=== PATIENT | female | born 1955 | race Caucasian/White ===

== ENCOUNTER 2017-10-04 09:00 | Emergency (ER) | payer OTHER ==
[2017-10-04 09:03] VITALS: TEMP 96.1
[2017-10-04] MEDS ORDERED: HYDROcodone/APAP 5-325MG 1 EACH TAB PO STA (09:35)
[2017-10-04] MEDS ORDERED: HYDROcodone/APAP 5-325MG 1 EACH TAB ONE (09:53)
--- NOTE | 2017-10-04 09:55 | ED ---
General Adult HPI - General Chief complaint: Fall Stated complaint: Fall Time Seen by Provider: 10/04/17 09:10 Source: patient, RN notes reviewed Mode of arrival: ambulatory Limitations: no limitations - History of Present Illness Initial comments: Patient 62-year-old female presenting to the emergency room today with a chief complaint of a fall that occurred yesterday. She states she was accidentally tripped by her grandson. She states that on the right side. She may have broken the great toe of the right foot. Does have pain to the right elbow was sutured movements. States worse the pain is to the right anterior lower ribs. She states worse with movements. States worse if she coughs or sneezes. Patient denies any head injury or loss conscious. She denies any other complaints. States took 2 Tylenol last night with little relief of symptoms. Patient denies any recent fever, chills, shortness of breath, chest pain, back pain, abdominal pain, nausea or vomiting, numbness or tingling, headaches or visual changes, or any other complaints. - Related Data Previous Rx's Medication Instructions Recorded Cyclobenzaprine [Flexeril] 10 mg PO TID #14 tab 04/06/16 Enalapril [Vasotec] 5 mg PO DAILY #30 tablet 04/06/16 Ibuprofen [Motrin] 800 mg PO Q6HR PRN #20 tab 04/06/16 Hydrocodone/Acetaminophen [[place] 1 each PO Q6HR PRN #12 tab 10/04/17 5-325] Ibuprofen [Motrin] 600 mg PO Q6HR PRN #40 day 10/04/17 Allergies Allergy/AdvReac Type Severity Reaction Status Date / Time aspirin Allergy Swelling Verified 10/04/17 09:03 venom-honey bee Allergy Swelling Verified 10/04/17 09:03 [bee venom (honey bee)] Review of Systems ROS Statement: Those systems with pertinent positive or pertinent negative responses have been documented in the HPI. ROS Other: All systems not noted in ROS Statement are negative. Past Medical History Past Medical History: Hypertension, Myocardial Infarction ([place]) History of Any Multi-Drug Resistant Organisms: None Reported Past Surgical History: Section, Orthopedic Surgery Past Psychological History: Depression Smoking Status: Current every day smoker Past Alcohol Use History: Occasional Past Drug Use History: None Reported General Exam Limitations: no limitations Course Vital Signs 10/04/17 09:00 Temperature 96.1 F L Pulse Rate 96 Respiratory 22 Rate Blood Pressure 134/97 O2 Sat by Pulse 98 Oximetry Medical Decision Making - Medical Decision Making Patient's x-ray reviewed and does show a fracture of the sixth rib. X-rays of the right elbow, right foot are negative. Results were discussed with patient. She'll be given a short prescription of [place] for pain and advised use ibuprofen as well. Advised to brace the area for any coughing or sneezing and to watch certain movements. Advised return if symptoms increase worsen. Disposition Clinical Impression: Fall, Rib fracture, Elbow contusion, Toe sprain Disposition: HOME SELF-CARE Condition: Good Instructions: Rib Fracture (ED) Additional Instructions: Please use medication as discussed. Please brace area for any coughing sneezing. No heavy lifting. Please follow-up with family doctor in the next 2- 5 days of symptoms have not improved. Please return to emergency room if the symptoms increase or worsen or for any other concerns. Prescriptions: Hydrocodone/Acetaminophen [[place] 5-325] 1 each PO Q6HR PRN #12 tab PRN Reason: Pain Ibuprofen [Motrin] 600 mg PO Q6HR PRN #40 day PRN Reason: Pain Is patient prescribed a controlled substance at d/c from ED?: Yes When asked, does pt state using other controlled substances?: No If prescribed controlled substance>3 days was MAPS reviewed?: Prescribed <3 Days If opioid is for acute pain is fill amount 7 days or less?: Yes Referrals: Scott Jesus MD [Primary Care Provider] - 1-2 days Time of Disposition: 10:23
--- NOTE | 2017-10-04 10:07 | XR ---
EXAMINATION TYPE: XR elbow limited RT DATE OF EXAM: 10/04/2017 CLINICAL HISTORY: Right elbow pain after fall. TECHNIQUE: Frontal, lateral and oblique images of the right elbow are obtained. COMPARISON: None FINDINGS: There is a chip fracture of the dorsal olecranon process tip with a small associated joint effusion, bursal distention and mild soft tissue swelling. No additional fractures are seen. Osseous mineralization is within normal limits. No radiopaque foreign bodies. IMPRESSION: Chip fracture of the dorsal and cephalad aspect of the olecranon process with small assoc iated joint effusion.
--- NOTE | 2017-10-04 10:08 | XR ---
EXAMINATION TYPE: XR foot complete RT DATE OF EXAM: 10/04/2017 CLINICAL HISTORY: Right foot pain after fall last night TECHNIQUE: Frontal, lateral, and oblique images of the right foot are obtained. COMPARISON: None FINDINGS: There is no acute fracture/dislocation evident in the right foot. There is a hallux valgus deformity and degenerative changes of the first metatarsophalangeal joint there are mild as well as distal interphalangeal joints all demonstrated as joint space narrowing and some opposing surface scl erosis. Osseous mineralization is within normal limits. The overlying soft tissue appears unremarkab le. IMPRESSION: There is no acute fracture or dislocation in the right foot.
--- NOTE | 2017-10-04 10:11 | XR ---
EXAMINATION TYPE: XR ribs RT w pa chest xray DATE OF EXAM: 10/04/2017 CLINICAL HISTORY: Pain under the right breast within the right chest after fall. TECHNIQUE: Single frontal view of the chest is obtained. Frontal and oblique views of the right ribs were also obtained. COMPARISON: None FINDINGS: There is no focal air space opacity, pleural effusion, or pneumothorax seen. The cardiac silhouette size is within normal limits. There is a nondisplaced fracture of the posterior lateral aspect of rib 6 on the right. Remaining vis ualized osseous structures appear intact without displaced fracture. There is pulmonary hyperinflatio n without flattening the diaphragms although there is biapical lucency suggesting underlying COPD. IMPRESSION: Nondisplaced posterior right lateral solitary rib 6 fracture. Otherwise no acute cardiopu lmonary pathology.
[2017-10-04 10:42] VITALS: BP 148/84; PULSE 87; RESP 20
== END 2017-10-04 10:42 | disposition home or self-care (01) ==
LOC: EC 09:00
DX: S22.31XA Fracture of one rib, right side, initial encounter for closed fracture (principal); S93.501A Unspecified sprain of right great toe, initial encounter; S50.01XA Contusion of right elbow, initial encounter; F17.200 Nicotine dependence, unspecified, uncomplicated; Z88.6 Allergy status to analgesic agent; Z91.030 Bee allergy status; W01.0XXA Fall on same level from slipping, tripping and stumbling without subsequent striking against object, initial encounter
CPT/HCPCS: 99283

== ENCOUNTER 2018-09-28 17:02 | Inpatient (IN) | payer OTHER ==
[2018-09-28] MEDS ORDERED: SODIUM CHLORIDE 0.9% 1,000 ML IV STA ×2 (18:24)
[2018-09-28] MEDS ORDERED: IPRATROPIUM-ALBUTEROL 3 ML NEB INHALATION STA (18:24)
--- NOTE | 2018-09-28 18:28 | ED ---
Weakness HPI - General Chief complaint: Weakness Stated complaint: Julio César MCNEILL Time Seen by Provider: 09/28/18 18:20 Source: patient, RN notes reviewed, old records reviewed Mode of arrival: wheelchair Limitations: no limitations - History of Present Illness Initial comments: This is a 63-year-old female the ER for evaluation patient resents today for ev aluation significant weakness cough congestion. No known sick contacts does feel fever she feels chills not feeling well. Patient does smoke. No chest pain. No recent hospitalizations MD Complaint: generalized weakness -: days(s) Location: generalized Severity: mild Severity scale (1-10): 2 Quality: tingling Consistency: constant Improves with: none Worsens with: none Context: history of similar Associated Symptoms: denies other symptoms - Related Data Home Medications Medication Instructions Recorded Confirmed No Known Home Medications 09/28/18 09/28/18 Allergies Allergy/AdvReac Type Severity Reaction Status Date / Time aspirin Allergy Swelling Verified 09/28/18 18:42 venom-honey bee Allergy Swelling Verified 09/28/18 18:42 [bee venom (honey bee)] Review of Systems ROS Statement: Those systems with pertinent positive or pertinent negative responses have been documented in the HPI. ROS Other: All systems not noted in ROS Statement are negative. Past Medical History Past Medical History: Hypertension, Myocardial Infarction ([place]) History of Any Multi-Drug Resistant Organisms: None Reported Past Surgical History: Section, Orthopedic Surgery Past Psychological History: Depression Smoking Status: Current every day smoker Past Alcohol Use History: Occasional Past Drug Use History: None Reported General Exam Limitations: no limitations General appearance: alert, in no apparent distress Head exam: Present: atraumatic, normocephalic, normal inspection Eye exam: Present: normal appearance, PERRL, EOMI. Absent: scleral icterus, conjunctival injection, periorbital swelling ENT exam: Present: normal exam, mucous membranes moist Neck exam: Present: normal inspection. Absent: tenderness, meningismus, lymphadenopathy Respiratory exam: Present: respiratory distress, wheezes, accessory muscle use, decreased breath sounds, prolonged expiratory. Absent: rales, rhonchi, stridor Cardiovascular Exam: Present: regular rate, normal rhythm, tachycardia, normal heart sounds. Absent: systolic murmur, diastolic murmur, rubs, gallop, clicks GI/Abdominal exam: Present: soft, normal bowel sounds. Absent: distended, tenderness, guarding, rebound, rigid Extremities exam: Present: normal inspection, full ROM, normal capillary refill. Absent: tenderness, pedal edema, joint swelling, calf tenderness Back exam: Present: normal inspection Neurological exam: Present: alert, oriented X3, CN II-XII intact Psychiatric exam: Present: normal affect, normal mood Skin exam: Present: warm, dry, intact, normal color. Absent: rash Course Vital Signs 09/28/18 09/28/18 09/28/18 18:01 18:32 19:05 Temperature 98.1 F Pulse Rate 108 H 87 Respiratory 16 16 16 Rate Blood Pressure 168/119 135/100 O2 Sat by Pulse 98 96 Oximetry - Reevaluation(s) Reevaluation #1: 09/28/18 19:46 medical record is reviewed Reevaluation #2: 09/28/18 19:46 patient has no improvement in SOB, continued weakness EKG Findings - EKG Comments: EKG Findings:: EKG shows sinus rhythm rate of 89, OR 152, QRS 72, QTc 433 Medical Decision Making - Medical Decision Making 63 female the ER for evaluation of weakness. Cough and congestion will admit for COPD exacerbation. - Lab Data Result diagrams: 09/28/18 19:00 09/28/18 19:00 Lab Results 09/28/18 09/28/18 09/28/18 Range/Units 19:00 19:00 19:00 WBC 7.1 (3.8-10.6) k/uL RBC 4.43 (3.80-5.40) m/uL Hgb 14.5 (11.4-16.0) gm/dL Hct 44.1 (34.0-46.0) % MCV 99.5 (80.0-100.0) fL MCH 32.8 (25.0-35.0) pg MCHC 32.9 (31.0-37.0) g/dL RDW 14.2 (11.5-15.5) % Plt Count 164 (150-450) k/uL Neutrophils % 81 % Lymphocytes % 12 % Monocytes % 4 % Eosinophils % 1 % Basophils % 1 % Neutrophils # 5.7 (1.3-7.7) k/uL Lymphocytes # 0.9 L (1.0-4.8) k/uL Monocytes # 0.3 (0-1.0) k/uL Eosinophils # 0.1 (0-0.7) k/uL Basophils # 0.0 (0-0.2) k/uL PT 9.5 (9.0-12.0) sec INR 0.9 (<1.2) APTT 25.2 (22.0-30.0) sec Sodium 136 L (137-145) mmol/L Potassium 4.5 (3.5-5.1) mmol/L Chloride 100 (98-107) mmol/L Carbon Dioxide 17 L (22-30) mmol/L Anion Gap 19 mmol/L BUN 5 L (7-17) mg/dL Creatinine 0.41 L (0.52-1.04) mg/dL Est GFR (CKD-EPI)AfAm >90 (>60 ml/min/1.73 sqM) Est GFR (CKD-EPI)NonAf >90 (>60 ml/min/1.73 sqM) Glucose 56 L (74-99) mg/dL Calcium 9.8 (8.4-10.2) mg/dL Magnesium 1.4 L (1.6-2.3) mg/dL Total Bilirubin 0.8 (0.2-1.3) mg/dL AST 174 H (14-36) U/L ALT 93 H (9-52) U/L Alkaline Phosphatase 114 (38-126) U/L Total Protein 7.8 (6.3-8.2) g/dL Albumin 4.8 (3.5-5.0) g/dL Disposition Clinical Impression: Acute exacerbation of COPD with asthma, Dehydration, Weakness, Hypomagnesemia Disposition: ADMITTED IP TO THIS HOSP Condition: Fair Is patient prescribed a controlled substance at d/c from ED?: No Referrals: Scott Jesus MD [Primary Care Provider] - 1-2 days
--- NOTE | 2018-09-28 18:57 | XR ---
EXAMINATION TYPE: XR chest 2V DATE OF EXAM: 09/28/2018 COMPARISON: 04/06/2016 HISTORY: Difficulty breathing TECHNIQUE: Frontal and lateral views of the chest are obtained. FINDINGS: Heart is normal. Lungs are clear of consolidation. There is some pulmonary hyperinflation. Bony thorax is intact. There is calcified granuloma at the right pulmonary hilum. IMPRESSION: There is probably COPD. No acute lung disease. Normal heart. No change.
[2018-09-28 19:14] LABS: Basophils % (A) 1 %; Eosinophils # (A) 0.1 k/uL (0-0.7); Eosinophils % (A) 1 %; HCT 44.1 % (34.0-46.0); HGB 14.5 gm/dL (11.4-16.0); Lymphocytes # (A) 0.9 k/uL (1.0-4.8); Lymphocytes % (A) 12 %; MCH 32.8 pg (25.0-35.0); MCHC 32.9 g/dL (31.0-37.0); MCV 99.5 fL (80.0-100.0); Mean Platelet Volume 7.6; Monocytes # (A) 0.3 k/uL (0-1.0); Monocytes % (A) 4 %; Neutrophils # (A) 5.7 k/uL (1.3-7.7); Neutrophils % (A) 81 %; Platelet Count 164 k/uL (150-450); RBC 4.43 m/uL (3.80-5.40); RDW 14.2 % (11.5-15.5); WBC 7.1 k/uL (3.8-10.6)
[2018-09-28 19:22] LABS: INR 0.9 (<1.2); Partial Thromboplastin Time 25.2 sec (22.0-30.0); Prothrombin Time 9.5 sec (9.0-12.0)
[2018-09-28 19:39] LABS: ALT 93 U/L (9-52); AST 174 U/L (14-36); Albumin 4.8 g/dL (3.5-5.0); Alkaline Phosphatase 114 U/L (38-126); Anion Gap 19 mmol/L; Blood Urea Nitrogen 5 mg/dL (7-17); Calcium 9.8 mg/dL (8.4-10.2); Carbon Dioxide 17 mmol/L (22-30); Chloride 100 mmol/L (98-107); Glucose 56 mg/dL (74-99); Magnesium 1.4 mg/dL (1.6-2.3); Potassium 4.5 mmol/L (3.5-5.1); Sodium 136 mmol/L (137-145); Total Bilirubin 0.8 mg/dL (0.2-1.3); Total Protein 7.8 g/dL (6.3-8.2)
[2018-09-28] MEDS: IPRATROPIUM-ALBUTEROL 3 ML NEB INHALATION SCH (20:06)
[2018-09-28 20:22] LABS: Appearance,Urine Clear (Clear); Bacteria,Urine Rare /hpf; Bilirubin,Urine Negative (Negative); Blood,Urine Negative (Negative); Color,Urine Colorless; Glucose,Urine (UA) Negative (Negative); Ketones,Urine 1+ (Negative); Leukocyte Esterase,Urine Moderate (Negative); Mucus,Urine Rare /hpf; Nitrite,Urine Negative (Negative); PH, Urine 5.5 (5.0-8.0); Protein,Urine Negative (Negative); RBC,Urine 3 /hpf (0-5); Specific Gravity,Urine 1.006 (1.001-1.035); Squamous Epithelial Cell,Urine <1 /hpf (0-4); Urobilinogen,Urine <2.0 mg/dL (<2.0)
[2018-09-28] MEDS ORDERED: LORazepam 2 MG/ML INJ IV PRN ×2 (20:41)
[2018-09-28] MEDS ORDERED: IPRATROPIUM-ALBUTEROL 3 ML NEB INHALATION PRN (20:47)
[2018-09-28] MEDS ORDERED: cloNIDine HCL 0.1 MG TAB PO PRN (20:52)
[2018-09-28] MEDS: THIAMINE 100 MG TAB PO SCH ×2 (21:11→21:41)
[2018-09-28] MEDS: LORazepam 2 MG/ML INJ IV PRN (21:51)
[2018-09-28] MEDS: TEMAZEPAM 15 MG CAP PO PRN (21:51)
[2018-09-28] MEDS: cloNIDine HCL 0.1 MG TAB PO SCH (21:51)
[2018-09-28] MEDS: HYDROcodone/APAP 5-325MG 1 EACH TAB PO PRN (21:51)
[2018-09-28] MEDS: methylPREDNISolone SOD SUCCI 125 MG/2 ML VIAL IV SCH (22:01)
[2018-09-28] MEDS: MAGNESIUM SULFATE-D5W PMX 1 GM in DEXTROSE/WATER 1 100ML.BAG IVPB SCH (23:28)
[2018-09-28] MEDS: SODIUM CHLORIDE 0.9% 1,000 ML IV SCH (23:30)
[2018-09-29] MEDS: methylPREDNISolone SOD SUCCI 125 MG/2 ML VIAL IV SCH ×5 (00:13→23:45)
[2018-09-29] MEDS: MAGNESIUM SULFATE-D5W PMX 1 GM in DEXTROSE/WATER 1 100ML.BAG IVPB SCH (00:59)
[2018-09-29] MEDS: AZITHROMYCIN 500 MG in SODIUM CHLORIDE 0.9% 250 ML IVPB SCH ×2 (02:41→10:18)
[2018-09-29] MEDS: LORazepam 2 MG/ML INJ IV PRN ×3 (05:33→23:48)
[2018-09-29] MEDS: SODIUM CHLORIDE 0.9% 1,000 ML IV SCH ×2 (05:34→09:55)
[2018-09-29 06:58] LABS: Glucose,Whole Blood 88 mg/dL (75-99)
[2018-09-29] MEDS: FORMOTEROL FUMARATE 20 MCG/2 ML NEBU INHALATION SCH ×2 (07:16→20:30)
[2018-09-29] MEDS: BUDESONIDE 1 MG/2 ML NEBU INHALATION SCH ×2 (07:16→20:30)
[2018-09-29] MEDS: IPRATROPIUM-ALBUTEROL 3 ML NEB INHALATION SCH ×4 (07:16→20:30)
--- NOTE | 2018-09-29 08:18 | HP ---
HISTORY AND PHYSICAL CHIEF COMPLAINTS: Shortness of breath and shaking. HISTORY OF PRESENT ILLNESS: This 63-year-old woman with a past medical history of multiple medical problems including history of hypertension, myocardial infarction, section, DJD, history of depression being followed by Dr. Jesus in the outpatient setting and significant history of smoking. Patient also has history of significant alcohol intake apparently. The patient had cough and congestion for the last several days. The family saw the patient very sick and extremely sick and EMS . The patient apparently drove herself to the ER and the patient was admitted for further evaluation and treatment. The patient had significant COPD acute exacerbation. In the ER, the blood pressure was also elevated at 168/119 and a chest x-ray was done which was personally reviewed by me and showed COPD, no pneumonia . Currently the patient is extremely short of breath, unable to complete a sentence and also tremulous and significant shakes also. There is no history of any fever. No history of headache, loss of consciousness, chest pain, palpitations. PAST MEDICAL HISTORY: History of hypertension, history of myocardial infarction, section, history of orthopedic surgery, depression, history of continued ongoing nicotine dependence and alcohol intake. MEDICATIONS: Home medications are none. ALLERGIES: ASPIRIN, HONEYBEE. FAMILY HISTORY: No history of heart disease or strokes in the family. SOCIAL HISTORY: History of smoking and alcohol as mentioned earlier. REVIEW OF SYSTEMS: ENT: Diminished hearing and diminished vision. CARDIOVASCULAR SYSTEM: As mentioned earlier. RESPIRATORY SYSTEM: As mentioned earlier. GI: No nausea. : No dysuria. NERVOUS SYSTEM: As mentioned earlier. ALLERGY/IMMUNOLOGY: No asthma or hayfever. MUSCULOSKELETAL: As mentioned earlier. HEMATOLOGY/ONCOLOGY: No history of anemia. ENDOCRINE: No history of diabetes or hypothyroidism. CONSTITUTIONAL: As mentioned earlier. DERMATOLOGY: Negative. RHEUMATOLOGY: Negative. PSYCHIATRY: As mentioned earlier. PHYSICAL EXAMINATION: The patient is alert and oriented x3. Pulse 78, blood pressure 163/100, respiration 18, temperature 97.8, pulse ox 94% on room air. HEENT: Conjunctivae normal. Oral mucosa moist. NECK: No jugular venous distention. No carotid bruit. No lymph node enlargement. CARDIOVASCULAR: S1, S2 muffled. No S3, no S4. Tachycardiac. RESPIRATORY: Breath sounds diminished at the bases. Accessory muscles of respiration acting. Breathing efforts are markedly increased. Bilateral scattered rhonchi and expiratory wheezing and few coarse crackles present. ABDOMEN: Soft, nontender. No mass palpable. LEGS: No edema, no swelling. NERVOUS SYSTEM: Higher functions as mentioned earlier. Diffuse wasting present. Mild diffuse weakness. JOINTS: No active deforming arthropathy. SKIN: No ulcer, rash or bleeding. LYMPHATICS: No lymphadenopathy of the neck, axillae or groin. LABS: CBC within normal limits, otherwise, sodium 136, potassium 4.5, creatinine 0.41, glucose 56, magnesium 1.4 and AST 174, ALT is 93. ASSESSMENT: 1. Chronic obstructive pulmonary disease acute exacerbation with acute purulent tracheobronchitis and acute respiratory difficulty with acute hypoxic respiratory failure. 2. Hyponatremia. 3. Hypoglycemia. 4. Hypomagnesemia. 5. Increased AST, ALT, possibly alcoholic hepatitis. 6. Acute delirium tremens. 7. Possible acute urinary tract infection. 8. History of continued ongoing nicotine dependence. 9. Depression. 10.History of hypertension. 11.History of myocardial infarction. 12.History of section. 13.History of degenerative joint disease. 14.Severe protein calorie malnutrition. 15.FULL CODE. RECOMMENDATIONS AND DISCUSSION: This 63-year-old woman presented with multiple complex medical issues. Will monitor the patient closely. Continue symptomatic treatment. Initiate intensive bronchodilator treatment, empiric antibiotics. I would also recommend DVT prophylaxis, IV steroids. Monitor blood sugars closely. Also recommend pulmonary consultation with Dr. Sandoval. Smoking cessation advised. Habitrol patch will be applied. CIWA protocol also will be used because of acute delirium tremens. Alcohol cessation advice was given. with the patient and family, understands. Further recommendations to follow. rail signal worker consult also will be requested to evaluate the home situation and EtOH as well. Prognosis guarded because of multiple complex medical issues. Further recommendations to follow. A copy of dictation forwarded to Dr. Jesus, who is the primary physician. MMODL / IJN: [id number] / [id number]
[2018-09-29 09:22] LABS: Basophils % (A) 0 %; Eosinophils # (A) 0.1 k/uL (0-0.7); Eosinophils % (A) 1 %; HCT 42.2 % (34.0-46.0); HGB 13.4 gm/dL (11.4-16.0); Lymphocytes # (A) 0.5 k/uL (1.0-4.8); Lymphocytes % (A) 7 %; MCH 32.4 pg (25.0-35.0); MCHC 31.7 g/dL (31.0-37.0); MCV 102.2 fL (80.0-100.0); Macrocytosis Slight; Mean Platelet Volume 7.9; Monocytes # (A) 0.1 k/uL (0-1.0); Monocytes % (A) 1 %; Neutrophils # (A) 6.2 k/uL (1.3-7.7); Neutrophils % (A) 91 %; Platelet Count 143 k/uL (150-450); RBC 4.13 m/uL (3.80-5.40); RDW 14.2 % (11.5-15.5); WBC 6.8 k/uL (3.8-10.6)
[2018-09-29 09:37] LABS: ALT 68 U/L (9-52); AST 92 U/L (14-36); Albumin 3.7 g/dL (3.5-5.0); Alkaline Phosphatase 85 U/L (38-126); Anion Gap 11 mmol/L; Blood Urea Nitrogen 5 mg/dL (7-17); Calcium 8.5 mg/dL (8.4-10.2); Carbon Dioxide 23 mmol/L (22-30); Chloride 96 mmol/L (98-107); Glucose 229 mg/dL (74-99); Potassium 3.9 mmol/L (3.5-5.1); Sodium 130 mmol/L (137-145); Total Bilirubin 0.8 mg/dL (0.2-1.3); Total Protein 6.2 g/dL (6.3-8.2)
[2018-09-29] MEDS: PANTOPRAZOLE 40 MG TABLET PO SCH (09:37)
[2018-09-29] MEDS: NICOTINE 21MG/24HR PATCH TRANSDERM SCH (09:38)
[2018-09-29] MEDS: MULTIVITAMINS, THERA 1 EACH TAB PO SCH (09:39)
[2018-09-29] MEDS: ENOXAPARIN 40 MG/0.4 ML SYRINGE SQ SCH (09:39)
[2018-09-29] MEDS: FOLIC ACID 1 MG TAB PO SCH (09:40)
[2018-09-29] MEDS: INSULIN ASPART (NovoLOG) 100 UNIT/ML VIAL SQ SCH ×4 (10:15→21:13)
[2018-09-29] MEDS: THIAMINE 100 MG TAB PO SCH ×2 (10:16→17:38)
[2018-09-29] MEDS ORDERED: RX INFO: IV CONTRAST WAS GIVEN 1 EACH MISC MISCELLANE PRN (11:16)
[2018-09-29 11:20] LABS: Glucose,Whole Blood 260 mg/dL (75-99)
[2018-09-29 11:30] VITALS: BMI 18.0
[2018-09-29] MEDS: cloNIDine HCL 0.1 MG TAB PO SCH ×3 (12:06→21:13)
--- NOTE | 2018-09-29 14:48 | CT ---
EXAMINATION TYPE: CT chest w con DATE OF EXAM: 09/29/2018 COMPARISON: None HISTORY: WEAKNESS/SOB CT DLP: 121.6 mGycm, Automated exposure control for dose reduction was used. CONTRAST: Performed injected with 100 mL of Isovue 300. TECHNIQUE: Axial images were obtained at 5 mm thick sections. Reconstructed images are reviewed on [employer] computer in the coronal plane. FINDINGS: Portion of the thyroid visualized is normal. There is a 1.1 x 0.6 cm slightly irregular density within the periphery of the right upper lobe. There is a subtle 0.3 cm density within the periphery of the right midlung. Series 4 image 39. There is a small nodule within the posterior left upper lobe at the periphery measuring 0.2 cm. Series 4 im age 13. There is a 0.2 cm nodule within the periphery of the right midlung. Series 4 image 43. No enlarged mediastinal or hilar adenopathy is evident. The ascending aorta diameter at the level o f the main pulmonary artery is 3.3 cm. The main pulmonary artery diameter at the bifurcation is 2.[address] sections are obtained through the upper abdomen. Abdomen is essentially unremarkable. IMPRESSIONS: 1. Few small nodules discussed above. 2. There is a larger density within the periphery of the right upper lung field. Additional workup wi th PET CT is recommended. Metastatic disease and neoplasm are not excluded. This could be related to scarring or an infiltrate.
--- NOTE | 2018-09-29 15:11 | PN ---
PROGRESS NOTE DATE OF SERVICE: 09/29/2018 This is a 63-year-old woman who was admitted with COPD exacerbation, acute apparent bronchitis and acute respiratory failure, is being closely monitored at this time. The patient has still shortness of breath. The patient also has some withdrawals, DTs also. Patient had coarse tremors. Dr. Sandoval saw the patient and recommended chest CT also. Patient on broad spectrum IV antibiotics. PAST MEDICAL HISTORY: Reviewed. REVIEW OF SYSTEMS: CARDIOVASCULAR: No angina. RESPIRATION: As mentioned earlier. GI: No nausea. : No dysuria. NERVOUS SYSTEM: As mentioned earlier. CURRENT MEDICATIONS: 1. Hudson 5 mg q.6 p.r.n. 2. DuoNeb q.i.d. and p.r.n. 3. Zithromax daily. 4. Pulmicort 1 mg b.i.d. 5. Rocephin 1 g daily. 6. Catapres 0.1 q.4 p.r.n. 7. Lovenox. 8. Folic acid. 9. Perforomist. 10.Ativan. 11.Solu-Medrol 60 IV q.6. 12.Multivitamin. 13.Habitrol 21. 14.Protonix. 15.Restoril. 16.Vitamin B1. PHYSICAL EXAM: Patient is alert and oriented x3. Pulse 90, blood pressure is 117/84, respiration 20, temperature 98 degrees, pulse ox 100% on room air. HEENT: Conjunctivae normal. Oral mucosa moist. NECK: No jugular venous distention. CARDIOVASCULAR SYSTEM: S1, S2, muffled. RESPIRATORY: Breath sounds diminished at the bases, bilateral scattered rhonchi, no crackles. ABDOMEN: Soft, nontender. LEGS: No edema. No swelling. NERVOUS SYSTEM: Higher functions as mentioned earlier. Moves all 4 limbs. No focal motor deficits. SKIN: No ulcer, rash, bleeding. JOINTS: No active deformity. LABS: WBC 6.8, hemoglobin is 13.4, sodium 130, potassium 3.9, glucose 260. ASSESSMENT: 1. Chronic obstructive pulmonary disease acute exacerbation with acute ventricular bronchitis, acute hypoxic respiratory failure, present on admission. 2. Hyponatremia. 3. Hypoglycemia. 4. Acute delirium tremens. 5. Hypomagnesemia. 6. AST, ALT, possibly alcoholic hepatitis. 7. Acute urinary tract infection, present on admission. 8. Continued ongoing nicotine dependence. 9. Depression. 10.History of hypertension. 11.History of myocardial infarction. 12.History of caesarian section. 13.History of degenerative joint disease. 14.Severe protein calorie malnutrition. 15.FULL CODE. RECOMMENDATION: Recommend to continue current monitoring and symptomatic treatment at this time. Continue with steroids, continue with the bronchodilators. CT scan of the chest. Continue with CIWA protocol, Ativan protocol. Discussed with the patient, discussed with staff. Guarded prognosis. Further recommendations to follow. MMODL / IJN: [id number] /
[2018-09-29] MEDS: HYDROcodone/APAP 5-325MG 1 EACH TAB PO PRN (16:14)
--- NOTE | 2018-09-29 16:23 | P.CNPUL ---
History of Present Illness Consult date: 09/29/18 Requesting physician: Makeda Ayers Reason for consult: dyspnea, cough Chief complaint: Acute exacerbation of chronic obstructive pulmonary disease History of present illness: This is a 63-year-old white female patient of Dr. Jesus, who is a current smoker, past medical history of hypertension, previous myocardial infarction, depression, the hospital on 09/28/2018 with complaints of cough, chest congestion, significant weakness. She did have some subjective chills, and not feeling well. The plates of chest pain, no nausea, vomiting or diarrhea, no known sick contacts, or recent hospitalizations. Chest x-ray was completed and showed probable COPD, no acute pulmonary process. Labs were reviewed, showed a white blood cell count of 7.1, hemoglobin of 14.5, INR 0.9, sodium was 136, potassium is 4.5, CO2 17, BUN is 5 creatinine 0.41. Troponin was negative 1, proBNP is 104, urinalysis showed 1+ ketones, urine WBCs 49. 9 any urinary complaints. Patient has been afebrile, she is on room air, with pulse ox of 100%. He was started on antibiotics in the form of Zithromax, IV steroids, nebulized bronchodilators. Patient was never seen by a lung doctor before, and she is not on any inhalers of breathing treatments at home. No home oxygen. Chest CT was completed and showed 1.1 x 0.6 cm slightly irregular density within the periphery of the right upper lobe, and a small nodule within the posterior left upper lobe, and another small nodule within periphery of the right midlung. No enlarged mediastinal or hilar adenopathy. During our evaluation patient is sitting up in bed, in no acute distress, she is on room air, her lung sounds are positive for a few rales, but no significant wheezes. Review of Systems All systems: negative Constitutional: Reports malaise, Reports weakness, Denies chills, Denies fever Eyes: denies blurred vision, denies pain Ears, nose, mouth and throat: Denies headache, Denies sore throat Cardiovascular: Denies chest pain, Denies shortness of breath Respiratory: Reports cough Gastrointestinal: Denies abdominal pain, Denies diarrhea, Denies nausea, Denies vomiting Genitourinary: Denies dysuria, Denies hematuria Musculoskeletal: Denies myalgias Integumentary: Denies pruritus, Denies rash Neurological: Denies numbness, Denies weakness Psychiatric: Denies anxiety, Denies depression Endocrine: Denies fatigue, Denies weight change Past Medical History Past Medical History: Coronary Artery Disease (CAD), COPD, Hypertension, Myocardial Infarction (RI) Last Myocardial Infarction Date:: unknown History of Any Multi-Drug Resistant Organisms: None Reported Past Surgical History: Section, Orthopedic Surgery (arthroscopic knee surgery bilateral and ORIF of the LLE) Past Anesthesia/Blood Transfusion Reactions: No Reported Reaction Past Psychological History: Depression Smoking Status: Current every day smoker Past Alcohol Use History: Daily Additional Past Alcohol Use History / Comment(s): pt. states she has been smoking since age 27, per pts. sister pt. is a daily drinker, pt. states she drinks 5 beers every other day, no IVDA and she is living locally in Past Drug Use History: None Reported - Past Family History Brother(s) Additional Family Medical History / Comment(s): pts. brother recently from [place] Gehrigs disease Medications and Allergies Home Medications Medication Instructions Recorded Confirmed Type No Known Home Medications 09/28/18 09/28/18 History Allergies Allergy/AdvReac Type Severity Reaction Status Date / Time aspirin Allergy Swelling Verified 09/28/18 18:42 venom-honey bee Allergy Swelling Verified 09/28/18 18:42 [bee venom (honey bee)] Physical Exam Vitals: Vital Signs Temp Pulse Pulse Pulse Resp BP BP 09/29/18 11:48 98 F 90 20 117/84 09/29/18 11:40 78 09/29/18 11:29 78 09/29/18 08:37 83 09/29/18 07:40 70 09/29/18 07:30 68 09/29/18 07:19 68 09/29/18 05:01 97.9 F 78 18 112/76 09/29/18 00:00 82 18 09/28/18 21:36 97.5 F L 82 18 157/86 09/28/18 20:18 73 09/28/18 20:09 74 09/28/18 20:00 97.8 F 78 18 163/100 09/28/18 19:05 87 16 135/100 09/28/18 18:32 16 09/28/18 18:01 98.1 F 108 H 16 168/119 Pulse Ox 09/29/18 11:48 100 09/29/18 11:40 09/29/18 11:29 09/29/18 08:37 09/29/18 07:40 09/29/18 07:30 09/29/18 07:19 97 09/29/18 05:01 98 09/29/18 00:00 09/28/18 21:36 99 09/28/18 20:18 09/28/18 20:09 09/28/18 20:00 94 L 09/28/18 19:05 96 09/28/18 18:32 09/28/18 18:01 98 Intake and Output 09/29/18 09/29/18 09/29/18 06:59 14:59 22:59 Other: Voiding Method Toilet # Voids 2 2 # Bowel Movements 1 Weight 43.318 kg GENERAL EXAM: Alert, pleasant, 63-year-old thin white female comfortable in no apparent distress. HEAD: Normocephalic/atraumatic. EYES: Normal reaction of pupils, equal size. Conjunctiva pink, sclera white. NOSE: Clear with pink turbinates. THROAT: No erythema or exudates. NECK: No masses, no JVD, no thyroid enlargement, no adenopathy. CHEST: No chest wall deformity. Symmetrical expansion. LUNGS: Equal air entry with a few scattered rhonchi, no wheeze. CVS: Regular rate and rhythm, normal S1 and S2, no gallops, no murmurs, no rubs ABDOMEN: Soft, nontender. No hepatosplenomegaly, normal bowel sounds, no guarding or rigidity. EXTREMITIES: No clubbing, no edema, no cyanosis, 2+ pulses and upper and lower extremities. MUSCULOSKELETAL: Muscle strength and tone normal. SPINE: No scoliosis or deformity SKIN: No rashes CENTRAL NERVOUS SYSTEM: Alert and oriented -3. No focal deficits, tone is normal in all 4 extremities. PSYCHIATRIC: Alert and oriented -3. Appropriate affect. Intact judgment and insight. Results - Laboratory Findings CBC and BMP: 09/29/18 09:02 09/29/18 09:02 PT/INR, D-dimer PT 9.5 sec (9.0-12.0) 09/28/18 19:00 INR 0.9 (<1.2) 09/28/18 19:00 Abnormal lab findings: Abnormal Labs 09/28/18 09/28/18 09/28/18 19:00 19:00 20:00 MCV Plt Count Lymphocytes # 0.9 L Sodium 136 L Chloride Carbon Dioxide 17 L BUN 5 L Creatinine 0.41 L Glucose 56 L POC Glucose (mg/dL) Magnesium 1.4 L AST 174 H ALT 93 H Total Protein Urine Ketones 1+ H Ur Leukocyte Esterase Moderate H Urine WBC 49 H Urine Bacteria Rare H Urine Mucus Rare H 09/29/18 09/29/18 09/29/18 09:02 09:02 11:18 MCV 102.2 H Plt Count 143 L Lymphocytes # 0.5 L Sodium 130 L Chloride 96 L Carbon Dioxide BUN 5 L Creatinine 0.43 L Glucose 229 H POC Glucose (mg/dL) 260 H Magnesium AST 92 H ALT 68 H Total Protein 6.2 L Urine Ketones Ur Leukocyte Esterase Urine WBC Urine Bacteria Urine Mucus - Diagnostic Findings Chest x-ray: report reviewed CT scan - chest: report reviewed Assessment and Plan Plan: #1. Cough, congestion, likely related to acute exacerbation of COPD #2. Weakness, generalized malaise, subjective chills, constitutional symptoms, urinalysis is suggestive of underlying urinary tract infection #3. Chronic and ongoing history of nicotine dependence #4. Hypertension #5. Hx of myocardial infarction #6. 1.1 x 0.6 slightly irregular density within the periphery of the right upper lobe noted on the CT chest and a few smaller nodules in the periphery of the right midlung, posterior left upper lobe and the periphery, and within the periphery of the right midlung, will need outpatient follow-up Plan: Continue current medical treatment, continue current antibiotics, IV steroids, breathing treatments, patient is already reporting improvement, there has been no fever or chills, suspect underlying urinary tract infection, obtain urine culture. CT chest and chest x-ray has been reviewed with Dr. Sandoval, and patient was seen and evaluated by Dr. Sandoval, patient was counseled on the smoking cessation, and she will need outpatient follow-up on dyspepsia further improvement and possible discharge home in the next 24 hours I performed a history & physical examination of the patient and discussed their management with my nurse practitioner, Nicole Dowling. I reviewed the nurse practitioner's note and agree with the documented findings and plan of care. Lung sounds are positive for a few rales, no significant wheezes The findings and the impression was discussed with the patient. I attest to the documentation by the nurse practitioner. Time with Patient: Greater than 30
[2018-09-29 17:06] LABS: Glucose,Whole Blood 220 mg/dL (75-99)
[2018-09-29 20:13] LABS: Glucose,Whole Blood 175 mg/dL (75-99)
[2018-09-29] MEDS: TEMAZEPAM 15 MG CAP PO PRN (21:13)
[2018-09-30] MEDS: methylPREDNISolone SOD SUCCI 125 MG/2 ML VIAL IV SCH ×2 (05:41→13:02)
[2018-09-30] MEDS: SODIUM CHLORIDE 0.9% 1,000 ML IV SCH ×3 (05:42→23:16)
[2018-09-30 06:55] LABS: Glucose,Whole Blood 144 mg/dL (75-99)
[2018-09-30 07:52] LABS: Basophils % (A) 0 %; Eosinophils % (A) 1 %; HGB 13.6 gm/dL (11.4-16.0); Lymphocytes # (A) 0.5 k/uL (1.0-4.8); Lymphocytes % (A) 12 %; MCH 33.3 pg (25.0-35.0); MCV 97.9 fL (80.0-100.0); Monocytes # (A) 0.2 k/uL (0-1.0); Monocytes % (A) 4 %; Neutrophils # (A) 3.3 k/uL (1.3-7.7); Neutrophils % (A) 83 %; Platelet Count 132 k/uL (150-450); RBC 4.08 m/uL (3.80-5.40); RDW 13.1 % (11.5-15.5); WBC 3.9 k/uL (3.8-10.6)
[2018-09-30 08:13] LABS: ALT 49 U/L (9-52); AST 47 U/L (14-36); Albumin 3.5 g/dL (3.5-5.0); Alkaline Phosphatase 70 U/L (38-126); Anion Gap 8 mmol/L; Blood Urea Nitrogen 3 mg/dL (7-17); Calcium 8.7 mg/dL (8.4-10.2); Carbon Dioxide 29 mmol/L (22-30); Chloride 93 mmol/L (98-107); Glucose 140 mg/dL (74-99); Potassium 3.4 mmol/L (3.5-5.1); Sodium 130 mmol/L (137-145); Total Bilirubin 0.6 mg/dL (0.2-1.3)
[2018-09-30] MEDS: ENOXAPARIN 40 MG/0.4 ML SYRINGE SQ SCH (08:29)
[2018-09-30] MEDS: NICOTINE 21MG/24HR PATCH TRANSDERM SCH (08:29)
[2018-09-30] MEDS: cloNIDine HCL 0.1 MG TAB PO SCH ×3 (08:30→20:48)
[2018-09-30] MEDS: PANTOPRAZOLE 40 MG TABLET PO SCH (08:30)
[2018-09-30] MEDS: FOLIC ACID 1 MG TAB PO SCH (08:30)
[2018-09-30] MEDS: THIAMINE 100 MG TAB PO SCH ×2 (08:30→17:16)
[2018-09-30] MEDS: MULTIVITAMINS, THERA 1 EACH TAB PO SCH (08:30)
[2018-09-30] MEDS: AZITHROMYCIN 500 MG TAB PO SCH (08:30)
[2018-09-30] MEDS: INSULIN ASPART (NovoLOG) 100 UNIT/ML VIAL SQ SCH ×4 (08:30→20:46)
[2018-09-30] MEDS: IPRATROPIUM-ALBUTEROL 3 ML NEB INHALATION SCH ×4 (08:43→19:39)
[2018-09-30] MEDS: FORMOTEROL FUMARATE 20 MCG/2 ML NEBU INHALATION SCH ×2 (08:43→19:39)
[2018-09-30] MEDS: BUDESONIDE 1 MG/2 ML NEBU INHALATION SCH ×2 (08:43→19:39)
[2018-09-30 11:30] LABS: Glucose,Whole Blood 203 mg/dL (75-99)
[2018-09-30] MEDS: HYDROcodone/APAP 5-325MG 1 EACH TAB PO PRN (13:06)
--- NOTE | 2018-09-30 13:37 | P.PN ---
Subjective Progress Note Date: 09/30/18 Principal diagnosis: Acute exacerbation of chronic obstructive pulmonary disease This is a 63-year-old white female patient of Dr. Jesus, who is a current smoker, past medical history of hypertension, previous myocardial infarction, depression, the hospital on 09/28/2018 with complaints of cough, chest congestion, significant weakness. She did have some subjective chills, and not feeling well. The plates of chest pain, no nausea, vomiting or diarrhea, no known sick contacts, or recent hospitalizations. Chest x-ray was completed and showed probable COPD, no acute pulmonary process. Labs were reviewed, showed a white blood cell count of 7.1, hemoglobin of 14.5, INR 0.9, sodium was 136, potassium is 4.5, CO2 17, BUN is 5 creatinine 0.41. Troponin was negative 1, proBNP is 104, urinalysis showed 1+ ketones, urine WBCs 49. 9 any urinary complaints. Patient has been afebrile, she is on room air, with pulse ox of 100%. He was started on antibiotics in the form of Zithromax, IV steroids, nebulized bronchodilators. Patient was never seen by a lung doctor before, and she is not on any inhalers of breathing treatments at home. No home oxygen. Chest CT was completed and showed 1.1 x 0.6 cm slightly irregular density within the periphery of the right upper lobe, and a small nodule within the posterior left upper lobe, and another small nodule within periphery of the right midlung. No enlarged mediastinal or hilar adenopathy. During our evaluation patient is sitting up in bed, in no acute distress, she is on room air, her lung sounds are positive for a few rales, but no significant wheezes. On 09/30/2018 patient seen in follow-up on medical surgical floor, she is awake and alert, in no acute distress, she is resting in bed, room air pulse ox of 90%, afebrile. Lung sounds reveal some coarse breath sounds, but no significant wheezing, good air entry noted bilaterally, no cough or congestion, vital signs are stable, urine culture is positive for gram-negative bacilli, blood culture showed no growth. She is on commission Zithromax and Rocephin, clinically she stable, will decrease the IV Solu-Medrol. From pulmonary perspective patient is stable, and could be considered for discharge home Objective - Vital Signs Vital signs: Vital Signs Temp 97.7 F 09/30/18 12:51 Pulse 94 09/30/18 12:51 Resp 16 09/30/18 12:51 BP 111/76 09/30/18 12:51 Pulse Ox 98 09/30/18 12:51 Intake & Output 09/29/18 09/30/18 09/30/18 18:59 06:59 18:59 Intake Total 1200 Balance 1200 Weight 43.318 kg Intake: Intake, IV Titration 1200 Amount Sodium Chloride 0.9% 1, 1200 000 ml @ 100 mls/hr IV . Q10H [facility] [place] Rx#:[id number] Other: Voiding Method Toilet Toilet Toilet # Voids 2 1 - Exam GENERAL EXAM: Alert, pleasant, 63-year-old thin white female comfortable in no apparent distress. HEAD: Normocephalic/atraumatic. EYES: Normal reaction of pupils, equal size. Conjunctiva pink, sclera white. NOSE: Clear with pink turbinates. THROAT: No erythema or exudates. NECK: No masses, no JVD, no thyroid enlargement, no adenopathy. CHEST: No chest wall deformity. Symmetrical expansion. LUNGS: Equal air entry with a few scattered rhonchi, no wheeze. CVS: Regular rate and rhythm, normal S1 and S2, no gallops, no murmurs, no rubs ABDOMEN: Soft, nontender. No hepatosplenomegaly, normal bowel sounds, no guarding or rigidity. EXTREMITIES: No clubbing, no edema, no cyanosis, 2+ pulses and upper and lower extremities. MUSCULOSKELETAL: Muscle strength and tone normal. SPINE: No scoliosis or deformity SKIN: No rashes CENTRAL NERVOUS SYSTEM: Alert and oriented -3. No focal deficits, tone is normal in all 4 extremities. PSYCHIATRIC: Alert and oriented -3. Appropriate affect. Intact judgment and insight. - Labs CBC & Chem 7: 09/30/18 06:41 09/30/18 06:41 Labs: Abnormal Lab Results - Last 24 Hours (Table) 09/29/18 09/29/18 09/30/18 Range/Units 17:03 20:11 06:41 Plt Count 132 L (150-450) k/uL Lymphocytes # 0.5 L (1.0-4.8) k/uL Sodium (137-145) mmol/L Potassium (3.5-5.1) mmol/L Chloride (98-107) mmol/L BUN (7-17) mg/dL Creatinine (0.52-1.04) mg/dL Glucose (74-99) mg/dL POC Glucose (mg/dL) 220 H 175 H (75-99) mg/dL AST (14-36) U/L Total Protein (6.3-8.2) g/dL 09/30/18 09/30/18 09/30/18 Range/Units 06:41 06:54 11:29 Plt Count (150-450) k/uL Lymphocytes # (1.0-4.8) k/uL Sodium 130 L (137-145) mmol/L Potassium 3.4 L (3.5-5.1) mmol/L Chloride 93 L (98-107) mmol/L BUN 3 L (7-17) mg/dL Creatinine 0.38 L (0.52-1.04) mg/dL Glucose 140 H (74-99) mg/dL POC Glucose (mg/dL) 144 H 203 H (75-99) mg/dL AST 47 H (14-36) U/L Total Protein 6.0 L (6.3-8.2) g/dL Microbiology - Last 24 Hours (Table) 09/28/18 20:00 Urine Culture - Preliminary Urine,Voided Gram Neg Bacilli 09/28/18 19:00 Blood Culture - Preliminary Blood No Growth after 24 hours Assessment and Plan Plan: #1. Cough, congestion, likely related to acute exacerbation of COPD #2. Weakness, generalized malaise, subjective chills, constitutional symptoms, urinalysis is suggestive of underlying urinary tract infection, with urine cultures positive for gram-negative bacilli #3. Chronic and ongoing history of nicotine dependence #4. Hypertension #5. Hx of myocardial infarction #6. 1.1 x 0.6 slightly irregular density within the periphery of the right upper lobe noted on the CT chest and a few smaller nodules in the periphery of the right midlung, posterior left upper lobe and the periphery, and within the periphery of the right midlung, will need outpatient follow-up Plan: Continue the antibiotics, final urine culture results is pending, medical patient is stable, no fever or chills, no difficulty breathing, no cough or congestion, we'll decrease the IV Solu-Medrol to 40 mg every 12 hours, doing well, and could be considered for discharge home. Follow-up in the outpatient basis, with Dr. Sandoval in the 7-10 days. I performed a history & physical examination of the patient and discussed their management with my nurse practitioner, Nicole Dowling. I reviewed the nurse practitioner's note and agree with the documented findings and plan of care. Lung sounds are positive for a few rales, no significant wheezes The findings and the impression was discussed with the patient. I attest to the documentation by the nurse practitioner. Time with Patient: Less than 30
[2018-09-30 17:02] LABS: Glucose,Whole Blood 81 mg/dL (75-99)
--- NOTE | 2018-09-30 17:11 | P.PN ---
Subjective 63-year-old female comes in with cough shortness of breath and weakness she apparently was having chills. Patient was diagnosed with COPD exacerbation and was started on Zithromax IV steroids and risers. She was also withdrawing from alcohol and she was ciwa protocol On 09/30/2018 Patient says that her shortness of breath and cough are better She still having tremors and was shaky No chest pain or racing heart Objective - Vital Signs Vital signs: Vital Signs Temp 97.7 F 09/30/18 12:51 Pulse 94 09/30/18 12:51 Resp 16 09/30/18 12:51 BP 111/76 09/30/18 12:51 Pulse Ox 98 09/30/18 12:51 Intake & Output 09/29/18 09/30/18 09/30/18 18:59 06:59 18:59 Intake Total 1200 800 Balance 1200 800 Weight 43.318 kg Intake: Intake, IV Titration 1200 800 Amount Sodium Chloride 0.9% 1, 1200 750 000 ml @ 100 mls/hr IV . Q10H [facility] Rx#:[id number] cefTRIAXone 1 gm In 50 Sodium Chloride 0.9% 50 ml @ 100 mls/hr IVPB Q24HR [facility] Rx#:[id number] Other: Voiding Method Toilet Toilet Toilet # Voids 2 1 - Exam On exam, alert and oriented x3. HEENT: Conjunctivae normal. eyes normal. NECK: No JVD. No thyroid enlargement. No LNs CARDIOVASCULAR: S1, S2 muffled. No murmur RESPIRATION: very mild wheezing ABDOMEN: Soft, nontender . No guarding. no masses palpable. No ascites, No hepatosplenomegaly.Bowel sounds heard. LEGS: No edema. no swelling NERVOUS SYSTEM: Cranial N 2-12 grossly normal. Moves all 4 limbs. No focal deficits. No sensory deficit. No signs of cerebellar dysfucntion. Skin: no ulcer no rash - Labs CBC & Chem 7: 09/30/18 06:41 09/30/18 06:41 Labs: Abnormal Lab Results - Last 24 Hours (Table) 09/29/18 09/29/18 09/30/18 Range/Units 17:03 20:11 06:41 Plt Count 132 L (150-450) k/uL Lymphocytes # 0.5 L (1.0-4.8) k/uL Sodium (137-145) mmol/L Potassium (3.5-5.1) mmol/L Chloride (98-107) mmol/L BUN (7-17) mg/dL Creatinine (0.52-1.04) mg/dL Glucose (74-99) mg/dL POC Glucose (mg/dL) 220 H 175 H (75-99) mg/dL AST (14-36) U/L Total Protein (6.3-8.2) g/dL 09/30/18 09/30/18 09/30/18 Range/Units 06:41 06:54 11:29 Plt Count (150-450) k/uL Lymphocytes # (1.0-4.8) k/uL Sodium 130 L (137-145) mmol/L Potassium 3.4 L (3.5-5.1) mmol/L Chloride 93 L (98-107) mmol/L BUN 3 L (7-17) mg/dL Creatinine 0.38 L (0.52-1.04) mg/dL Glucose 140 H (74-99) mg/dL POC Glucose (mg/dL) 144 H 203 H (75-99) mg/dL AST 47 H (14-36) U/L Total Protein 6.0 L (6.3-8.2) g/dL Microbiology - Last 24 Hours (Table) 09/28/18 20:00 Urine Culture - Preliminary Urine,Voided Gram Neg Bacilli 09/28/18 19:00 Blood Culture - Preliminary Blood No Growth after 24 hours Assessment and Plan Assessment: - acute COPD exacerbation - UTI with urine cultures growing gram-negative bacilli - Alcohol withdrawals - Hypertension - History of CAD - Nicotine dependence - Irregular density within the periphery of the right upper lobe need outpatient follow-up Plan - Continue antibiotics - Urine cultures pending final identification - Patient is still having tremors. We'll continue the Ciwa protocol - Continue rest of the medical care - Patient will probably be discharged once her alcohol withdrawal symptoms are better - we'll continue to monitor Time with Patient: Greater than 30
[2018-09-30 19:48] LABS: Glucose,Whole Blood 240 mg/dL (75-99)
[2018-09-30] MEDS: methylPREDNISolone SOD SUCCI 40 MG/ML 1 ML VIAL IV SCH (20:47)
[2018-09-30] MEDS: LORazepam 2 MG/ML INJ IV PRN (20:48)
[2018-09-30] MEDS: TEMAZEPAM 15 MG CAP PO PRN (20:48)
[2018-10-01] MEDS: SODIUM CHLORIDE 0.9% 1,000 ML IV SCH ×2 (05:48→17:23)
[2018-10-01 06:48] LABS: Glucose,Whole Blood 120 mg/dL (75-99)
[2018-10-01 07:24] LABS: Basophils % (A) 0 %; Eosinophils % (A) 1 %; HCT 35.7 % (34.0-46.0); HGB 12.4 gm/dL (11.4-16.0); Lymphocytes # (A) 0.9 k/uL (1.0-4.8); Lymphocytes % (A) 12 %; MCH 33.9 pg (25.0-35.0); MCHC 34.7 g/dL (31.0-37.0); MCV 97.8 fL (80.0-100.0); Mean Platelet Volume 8.8; Monocytes # (A) 0.4 k/uL (0-1.0); Monocytes % (A) 5 %; Neutrophils # (A) 6.3 k/uL (1.3-7.7); Neutrophils % (A) 81 %; Platelet Count 106 k/uL (150-450); RBC 3.65 m/uL (3.80-5.40); RDW 13.3 % (11.5-15.5); WBC 7.7 k/uL (3.8-10.6)
[2018-10-01 07:33] LABS: ALT 40 U/L (9-52); AST 31 U/L (14-36); Albumin 3.2 g/dL (3.5-5.0); Alkaline Phosphatase 62 U/L (38-126); Anion Gap 5 mmol/L; Blood Urea Nitrogen 5 mg/dL (7-17); Calcium 8.7 mg/dL (8.4-10.2); Carbon Dioxide 30 mmol/L (22-30); Chloride 100 mmol/L (98-107); Glucose 116 mg/dL (74-99); Sodium 135 mmol/L (137-145); Total Bilirubin 0.5 mg/dL (0.2-1.3); Total Protein 5.5 g/dL (6.3-8.2)
[2018-10-01] MEDS: INSULIN ASPART (NovoLOG) 100 UNIT/ML VIAL SQ SCH ×4 (07:37→20:27)
[2018-10-01] MEDS: BUDESONIDE 1 MG/2 ML NEBU INHALATION SCH ×2 (08:29→19:35)
[2018-10-01] MEDS: FORMOTEROL FUMARATE 20 MCG/2 ML NEBU INHALATION SCH ×2 (08:29→19:35)
[2018-10-01] MEDS: IPRATROPIUM-ALBUTEROL 3 ML NEB INHALATION SCH ×4 (08:29→19:35)
[2018-10-01] MEDS: ENOXAPARIN 40 MG/0.4 ML SYRINGE SQ SCH (08:31)
[2018-10-01] MEDS: NICOTINE 21MG/24HR PATCH TRANSDERM SCH (08:31)
[2018-10-01] MEDS: HYDROcodone/APAP 5-325MG 1 EACH TAB PO PRN (08:31)
[2018-10-01] MEDS: MULTIVITAMINS, THERA 1 EACH TAB PO SCH (08:32)
[2018-10-01] MEDS: methylPREDNISolone SOD SUCCI 40 MG/ML 1 ML VIAL IV SCH ×2 (08:32→20:41)
[2018-10-01] MEDS: AZITHROMYCIN 500 MG TAB PO SCH (08:32)
[2018-10-01] MEDS: PANTOPRAZOLE 40 MG TABLET PO SCH (08:32)
[2018-10-01] MEDS: THIAMINE 100 MG TAB PO SCH ×2 (08:32→17:23)
[2018-10-01] MEDS: FOLIC ACID 1 MG TAB PO SCH (08:33)
[2018-10-01] MEDS: cloNIDine HCL 0.1 MG TAB PO SCH ×3 (08:33→21:40)
[2018-10-01 11:03] LABS: Glucose,Whole Blood 199 mg/dL (75-99)
--- NOTE | 2018-10-01 12:34 | P.PN ---
Subjective 63-year-old female comes in with cough shortness of breath and weakness she apparently was having chills. Patient was diagnosed with COPD exacerbation and was started on Zithromax IV steroids and risers. She was also withdrawing from alcohol and she was ciwa protocol On 09/30/2018 Patient says that her shortness of breath and cough are better She still having tremors and was shaky No chest pain or racing heart On 10/01/2018 Cough and shortness with better Heart tremors and shakiness is better No chest pain racing heart Potassium was low this morning Objective - Vital Signs Vital signs: Vital Signs Temp 97.5 F L 10/01/18 05:00 Pulse 67 10/01/18 08:50 Resp 18 10/01/18 05:00 BP 134/88 10/01/18 05:00 Pulse Ox 100 10/01/18 05:00 Intake & Output 09/30/18 10/01/18 10/01/18 18:59 06:59 18:59 Intake Total 800 800 Balance 800 800 Intake: Intake, IV Titration 800 800 Amount Sodium Chloride 0.9% 1, 750 800 000 ml @ 100 mls/hr IV . Q10H [facility] Rx#:[id number] cefTRIAXone 1 gm In 50 Sodium Chloride 0.9% 50 ml @ 100 mls/hr IVPB Q24HR [facility] Rx#:[id number] Other: Voiding Method Toilet Toilet Toilet # Voids 2 - Exam On exam, alert and oriented x3. HEENT: Conjunctivae normal. eyes normal. NECK: No JVD. No thyroid enlargement. No LNs CARDIOVASCULAR: S1, S2 muffled. No murmur RESPIRATION: very mild wheezing ABDOMEN: Soft, nontender . No guarding. no masses palpable. No ascites, No hepatosplenomegaly.Bowel sounds heard. LEGS: No edema. no swelling NERVOUS SYSTEM: Cranial N 2-12 grossly normal. Moves all 4 limbs. No focal deficits. No sensory deficit. No signs of cerebellar dysfucntion. Skin: no ulcer no rash - Labs CBC & Chem 7: 10/01/18 06:41 10/01/18 06:41 Labs: Abnormal Lab Results - Last 24 Hours (Table) 09/30/18 10/01/18 10/01/18 Range/Units 19:46 06:41 06:41 RBC 3.65 L (3.80-5.40) m/uL Plt Count 106 L (150-450) k/uL Lymphocytes # 0.9 L (1.0-4.8) k/uL Sodium 135 L (137-145) mmol/L Potassium 3.0 L (3.5-5.1) mmol/L BUN 5 L (7-17) mg/dL Creatinine 0.43 L (0.52-1.04) mg/dL Glucose 116 H (74-99) mg/dL POC Glucose (mg/dL) 240 H (75-99) mg/dL Total Protein 5.5 L (6.3-8.2) g/dL Albumin 3.2 L (3.5-5.0) g/dL 10/01/18 10/01/18 Range/Units 06:47 11:02 RBC (3.80-5.40) m/uL Plt Count (150-450) k/uL Lymphocytes # (1.0-4.8) k/uL Sodium (137-145) mmol/L Potassium (3.5-5.1) mmol/L BUN (7-17) mg/dL Creatinine (0.52-1.04) mg/dL Glucose (74-99) mg/dL POC Glucose (mg/dL) 120 H 199 H (75-99) mg/dL Total Protein (6.3-8.2) g/dL Albumin (3.5-5.0) g/dL Microbiology - Last 24 Hours (Table) 09/28/18 20:00 Urine Culture - Final Urine,Voided Citrobacter freundii 09/28/18 19:00 Blood Culture - Preliminary Blood No Growth after 48 hours Assessment and Plan Assessment: - acute COPD exacerbation - UTI with urine cultures growing gram-negative bacilli - Alcohol withdrawals - Hypertension - History of CAD - Nicotine dependence - Irregular density within the periphery of the right upper lobe need outpatient follow-up Plan - Continue antibiotics - Urine cultures pending final identification - Patient is still having tremors. We'll continue the Ciwa protocol - Continue rest of the medical care - Patient will probably be discharged once her alcohol withdrawal symptoms are better - we'll continue to monitor 10/01/2018 - Urine culture results came back positive for Citrobacter Freundii - She is on Rocephin. We'll put on ciprofloxacin orally to complete the course - Patient tremors are better - We'll replace potassium - Patient can be discharged once potassium is adequately replaced and if cleared by pulmonology Time with Patient: Greater than 30
[2018-10-01] MEDS ORDERED: Potassium Replacement Protocol 1 EACH MISC MISCELLANE PRN ×2 (12:37→16:53)
[2018-10-01] MEDS: LEVOFLOXACIN 750 MG TAB PO SCH (13:46)
[2018-10-01] MEDS: POTASSIUM CHLORIDE ER 20 MEQ TAB.ER PO SCH ×4 (13:46→19:15)
--- NOTE | 2018-10-01 14:00 | P.PN ---
Subjective Progress Note Date: 10/01/18 This is a 63-year-old white female patient of Dr. Jesus, who is a current smoker, past medical history of hypertension, previous myocardial infarction, depression, the hospital on 09/28/2018 with complaints of cough, chest congestion, significant weakness. She did have some subjective chills, and not feeling well. The plates of chest pain, no nausea, vomiting or diarrhea, no known sick contacts, or recent hospitalizations. Chest x-ray was completed and showed probable COPD, no acute pulmonary process. Labs were reviewed, showed a white blood cell count of 7.1, hemoglobin of 14.5, INR 0.9, sodium was 136, potassium is 4.5, CO2 17, BUN is 5 creatinine 0.41. Troponin was negative 1, proBNP is 104, urinalysis showed 1+ ketones, urine WBCs 49. 9 any urinary complaints. Patient has been afebrile, she is on room air, with pulse ox of 100%. He was started on antibiotics in the form of Zithromax, IV steroids, nebulized bronchodilators. Patient was never seen by a lung doctor before, and she is not on any inhalers of breathing treatments at home. No home oxygen. Chest CT was completed and showed 1.1 x 0.6 cm slightly irregular density within the periphery of the right upper lobe, and a small nodule within the posterior left upper lobe, and another small nodule within periphery of the right midlung. No enlarged mediastinal or hilar adenopathy. During our evaluation patient is sitting up in bed, in no acute distress, she is on room air, her lung sounds are positive for a few rales, but no significant wheezes. On 09/30/2018 patient seen in follow-up on medical surgical floor, she is awake and alert, in no acute distress, she is resting in bed, room air pulse ox of 90%, afebrile. Lung sounds reveal some coarse breath sounds, but no significant wheezing, good air entry noted bilaterally, no cough or congestion, vital signs are stable, urine culture is positive for gram-negative bacilli, blood culture showed no growth. She is on commission Zithromax and Rocephin, clinically she stable, will decrease the IV Solu-Medrol. From pulmonary perspective patient is stable, and could be considered for discharge home On 10/01/2018 I'm seeing this patient for a follow-up. She is feeling better. She is less short of breath compared to yesterday. She is requiring an additi onal day of treatment and the patient basis regarding his COPD exacerbation. No chest pain. No angina. No nausea. No vomiting. No abdominal pain. No other complaints otherwise for now. The patient is on IV Solu-Medrol 40 mg every 12 hours and this has been tapered yesterday. She is on Levaquin as an empiric antibiotic coverage. She is on Pulmicort Respules and Perforomist about treatments around the clock. She is on DuoNeb nebulized treatments around the clock. Objective - Vital Signs Vital signs: Vital Signs Temp 97.5 F L 10/01/18 12:41 Pulse 77 10/01/18 12:41 Resp 15 10/01/18 12:41 BP 108/72 10/01/18 12:41 Pulse Ox 98 10/01/18 12:41 Intake & Output 09/30/18 10/01/18 10/01/18 18:59 06:59 18:59 Intake Total 800 800 Balance 800 800 Intake: Intake, IV Titration 800 800 Amount Sodium Chloride 0.9% 1, 750 800 000 ml @ 100 mls/hr IV . Q10H JASON Rx#:[id number] cefTRIAXone 1 gm In 50 Sodium Chloride 0.9% 50 ml @ 100 mls/hr IVPB Q24HR AJSON Rx#:[id number] Other: Voiding Method Toilet Toilet Toilet # Voids 2 - Exam GENERAL EXAM: Alert, pleasant, 63-year-old thin white female comfortable in no apparent distress. HEAD: Normocephalic/atraumatic. EYES: Normal reaction of pupils, equal size. Conjunctiva pink, sclera white. NOSE: Clear with pink turbinates. THROAT: No erythema or exudates. NECK: No masses, no JVD, no thyroid enlargement, no adenopathy. CHEST: No chest wall deformity. Symmetrical expansion. LUNGS: Equal air entry with a few scattered rhonchi, no wheeze. CVS: Regular rate and rhythm, normal S1 and S2, no gallops, no murmurs, no rubs ABDOMEN: Soft, nontender. No hepatosplenomegaly, normal bowel sounds, no guarding or rigidity. EXTREMITIES: No clubbing, no edema, no cyanosis, 2+ pulses and upper and lower extremities. MUSCULOSKELETAL: Muscle strength and tone normal. SPINE: No scoliosis or deformity SKIN: No rashes CENTRAL NERVOUS SYSTEM: Alert and oriented -3. No focal deficits, tone is normal in all 4 extremities. PSYCHIATRIC: Alert and oriented -3. Appropriate affect. Intact judgment and insight. - Labs CBC & Chem 7: 10/01/18 06:41 10/01/18 06:41 Labs: Abnormal Lab Results - Last 24 Hours (Table) 09/30/18 10/01/18 10/01/18 Range/Units 19:46 06:41 06:41 RBC 3.65 L (3.80-5.40) m/uL Plt Count 106 L (150-450) k/uL Lymphocytes # 0.9 L (1.0-4.8) k/uL Sodium 135 L (137-145) mmol/L Potassium 3.0 L (3.5-5.1) mmol/L BUN 5 L (7-17) mg/dL Creatinine 0.43 L (0.52-1.04) mg/dL Glucose 116 H (74-99) mg/dL POC Glucose (mg/dL) 240 H (75-99) mg/dL Total Protein 5.5 L (6.3-8.2) g/dL Albumin 3.2 L (3.5-5.0) g/dL 10/01/18 10/01/18 Range/Units 06:47 11:02 RBC (3.80-5.40) m/uL Plt Count (150-450) k/uL Lymphocytes # (1.0-4.8) k/uL Sodium (137-145) mmol/L Potassium (3.5-5.1) mmol/L BUN (7-17) mg/dL Creatinine (0.52-1.04) mg/dL Glucose (74-99) mg/dL POC Glucose (mg/dL) 120 H 199 H (75-99) mg/dL Total Protein (6.3-8.2) g/dL Albumin (3.5-5.0) g/dL Microbiology - Last 24 Hours (Table) 09/28/18 20:00 Urine Culture - Final Urine,Voided Citrobacter freundii 09/28/18 19:00 Blood Culture - Preliminary Blood No Growth after 48 hours Assessment and Plan Plan: #1. Acute COPD exacerbation, improving #2. Weakness, generalized malaise, subjective chills, constitutional symptoms, urinalysis is suggestive of underlying urinary tract infection, with urine cultures positive for gram-negative bacilli #3. Chronic and ongoing history of nicotine dependence #4. Hypertension #5. Hx of myocardial infarction #6. 1.1 x 0.6 slightly irregular density within the periphery of the right upper lobe noted on the CT chest and a few smaller nodules in the periphery of the right midlung, posterior left upper lobe and the periphery, and within the periphery of the right midlung, will need outpatient follow-up Plan Continue same treatment. The patient will need inpatient treatment for another 24 hours and following that the patient can be discharged home probably in the morning as her condition is overall improving.
[2018-10-01 16:41] LABS: Glucose,Whole Blood 62 mg/dL (75-99)
[2018-10-01 16:58] LABS: Glucose,Whole Blood 59 mg/dL (75-99)
[2018-10-01 17:11] LABS: Glucose,Whole Blood 73 mg/dL (75-99)
[2018-10-01 20:24] LABS: Glucose,Whole Blood 97 mg/dL (75-99)
[2018-10-01] MEDS: TEMAZEPAM 15 MG CAP PO PRN (21:40)
[2018-10-02 01:49] LABS: Glucose,Whole Blood 128 mg/dL (75-99)
[2018-10-02] MEDS: SODIUM CHLORIDE 0.9% 1,000 ML IV SCH (02:33)
[2018-10-02] MEDS: IPRATROPIUM-ALBUTEROL 3 ML NEB INHALATION SCH ×2 (07:04→11:14)
[2018-10-02] MEDS: BUDESONIDE 1 MG/2 ML NEBU INHALATION SCH (07:04)
[2018-10-02] MEDS: FORMOTEROL FUMARATE 20 MCG/2 ML NEBU INHALATION SCH (07:04)
[2018-10-02 07:11] LABS: Glucose,Whole Blood 101 mg/dL (75-99)
[2018-10-02] MEDS: INSULIN ASPART (NovoLOG) 100 UNIT/ML VIAL SQ SCH ×2 (07:20→12:30)
[2018-10-02 07:41] LABS: ALT 38 U/L (9-52); AST 31 U/L (14-36); Alkaline Phosphatase 63 U/L (38-126); Anion Gap 3 mmol/L; Blood Urea Nitrogen 5 mg/dL (7-17); Calcium 8.9 mg/dL (8.4-10.2); Carbon Dioxide 29 mmol/L (22-30); Chloride 101 mmol/L (98-107); Glucose 101 mg/dL (74-99); Potassium 3.7 mmol/L (3.5-5.1); Sodium 133 mmol/L (137-145); Total Bilirubin 0.5 mg/dL (0.2-1.3); Total Protein 5.3 g/dL (6.3-8.2)
[2018-10-02 07:48] LABS: HCT 37.6 % (34.0-46.0); HGB 12.5 gm/dL (11.4-16.0); MCH 33.2 pg (25.0-35.0); MCHC 33.1 g/dL (31.0-37.0); MCV 100.4 fL (80.0-100.0); Mean Platelet Volume 9.1; Platelet Count 100 k/uL (150-450); RBC 3.75 m/uL (3.80-5.40); WBC 5.2 k/uL (3.8-10.6)
[2018-10-02] MEDS: LEVOFLOXACIN 750 MG TAB PO SCH (08:03)
[2018-10-02] MEDS: NICOTINE 21MG/24HR PATCH TRANSDERM SCH (08:03)
[2018-10-02] MEDS: MULTIVITAMINS, THERA 1 EACH TAB PO SCH (08:03)
[2018-10-02] MEDS: ENOXAPARIN 40 MG/0.4 ML SYRINGE SQ SCH (08:03)
[2018-10-02] MEDS: methylPREDNISolone SOD SUCCI 40 MG/ML 1 ML VIAL IV SCH (08:04)
[2018-10-02] MEDS: FOLIC ACID 1 MG TAB PO SCH (08:04)
[2018-10-02] MEDS: THIAMINE 100 MG TAB PO SCH (08:04)
[2018-10-02] MEDS: cloNIDine HCL 0.1 MG TAB PO SCH (08:04)
[2018-10-02] MEDS: PANTOPRAZOLE 40 MG TABLET PO SCH (08:04)
[2018-10-02 08:54] LABS: Eosinophils # (M) 0.05 k/uL (0-0.7); Neutrophils # (M) 3.85 k/uL (1.3-7.7); Neutrophils % (M) 74 %; Nucleated Red Blood Cells 0 /100 WBC (0-0); Total Cells Counted 100
[2018-10-02 11:16] LABS: Glucose,Whole Blood 85 mg/dL (75-99)
[2018-10-02 12:11] VITALS: BP 126/90; PULSE 87; RESP 18; TEMP 98
--- NOTE | 2018-10-02 12:39 | P.PN ---
Subjective Progress Note Date: 10/02/18 This is a 63-year-old white female patient of Dr. Jesus, who is a current smoker, past medical history of hypertension, previous myocardial infarction, depression, the hospital on 09/28/2018 with complaints of cough, chest congestion, significant weakness. She did have some subjective chills, and not feeling well. The plates of chest pain, no nausea, vomiting or diarrhea, no known sick contacts, or recent hospitalizations. Chest x-ray was completed and showed probable COPD, no acute pulmonary process. Labs were reviewed, showed a white blood cell count of 7.1, hemoglobin of 14.5, INR 0.9, sodium was 136, potassium is 4.5, CO2 17, BUN is 5 creatinine 0.41. Troponin was negative 1, proBNP is 104, urinalysis showed 1+ ketones, urine WBCs 49. 9 any urinary complaints. Patient has been afebrile, she is on room air, with pulse ox of 100%. He was started on antibiotics in the form of Zithromax, IV steroids, nebulized bronchodilators. Patient was never seen by a lung doctor before, and she is not on any inhalers of breathing treatments at home. No home oxygen. Chest CT was completed and showed 1.1 x 0.6 cm slightly irregular density within the periphery of the right upper lobe, and a small nodule within the posterior left upper lobe, and another small nodule within periphery of the right midlung. No enlarged mediastinal or hilar adenopathy. During our evaluation patient is sitting up in bed, in no acute distress, she is on room air, her lung sounds are positive for a few rales, but no significant wheezes. On 09/30/2018 patient seen in follow-up on medical surgical floor, she is awake and alert, in no acute distress, she is resting in bed, room air pulse ox of 90%, afebrile. Lung sounds reveal some coarse breath sounds, but no significant wheezing, good air entry noted bilaterally, no cough or congestion, vital signs are stable, urine culture is positive for gram-negative bacilli, blood culture showed no growth. She is on commission Zithromax and Rocephin, clinically she stable, will decrease the IV Solu-Medrol. From pulmonary perspective patient is stable, and could be considered for discharge home On 10/01/2018 I'm seeing this patient for a follow-up. She is feeling better. She is less short of breath compared to yesterday. She is requiring an additi onal day of treatment and the patient basis regarding his COPD exacerbation. No chest pain. No angina. No nausea. No vomiting. No abdominal pain. No other complaints otherwise for now. The patient is on IV Solu-Medrol 40 mg every 12 hours and this has been tapered yesterday. She is on Levaquin as an empiric antibiotic coverage. She is on Pulmicort Respules and Perforomist about treatments around the clock. She is on DuoNeb nebulized treatments around the clock. on 10/02/2018 I'm seeing this patient for a follow-up. Much improved compared to yesterday and seems that the patient is ready to go home today. No chest pain. No shortness of breath. No cough or sputum production. No other significant events overnight. She was IV Solu Medrol 4 mg every 12 hours. Objective - Vital Signs Vital signs: Vital Signs Temp 98.0 F 10/02/18 12:09 Pulse 87 10/02/18 12:09 Resp 18 10/02/18 12:09 BP 126/90 10/02/18 12:09 Pulse Ox 97 10/02/18 12:09 Intake & Output 10/01/18 10/02/18 10/02/18 18:59 06:59 18:59 Intake Total 1080 Balance 1080 Intake: Oral 1080 Other: Voiding Method Toilet Toilet Toilet # Voids 1 2 - Exam GENERAL EXAM: Alert, pleasant, 63-year-old thin white female comfortable in no a pparent distress. HEAD: Normocephalic/atraumatic. EYES: Normal reaction of pupils, equal size. Conjunctiva pink, sclera white. NOSE: Clear with pink turbinates. THROAT: No erythema or exudates. NECK: No masses, no JVD, no thyroid enlargement, no adenopathy. CHEST: No chest wall deformity. Symmetrical expansion. LUNGS: Equal air entry with a few scattered rhonchi, no wheeze. CVS: Regular rate and rhythm, normal S1 and S2, no gallops, no murmurs, no rubs ABDOMEN: Soft, nontender. No hepatosplenomegaly, normal bowel sounds, no guarding or rigidity. EXTREMITIES: No clubbing, no edema, no cyanosis, 2+ pulses and upper and lower extremities. MUSCULOSKELETAL: Muscle strength and tone normal. SPINE: No scoliosis or deformity SKIN: No rashes CENTRAL NERVOUS SYSTEM: Alert and oriented -3. No focal deficits, tone is normal in all 4 extremities. PSYCHIATRIC: Alert and oriented -3. Appropriate affect. Intact judgment and insight. - Labs CBC & Chem 7: 10/02/18 06:47 10/02/18 06:47 Labs: Abnormal Lab Results - Last 24 Hours (Table) 10/01/18 10/01/18 10/01/18 Range/Units 16:02 16:40 16:56 RBC (3.80-5.40) m/uL MCV (80.0-100.0) fL Plt Count (150-450) k/uL Sodium (137-145) mmol/L Potassium 3.1 L (3.5-5.1) mmol/L BUN (7-17) mg/dL Creatinine (0.52-1.04) mg/dL Glucose (74-99) mg/dL POC Glucose (mg/dL) 62 L 59 L (75-99) mg/dL Total Protein (6.3-8.2) g/dL Albumin (3.5-5.0) g/dL 10/01/18 10/02/18 10/02/18 Range/Units 17:10 01:48 06:47 RBC 3.75 L (3.80-5.40) m/uL MCV 100.4 H (80.0-100.0) fL Plt Count 100 L (150-450) k/uL Sodium (137-145) mmol/L Potassium (3.5-5.1) mmol/L BUN (7-17) mg/dL Creatinine (0.52-1.04) mg/dL Glucose (74-99) mg/dL POC Glucose (mg/dL) 73 L 128 H (75-99) mg/dL Total Protein (6.3-8.2) g/dL Albumin (3.5-5.0) g/dL 10/02/18 10/02/18 Range/Units 06:47 07:10 RBC (3.80-5.40) m/uL MCV (80.0-100.0) fL Plt Count (150-450) k/uL Sodium 133 L (137-145) mmol/L Potassium (3.5-5.1) mmol/L BUN 5 L (7-17) mg/dL Creatinine 0.46 L (0.52-1.04) mg/dL Glucose 101 H (74-99) mg/dL POC Glucose (mg/dL) 101 H (75-99) mg/dL Total Protein 5.3 L (6.3-8.2) g/dL Albumin 3.0 L (3.5-5.0) g/dL Microbiology - Last 24 Hours (Table) 09/28/18 19:00 Blood Culture - Preliminary Blood No Growth after 72 hours Assessment and Plan Plan: #1. Acute COPD exacerbation, improving, nearly recovered #2. Weakness, generalized malaise, subjective chills, constitutional symptoms, urinalysis is suggestive of underlying urinary tract infection, with urine cultures positive for gram-negative bacilli #3. Chronic and ongoing history of nicotine dependence #4. Hypertension #5. Hx of myocardial infarction #6. 1.1 x 0.6 slightly irregular density within the periphery of the right upper lobe noted on the CT chest and a few smaller nodules in the periphery of the right midlung, posterior left upper lobe and the periphery, and within the periphery of the right midlung, will need outpatient follow-up Plan discharge patient home on a prednisone burst taper. This continued IV Solu- Medrol. Continue DuoNeb nebulized treatments around the clock. Smoking cessation counseling was done. Follow-up in the office regarding the pulmonary nodule in the right upper lobe that needs to be monitored on outpatient basis.
--- NOTE | 2018-10-02 12:52 | P.DS ---
Providers Date of admission: 09/28/18 19:28 Expected date of discharge: 10/02/18 Attending physician: Makeda Ayers Consults: 09/28/18 20:49 Consult Physician Routine Consulting Provider: Shubham Sandoval Consult Reason/Comments: copd Do you want consulting provider notified?: Yes Primary care physician: Edin Chavez Hospital Course: Discharge diagnosis - Acute COPD exacerbation - Acute tracheO bronchitis - UTI with Citrobacter - aLCOHOL withdrawals - Nicotine abuse - Hypo-kalemia - History of hypertension - History of CAD - History of DJD Hospital course - 63-year-old female with a past medical history significant for hypertension and [place], 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 She was seen by pulmonology on consult. She was also started on CIWA protocol for alcohol withdrawals. Urinalysis showed UTI with Citrobacter it was susceptible to Rocephin and Levaquin. The CAT scan done showed 1.1 x 0.6 cm slightly irregular density within the periphery of the right upper lobe, and a small nodule within the posterior left upper lobe, and another small nodule within periphery of the right midlung. No enlarged mediastinal or hilar adenopathy. Breast time neoplasm not excluded. Additional workup with a PET/CT recommended. Could be related to scarring or infiltrate. The patient was thus continued on antibiotics. She is to follow-up with pulmonology to week for further workup of the above density On 10/02/2018 On exam, alert and oriented x3. HEENT: Conjunctivae normal. eyes normal. NECK: No JVD. No thyroid enlargement. No LNs CARDIOVASCULAR: S1, S2 muffled. No murmur RESPIRATION: No wheezing no crackles or rales no rhonchi ABDOMEN: Soft, nontender . No guarding. no masses palpable. No ascites, No hepatosplenomegaly.Bowel sounds heard. LEGS: No edema. no swelling NERVOUS SYSTEM: Cranial N 2-12 grossly normal. Moves all 4 limbs. No focal deficits. No sensory deficit. No signs of cerebellar dysfucntion. Skin: no ulcer no rash Joints: No active swelling. No inflammation. Lymphatic system. No LN neck axilla or groin. Patient is to follow with pulmonology in a week to follow up on the densities. She is to follow Dr. Jesus and weak as well. She was started on lisinopril. She says that she has albuterol inhalers at home. We'll put her on DuoNeb nebulizers. We'll also put her on Breo for maintenance Patient Condition at Discharge: Fair Plan - Discharge Summary Discharge Rx Participant: No New Discharge Prescriptions: New Ipratropium-Albuterol Nebulize [Duoneb 0.5 mg-3 mg/3 ml Soln] 3 ml INHALATION RT-QID PRN #60 ampul.neb PRN Reason: Shortness Of Breath Or Wheezing Nicotine 21Mg/24Hr Patch [Habitrol] 1 patch TRANSDERM DAILY patch Levofloxacin [Levaquin] 750 mg PO DAILY #3 tab predniSONE 10 mg PO DAILY #60 tab Pantoprazole [Protonix] 40 mg PO AC-BRKFST #30 tablet. Lisinopril [Zestril] 10 mg PO DAILY #30 tab Discharge Medication List Ipratropium-Albuterol Nebulize [Duoneb 0.5 mg-3 mg/3 ml Soln] 3 ml INHALATION RT-QID PRN #60 ampul.neb 10/02/18 [Rx] Levofloxacin [Levaquin] 750 mg PO DAILY #3 tab 10/02/18 [Rx] Lisinopril [Zestril] 10 mg PO DAILY #30 tab 10/02/18 [Rx] Nicotine 21Mg/24Hr Patch [Habitrol] 1 patch TRANSDERM DAILY patch 10/02/18 [Rx] Pantoprazole [Protonix] 40 mg PO AC-BRKFST #30 tablet. 10/02/18 [Rx] predniSONE 10 mg PO DAILY #60 tab 10/02/18 [Rx] Follow up Appointment(s)/Referral(s): Scott Jesus MD [Primary Care Provider] - 1-2 days (Patient to call Dr. Jesus's office Wednesday to schedule follow up appointment. The office is closed at time of discharge. ) Shubham Sandoval MD [STAFF PHYSICIAN] - 1 Week (Patient to call Dr. Sandoval's office Wednesday to schedule follow up appointment. The office is closed at time of discharge. ) Patient Instructions/Handouts: COPD (Chronic Obstructive Pulmonary Disease) (DC), Weakness (DC) Discharge Disposition: HOME SELF-CARE
--- NOTE | 2018-10-04 10:21 | CDI ---
Documentation Clarification Form Date: 10/04/18 From: Osiris Escalante Phone: If you have a question regarding this query, please contact Catalina Macias at [phone] between 8am and 5pm. Admit Date: 09/28/2018 7:28:00 PM Patient Name: Savi Garcia Visit Number: [id number] Discharge Date: 10/02/2018 1:45:00 PM ATTENTION: The Clinical Documentation Specialists (CDI) and [facility] Coding Staff appreciate your assistance in clarifying documentation. Please respond to the clarification below the line at the bottom and electronically sign. The CDI & [facility] Coding staff will review the response and follow-up if needed. Please note: Queries are made part of the Legal Health Record. If you have any questions, please contact the author of this message via ITS. Dr. Ye Covington The patient presented with the following respiratory symptoms: cough, congestion and shortness of breath. Dr. Ayers documented acute hypoxic respiratory failure in the H&P and 09/29 progress note. History/Risk Factors: Patient was admitted for COPD exacerbation and acute bronchitis. The patient is a smoker and has a history of MO, CAD and severe malnutrition. Tobacco use: Patient is an active smoker. Home oxygen: None Clinical Indicators: Shortness of breath. Vital signs: T. 98.1, P. 108, R. 16, BP 168/119 Pulse oximetry: 98% on room air Lung/Breathing assessment: Per H&P: Accessory muscle use, breathing effors markedly increased, breath sounds diminished at the bases, bilateral rhonchi, expiratory wheezing and few coarse crackles. ABG/CBG: Not tested Breathing tx: Duoneb Continuous Pulse ox O2/Vent/BiPap: O2 2L per nasal cannula In your professional opinion, can you please clarify if these findings signify one of the following conditions? Acute Hypoxic Respiratory Failure Ruled Out Acute Hypoxic Respiratory Failure Ruied In Respiratory Distress Respiratory Insufficiency Other Diagnosis, please specify Unable to determine MTDD
== END 2018-10-02 13:45 | disposition home or self-care (01) | DRG 190 ==
LOC: EC 17:02 → 3NMEDONC 19:28
PROVIDERS: ADMIT Hospitalist; ATTEND Hospitalist
DX: J44.1 Chronic obstructive pulmonary disease with (acute) exacerbation (principal); E43 Unspecified severe protein-calorie malnutrition; J96.01 Acute respiratory failure with hypoxia; E87.1 Hypo-osmolality and hyponatremia; F10.231 Alcohol dependence with withdrawal delirium; N39.0 Urinary tract infection, site not specified; J44.0 Chronic obstructive pulmonary disease with (acute) lower respiratory infection; E83.42 Hypomagnesemia; J20.9 Acute bronchitis, unspecified; E16.2 Hypoglycemia, unspecified; H91.90 Unspecified hearing loss, unspecified ear; H54.7 Unspecified visual loss; E86.0 Dehydration; E87.6 Hypokalemia; F17.200 Nicotine dependence, unspecified, uncomplicated; F32.9 Major depressive disorder, single episode, unspecified; I10 Essential (primary) hypertension; I25.10 Atherosclerotic heart disease of native coronary artery without angina pectoris; I25.2 Old myocardial infarction; R74.8 Abnormal levels of other serum enzymes; B96.89 Other specified bacterial agents as the cause of diseases classified elsewhere; Z88.6 Allergy status to analgesic agent; Z91.030 Bee allergy status; Z82.0 Family history of epilepsy and other diseases of the nervous system
CPT/HCPCS: 36415; 71046; 71260; 80053; 81001; 83735; 83880; 84132; 84484; 85025; 85610; 85730; 87040; 87077; 87086; 87186; 93005; 94640; 94760; 99285

== ENCOUNTER 2019-10-06 08:12 | Emergency (ER) | payer OTHER ==
[2019-10-06 08:18] VITALS: RESP 18; TEMP 97.8
[2019-10-06] MEDS ORDERED: HYDROmorphone 0.5 MG/0.5 ML SYRINGE IVP STA (08:27)
[2019-10-06] MEDS ORDERED: ONDANSETRON 4 MG/2 ML VIAL IVP STA (08:27)
--- NOTE | 2019-10-06 09:17 | XR ---
EXAMINATION TYPE: XR knee complete RT DATE OF EXAM: 10/06/2019 COMPARISON: NONE HISTORY: Pain TECHNIQUE: Three views are submitted. FINDINGS: Joint spaces are preserved. Osseous structures are intact. No acute fracture seen. Diffuse osteope laura. No erosive changes. Mild narrowing of the medial compartment of the joint space. IMPRESSION: 1. No acute fracture or dislocation. 2. Mild diffuse osteopenia.
--- NOTE | 2019-10-06 09:20 | XR ---
EXAMINATION TYPE: XR ribs RT w pa chest xray DATE OF EXAM: 10/06/2019 COMPARISON: Chest x-ray 09/28/2018 TECHNIQUE: PA view of the chest and 4 views of the right ribs are submitted.. HISTORY: Pain post fall. FINDINGS: Lungs are clear. No pneumothorax. No focal pneumonia. No sizable pneumothorax. There is a subtle defo rmity involving the posterior margin of the right sixth rib stable from prior exam suggestive of mendez te trauma. However, there is a deformity involving the lateral margin of the right ninth rib. Remaini ng osseous structures intact. IMPRESSION: 1. Findings suspicious for hairline fracture lateral margin right ninth rib. Correlate with point ten derness.
--- NOTE | 2019-10-06 09:29 | ED ---
Fall HPI - General Chief Complaint: Fall Stated Complaint: Fall/rib pain Time Seen by Provider: 10/06/19 08:22 Source: patient, RN notes reviewed Mode of arrival: wheelchair Limitations: no limitations - History of Present Illness Initial Comments: 64-year-old female presents emergency Department chief complaint of fall happened around 8 PM last night. Patient states she slipped in the shower on falling onto her right ribs and the edge of the tub. Patient states she had no head or neck injury. Patient states that the pain is uncontrolled today is worse with movement and deep inspiration she does not feel short of breath. Patient denies any hip pain she does complain of mild knee pain but she is able to ambulate with minimal difficulty. Patient is not taking blood thinners. Denies any abdominal pain. Patient states she is mostly on blood pressure medication though she has been on of it. She states she is on atenolol. Patient has no complaints chest pain. - Related Data Previous Rx's Medication Instructions Recorded Fluticasone/Vilanterol [Breo 1 inhalation PO Q24HR #1 inhaler 10/02/18 Ellipta 100-25 Mcg Inhaler] Ipratropium-Albuterol Nebulize 3 ml INHALATION RT-QID PRN #60 10/02/18 [Duoneb 0.5 mg-3 mg/3 ml Soln] ampul.neb Levofloxacin [Levaquin] 750 mg PO DAILY #3 tab 10/02/18 Lisinopril [Zestril] 10 mg PO DAILY #30 tab 10/02/18 Nicotine 21Mg/24Hr Patch [Habitrol] 1 patch TRANSDERM DAILY patch 10/02/18 Pantoprazole [Protonix] 40 mg PO AC-BRKFST #30 tablet. 10/02/18 predniSONE 10 mg PO DAILY #60 tab 10/02/18 Allergies Allergy/AdvReac Type Severity Reaction Status Date / Time aspirin Allergy Swelling Verified 10/06/19 08:18 venom-honey bee Allergy Swelling Verified 10/06/19 08:18 [bee venom (honey bee)] Review of Systems ROS Statement: Those systems with pertinent positive or pertinent negative responses have been documented in the HPI. ROS Other: All systems not noted in ROS Statement are negative. Past Medical History Past Medical History: Coronary Artery Disease (CAD), COPD, Hypertension, Myocardial Infarction ([place]) Last Myocardial Infarction Date:: unknown History of Any Multi-Drug Resistant Organisms: None Reported Past Surgical History: Section, Orthopedic Surgery Past Anesthesia/Blood Transfusion Reactions: No Reported Reaction Past Psychological History: Depression Smoking Status: Current every day smoker Past Alcohol Use History: Occasional Past Drug Use History: Marijuana - Past Family History Brother(s) Additional Family Medical History / Comment(s): pts. brother recently from [place] Gehrigs disease General Exam Limitations: physical limitation General appearance: alert, in no apparent distress Head exam: Present: atraumatic, normocephalic, normal inspection Eye exam: Present: normal appearance, PERRL, EOMI. Absent: scleral icterus, conjunctival injection, periorbital swelling ENT exam: Present: normal exam, normal oropharynx, mucous membranes moist Neck exam: Present: normal inspection, full ROM. Absent: tenderness, meningismus, lymphadenopathy Respiratory exam: Present: normal lung sounds bilaterally, chest wall tenderness (Moderate right anterolateral rib tenderness). Absent: respiratory distress, wheezes, rales, rhonchi, stridor Cardiovascular Exam: Present: regular rate, normal rhythm, normal heart sounds. Absent: systolic murmur, diastolic murmur, rubs, gallop, clicks GI/Abdominal exam: Present: soft, normal bowel sounds. Absent: distended, tenderness, guarding, rebound, rigid Extremities exam: Present: other (Right knee mild tenderness full range of motion neurovascular intact) Back exam: Present: normal inspection, full ROM. Absent: tenderness, paraspinal tenderness, vertebral tenderness Neurological exam: Present: alert, oriented X3, CN II-XII intact, reflexes normal. Absent: motor sensory deficit Skin exam: Present: warm, dry, intact, normal color. Absent: rash Course Vital Signs 10/06/19 10/06/19 08:14 09:33 Temperature 97.8 F Pulse Rate 106 H 82 Respiratory 18 18 Rate Blood Pressure 200/115 144/89 O2 Sat by Pulse 100 98 Oximetry Medical Decision Making - Medical Decision Making Patient reevaluated, states that she is much more comfortable at this time she has no complaints shortness breath or abdominal pain. She is up-to-date x-rays results which shows evidence of fracture ninth rib, no pneumothorax, right knee x-ray unremarkable other than degenerative changes. Patient will be provided incentive spirometer, pain control and advised to have close follow-up. She is advised to follow-up for her blood pressure medication. Return parameters were discussed. Disposition Clinical Impression: Fall, Hypertension, Right rib fracture, Contusion of right knee Disposition: HOME SELF-CARE Condition: Stable Instructions (If sedation given, give patient instructions): Rib Fracture (ED) Additional Instructions: Please return to the Emergency Department if symptoms worsen or any other concerns. Is patient prescribed a controlled substance at d/c from ED?: No Referrals: Scott Jesus MD [Primary Care Provider] - 1-2 days Time of Disposition: 09:39
[2019-10-06 09:33] VITALS: BP 144/89; PULSE 82
[2019-10-06] MEDS ORDERED: ACET/COD 300 MG/30 MG STARTER PACK 6 TAB BTL PO STA (09:38)
[2019-10-06] MEDS ORDERED: ONDANSETRON 4 MG ODT STARTER PACK 2 TAB BTL PO STA (10:02)
== END 2019-10-06 10:09 | disposition home or self-care (01) ==
LOC: EC 08:12
DX: S22.31XA Fracture of one rib, right side, initial encounter for closed fracture (principal); S80.01XA Contusion of right knee, initial encounter; I10 Essential (primary) hypertension; I25.2 Old myocardial infarction; F17.200 Nicotine dependence, unspecified, uncomplicated; Z88.6 Allergy status to analgesic agent; Z91.030 Bee allergy status; W18.2XXA Fall in (into) shower or empty bathtub, initial encounter
CPT/HCPCS: 71101; 73562; 99283; 96374; 96375; J2405; S0119; J1170

== ENCOUNTER 2021-11-20 15:54 | Inpatient (IN) | payer MEDICARE, OTHER ==
[2021-11-20] MEDS ORDERED: SODIUM CHLORIDE 0.9% 1,000 ML IV STA (17:22)
[2021-11-20] MEDS ORDERED: ONDANSETRON 4 MG/2 ML VIAL IVP STA (17:22)
[2021-11-20] MEDS ORDERED: MORPHINE SULFATE 4 MG/ML SYRINGE IV STA (17:22)
[2021-11-20] MEDS ORDERED: FAMOTIDINE 20 MG/2 ML VIAL IV STA (17:22)
--- NOTE | 2021-11-20 17:24 | ED ---
General Adult HPI - General Stated complaint: Vomiting/Dehydration Time Seen by Provider: 11/20/21 17:11 Source: patient, RN notes reviewed Mode of arrival: ambulatory Limitations: no limitations - History of Present Illness Initial comments: Patient seen in the waiting room secondary to no beds available. Patient is a pleasant 66-year-old female presenting to the emergency department with nausea vomiting. Onset of symptoms was 2-3 days ago. Patient is vomiting over 6 times per day. Patient still has nausea. Patient is having occasional mild yellowish diarrhea. Patient is having some abdominal discomfort, mostly upper abdomen as well. No history of chronic similar symptoms. No fever. - Related Data Previous Rx's Medication Instructions Recorded Fluticasone/Vilanterol [Breo 1 inhalation PO Q24HR #1 inhaler 10/02/18 Ellipta 100-25 Mcg Inhaler] Ipratropium-Albuterol Nebulize 3 ml INHALATION RT-QID PRN #60 10/02/18 [Duoneb 0.5 mg-3 mg/3 ml Soln] ampul.neb Levofloxacin [Levaquin] 750 mg PO DAILY #3 tab 10/02/18 Nicotine 21Mg/24Hr Patch [Habitrol] 1 patch TRANSDERM DAILY patch 10/02/18 Pantoprazole [Protonix] 40 mg PO AC-BRKFST #30 tablet. 10/02/18 lisinopriL [Zestril] 10 mg PO DAILY #30 tab 10/02/18 predniSONE 10 mg PO DAILY #60 tab 10/02/18 Ondansetron Odt [Zofran Odt] 4 mg PO Q8HR PRN #10 tab 10/06/19 Allergies Allergy/AdvReac Type Severity Reaction Status Date / Time aspirin Allergy Swelling Verified 11/20/21 17:36 venom-honey bee Allergy Swelling Verified 11/20/21 17:36 [bee venom (honey bee)] Review of Systems ROS Statement: Those systems with pertinent positive or pertinent negative responses have been documented in the HPI. ROS Other: All systems not noted in ROS Statement are negative. Constitutional: Denies: fever Eyes: Denies: eye pain ENT: Denies: ear pain Respiratory: Denies: cough, dyspnea Cardiovascular: Denies: chest pain Endocrine: Denies: fatigue Gastrointestinal: Reports: as per HPI, abdominal pain, nausea, vomiting, diarrhea. Denies: constipation, hematemesis Genitourinary: Denies: dysuria Musculoskeletal: Denies: back pain Skin: Denies: rash Neurological: Denies: weakness Past Medical History Past Medical History: Coronary Artery Disease (CAD), COPD, Hypertension, Myocardial Infarction ([place]) Last Myocardial Infarction Date:: unknown History of Any Multi-Drug Resistant Organisms: None Reported Past Surgical History: Section, Orthopedic Surgery Past Anesthesia/Blood Transfusion Reactions: No Reported Reaction Past Psychological History: Depression Past Alcohol Use History: Occasional Past Drug Use History: Marijuana - Past Family History Brother(s) Additional Family Medical History / Comment(s): pts. brother recently from [place]hrigs disease General Exam Limitations: no limitations General appearance: alert Head exam: Present: normocephalic Eye exam: Present: normal appearance Neck exam: Present: normal inspection Respiratory exam: Present: normal lung sounds bilaterally Cardiovascular Exam: Present: regular rate, normal rhythm Expanded Peripheral pulses: 2+: Posterior Tibialis (R), Posterior Tibialis (L) GI/Abdominal exam: Present: soft, tenderness (Mild to moderate epigastric tenderness), normal bowel sounds. Absent: distended, guarding, rebound, rigid, pulsatile mass Extremities exam: Present: normal inspection Neurological exam: Present: alert Psychiatric exam: Present: normal affect, normal mood Skin exam: Present: normal color Course Vital Signs 11/20/21 17:34 Temperature 98.5 F Pulse Rate 102 H Respiratory 18 Rate Blood Pressure 161/79 O2 Sat by Pulse 99 Oximetry Medical Decision Making - Medical Decision Making Patient reevaluated. Patient updated. CT scans are delayed at this time. EMS has been paged for admission covering Dr. Alvarez - Lab Data Result diagrams: 11/20/21 17:53 11/20/21 17:53 Lab Results 11/20/21 11/20/21 11/20/21 Range/Units 17:53 17:53 17:53 WBC 4.2 (3.8-10.6) k/uL RBC 4.27 (3.80-5.40) m/uL Hgb 14.9 (11.4-16.0) gm/dL Hct 44.3 (34.0-46.0) % MCV 103.8 H (80.0-100.0) fL MCH 34.9 (25.0-35.0) pg MCHC 33.6 (31.0-37.0) g/dL RDW 13.6 (11.5-15.5) % Plt Count 151 (150-450) k/uL MPV 8.2 Neutrophils % 73 % Lymphocytes % 18 % Monocytes % 6 % Eosinophils % 1 % Basophils % 0 % Neutrophils # 3.1 (1.3-7.7) k/uL Lymphocytes # 0.8 L (1.0-4.8) k/uL Monocytes # 0.3 (0-1.0) k/uL Eosinophils # 0.0 (0-0.7) k/uL Basophils # 0.0 (0-0.2) k/uL Macrocytosis Slight PT 9.6 (9.0-12.0) sec INR 0.9 (<1.2) APTT 24.6 (22.0-30.0) sec Sodium 125 L (137-145) mmol/L Potassium 4.1 (3.5-5.1) mmol/L Chloride 85 L (98-107) mmol/L Carbon Dioxide 26 (22-30) mmol/L Anion Gap 14 mmol/L BUN 7 (7-17) mg/dL Creatinine 0.51 L (0.52-1.04) mg/dL Est GFR (CKD-EPI)AfAm >90 (>60 ml/min/1.73 sqM) Est GFR (CKD-EPI)NonAf >90 (>60 ml/min/1.73 sqM) Glucose 112 H (74-99) mg/dL Calcium 10.1 (8.4-10.2) mg/dL Total Bilirubin 1.3 (0.2-1.3) mg/dL AST 228 H (14-36) U/L ALT 148 H (4-34) U/L Alkaline Phosphatase 107 (38-126) U/L Total Protein 8.8 H (6.3-8.2) g/dL Albumin 5.4 H (3.5-5.0) g/dL Amylase 58 (30-110) U/L Lipase 104 (23-300) U/L Disposition Clinical Impression: Dehydration, Hyponatremia Disposition: ADMITTED IP TO THIS HOSP Is patient prescribed a controlled substance at d/c from ED?: No Referrals: Scott Jesus MD [Primary Care Provider] - 1-2 days Time of Disposition: 20:28
[2021-11-20 18:11] LABS: Basophils % (A) 0 %; Eosinophils % (A) 1 %; HCT 44.3 % (34.0-46.0); HGB 14.9 gm/dL (11.4-16.0); Lymphocytes # (A) 0.8 k/uL (1.0-4.8); Lymphocytes % (A) 18 %; MCH 34.9 pg (25.0-35.0); MCHC 33.6 g/dL (31.0-37.0); MCV 103.8 fL (80.0-100.0); Macrocytosis Slight; Mean Platelet Volume 8.2; Monocytes # (A) 0.3 k/uL (0-1.0); Monocytes % (A) 6 %; Neutrophils # (A) 3.1 k/uL (1.3-7.7); Neutrophils % (A) 73 %; Platelet Count 151 k/uL (150-450); RBC 4.27 m/uL (3.80-5.40); RDW 13.6 % (11.5-15.5); WBC 4.2 k/uL (3.8-10.6)
[2021-11-20 18:17] LABS: ALT 148 U/L (4-34); AST 228 U/L (14-36); African American GFR (CKD) >90 (>60 ml/min/1.73 sqM); Albumin 5.4 g/dL (3.5-5.0); Alkaline Phosphatase 107 U/L (38-126); Amylase 58 U/L (30-110); Anion Gap 14 mmol/L; Blood Urea Nitrogen 7 mg/dL (7-17); Calcium 10.1 mg/dL (8.4-10.2); Carbon Dioxide 26 mmol/L (22-30); Chloride 85 mmol/L (98-107); Glucose 112 mg/dL (74-99); INR 0.9 (<1.2); Lipase 104 U/L (23-300); Non-African American GFR(CKD) >90 (>60 ml/min/1.73 sqM); Partial Thromboplastin Time 24.6 sec (22.0-30.0); Potassium 4.1 mmol/L (3.5-5.1); Prothrombin Time 9.6 sec (9.0-12.0); Sodium 125 mmol/L (137-145); Total Bilirubin 1.3 mg/dL (0.2-1.3); Total Protein 8.8 g/dL (6.3-8.2)
[2021-11-20] MEDS ORDERED: NALOXONE 0.4 MG/ML 1 ML VIAL IV PRN (20:28)
[2021-11-20] MEDS ORDERED: ONDANSETRON 4 MG/2 ML VIAL IVP PRN (20:28)
--- NOTE | 2021-11-20 21:59 | CT ---
EXAMINATION TYPE: CT abdomen pelvis w con DATE OF EXAM: 11/20/2021 HISTORY: Pain TECHNIQUE: Department protocol CT DLP: 620 mGy-cm. Automated Exposure Control for Dose Reduction was Utilized. CONTRAST: CT scan of the abdomen and pelvis is performed , patient injected with mL of . COMPARISON: None FINDINGS: LUNG BASES: No acute findings. Coronary calcifications noted.1 LIVER/GB: No significant abnormality is appreciated. PANCREAS: No significant abnormality is seen. SPLEEN: No significant abnormality is seen. ADRENALS: No significant abnormality is seen. KIDNEYS: No significant abnormality is seen. BOWEL: No significant abnormality is seen. UTERUS/ADNEXA: No gross abnormality seen. LYMPH NODES: No greater than 1cm abdominal or pelvic lymph nodes are appreciated. OSSEOUS STRUCTURES: No significant abnormality is seen. OTHER: Nonaneurysmal atherosclerotic intimal calcifications noted throughout the arterial anatomy. IMPRESSION: No significant acute finding is seen to account for patient's clinical symptoms.
[2021-11-20] MEDS: MORPHINE SULFATE 4 MG/ML SYRINGE IV PRN (23:39)
[2021-11-20] MEDS: SODIUM CHLORIDE 0.9% 1,000 ML IV SCH (23:40)
[2021-11-21] MEDS: PANTOPRAZOLE 40 MG/10 ML VIAL IV SCH (07:35)
[2021-11-21] MEDS: HEPARIN SODIUM,PORCINE/PF 5,000 UNIT/0.5 ML SYRINGE SQ SCH ×2 (07:35→22:39)
[2021-11-21] MEDS ORDERED: ONDANSETRON 4 MG/2 ML VIAL IVP STA (07:41)
[2021-11-21] MEDS ORDERED: PROMETHAZINE 25 MG TAB PO PRN (07:42)
[2021-11-21 08:35] LABS: Basophils # (A) 0 X 10*3/uL (0.00-0.10); Basophils % (A) 0 %; Eosinophils # (A) 0.05 X 10*3/uL (0.04-0.35); Eosinophils % (A) 1.4 %; HCT 38.8 % (37.2-46.3); Immature Grans, Automated 0.3 %; Lymphocytes # (A) 0.87 X 10*3/uL (0.90-5.00); Lymphocytes % (A) 24.8 %; MCH 32.9 pg (27.0-32.0); MCHC 33.5 g/dL (32.0-37.0); MCV 98.2 fL (80.0-97.0); Mean Platelet Volume 10.3 fL (9.5-12.2); Monocytes % (A) 17.1 %; NRBC Per 100 WBC 0 /100 WBCS (0.0-0.0); Neutrophils # (A) 1.98 X 10*3/uL (1.80-7.70); Neutrophils % (A) 56.4 %; Platelet Count 124 X 10*3/uL (140-440); RBC 3.95 X 10*6/uL (4.10-5.20); RDW 13.1 % (11.5-14.5); WBC 3.51 X 10*3/uL (4.50-10.00)
[2021-11-21 09:08] LABS: African American GFR (CKD) 118.5 (60.0-200.0); Albumin 4.4 g/dL (3.8-4.9); Anion Gap 17.3 mmol/L (10.00-18.00); BUN/Creat Ratio 12.4 Ratio (12.00-20.00); Blood Urea Nitrogen 6.2 mg/dL (9.0-27.0); Carbon Dioxide 23.7 mmol/L (20.0-27.5); Globulin 2.2 g/dL (1.6-3.3); Non-African American GFR(CKD) 102.3 (60.0-200.0); Potassium 3.5 mmol/L (3.5-5.5); Total Bilirubin 0.7 mg/dL (0.30-1.20); Total Protein 6.6 g/dL (6.2-8.2)
[2021-11-21] MEDS: SODIUM CHLORIDE 0.9% 1,000 ML IV SCH ×2 (13:56→20:59)
[2021-11-21] MEDS: ONDANSETRON 4 MG/2 ML VIAL IVP PRN (16:14)
[2021-11-21] MEDS: MORPHINE SULFATE 4 MG/ML SYRINGE IV PRN (16:15)
--- NOTE | 2021-11-21 22:00 | P.HPIM ---
History of Present Illness H&P Date: 11/21/21 Chief Complaint: nausea vomiting Patient is a 66-year-old female with a known history of hypertension, stroke on my, coronary disease, current everyday smoker and alcohol use drinks about 5 beers every other day presents to ER with the complaints of intractable nausea and vomiting for the past 4 days. Mainly bilious. Denies any blood in the vomit. Also complaining of epigastric abdominal pain. No complaints of cough or sputum breath. No chest pain. No fever no chills. Denies any recent illnesses. CT abdominal pelvis showed no significant acute finding is seen to account for patient's clinical symptoms. Laboratory showed WBC 4.2 hemoglobin 14.9 and platelets 151 lymphocytes 0.8 Sodium 125 potassium 4.1 chloride 85 bicarb is 26 BUN 7 creatinine 0.51 AST 228 ALT 148 and alk phos 107 and lipase level is 104 amylase 58. Review of Systems Constitutional: Patient denies any fever or chills . Generalized weakness. Abdomen: Patient does have nausea vomiting and epigastric abdominal pain. Cardiovascular: Patient denies any chest pain or short of breath no palpitations. Respiratory: patient denied any cough is from production. No shortness of breath Neurologic: Patient denied any numbness or tingling headache. Musculoskeletal: Patient denies any complaints of joint swelling or deformity. Skin: Negative Psychiatric: Negative Endocrine: No heat or cold intolerance. No recent weight gain. Genitourinary: No dysuria or hematuria. All other 14 point ROS negative except the above Past Medical History Past Medical History: Coronary Artery Disease (CAD), COPD, Hypertension, Myocardial Infarction ([place]) Last Myocardial Infarction Date:: unknown History of Any Multi-Drug Resistant Organisms: None Reported Past Surgical History: Section, Orthopedic Surgery Past Anesthesia/Blood Transfusion Reactions: No Reported Reaction Past Psychological History: Depression Smoking Status: Current every day smoker Past Alcohol Use History: Occasional Additional Past Alcohol Use History / Comment(s): pt. states she has been smoking since age 27, per pts. sister pt. is a daily drinker, pt. states she drinks 5 beers every other day, no IVDA and she is living locally in Past Drug Use History: Marijuana - Past Family History Brother(s) Additional Family Medical History / Comment(s): pts. brother recently from [place]hrigs disease Medications and Allergies Home Medications Medication Instructions Recorded Confirmed Type No Known Home Medications 11/20/21 11/20/21 History Allergies Allergy/AdvReac Type Severity Reaction Status Date / Time aspirin Allergy Swelling Verified 11/20/21 20:58 venom-honey bee Allergy Swelling Verified 11/20/21 20:58 [bee venom (honey bee)] Physical Exam Vitals: Vital Signs Temp Pulse Pulse Resp BP BP Pulse Ox 11/21/21 08:00 97.7 F 82 159/95 93 L 11/21/21 02:00 97.8 F 73 16 152/83 97 11/20/21 23:16 97.6 F 75 20 133/85 97 11/20/21 21:44 71 16 155/89 97 11/20/21 17:34 98.5 F 102 H 18 161/79 99 Intake and Output 11/20/21 11/21/21 11/21/21 22:59 06:59 14:59 Other: # Voids 3 Weight 52.163 kg 52.163 kg PHYSICAL EXAMINATION: Patient is lying in the bed comfortably, no acute distress, awake alert and oriented.. HEENT: Normocephalic. Neck is supple. Pupils reactive. Nostrils clear. Oral cavity is moist. Neck reveals no JVD, carotid bruits, or thyromegaly. CHEST EXAMINATION: Trachea is central. Symmetrical expansion. Lung quintero clear to auscultation and percussion. CARDIAC: Normal S1, S2 with no gallops. No murmurs ABDOMEN: Soft. Bowel sounds present. Nontender. No organomegaly. No abdominal bruits. Extremities: reveal no edema. No clubbing or cyanosis Neurologically awake, alert, oriented x3 with well-coordinated movements. No focal deficits noted Skin: No rash or skin lesions. Psychiatric: Coperative. Nonsuicidal, anxious. Musculoskeletal: No joint swelling or deformity. Normal range of motion. Results CBC & Chem 7: 11/21/21 05:56 11/21/21 05:56 Labs: Abnormal Lab Results - Last 24 Hours (Table) 11/20/21 11/20/21 11/21/21 Range/Units 17:53 17:53 05:56 WBC 3.51 L (4.50-10.00) X 10*3/uL RBC 3.95 L (4.10-5.20) X 10*6/uL MCV 103.8 H 98.2 H (80.0-100.0) fL MCH 32.9 H (27.0-32.0) pg Plt Count 124 L (140-440) X 10*3/uL Lymphocytes # 0.8 L 0.87 L (1.0-4.8) k/uL Sodium 125 L (137-145) mmol/L Chloride 85 L (98-107) mmol/L BUN (9.0-27.0) mg/dL Creatinine 0.51 L (0.52-1.04) mg/dL Glucose 112 H (74-99) mg/dL AST 228 H (14-36) U/L ALT 148 H (4-34) U/L Total Protein 8.8 H (6.3-8.2) g/dL Albumin 5.4 H (3.5-5.0) g/dL 11/21/21 Range/Units 05:56 WBC (4.50-10.00) X 10*3/uL RBC (4.10-5.20) X 10*6/uL MCV (80.0-100.0) fL MCH (27.0-32.0) pg Plt Count (140-440) X 10*3/uL Lymphocytes # (1.0-4.8) k/uL Sodium 129 L (137-145) mmol/L Chloride 88 L (98-107) mmol/L BUN 6.2 L (9.0-27.0) mg/dL Creatinine 0.5 L (0.52-1.04) mg/dL Glucose (74-99) mg/dL AST 102 H (14-36) U/L ALT 112 H (4-34) U/L Total Protein (6.3-8.2) g/dL Albumin (3.5-5.0) g/dL Thrombosis Risk Factor Assmnt - DVT/VTE Prophylaxis DVT/VTE Prophylaxis: Pharmacologic Prophylaxis ordered - Choose All That Apply Any of the Below Risk Factors Present?: Yes Each Factor Represents 1 point: Abnormal pulmonary function (COPD) Other Risk Factors: Yes Each Risk Factor Represents 2 Points: Age 61-74 years Other congenital or acquired thrombophilia - If yes, enter type in comment: No Thrombosis Risk Factor Assessment Total Risk Factor Score: 3 Thrombosis Risk Factor Assessment Level: Moderate Risk Assessment and Plan Assessment: Intractable nausea and vomiting with possible alcoholic gastritis Hypovolemic hyponatremia Elevated liver enzymes AST greater than ALT Macrocytosis likely due to alcohol abuse Daily alcohol use Ongoing antibiotics History [place] no PCI DVT prophylaxis with heparin subcu Plan: Patient will be continued on IV hydration with normal saline and continue with IV Protonix 40 mg daily and pain management. Symptomatic management for nausea and vomiting. Continue to monitor electrolytes. Monitor for alcohol withdrawal symptoms. Follow-up CBC and BMP tomorrow. Smoking cessation and alcohol abstinence has been counseled extensively. Time with Patient: Greater than 30
[2021-11-22] MEDS ORDERED: amLODIPine 5 MG TAB PO STA (02:12)
[2021-11-22] MEDS: PANTOPRAZOLE 40 MG/10 ML VIAL IV SCH (07:26)
[2021-11-22] MEDS: HEPARIN SODIUM,PORCINE/PF 5,000 UNIT/0.5 ML SYRINGE SQ SCH ×2 (07:27→20:18)
[2021-11-22] MEDS: SODIUM CHLORIDE 0.9% 1,000 ML IV SCH (12:50)
[2021-11-22 15:41] LABS: ALT 90 U/L (4-34); AST 92 U/L (14-36); African American GFR (CKD) >90 (>60 ml/min/1.73 sqM); Albumin 4.4 g/dL (3.5-5.0); Albumin/Globulin Ratio 1.6; Alkaline Phosphatase 76 U/L (38-126); Anion Gap 9 mmol/L; Blood Urea Nitrogen 3 mg/dL (7-17); Carbon Dioxide 30 mmol/L (22-30); Chloride 85 mmol/L (98-107); Globulin 2.7 g/dL; Glucose 97 mg/dL (74-99); Non-African American GFR(CKD) >90 (>60 ml/min/1.73 sqM); Potassium 3.8 mmol/L (3.5-5.1); Sodium 124 mmol/L (137-145); Total Bilirubin 0.8 mg/dL (0.2-1.3); Total Protein 7.1 g/dL (6.3-8.2)
[2021-11-22] MEDS: MORPHINE SULFATE 4 MG/ML SYRINGE IV PRN (20:18)
[2021-11-23] MEDS: MORPHINE SULFATE 4 MG/ML SYRINGE IV PRN ×3 (01:49→17:13)
[2021-11-23] MEDS: SODIUM CHLORIDE 0.9% 1,000 ML IV SCH ×2 (01:52→17:42)
[2021-11-23] MEDS: ONDANSETRON 4 MG/2 ML VIAL IVP PRN ×2 (03:06→18:01)
[2021-11-23 04:30] LABS: Basophils % (A) 1 %; Eosinophils # (A) 0.1 k/uL (0-0.7); Eosinophils % (A) 3 %; HCT 44.4 % (34.0-46.0); HGB 14.3 gm/dL (11.4-16.0); Hypochromasia Slight; Lymphocytes # (A) 1.3 k/uL (1.0-4.8); Lymphocytes % (A) 22 %; MCH 35.1 pg (25.0-35.0); MCHC 32.1 g/dL (31.0-37.0); Macrocytosis Marked; Mean Platelet Volume 11.5; Monocytes # (A) 0.4 k/uL (0-1.0); Monocytes % (A) 7 %; Neutrophils # (A) 3.7 k/uL (1.3-7.7); Neutrophils % (A) 66 %; Platelet Count 151 k/uL (150-450); RBC 4.07 m/uL (3.80-5.40); RDW 13.6 % (11.5-15.5); WBC 5.6 k/uL (3.8-10.6)
[2021-11-23 05:08] LABS: MCV 109.1 fL (80.0-100.0)
[2021-11-23] MEDS: HEPARIN SODIUM,PORCINE/PF 5,000 UNIT/0.5 ML SYRINGE SQ SCH ×2 (08:10→20:35)
[2021-11-23] MEDS: PANTOPRAZOLE 40 MG/10 ML VIAL IV SCH (08:10)
[2021-11-23 09:36] LABS: African American GFR (CKD) 127.6 (60.0-200.0); Anion Gap 14.1 mmol/L (10.00-18.00); Blood Urea Nitrogen 4.4 mg/dL (9.0-27.0); Calcium 8.4 mg/dL (8.7-10.3); Carbon Dioxide 25.9 mmol/L (20.0-27.5); Non-African American GFR(CKD) 110.1 (60.0-200.0); Potassium 2.2 mmol/L (3.5-5.5)
[2021-11-23] MEDS ORDERED: POTASSIUM CHLORIDE ER 20 MEQ TAB.ER PO STA ×2 (10:05→11:13)
[2021-11-23] MEDS ORDERED: Potassium Replacement Protocol 1 EACH MISC MISCELLANE PRN (10:15)
[2021-11-23 10:33] LABS: Basophils # (A) 0.01 X 10*3/uL (0.00-0.10); Basophils % (A) 0.2 %; Eosinophils # (A) 0.05 X 10*3/uL (0.04-0.35); HCT 36.8 % (37.2-46.3); HGB 12.7 g/dL (12.0-15.0); Immature Grans, Automated 0.4 %; Lymphocytes % (A) 19.6 %; MCH 32.6 pg (27.0-32.0); MCHC 34.5 g/dL (32.0-37.0); MCV 94.6 fL (80.0-97.0); Mean Platelet Volume 10.3 fL (9.5-12.2); Monocytes # (A) 0.68 X 10*3/uL (0.20-1.00); Monocytes % (A) 13.3 %; NRBC Per 100 WBC 0 /100 WBCS (0.0-0.0); Neutrophils # (A) 3.34 X 10*3/uL (1.80-7.70); Neutrophils % (A) 65.5 %; Platelet Count 144 X 10*3/uL (140-440); RBC 3.89 X 10*6/uL (4.10-5.20); RDW 12.2 % (11.5-14.5)
[2021-11-23] MEDS ORDERED: POTASSIUM CHLORIDE 20 MEQ in WATER FOR INJECTION 1 100ML.BAG IVPB SCH (11:00)
[2021-11-23 12:45] LABS: Magnesium 1.2 mg/dL (1.6-2.3); Potassium 3.2 mmol/L (3.5-5.1)
[2021-11-23] MEDS: amLODIPine 5 MG TAB PO SCH (15:12)
[2021-11-23] MEDS: MAGNESIUM SULFATE-D5W PMX 1 GM in DEXTROSE/WATER 1 100ML.BAG IVPB SCH ×2 (18:02→20:34)
[2021-11-23] MEDS: POTASSIUM CHLORIDE ER 20 MEQ TAB.ER PO SCH (20:34)
--- NOTE | 2021-11-24 01:57 | P.PN ---
Subjective Progress Note Date: 11/22/21 Patient is a 66-year-old female with a known history of hypertension, stroke on my, coronary disease, current everyday smoker and alcohol use drinks about 5 beers every other day presents to ER with the complaints of intractable nausea and vomiting for the past 4 days. Mainly bilious. Denies any blood in the vomit. Also complaining of epigastric abdominal pain. No complaints of cough or sputum breath. No chest pain. No fever no chills. Denies any recent illnesses. CT abdominal pelvis showed no significant acute finding is seen to account for patient's clinical symptoms. Laboratory showed WBC 4.2 hemoglobin 14.9 and platelets 151 lymphocytes 0.8 Sodium 125 potassium 4.1 chloride 85 bicarb is 26 BUN 7 creatinine 0.51 AST 228 ALT 148 and alk phos 107 and lipase level is 104 amylase 58. 11/22/2021 Patient is currently lying in the bed. Awake alert oriented x3. No complaints of chest pain or shortness of breath. Still feels weak. Laboratory showed sodium level still at 124. Patient is being continued on IV hydration with normal saline. Potassium 3.8 chloride 85 BUN 3 and creatinine 0.42 and liver enzymes are trending down. Denies any abdominal pain. Nausea and vomiting did improve. Patient is able to tolerate oral diet is advanced to consistent carb diet. Current medications reviewed. Objective - Vital Signs Vital signs: Vital Signs Temp 98.7 F 11/22/21 17:40 Pulse 90 11/22/21 17:40 Resp 17 11/22/21 17:40 BP 161/95 11/22/21 17:40 Pulse Ox 98 11/22/21 17:40 FiO2 Intake & Output 11/22/21 11/22/21 11/23/21 06:59 18:59 06:59 Other: Voiding Method Toilet # Voids 1 4 - Exam PHYSICAL EXAMINATION: Patient is lying in the bed comfortably, no acute distress, awake alert and oriented.. HEENT: Normocephalic. Neck is supple. Pupils reactive. Nostrils clear. Oral cavity is moist. Neck reveals no JVD, carotid bruits, or thyromegaly. CHEST EXAMINATION: Trachea is central. Symmetrical expansion. Lung quintero clear to auscultation and percussion. CARDIAC: Normal S1, S2 with no gallops. No murmurs ABDOMEN: Soft. Bowel sounds present. Nontender. No organomegaly. No abdominal bruits. Extremities: reveal no edema. No clubbing or cyanosis Neurologically awake, alert, oriented x3 with well-coordinated movements. No focal deficits noted Skin: No rash or skin lesions. Psychiatric: Coperative. Nonsuicidal, anxious. Musculoskeletal: No joint swelling or deformity. Normal range of motion. - Labs CBC & Chem 7: 11/23/21 05:51 11/23/21 12:14 Labs: Abnormal Lab Results - Last 24 Hours (Table) 11/22/21 Range/Units 06:52 Sodium 124 L (137-145) mmol/L Chloride 85 L (98-107) mmol/L BUN 3 L (7-17) mg/dL Creatinine 0.42 L (0.52-1.04) mg/dL AST 92 H (14-36) U/L ALT 90 H (4-34) U/L Assessment and Plan Assessment: Intractable nausea and vomiting with possible alcoholic gastritis Hypovolemic hyponatremia Elevated liver enzymes AST greater than ALT Macrocytosis likely due to alcohol abuse Daily alcohol use Ongoing antibiotics History [place] no PCI DVT prophylaxis with heparin subcu Plan: Patient will be continued on IV hydration with normal saline and continue with IV Protonix 40 mg daily and pain management. Symptomatic management for nausea and vomiting. Continue to monitor electrolytes. Monitor for alcohol withdrawal symptoms. Follow-up CBC and BMP tomorrow. Smoking cessation and alcohol abstinence has been counseled extensively. Time with Patient: Greater than 30
[2021-11-24] MEDS ORDERED: MAGNESIUM SULFATE-D5W PMX 1 GM in DEXTROSE/WATER 1 100ML.BAG IVPB SCH (02:00)
--- NOTE | 2021-11-24 02:07 | P.PN ---
Subjective Progress Note Date: 11/23/21 Patient is a 66-year-old female with a known history of hypertension, stroke on my, coronary disease, current everyday smoker and alcohol use drinks about 5 beers every other day presents to ER with the complaints of intractable nausea and vomiting for the past 4 days. Mainly bilious. Denies any blood in the vomit. Also complaining of epigastric abdominal pain. No complaints of cough or sputum breath. No chest pain. No fever no chills. Denies any recent illnesses. CT abdominal pelvis showed no significant acute finding is seen to account for patient's clinical symptoms. Laboratory showed WBC 4.2 hemoglobin 14.9 and platelets 151 lymphocytes 0.8 Sodium 125 potassium 4.1 chloride 85 bicarb is 26 BUN 7 creatinine 0.51 AST 228 ALT 148 and alk phos 107 and lipase level is 104 amylase 58. 11/22/2021 Patient is currently lying in the bed. Awake alert oriented x3. No complaints of chest pain or shortness of breath. Still feels weak. Laboratory showed sodium level still at 124. Patient is being continued on IV hydration with normal saline. Potassium 3.8 chloride 85 BUN 3 and creatinine 0.42 and liver enzymes are trending down. Denies any abdominal pain. Nausea and vomiting did improve. Patient is able to tolerate oral diet is advanced to consistent carb diet. 11/23/2021 Patient is currently lying in the bed. Awake alert and oriented. Does have generalized weakness. No complaints of chest pain. Patient was short of breath this morning and IV fluids have been discontinued. Patient being treated with oral intake and free water restriction. Sodium level is still at 124. Potassium 2.1 magnesium 1.2 which is being replaced and repeat was ordered. Advance diet to regular diet. Follow-up CBC and BMP tomorrow. PT OT will be consulted. Patient has been afebrile. Nausea vomiting resolved. No complaints of abdominal pain. No diarrhea. Current medications reviewed. Objective - Vital Signs Vital signs: Vital Signs Temp 98.0 F 11/23/21 19:11 Pulse 63 11/23/21 19:11 Resp 17 11/23/21 19:11 BP 169/84 11/23/21 19:11 Pulse Ox 98 11/23/21 19:11 FiO2 Intake & Output 11/23/21 11/23/21 11/24/21 06:59 18:59 06:59 Other: Voiding Method Toilet # Voids 1 3 - Exam PHYSICAL EXAMINATION: Patient is lying in the bed comfortably, no acute distress, awake alert and oriented.. HEENT: Normocephalic. Neck is supple. Pupils reactive. Nostrils clear. Oral cavity is moist. Neck reveals no JVD, carotid bruits, or thyromegaly. CHEST EXAMINATION: Trachea is central. Symmetrical expansion. Lung quintero clear to auscultation and percussion. CARDIAC: Normal S1, S2 with no gallops. No murmurs ABDOMEN: Soft. Bowel sounds present. Nontender. No organomegaly. No abdominal bruits. Extremities: reveal no edema. No clubbing or cyanosis Neurologically awake, alert, oriented x3 with well-coordinated movements. No focal deficits noted Skin: No rash or skin lesions. Psychiatric: Coperative. Nonsuicidal, anxious. Musculoskeletal: No joint swelling or deformity. Normal range of motion. - Labs CBC & Chem 7: 11/23/21 05:51 11/23/21 12:14 Labs: Abnormal Lab Results - Last 24 Hours (Table) 11/22/21 11/22/21 11/23/21 Range/Units 06:52 06:52 05:51 RBC 3.89 L (4.10-5.20) X 10*6/uL Hct 36.8 L (37.2-46.3) % MCV 109.1 H D (80.0-100.0) fL MCH 35.1 H 32.6 H (25.0-35.0) pg Macrocytosis Marked A Sodium 133 L (135-145) mmol/L Potassium (3.5-5.5) mmol/L Chloride 87 L (96-109) mmol/L Carbon Dioxide 16.5 L (20.0-27.5) mmol/L Anion Gap 29.50 H (10.00-18.00) mmol/L BUN 4.1 L (9.0-27.0) mg/dL Creatinine 0.5 L (0.6-1.5) mg/dL BUN/Creatinine Ratio 8.20 L (12.00-20.00) Ratio Calcium 12.4 H (8.7-10.3) mg/dL Magnesium (1.6-2.3) mg/dL 11/23/21 11/23/21 Range/Units 05:51 12:14 RBC (4.10-5.20) X 10*6/uL Hct (37.2-46.3) % MCV (80.0-100.0) fL MCH (25.0-35.0) pg Macrocytosis Sodium 124 L (135-145) mmol/L Potassium 2.2 L* 3.2 L (3.5-5.5) mmol/L Chloride 84 L (96-109) mmol/L Carbon Dioxide (20.0-27.5) mmol/L Anion Gap (10.00-18.00) mmol/L BUN 4.4 L (9.0-27.0) mg/dL Creatinine 0.4 L (0.6-1.5) mg/dL BUN/Creatinine Ratio 11.00 L (12.00-20.00) Ratio Calcium 8.4 L (8.7-10.3) mg/dL Magnesium 1.2 L (1.6-2.3) mg/dL Assessment and Plan Assessment: Intractable nausea and vomiting with possible alcoholic gastritis. improved. Hypovolemic hyponatremia. due to reduced solute intake. Severe hypokalemia and hypomagnesemia Elevated liver enzymes AST greater than ALT Macrocytosis likely due to alcohol abuse Daily alcohol use Ongoing antibiotics History MS no PCI DVT prophylaxis with heparin subcu Plan: Patient will be continued on IV hydration with normal saline and continue with IV Protonix 40 mg daily and pain management. Symptomatic management for nausea and vomiting. Continue to monitor electrolytes. replaced electrolytes. Monitor for alcohol withdrawal symptoms. Follow-up CBC and BMP tomorrow. Smoking cessation and alcohol abstinence has been counseled extensively. Time with Patient: Greater than 30
[2021-11-24] MEDS: MORPHINE SULFATE 4 MG/ML SYRINGE IV PRN ×3 (04:41→21:26)
[2021-11-24] MEDS: ONDANSETRON 4 MG/2 ML VIAL IVP PRN (04:41)
[2021-11-24] MEDS: amLODIPine 5 MG TAB PO SCH (07:57)
[2021-11-24] MEDS: POTASSIUM CHLORIDE ER 20 MEQ TAB.ER PO SCH ×5 (07:58→21:19)
[2021-11-24] MEDS: PANTOPRAZOLE 40 MG TABLET PO SCH (07:58)
[2021-11-24] MEDS: HEPARIN SODIUM,PORCINE/PF 5,000 UNIT/0.5 ML SYRINGE SQ SCH ×2 (07:58→21:19)
[2021-11-24 08:29] LABS: Basophils # (A) 0.01 X 10*3/uL (0.00-0.10); Basophils % (A) 0.2 %; Eosinophils # (A) 0.15 X 10*3/uL (0.04-0.35); Eosinophils % (A) 2.6 %; HCT 37.3 % (37.2-46.3); HGB 12.9 g/dL (12.0-15.0); Immature Grans, Automated 0.7 %; Lymphocytes # (A) 1.27 X 10*3/uL (0.90-5.00); Lymphocytes % (A) 22.3 %; MCH 32.8 pg (27.0-32.0); MCHC 34.6 g/dL (32.0-37.0); MCV 94.9 fL (80.0-97.0); Mean Platelet Volume 10.4 fL (9.5-12.2); Monocytes # (A) 0.97 X 10*3/uL (0.20-1.00); NRBC Per 100 WBC 0 /100 WBCS (0.0-0.0); Neutrophils # (A) 3.25 X 10*3/uL (1.80-7.70); Neutrophils % (A) 57.2 %; Platelet Count 170 X 10*3/uL (140-440); RBC 3.93 X 10*6/uL (4.10-5.20); RDW 12.1 % (11.5-14.5); WBC 5.69 X 10*3/uL (4.50-10.00)
[2021-11-24 09:09] LABS: African American GFR (CKD) 126.9 (60.0-200.0); Anion Gap 13.3 mmol/L (10.00-18.00); BUN/Creat Ratio 13.24 Ratio (12.00-20.00); Blood Urea Nitrogen 5.4 mg/dL (9.0-27.0); Calcium 8.6 mg/dL (8.7-10.3); Carbon Dioxide 25.9 mmol/L (20.0-27.5); Non-African American GFR(CKD) 109.5 (60.0-200.0); Potassium 2.7 mmol/L (3.5-5.5); Total Bilirubin 0.5 mg/dL (0.30-1.20); Total Protein 6.1 g/dL (6.2-8.2)
[2021-11-24 13:11] LABS: African American GFR (CKD) >90 (>60 ml/min/1.73 sqM); Anion Gap 10 mmol/L; Blood Urea Nitrogen 9 mg/dL (7-17); Calcium 9.1 mg/dL (8.4-10.2); Carbon Dioxide 24 mmol/L (22-30); Chloride 88 mmol/L (98-107); Glucose 103 mg/dL (74-99); Non-African American GFR(CKD) >90 (>60 ml/min/1.73 sqM); Potassium 3.3 mmol/L (3.5-5.1); Sodium 122 mmol/L (137-145)
[2021-11-24] MEDS: SODIUM CHLORIDE 0.9% 1,000 ML IV SCH ×2 (16:21→23:45)
--- NOTE | 2021-11-24 20:05 | P.PN ---
Subjective Progress Note Date: 11/24/21 Patient is a 66-year-old female with a known history of hypertension, stroke on my, coronary disease, current everyday smoker and alcohol use drinks about 5 beers every other day presents to ER with the complaints of intractable nausea and vomiting for the past 4 days. Mainly bilious. Denies any blood in the vomit. Also complaining of epigastric abdominal pain. No complaints of cough or sputum breath. No chest pain. No fever no chills. Denies any recent illnesses. CT abdominal pelvis showed no significant acute finding is seen to account for patient's clinical symptoms. Laboratory showed WBC 4.2 hemoglobin 14.9 and platelets 151 lymphocytes 0.8 Sodium 125 potassium 4.1 chloride 85 bicarb is 26 BUN 7 creatinine 0.51 AST 228 ALT 148 and alk phos 107 and lipase level is 104 amylase 58. 11/22/2021 Patient is currently lying in the bed. Awake alert oriented x3. No complaints of chest pain or shortness of breath. Still feels weak. Laboratory showed sodium level still at 124. Patient is being continued on IV hydration with normal saline. Potassium 3.8 chloride 85 BUN 3 and creatinine 0.42 and liver enzymes are trending down. Denies any abdominal pain. Nausea and vomiting did improve. Patient is able to tolerate oral diet is advanced to consistent carb diet. 11/23/2021 Patient is currently lying in the bed. Awake alert and oriented. Does have generalized weakness. No complaints of chest pain. Patient was short of breath this morning and IV fluids have been discontinued. Patient being treated with oral intake and free water restriction. Sodium level is still at 124. Potassium 2.1 magnesium 1.2 which is being replaced and repeat was ordered. Advance diet to regular diet. Follow-up CBC and BMP tomorrow. PT OT will be consulted. Patient has been afebrile. Nausea vomiting resolved. No complaints of abdominal pain. No diarrhea. 11/24/2021 Patient is seen in follow-up this morning and nausea improved. Patient was on IV fluids and were discontinued last night as patient was short of breath. Patient sodium remains low as well as the potassium and will replace per protocol. Magnesium is improved at 2.0 post replacement. Recommend resuming fluids and encourage oral intake. Will reorder am labs. Encouraged increased activity as tolerated. Patient is afebrile and denies chest pain or shortness of breath. Review of systems: Constitutional: No reports of fatigue, fever, or chills Cardiovascular: No reports of chest pain or palpitations Respiratory: No reports of shortness of breath or cough GI: No reports of nausea, vomiting, or diarrhea : No reports of dysuria or retention Neurovascular: reports of generalized weakness All medications have been reviewed Active Medications Amlodipine Besylate (Amlodipine 5 Mg Tab) 5 mg PO DAILY [facility] Last Admin: 11/24/21 07:57 Dose: 5 mg Heparin Sodium (Porcine) (Heparin Sodium,Porcine/Pf 5,000 Unit/0.5 Ml Syringe) 5,000 unit SQ Q12HR [facility] Last Admin: 11/24/21 07:58 Dose: 5,000 unit Sodium Chloride (Saline 0.9%) 1,000 mls @ 100 mls/hr IV .Q10H [facility] Miscellaneous Information (Potassium Replacement Protocol 1 Each Misc) 1 each MISCELLANE DAILY PRN; Protocol PRN Reason: Per Protocol Morphine Sulfate (Morphine Sulfate 4 Mg/Ml Syringe) 4 mg IV Q4HR PRN PRN Reason: Severe Pain Last Admin: 11/24/21 04:41 Dose: 4 mg Naloxone HCl (Naloxone 0.4 Mg/Ml 1 Ml Vial) 0.2 mg IV Q2M PRN PRN Reason: Opioid Reversal Ondansetron HCl (Ondansetron 4 Mg/2 Ml Vial) 4 mg IVP Q6HR PRN PRN Reason: Nausea And Vomiting Last Admin: 11/24/21 04:41 Dose: 4 mg Pantoprazole Sodium (Pantoprazole 40 Mg Tablet) 40 mg PO AC-[id number] [facility] Last Admin: 11/24/21 07:58 Dose: 40 mg Potassium Chloride (Potassium Chloride Er 20 Meq Tab.Er) 20 meq PO BID [facility] Stop: 11/25/21 09:01 Last Admin: 11/24/21 07:58 Dose: 20 meq Promethazine HCl (Promethazine 25 Mg Tab) 12.5 mg PO Q6HR PRN PRN Reason: Nausea And Vomiting PHYSICAL EXAMINATION: Patient is lying in the bed comfortably, no acute distress, awake alert and oriented.. HEENT: Normocephalic. Neck is supple. Pupils reactive. Nostrils clear. Oral cavity is moist. Neck reveals no JVD, carotid bruits, or thyromegaly. CHEST EXAMINATION: Trachea is central. Symmetrical expansion. Lung quintero clear to auscultation and percussion. CARDIAC: Normal S1, S2 with no gallops. No murmurs ABDOMEN: Soft. Bowel sounds present. Nontender. No organomegaly. No abdominal bruits. Extremities: reveal no edema. No clubbing or cyanosis Neurologically awake, alert, oriented x3 with well-coordinated movements. No focal deficits noted Skin: No rash or skin lesions. Psychiatric: Cooperative. Non-suicidal, less anxious. Musculoskeletal: No joint swelling or deformity. Normal range of motion. Assessment: Intractable nausea and vomiting with possible alcoholic gastritis. improved. Hypovolemic hyponatremia. due to reduced solute intake. Severe hypokalemia and hypomagnesemia, being replaced Elevated liver enzymes AST greater than ALT Macrocytosis likely due to alcohol abuse Daily alcohol use History DE no PCI DVT prophylaxis with heparin subcu GI prophylaxis Full code Plan: Patient will be continued on IV hydration with normal saline and recommending follow up labs in am. Replace potassium per protocol Encourage oral intake Recommend to monitor for acute alcohol withdrawal symptoms. Continue gentle IV fluids and repeat labs with possible discharge in 24-48 hours. The impression and plan of care has been dictated by Viola Lima, Nurse Practitioner as directed. Dr. Jerica MD I have performed a history and examination and MDM of this patient, discussed the same with the dictator, and agree with the dictator's assessment and plan as written ,documented as a scribe. Based on total visit time, I have performed more than 50% of the visit. Objective - Vital Signs Vital signs: Vital Signs Temp 98.4 F 11/24/21 08:00 Pulse 82 11/24/21 08:00 Resp 16 11/24/21 08:00 BP 143/87 11/24/21 08:00 Pulse Ox 99 11/24/21 08:00 FiO2 Intake & Output 11/23/21 11/24/21 11/24/21 18:59 06:59 18:59 Intake Total 118 Balance 118 Intake: Oral 118 Other: Voiding Method Toilet Toilet Toilet # Voids 3 2 - Labs CBC & Chem 7: 11/24/21 03:34 11/24/21 14:10 Labs: Abnormal Lab Results - Last 24 Hours (Table) 11/22/21 11/23/21 11/23/21 Range/Units 06:52 05:51 12:14 RBC 3.89 L (4.10-5.20) X 10*6/uL Hct 36.8 L (37.2-46.3) % MCH 32.6 H (27.0-32.0) pg Sodium 133 L (135-145) mmol/L Potassium 3.2 L (3.5-5.1) mmol/L Chloride 87 L (96-109) mmol/L Carbon Dioxide 16.5 L (20.0-27.5) mmol/L Anion Gap 29.50 H (10.00-18.00) mmol/L BUN 4.1 L (9.0-27.0) mg/dL Creatinine 0.5 L (0.6-1.5) mg/dL BUN/Creatinine Ratio 8.20 L (12.00-20.00) Ratio Calcium 12.4 H (8.7-10.3) mg/dL Magnesium 1.2 L (1.6-2.3) mg/dL AST (13-35) U/L ALT (8-44) U/L Total Protein (6.2-8.2) g/dL 11/24/21 11/24/21 Range/Units 03:34 03:34 RBC 3.93 L (4.10-5.20) X 10*6/uL Hct (37.2-46.3) % MCH 32.8 H (27.0-32.0) pg Sodium 126 L (135-145) mmol/L Potassium 2.7 L* (3.5-5.1) mmol/L Chloride 87 L (96-109) mmol/L Carbon Dioxide (20.0-27.5) mmol/L Anion Gap (10.00-18.00) mmol/L BUN 5.4 L (9.0-27.0) mg/dL Creatinine 0.4 L (0.6-1.5) mg/dL BUN/Creatinine Ratio (12.00-20.00) Ratio Calcium 8.6 L (8.7-10.3) mg/dL Magnesium (1.6-2.3) mg/dL AST 62 H (13-35) U/L ALT 72 H (8-44) U/L Total Protein 6.1 L (6.2-8.2) g/dL
[2021-11-25] MEDS: MORPHINE SULFATE 4 MG/ML SYRINGE IV PRN ×2 (02:36→08:08)
[2021-11-25 06:31] LABS: African American GFR (CKD) >90 (>60 ml/min/1.73 sqM); Anion Gap 6 mmol/L; Blood Urea Nitrogen 5 mg/dL (7-17); Calcium 8.3 mg/dL (8.4-10.2); Carbon Dioxide 22 mmol/L (22-30); Chloride 101 mmol/L (98-107); Glucose 84 mg/dL (74-99); Magnesium 1.5 mg/dL (1.6-2.3); Non-African American GFR(CKD) >90 (>60 ml/min/1.73 sqM); Potassium 3.6 mmol/L (3.5-5.1); Sodium 129 mmol/L (137-145)
[2021-11-25 07:49] VITALS: BP 156/95; PULSE 61; RESP 18; TEMP 98.4
[2021-11-25] MEDS: amLODIPine 5 MG TAB PO SCH (08:04)
[2021-11-25] MEDS: PANTOPRAZOLE 40 MG TABLET PO SCH (08:04)
[2021-11-25] MEDS: POTASSIUM CHLORIDE ER 20 MEQ TAB.ER PO SCH (08:04)
[2021-11-25] MEDS: HEPARIN SODIUM,PORCINE/PF 5,000 UNIT/0.5 ML SYRINGE SQ SCH (08:04)
[2021-11-25] MEDS ORDERED: Magnesium Replacement Protocol 1 EACH MISC MISCELLANE PRN (10:10)
[2021-11-25] MEDS: SODIUM CHLORIDE 0.9% 1,000 ML IV SCH (10:24)
[2021-11-25] MEDS: MAGNESIUM SULFATE-D5W PMX 1 GM in DEXTROSE/WATER 1 100ML.BAG IVPB SCH ×2 (10:25→11:02)
== END 2021-11-25 15:34 | disposition home or self-care (01) | DRG 392 ==
LOC: EC 15:54 → 4SSUR 20:29 → 6NMEDSUR 11-23 17:48
PROVIDERS: ADMIT Internal Medicine; ATTEND Internal Medicine
DX: K29.20 Alcoholic gastritis without bleeding (principal); E87.1 Hypo-osmolality and hyponatremia; J44.9 Chronic obstructive pulmonary disease, unspecified; F10.10 Alcohol abuse, uncomplicated; Z28.310 Unvaccinated for COVID-19; E86.1 Hypovolemia; E86.0 Dehydration; D75.89 Other specified diseases of blood and blood-forming organs; E87.6 Hypokalemia; E83.42 Hypomagnesemia; I25.10 Atherosclerotic heart disease of native coronary artery without angina pectoris; I10 Essential (primary) hypertension; I25.2 Old myocardial infarction; R74.8 Abnormal levels of other serum enzymes; F17.210 Nicotine dependence, cigarettes, uncomplicated; Z71.6 Tobacco abuse counseling; Z71.41 Alcohol abuse counseling and surveillance of alcoholic; Z98.891 History of uterine scar from previous surgery; Z86.73 Personal history of transient ischemic attack (TIA), and cerebral infarction without residual deficits; Z86.59 Personal history of other mental and behavioral disorders; Z88.6 Allergy status to analgesic agent; Z91.030 Bee allergy status; Z82.0 Family history of epilepsy and other diseases of the nervous system
CPT/HCPCS: 36415; 74177; 80048; 80053; 82150; 83690; 83735; 84132; 85025; 85610; 85730; 96361; 96374; 96375; 99285

== ENCOUNTER 2021-12-18 12:33 | Emergency (ER) | payer OTHER ==
[2021-12-18 12:45] VITALS: TEMP 98
[2021-12-18] MEDS ORDERED: HYDROmorphone 0.5 MG/0.5 ML SYRINGE IVP STA (12:51)
--- NOTE | 2021-12-18 12:54 | ED ---
General Adult HPI - General Chief complaint: Fall Stated complaint: Fall-L arm injury Time Seen by Provider: 12/18/21 12:35 Source: patient, EMS, RN notes reviewed, old records reviewed Mode of arrival: EMS Limitations: no limitations - History of Present Illness Initial comments: This is a 66-year-old female presents emergency Department complaining of left wrist pain. Patient tripped over dog and fell onto her wrist and it is grossly deformed. Patient came in via EMS. Patient denies any hand pain or elbow pain shoulder pain. Patient denies hitting her head patient denies any neck pain. Patient denies any other complaints at this time - Related Data Previous Rx's Medication Instructions Recorded Magnesium Oxide [Mag-Ox] 400 mg PO BID 30 Days #60 tablet 11/25/21 Multivitamins, Thera [Multivitamin] 1 tab PO DAILY #30 tablet 11/25/21 Potassium Chloride ER [K-Dur 20] 20 meq PO DAILY #30 tab 11/25/21 Thiamine [Vitamin B-1] 100 mg PO DAILY #30 tablet 11/25/21 amLODIPine [Norvasc] 5 mg PO DAILY #30 tab 11/25/21 Cephalexin [Keflex] 500 mg PO Q6HR #28 cap 12/18/21 Allergies Allergy/AdvReac Type Severity Reaction Status Date / Time aspirin Allergy Swelling Verified 12/18/21 12:38 venom-honey bee Allergy Swelling Verified 12/18/21 12:38 [bee venom (honey bee)] Review of Systems ROS Statement: Those systems with pertinent positive or pertinent negative responses have been documented in the HPI. ROS Other: All systems not noted in ROS Statement are negative. Past Medical History Past Medical History: Coronary Artery Disease (CAD), COPD, Hypertension, Myocardial Infarction ([place]) Last Myocardial Infarction Date:: unknown History of Any Multi-Drug Resistant Organisms: None Reported Past Surgical History: Section, Orthopedic Surgery Past Anesthesia/Blood Transfusion Reactions: No Reported Reaction Past Psychological History: Depression Smoking Status: Current every day smoker Past Alcohol Use History: Occasional Past Drug Use History: Marijuana - Past Family History Brother(s) Additional Family Medical History / Comment(s): pts. brother recently from [place] Gehrigs disease General Exam - General Exam Comments Initial Comments: GENERAL Patient is well-developed and well-nourished. Patient is in mild distress. EYES Patient's pupils are equal and round. Extraocular motion is intact SKIN Unremarkable NEURO The patient is alert and oriented 3 PYSCH Patient has normal interpersonal interactions. MUSCULOSKELETAL Gross deformity of the left wrist Limitations: no limitations Course Vital Signs 12/18/21 12/18/21 12/18/21 12:34 13:38 14:42 Temperature 98.0 F Pulse Rate 92 88 92 Respiratory 20 18 18 Rate Blood Pressure 108/72 120/75 120/75 O2 Sat by Pulse 95 99 96 Oximetry 12/18/21 12/18/21 12/18/21 14:47 14:52 15:07 Temperature Pulse Rate 103 H 101 H 98 Respiratory 18 18 19 Rate Blood Pressure 136/88 120/76 140/91 O2 Sat by Pulse 10 L 100 97 Oximetry Procedures - Procedures Initial comment: A second procedural sedation was done because he OCL was poking into the patient's elbow and when we removed her wrist went back out of place. I reduced the wrist second time patient took 120 of propofol she was hooked up to a nonrebreather and monitor respiratory is in the room nursing was in the room it was started at 1514 and sedation was completed at 1540. No complications were experienced. - Orthopedic Splinting/Casting Injury #1 Side: left Upper Extremity Injury Location: wrist Upper Extremity Immobilizer: sugar tong splint Injury #2 Side: left (Need to be redone because the patient was complaining of some elbow pain with the placement of the first OCL) Upper Extremity Injury Location: wrist Upper Extremity Immobilizer: sugar tong splint - Procedural Sedation Procedural Sedation Start Time: 14:42 Procedural Sedation Stop Time: 15:05 Indications: fracture/dislocation reduction ASA Class: II Preparation: night monitor applied, pulse oximeter, supplemental O2 applied IV Propofol Dose (mgs): 100 Complications: none Patient Tolerated Procedure: well Medical Decision Making - Medical Decision Making X-ray of the wrist shows a distal radius fracture with significant dorsal angulation of about 45. The fractures also very impacted. I reduce the fracture however the patient was complaining of the os he also removed. It slipped out of place and had to be reduced a second time both times required a procedural sedation Disposition Clinical Impression: Fall, Radial fracture Disposition: HOME SELF-CARE Condition: Good Instructions (If sedation given, give patient instructions): Wrist Fracture in Adults (ED) Prescriptions: Cephalexin [Keflex] 500 mg PO Q6HR #28 cap Is patient prescribed a controlled substance at d/c from ED?: No Referrals: Eduar Hurtado DO [Doctor of Osteopathic Medicine] - 1-2 days Time of Disposition: 15:40
--- NOTE | 2021-12-18 13:22 | XR ---
EXAMINATION TYPE: XR wrist complete LT DATE OF EXAM: 12/18/2021 COMPARISON: NONE HISTORY: 66-year-old female pain after fall TECHNIQUE: 4 views FINDINGS: Osteopenia. There is an comminuted and frankly impacted distal radial epiphyseal and metaphyseal frac ture. There is prominent dorsal angulation and 6 mm of dorsal displacement. Additional radial angulat ion is also noted. Moderate degenerative change first CMC joint and mild at the triscaphe joint. Prom inent secondary positive ulnar variance noted. Suspect subtle fracture of the ulnar styloid process a s well. IMPRESSION: 1. Severely impacted fracture of the distal radial metaphysis and epiphysis with comminution and lenny k dorsal angulation and lesser degree of radial angulation. 2. Probable disruption of the distal radioulnar joint and marked secondary positive ulnar variance.
[2021-12-18] MEDS ORDERED: ONDANSETRON 4 MG/2 ML VIAL IVP STA (14:36)
[2021-12-18] MEDS ORDERED: PROPOFOL 10 MG/ML 20 ML VIAL IV ONE ×3 (14:42→15:15)
--- NOTE | 2021-12-18 15:21 | XR ---
EXAMINATION TYPE: XR wrist limited LT DATE OF EXAM: 12/18/2021 COMPARISON: NONE HISTORY: 66-year-old female postreduction left wrist after fracture TECHNIQUE: 3 views in cast FINDINGS: Overlying glass cast. There is lateral displacement of the fracture ulnar styloid process. Redemonstr ated comminuted fracture distal radial metaphysis and epiphysis. Overall 4 mm of lateral displacement and 7 mm of dorsal displacement though overall degree of angulation is significantly improved. There is now neutral ulnar variance. No significant incongruence of the radiocarpal articular surface. Mod erate OA at the base of the thumb. IMPRESSION: Post reduction and fiberglass cast. Displaced ulnar styloid process fracture. Comminuted fracture dis robinson radial metaphysis and epiphysis shows significant improvement in the degree of impaction and angu lation. Residual 4 mm of lateral and 7 mm of dorsal displacement remains.
--- NOTE | 2021-12-18 16:04 | XR ---
EXAMINATION TYPE: XR wrist limited LT DATE OF EXAM: 12/18/2021 COMPARISON: Earlier today HISTORY: 66-year-old female risk reduction TECHNIQUE: 2 views in cast FINDINGS: Overlying fiberglass cast. Redemonstrated comminuted fracture distal radial metaphysis and epiphysis. The degree of lateral angulation has considerably improved. There is 3 mm of lateral displacement (4 mm, previously. There is improved congruity to the distal radial ulnar joint articular surface. Less er degree of displacement of the fracture ulnar styloid process. Dorsal displacement measures 5 mm ve rsus 7 mm, previously. There is slight increase in the degree of dorsal angulation and redemonstrated dorsal comminuted fragments. IMPRESSION: 1. Known comminuted fracture distal radial metaphysis and epiphysis. The degree of lateral angulation has improved. However, there is slight increase in the degree of dorsal angulation. 2. Decreased, now 5 mm of dorsal displacement versus 7 mm, previously. Decreased, now 3 mm of lateral displacement versus 4 mm, previously. 3. Decreased degree of displacement of the fractured ulnar styloid process.
[2021-12-18 16:16] VITALS: PULSE 96
[2021-12-18] MEDS ORDERED: ACET/COD 300 MG/30 MG STARTER PACK 6 TAB BTL PO STA (16:26)
[2021-12-18] MEDS ORDERED: ONDANSETRON 4 MG ODT STARTER PACK 2 TAB BTL PO STA (16:30)
[2021-12-18] MEDS ORDERED: METOCLOPRAMIDE 5 MG/ML 2 ML VIAL IVP STA (16:41)
[2021-12-18 16:54] VITALS: BP 152/92; RESP 18
== END 2021-12-18 16:53 | disposition home or self-care (01) ==
LOC: EC 12:33
DX: S52.502A Unspecified fracture of the lower end of left radius, initial encounter for closed fracture (principal); F17.200 Nicotine dependence, unspecified, uncomplicated; J44.9 Chronic obstructive pulmonary disease, unspecified; I10 Essential (primary) hypertension; I25.2 Old myocardial infarction; Z88.6 Allergy status to analgesic agent; Z91.030 Bee allergy status; W01.0XXA Fall on same level from slipping, tripping and stumbling without subsequent striking against object, initial encounter; Y92.009 Unspecified place in unspecified non-institutional (private) residence as the place of occurrence of the external cause
CPT/HCPCS: 99284; 96374; 96375; 25605; 99152; 73100; 73110; J2765; J2405; S0119; J2704; J1170

== ENCOUNTER 2021-12-19 10:43 | Emergency (ER) | payer MEDICARE, OTHER ==
[2021-12-19 10:50] VITALS: BP 142/94; PULSE 114; RESP 20; TEMP 98
[2021-12-19] MEDS ORDERED: HYDROmorphone 0.5 MG/0.5 ML SYRINGE IVP STA (11:05)
--- NOTE | 2021-12-19 11:10 | ED ---
General Adult HPI - General Chief complaint: Recheck/Abnormal Lab/Rx Stated complaint: revisit- lt arm fracture, pain Time Seen by Provider: 12/19/21 11:00 Source: patient, RN notes reviewed, old records reviewed Mode of arrival: ambulatory Limitations: no limitations - History of Present Illness Initial comments: This is a 66-year-old female who comes in because she states the splint that was placed yesterday for her broken wrist was hurting her. Patient states she fell yesterday and came into the emergency department had left wrist fracture and had a be put back in place and then had an OCL placed on it. Patient states she was not sent home with a sling for the arm is been dangling all day causing her some pain. - Related Data Previous Rx's Medication Instructions Recorded Magnesium Oxide [Mag-Ox] 400 mg PO BID 30 Days #60 tablet 11/25/21 Multivitamins, Thera [Multivitamin] 1 tab PO DAILY #30 tablet 11/25/21 Potassium Chloride ER [K-Dur 20] 20 meq PO DAILY #30 tab 11/25/21 Thiamine [Vitamin B-1] 100 mg PO DAILY #30 tablet 11/25/21 amLODIPine [Norvasc] 5 mg PO DAILY #30 tab 11/25/21 Cephalexin [Keflex] 500 mg PO Q6HR #28 cap 12/18/21 Allergies Allergy/AdvReac Type Severity Reaction Status Date / Time aspirin Allergy Swelling Verified 12/19/21 10:50 venom-honey bee Allergy Swelling Verified 12/19/21 10:50 [bee venom (honey bee)] Review of Systems ROS Statement: Those systems with pertinent positive or pertinent negative responses have been documented in the HPI. ROS Other: All systems not noted in ROS Statement are negative. Past Medical History Past Medical History: Coronary Artery Disease (CAD), COPD, Hypertension, Myocardial Infarction ([place]) Last Myocardial Infarction Date:: unknown History of Any Multi-Drug Resistant Organisms: None Reported Past Surgical History: Section, Orthopedic Surgery Past Anesthesia/Blood Transfusion Reactions: No Reported Reaction Past Psychological History: Depression Smoking Status: Current every day smoker Past Alcohol Use History: Occasional Past Drug Use History: Marijuana - Past Family History Brother(s) Additional Family Medical History / Comment(s): pts. brother recently from [place] Gehrigs disease General Exam - General Exam Comments Initial Comments: GENERAL Patient is well-developed and well-nourished. Patient is in mild distress. EYES Patient's pupils are equal and round. Extraocular motion is intact SKIN Unremarkable NEURO The patient is alert and oriented 3 PYSCH Patient has normal interpersonal interactions. MUSCULOSKELETAL Patient's hand is swollen though she does have good cap refill and sensation in all 5 fingers. Limitations: no limitations Course Vital Signs 12/19/21 10:48 Temperature 98 F Pulse Rate 114 H Respiratory 20 Rate Blood Pressure 142/94 O2 Sat by Pulse 99 Oximetry Medical Decision Making - Medical Decision Making I loosened up the Johnathon wrap and reposition the OCL was comfortable and also gave her sling such that her hand was higher than her elbow so the OCL was Patient also received 2.5 mg IM dose of Dilaudid. Patient stated she felt much better. Nursing will follow up and make an appointment for her to go see orthopedics today. no longer pinching the back of her triceps. Disposition Clinical Impression: Cast discomfort Disposition: HOME SELF-CARE Condition: Good Is patient prescribed a controlled substance at d/c from ED?: No Referrals: Eduar Hurtado DO [Doctor of Osteopathic Medicine] - 12/19/21
== END 2021-12-19 11:29 | disposition home or self-care (01) ==
LOC: EC 10:43
DX: M79.602 Pain in left arm (principal); I25.10 Atherosclerotic heart disease of native coronary artery without angina pectoris; J44.9 Chronic obstructive pulmonary disease, unspecified; I10 Essential (primary) hypertension; I25.2 Old myocardial infarction; F17.200 Nicotine dependence, unspecified, uncomplicated; Z46.89 Encounter for fitting and adjustment of other specified devices; Z88.6 Allergy status to analgesic agent; Z91.030 Bee allergy status
CPT/HCPCS: 99283; 96374; J1170

== ENCOUNTER → 2021-12-23 | Outpatient (CLI) | payer OTHER ==
[2021-12-23 23:00] LABS: African American GFR (CKD) 118.2 (60.0-200.0); Anion Gap 16.8 mmol/L (10.00-18.00); BUN/Creat Ratio 17.6 Ratio (12.00-20.00); Blood Urea Nitrogen 8.9 mg/dL (9.0-27.0); Calcium 9.5 mg/dL (8.7-10.3); Carbon Dioxide 28.2 mmol/L (20.0-27.5); Potassium 3.3 mmol/L (3.5-5.5)
[2021-12-23 23:17] LABS: Basophils # (A) 0.01 X 10*3/uL (0.00-0.10); Basophils % (A) 0.1 %; Eosinophils # (A) 0.03 X 10*3/uL (0.04-0.35); Eosinophils % (A) 0.4 %; HCT 34.6 % (37.2-46.3); HGB 12.5 g/dL (12.0-15.0); Immature Grans, Automated 0.5 %; Lymphocytes # (A) 1.07 X 10*3/uL (0.90-5.00); Lymphocytes % (A) 13.4 %; MCH 34.1 pg (27.0-32.0); MCHC 36.1 g/dL (32.0-37.0); MCV 94.3 fL (80.0-97.0); Mean Platelet Volume 10.3 fL (9.5-12.2); Monocytes # (A) 0.99 X 10*3/uL (0.20-1.00); Monocytes % (A) 12.4 %; NRBC Per 100 WBC 0 /100 WBCS (0.0-0.0); Neutrophils # (A) 5.82 X 10*3/uL (1.80-7.70); Neutrophils % (A) 73.2 %; Platelet Count 207 X 10*3/uL (140-440); RBC 3.67 X 10*6/uL (4.10-5.20); RDW 12.5 % (11.5-14.5); WBC 7.96 X 10*3/uL (4.50-10.00)
== END | disposition home or self-care (01) ==
LOC: LABPAT 15:39
PROVIDERS: ATTEND Orthopaedic Surgery Hand Surgery
DX: Z01.812 Encounter for preprocedural laboratory examination (principal)
CPT/HCPCS: 80048; 85025; 93005

== ENCOUNTER 2022-05-13 09:32 | Day surgery (SDC) | payer MEDICARE, OTHER ==
--- NOTE | 2022-05-12 08:58 | P.HPOR ---
History of Present Illness H&P Date: 05/12/22 Chief Complaint: Left distal radius fracture with hardware failure Subjective: This is a 66 year old female that presents today for a post-operative visit after undergoing left distal radius fracture ORIF and DRUJ pinning on 12/25/21. She is now 3 months out from surgery. She has been working on ROM out of her brace. She notes pain with wrist movement most days and denies any new injury. Her DRUJ pin fell out at her last office visit prior to removal. Physical Examination: LUE: AIN/PIN/Radial/Ulnar/Median motor intact. Radial/Ulnar/Median SILT. 2+/4 Radial/Ulnar pulses palpated. Volar incision well healed. Wrist F/E 85/60 with pain at terminal extension/flexion. EPL/FPL intact. Imaging: X-Rays of the left wrist demonstrate volar plate fixation of distal radius fracture. Two of the proximal shaft screws have started to back out with the plate slightly rotated. Signs of fracture consolidation are present. Impression: 1.) S/P Left distal radius ORIF/DRUJ pinning with hardware failure. Plan: Diagnosis and treatment options and were discussed with the patient. We discussed the loose screw in the proximal shaft and the slight rotation of the plate, likely due to very poor bone quality that was encountered at the time of surgery. Now that her fracture has consolidated I recommend hardware removal at the 4 month month after surgery due to the irritation it's causing her. She was agreeable with this plan. Risks and benefits of surgery including bleeding, infection, damage to surrounding tissue, need for further surgery, residual numbness were discussed and the patient wished to go forward with surgery. She will be scheduled for removal of left wrist hardware in the near future. -Eugene Pascual DO Orthopedic Hand/Upper Extremity Surgeon Past Medical History Past Medical History: Asthma, Coronary Artery Disease (CAD), COPD, Hypertension, Myocardial Infarction ([place]), Musculoskeletal Disorder Additional Past Medical History / Comment(s): supposed to take BP, hasn't been able to get rx. filled recently, fell Wednesday in front of her apt. building & fx. left wrist-current splint & sling Last Myocardial Infarction Date:: unknown History of Any Multi-Drug Resistant Organisms: None Reported Past Surgical History: Section, Orthopedic Surgery Additional Past Surgical History / Comment(s): ORIF left ankle Past Anesthesia/Blood Transfusion Reactions: No Reported Reaction Smoking Status: Current every day smoker - Past Family History Brother(s) Additional Family Medical History / Comment(s): pts. brother recently from [place]helia Gehrigs disease Medications and Allergies Home Medications Medication Instructions Recorded Confirmed Type Acetaminophen Tab [Tylenol] 650 mg PO Q4H PRN 12/24/21 12/24/21 History Albuterol Inhaler [Ventolin Hfa 1 - 2 puff INHALATION RT-Q6H PRN 12/24/21 12/24/21 History Inhaler] HYDROcodone/APAP 5-325MG [[place] 1 tab PO Q6HR PRN #18 tab 12/25/21 Rx 5-325] Allergies Allergy/AdvReac Type Severity Reaction Status Date / Time aspirin Allergy Swelling Verified 12/24/21 10:22 venom-honey bee Allergy Swelling Verified 12/24/21 10:22 [bee venom (honey bee)] Physical Examination Osteopathic Statement: *. No significant issues noted on an osteopathic structural exam other than those noted in the History and Physical/Consult.
[2022-05-12 14:25] VITALS: BMI 22.6
[~2022-05-13 09:32] MED LIST: DEXAMETHASONE SOD PHOSPHATE 4 MG/ML 1 ML VIAL IV ONE; HYDROmorphone 0.5 MG/0.5 ML SYRINGE IVP PRN; LACTATED RINGERS 1,000 ML IV SCH; LIDOCAINE 1% (10MG/ML) FOR IV START INTRADERMA PRN; ONDANSETRON 4 MG/2 ML VIAL IVP ONE
[2022-05-13 10:53] VITALS: TEMP 97.5
[2022-05-13] MEDS ORDERED: hydrALAZINE HCL 20 MG/ML 1 ML VIAL IVP ONE (10:57)
[2022-05-13 11:07] VITALS: PULSE 112
[2022-05-13 11:08] LABS: Basophils % (A) 1 %; Eosinophils # (A) 0.1 k/uL (0-0.7); Eosinophils % (A) 2 %; HCT 47.4 % (34.0-46.0); HGB 16.5 gm/dL (11.4-16.0); Lymphocytes # (A) 1.5 k/uL (1.0-4.8); Lymphocytes % (A) 23 %; MCH 34.8 pg (25.0-35.0); MCHC 34.8 g/dL (31.0-37.0); MCV 100.2 fL (80.0-100.0); Mean Platelet Volume 7.2; Monocytes # (A) 0.5 k/uL (0-1.0); Monocytes % (A) 8 %; Neutrophils # (A) 4.1 k/uL (1.3-7.7); Neutrophils % (A) 65 %; Platelet Count 281 k/uL (150-450); RBC 4.73 m/uL (3.80-5.40); RDW 12.9 % (11.5-15.5); WBC 6.3 k/uL (3.8-10.6)
[2022-05-13 11:32] VITALS: BP 160/93; RESP 16
== END 2022-05-13 11:55 ==
LOC: OR 09:32
PROVIDERS: ATTEND Orthopaedic Surgery Hand Surgery
DX: T84.84XA Pain due to internal orthopedic prosthetic devices, implants and grafts, initial encounter (principal); J45.909 Unspecified asthma, uncomplicated; I25.10 Atherosclerotic heart disease of native coronary artery without angina pectoris; J44.9 Chronic obstructive pulmonary disease, unspecified; I10 Essential (primary) hypertension; I25.2 Old myocardial infarction; F17.200 Nicotine dependence, unspecified, uncomplicated; Z79.51 Long term (current) use of inhaled steroids; Z91.030 Bee allergy status; Z88.6 Allergy status to analgesic agent; Z79.891 Long term (current) use of opiate analgesic
CPT/HCPCS: 93005; 85025; J0360; J1100; J2405

== ENCOUNTER 2022-05-13 11:48 | Emergency (ER) | payer MEDICARE, OTHER ==
--- NOTE | 2022-05-13 11:54 | ED ---
General Adult HPI <Marsha Sy - Last Filed: 05/13/22 11:49> <AngelitoMandeep Skylar - Last Filed: 05/13/22 14:37> - General Stated complaint: high blood pressure - History of Present Illness Initial comments: patient is a 67-year-old female presenting to the emergency room at the direction of [facility]. She was scheduled for hardware removal of her left wrist today and preop found her to be hypertensive with blood pressure systolically 170s and diastolics in the 130s. She has a past medical history significant for hypertension but has not been on any hypertensive medications in approximately 1 year. She denies any associated symptoms with her hypertension including any chest pain, shortness of breath, nausea, vomiting, headache, dizziness, blurred or double vision. she was previously referred to cardiology for further evaluation has not followed with cardiology either. She is a smoker. (Marsha Sy) Dictation was produced using [employer] dictation software. please excuse any grammatical, word or spelling errors. Chief Complaint: 67-year-old female presents from [facility] for hypertension History of Present Illness: Patient 67-year-old female presents emergency Department from [facility] for hypertension. Patient was supposed to have some sort of upper extremity surgery today. Patient had preop hypertension measuring 177/137. His recheck again so found to be high. Discussion was had between hand surgeon and anesthesia recommended that surgery be canceled. They requested that patient did cardiac clearance for the procedure. Patient denies any symptoms. Denies any headache. No shortness of breath. No numbness and paresthesias to the extremities. Denies any chest pain. The ROS documented in this emergency department record has been reviewed and confirmed by me. Those systems with pertinent positive or negative responses have been documented in the HPI. All other systems are other negative and/or noncontributory. PHYSICAL EXAM: General Impression: Alert and oriented x3, not in acute distress HEENT: Normocephalic atraumatic, extra-ocular movements intact, pupils equal and reactive to light bilaterally, mucous membranes moist. Cardiovascular: Heart regular rate and rhythm Chest: Able to complete full sentences, no retractions, no tachypnea Abdomen: abdomen soft, non-tender, non-distended, no organomegaly Musculoskeletal: Pulses present and equal in all extremities, no peripheral edema Motor: no focal deficits noted Neurological: CN II-XII grossly intact, no focal motor or sensory deficits noted Skin: Intact with no visualized rashes Psych: Normal affect and mood ED course: X7-year-old female sent from preop for a symptomatically hypertension. Vital signs upon arrival here in our ER is 137/87. Patient has no high-risk features for hypertension. She has normal blood pressure. Patient is well-appearing feels at baseline. Patient discharged advised follow-up with primary care doctor Nursing notes and chart review was performed EKG interpreted by me: Ventricular rate 117, sinus tachycardia,. 152, QRS 90, QTC 394. No CA prolongation, no QTC prolongation, no ST or T-wave changes noted. Overall, this EKG is unremarkable (Mandeep Eaton) - Related Data Home Medications Medication Instructions Recorded Confirmed No Known Home Medications 05/12/22 05/12/22 Allergies Allergy/AdvReac Type Severity Reaction Status Date / Time aspirin Allergy Swelling Verified 05/13/22 11:58 venom-honey bee Allergy Swelling Verified 05/13/22 11:58 [bee venom (honey bee)] Review of Systems ROS Other: All systems not noted in ROS Statement are negative. <Marsha Sy - Last Filed: 05/13/22 11:49> ROS Other: All systems not noted in ROS Statement are negative. <Mandeep Eaton - Last Filed: 05/13/22 14:37> ROS Statement: Those systems with pertinent positive or pertinent negative responses have been documented in the HPI. Past Medical History Past Medical History: Asthma, Coronary Artery Disease (CAD), COPD, Hypertension, Myocardial Infarction ([place]), Musculoskeletal Disorder Additional Past Medical History / Comment(s): supposed to take BP meds, hasn't been able to get rx. Last Myocardial Infarction Date:: 2013? History of Any Multi-Drug Resistant Organisms: None Reported Past Surgical History: Section, Orthopedic Surgery Additional Past Surgical History / Comment(s): ORIF left ankle Past Anesthesia/Blood Transfusion Reactions: No Reported Reaction Past Psychological History: Depression Smoking Status: Current every day smoker Past Alcohol Use History: Heavy Additional Past Alcohol Use History / Comment(s): pt. states she has been smoking since age 27, 1/4ppd, drinks 1-2 daily beers when she has the money Past Drug Use History: Marijuana Additional Drug Use History / Comment(s): occasional use - Past Family History Brother(s) Additional Family Medical History / Comment(s): pts. brother recently from [place]hel[place] Gehrigs disease <Marsha Sy - Last Filed: 05/13/22 11:49> Course Vital Signs 05/13/22 05/13/22 05/13/22 11:55 14:17 14:20 Temperature 98 F Pulse Rate 129 H 112 H Pulse Rate [ 112 H Medical Claims Analyst ] Respiratory 18 18 Rate Blood Pressure 139/87 137/93 O2 Sat by Pulse 98 98 Oximetry Medical Decision Making - Lab Data Result diagrams: 05/13/22 13:13 05/13/22 13:13 <Mandeep Eaton - Last Filed: 05/13/22 14:37> - Lab Data Lab Results 05/13/22 05/13/22 05/13/22 Range/Units 13:13 13:13 13:13 WBC 13.1 H (3.8-10.6) k/uL RBC 4.81 (3.80-5.40) m/uL Hgb 16.5 H (11.4-16.0) gm/dL Hct 48.0 H (34.0-46.0) % MCV 99.9 (80.0-100.0) fL MCH 34.3 (25.0-35.0) pg MCHC 34.4 (31.0-37.0) g/dL RDW 13.0 (11.5-15.5) % Plt Count 301 (150-450) k/uL MPV 7.5 Neutrophils % 91 % Lymphocytes % 6 % Monocytes % 2 % Eosinophils % 0 % Basophils % 0 % Neutrophils # 11.9 H (1.3-7.7) k/uL Lymphocytes # 0.8 L (1.0-4.8) k/uL Monocytes # 0.2 (0-1.0) k/uL Eosinophils # 0.1 (0-0.7) k/uL Basophils # 0.1 (0-0.2) k/uL PT 10.1 (9.0-12.0) sec INR 0.9 (<1.2) APTT 25.9 (22.0-30.0) sec Sodium 135 L (137-145) mmol/L Potassium 4.8 (3.5-5.1) mmol/L Chloride 103 (98-107) mmol/L Carbon Dioxide 18 L (22-30) mmol/L Anion Gap 14 mmol/L BUN 8 (7-17) mg/dL Creatinine 0.52 (0.52-1.04) mg/dL Est GFR (CKD-EPI)AfAm >90 (>60 ml/min/1.73 sqM) Est GFR (CKD-EPI)NonAf >90 (>60 ml/min/1.73 sqM) Glucose 104 H (74-99) mg/dL Calcium 9.9 (8.4-10.2) mg/dL Magnesium 1.7 (1.6-2.3) mg/dL Total Bilirubin 0.8 (0.2-1.3) mg/dL AST 41 H (14-36) U/L ALT 22 (4-34) U/L Alkaline Phosphatase 100 (38-126) U/L Troponin I (0.000-0.034) ng/mL Total Protein 8.3 H (6.3-8.2) g/dL Albumin 4.9 (3.5-5.0) g/dL 05/13/22 Range/Units 13:13 WBC (3.8-10.6) k/uL RBC (3.80-5.40) m/uL Hgb (11.4-16.0) gm/dL Hct (34.0-46.0) % MCV (80.0-100.0) fL MCH (25.0-35.0) pg MCHC (31.0-37.0) g/dL RDW (11.5-15.5) % Plt Count (150-450) k/uL MPV Neutrophils % % Lymphocytes % % Monocytes % % Eosinophils % % Basophils % % Neutrophils # (1.3-7.7) k/uL Lymphocytes # (1.0-4.8) k/uL Monocytes # (0-1.0) k/uL Eosinophils # (0-0.7) k/uL Basophils # (0-0.2) k/uL PT (9.0-12.0) sec INR (<1.2) APTT (22.0-30.0) sec Sodium (137-145) mmol/L Potassium (3.5-5.1) mmol/L Chloride (98-107) mmol/L Carbon Dioxide (22-30) mmol/L Anion Gap mmol/L BUN (7-17) mg/dL Creatinine (0.52-1.04) mg/dL Est GFR (CKD-EPI)AfAm (>60 ml/min/1.73 sqM) Est GFR (CKD-EPI)NonAf (>60 ml/min/1.73 sqM) Glucose (74-99) mg/dL Calcium (8.4-10.2) mg/dL Magnesium (1.6-2.3) mg/dL Total Bilirubin (0.2-1.3) mg/dL AST (14-36) U/L ALT (4-34) U/L Alkaline Phosphatase (38-126) U/L Troponin I <0.012 (0.000-0.034) ng/mL Total Protein (6.3-8.2) g/dL Albumin (3.5-5.0) g/dL Disposition <Marsha Sy - Last Filed: 05/13/22 11:49> Is patient prescribed a controlled substance at d/c from ED?: No Time of Disposition: 14:37 <Mandeep Eaton - Last Filed: 05/13/22 14:37> Clinical Impression: Hypertension Disposition: HOME SELF-CARE Condition: Good Instructions (If sedation given, give patient instructions): Hypertension (ED) Referrals: Scott Jesus MD [Primary Care Provider] - 1-2 days
[2022-05-13 11:58] VITALS: RESP 18
[2022-05-13 13:38] LABS: Basophils # (A) 0.1 k/uL (0-0.2); Basophils % (A) 0 %; Eosinophils # (A) 0.1 k/uL (0-0.7); Eosinophils % (A) 0 %; HGB 16.5 gm/dL (11.4-16.0); Lymphocytes # (A) 0.8 k/uL (1.0-4.8); Lymphocytes % (A) 6 %; MCH 34.3 pg (25.0-35.0); MCHC 34.4 g/dL (31.0-37.0); MCV 99.9 fL (80.0-100.0); Mean Platelet Volume 7.5; Monocytes # (A) 0.2 k/uL (0-1.0); Monocytes % (A) 2 %; Neutrophils # (A) 11.9 k/uL (1.3-7.7); Neutrophils % (A) 91 %; Platelet Count 301 k/uL (150-450); RBC 4.81 m/uL (3.80-5.40); WBC 13.1 k/uL (3.8-10.6)
[2022-05-13 13:49] LABS: INR 0.9 (<1.2); Partial Thromboplastin Time 25.9 sec (22.0-30.0); Prothrombin Time 10.1 sec (9.0-12.0)
[2022-05-13 13:54] LABS: ALT 22 U/L (4-34); African American GFR (CKD) >90 (>60 ml/min/1.73 sqM); Albumin 4.9 g/dL (3.5-5.0); Anion Gap 14 mmol/L; Blood Urea Nitrogen 8 mg/dL (7-17); Calcium 9.9 mg/dL (8.4-10.2); Carbon Dioxide 18 mmol/L (22-30); Chloride 103 mmol/L (98-107); Glucose 104 mg/dL (74-99); Non-African American GFR(CKD) >90 (>60 ml/min/1.73 sqM); Sodium 135 mmol/L (137-145); Total Bilirubin 0.8 mg/dL (0.2-1.3); Total Protein 8.3 g/dL (6.3-8.2)
[2022-05-13 14:00] LABS: AST 41 U/L (14-36); Magnesium 1.7 mg/dL (1.6-2.3); Potassium 4.8 mmol/L (3.5-5.1)
[2022-05-13 14:01] LABS: Alkaline Phosphatase 100 U/L (38-126)
[2022-05-13 14:58] VITALS: BP 140/91; PULSE 106; TEMP 98.2
== END 2022-05-13 14:58 | disposition home or self-care (01) ==
LOC: EC 11:48
DX: I10 Essential (primary) hypertension (principal); I25.10 Atherosclerotic heart disease of native coronary artery without angina pectoris; I25.2 Old myocardial infarction; J44.9 Chronic obstructive pulmonary disease, unspecified; F32.A Depression, unspecified; F12.90 Cannabis use, unspecified, uncomplicated; F17.210 Nicotine dependence, cigarettes, uncomplicated; Z91.030 Bee allergy status; Z88.6 Allergy status to analgesic agent
CPT/HCPCS: 36415; 80053; 83735; 84484; 85025; 85610; 85730; 93005; 99284

== ENCOUNTER 2023-01-10 15:25 | Emergency (ER) | payer MEDICARE, OTHER ==
[2023-01-10] MEDS ORDERED: KETOROLAC 15 MG/ML 1 ML VIAL IM STA (16:08)
--- NOTE | 2023-01-10 16:26 | XR ---
EXAMINATION TYPE: XR forearm RT DATE OF EXAM: 01/10/2023 4:05 PM INDICATION: Patient age:Female; 67 years old; Reason for study: fall; [facility]. COMPARISON: None TECHNIQUE: The right forearm was examined in AP and lateral projections. FINDINGS/IMPRESSION: 1. Cortical irregularity of the distal right radius involving the lateral aspect suggestive of fract ure. Correlate with point tenderness. 2. Appears intact. The remainder of the osseous structures appear intact.
[2023-01-10] MEDS ORDERED: ACET/COD 300 MG/30 MG STARTER PACK 6 TAB BTL PO STA (17:04)
--- NOTE | 2023-01-10 17:08 | ED ---
Upper Extremity HPI - General Chief Complaint: Extremity Injury, Upper Stated Complaint: Pain in right forearm Time Seen by Provider: 01/10/23 15:56 Source: patient Mode of arrival: ambulatory Limitations: no limitations - History of Present Illness Initial Comments: Patient is a 67-year-old female who presents to the emergency department for redness pain. Patient fell in the kitchen yesterday falling on her outstretched right hand. She did not hit her head or lose consciousness. She has significant pain in her wrist with bruising. Pain radiates into the right forearm. Denies thumb pain. Denies numbness and tingling - Related Data Previous Rx's Medication Instructions Recorded Ibuprofen [Motrin] 400 mg PO Q6HR PRN #30 tab 01/10/23 Allergies Allergy/AdvReac Type Severity Reaction Status Date / Time aspirin Allergy Swelling Verified 01/10/23 15:29 venom-honey bee Allergy Swelling Verified 01/10/23 15:29 [bee venom (honey bee)] Review of Systems ROS Statement: Those systems with pertinent positive or pertinent negative responses have been documented in the HPI. ROS Other: All systems not noted in ROS Statement are negative. Past Medical History Past Medical History: Asthma, Coronary Artery Disease (CAD), COPD, Hypertension, Myocardial Infarction ([place]), Musculoskeletal Disorder Additional Past Medical History / Comment(s): supposed to take BP meds, hasn't been able to get rx. Last Myocardial Infarction Date:: 2013? History of Any Multi-Drug Resistant Organisms: None Reported Past Surgical History: Section, Orthopedic Surgery Additional Past Surgical History / Comment(s): ORIF left ankle Past Anesthesia/Blood Transfusion Reactions: No Reported Reaction Past Psychological History: Depression Smoking Status: Current every day smoker Past Alcohol Use History: Daily, Heavy Past Drug Use History: Marijuana - Past Family History Brother(s) Additional Family Medical History / Comment(s): pts. brother recently from [place] Gehrigs disease General Exam Limitations: no limitations General appearance: alert Eye exam: Present: normal appearance, PERRL, EOMI. Absent: scleral icterus, conjunctival injection, periorbital swelling Respiratory exam: Present: normal lung sounds bilaterally. Absent: respiratory distress, wheezes, rales, rhonchi, stridor Cardiovascular Exam: Present: regular rate, normal rhythm, normal heart sounds. Absent: systolic murmur, diastolic murmur, rubs, gallop, clicks Right Forearm Wrist exam: Absent: normal inspection (Mild swelling of the wrist. Bruising to lateral wrist with tenderness. No anatomical snuffbox tenderness) Vascular: Present: normal capillary refill Neurological exam: Present: alert Psychiatric exam: Present: normal affect, normal mood Skin exam: Present: warm, dry, intact, normal color. Absent: rash Course Vital Signs 01/10/23 01/10/23 15:26 17:33 Temperature 99.1 F 98.4 F Pulse Rate 90 86 Respiratory 20 18 Rate Blood Pressure 169/87 146/86 O2 Sat by Pulse 95 97 Oximetry Procedures - Orthopedic Splinting/Casting Injury #1 Side: right Upper Extremity Injury Location: wrist Upper Extremity Immobilizer: volar splint Medical Decision Making - Medical Decision Making Was pt. sent in by a medical professional or institution (Dr. PA, CRYST[facility] MOUNTER, urgent care, hospital, or residential...) When possible be specific @ -No Did you speak to anyone other than the patient for history (EMS, parent, family, police, friend...)? What history was obtained from this source @ -No Did you review nursing and triage notes (agree or disagree)? Why? @ -I reviewed and agree with nursing and triage notes Were old charts reviewed (outside hosp., previous admission, EMS record, old EKG, old radiological studies, urgent care reports/EKG's, residential records)? Report findings @ -No old charts were reviewed Differential Diagnosis (chest pain, altered mental status, abdominal pain women, abdominal pain men, vaginal bleeding, weakness, fever, dyspnea, syncope, headache, dizziness, GI bleed, back pain, seizure, CVA, palpatations, mental health)? @ -wrist fracture, wrist sprain, contusion EKG interpreted by me (3pts min.). @ -As above X-rays interpreted by me (1pt min.). @ -Cortical irregularity of the distal right radius involving the lateral aspect suggestive of fracture CT interpreted by me (1pt min.). @ -None done U/S interpreted by me (1pt. min.). @ -None done What testing was considered but not performed or refused? (CT, X-rays, U/S, labs)? Why? @ -None What meds were considered but not given or refused? Why? @ -None Did you discuss the management of the patient with other professionals (professionals i.e. , PA, CRYST[employer] MOUNTER, lab, RT, psych nurse, director of social services, electric meter technician, teacher, drug abuse resistance education officer, test case developer)? Give summary @ -No Was smoking cessation discussed for >3mins.? @ -No Was critical care preformed (if so, how long)? @ -No Were there social determinants of health that impacted care today? How? (Homelessness, low income, unemployed, alcoholism, drug addiction, transportation, low edu. Level, literacy, decrease access to med. care, retirement, rehab)? @ -No Was there de-escalation of care discussed even if they declined (Discuss DNR or withdrawal of care, Hospice)? DNR status @ -No What co-morbidities impacted this encounter? (DM, HTN, Smoking, COPD, CAD, Cancer, CVA, ARF, Chemo, Hep., AIDS, mental health diagnosis, sleep apnea, morbid obesity)? @ -None Was patient admitted / discharged? Hospital course, mention meds given and route, prescriptions, significant lab abnormalities, going to OR and other pertinent info. @ -Patient has fracture of the right distal radius no displacement. No vascular compromise. Pain controlled she was placed in volar splint. Patient to follow-up with configuration management specialist. fracture care discussed in detail Undiagnosed new problem with uncertain prognosis? @ -No Drug Therapy requiring intensive monitoring for toxicity (Heparin, Nitro, Insulin, Cardizem)? @ -No Were any procedures done? @ -Splint Diagnosis/symptom? @ -Distal right radius fracture Acute, or Chronic, or Acute on Chronic? @ -[Acute Uncomplicated (without systemic symptoms) or Complicated (systemic symptoms)? @ -Uncomplicated Side effects of treatment? @ -No Exacerbation, Progression, or Severe Exacerbation? @ -No Poses a threat to life or bodily function? How? (Chest pain, [place], DC, pneumonia, PE, COPD, DKA, ARF, appy, cholecystitis, CVA, Diverticulitis, Homicidal, Suicidal, threat to staff... and all critical care pts) @ -No Dr. Law is my attending Disposition Clinical Impression: Distal radius fracture, right Disposition: HOME SELF-CARE Condition: Good Instructions (If sedation given, give patient instructions): Arm Fracture in Adults (ED) Additional Instructions: Alternate Tylenol and Motrin every 3-4 hours for pain. Save Tylenol 3 for severe pain. Do not drink alcohol or operate machinery while taking Tylenol 3 as a can cause drowsiness. Ice and elevate injury. Keep splint clean and dry. Follow-up with configuration management specialist in 1-2 days. Return to the emergency department experience new, concerning, or worsening symptoms Prescriptions: Ibuprofen [Motrin] 400 mg PO Q6HR PRN #30 tab PRN Reason: Pain Is patient prescribed a controlled substance at d/c from ED?: No Referrals: Scott Jesus MD [Primary Care Provider] - 1-2 days Tammy Gutierrez DO [Doctor of Osteopathic Medicine] - 1-2 days
[2023-01-10] MEDS ORDERED: HYDROmorphone 0.5 MG/0.5 ML SYRINGE IM STA (17:10)
[2023-01-10 17:35] VITALS: BP 146/86; PULSE 86; RESP 18; TEMP 98.4
== END 2023-01-10 17:35 | disposition home or self-care (01) ==
LOC: EC 15:25
DX: S52.501A Unspecified fracture of the lower end of right radius, initial encounter for closed fracture (principal); I10 Essential (primary) hypertension; I25.2 Old myocardial infarction; J44.9 Chronic obstructive pulmonary disease, unspecified; F17.200 Nicotine dependence, unspecified, uncomplicated; F12.90 Cannabis use, unspecified, uncomplicated; Z88.6 Allergy status to analgesic agent; Z86.59 Personal history of other mental and behavioral disorders; Z91.030 Bee allergy status; W18.30XA Fall on same level, unspecified, initial encounter
CPT/HCPCS: 73090; 99283; 96372 ×2; 29125; J1885; J1170

== ENCOUNTER 2023-09-29 06:43 | Inpatient (IN) | payer MEDICARE, OTHER ==
[2023-09-29 06:49] LABS: Glucose,Whole Blood 120 mg/dL (70-110)
[2023-09-29] MEDS: SODIUM CHLORIDE 0.9% 500 ML 500 ML IV STA (07:04)
[2023-09-29 07:05] LABS: Basophils # (A) 0.1 k/uL (0-0.2); Basophils % (A) 1 %; Eosinophils # (A) 0.2 k/uL (0-0.7); Eosinophils % (A) 2 %; HCT 48.2 % (34.0-46.0); HGB 15.9 gm/dL (11.4-16.0); Lymphocytes # (A) 2.1 k/uL (1.0-4.8); Lymphocytes % (A) 20 %; MCH 32.3 pg (25.0-35.0); MCV 97.8 fL (80.0-100.0); Mean Platelet Volume 7.5; Monocytes # (A) 0.7 k/uL (0-1.0); Monocytes % (A) 6 %; Neutrophils # (A) 7.3 k/uL (1.3-7.7); Neutrophils % (A) 69 %; Platelet Count 374 k/uL (150-450); RBC 4.93 m/uL (3.80-5.40); RDW 12.5 % (11.5-15.5); WBC 10.5 k/uL (3.8-10.6)
[2023-09-29 07:13] LABS: INR 0.9 (<1.2); Prothrombin Time 10.1 sec (10.0-12.5)
--- NOTE | 2023-09-29 07:16 | ED ---
General Adult HPI - General Source: patient, RN notes reviewed, old records reviewed Limitations: no limitations <Micky Law - Last Filed: 09/29/23 07:12> <Jonathon Denise - Last Filed: 09/29/23 08:34> - General Chief complaint: Neuro Symptoms/Deficit Stated complaint: Possible Stroke Time Seen by Provider: 09/29/23 06:48 - History of Present Illness Initial comments: Patient is a 68-year-old female who presents emergency department complaining of stroke. Presents as a code stroke. Last known well at was 11:30 PM last night. Awoke with symptoms. Called EMS herself. Symptoms primarily of the right side of her body being weak as well as right-sided facial droop and dysarthria and ataxia. History of hypertension, CAD, COPD, asthma. Presents for further evaluation at this time. Not on blood thinners. Apparently fell multiple times yesterday. Presents for further evaluation. Denies any chest pain or shortness of breath. Denies any abdominal pain. History of restless leg syndrome. (Micky Law) - Related Data Home Medications Medication Instructions Recorded Confirmed Multivitamins, Thera [Multivitamin 1 tab PO DAILY 09/29/23 09/29/23 (formulary)] Allergies Allergy/AdvReac Type Severity Reaction Status Date / Time aspirin Allergy Swelling Verified 01/10/23 15:29 venom-honey bee Allergy Swelling Verified 01/10/23 15:29 [bee venom (honey bee)] Review of Systems ROS Other: All systems not noted in ROS Statement are negative. <Micky Law - Last Filed: 09/29/23 07:12> ROS Other: All systems not noted in ROS Statement are negative. <Jonathon Denise - Last Filed: 09/29/23 08:34> ROS Statement: Those systems with pertinent positive or pertinent negative responses have been documented in the HPI. Review of Systems: CONST: Denies fever EYES: Denies blurry vision ENT: Denies nasal congestion C/V: Denies Chest pain RESP: Denies shortness of breath GI: Denies abdominal pain : Denies dysuria SKIN: Denies rash. MSK: Denies joint pain. NEURO: Endorses weakness (Micky Law) Past Medical History Past Medical History: Asthma, Coronary Artery Disease (CAD), COPD, Hypertension, Myocardial Infarction ([place]), Musculoskeletal Disorder Additional Past Medical History / Comment(s): supposed to take BP meds, hasn't been able to get rx. Last Myocardial Infarction Date:: 2013? History of Any Multi-Drug Resistant Organisms: None Reported Past Surgical History: Section, Orthopedic Surgery Additional Past Surgical History / Comment(s): ORIF left ankle Past Anesthesia/Blood Transfusion Reactions: No Reported Reaction Past Psychological History: Depression Smoking Status: Current every day smoker Past Alcohol Use History: Daily, Heavy Past Drug Use History: Marijuana - Past Family History Brother(s) Additional Family Medical History / Comment(s): pts. brother recently from Nohelia Gehrigs disease <Micky Law - Last Filed: 09/29/23 07:12> General Exam Limitations: no limitations <Micky Law - Last Filed: 09/29/23 07:12> - General Exam Comments Initial Comments: General: Appears in no acute distress. HEAD: Normal with no signs of head trauma. EYES: PERRLA, EOMI, conjunctiva normal, no discharge. Pupils are 3 mm and equal bilaterally. ENT: Hearing grossly intact, normal oropharynx. RESPIRATORY: Clear breath sounds bilaterally. No wheezes, rales, or rhonchi. C/V: Regular rate and rhythm. S1 and S2 auscultated, no edema, peripheral pulses 2+ and intact throughout ABD: Abd is soft, nontender, nondistended EXT: Normal range of motion, no obvious deformity SKIN: No rashes or lesions observed on exposed skin. NEURO: Alert and oriented x 3-4. NIH is approximately 13, for right-sided sensory deficits, weakness in the right upper and right lower extremity, ataxia into extremities, dysarthria, facial droop. (Micky Law) Course Vital Signs 09/29/23 09/29/23 09/29/23 06:44 06:50 07:03 Temperature 98 F Pulse Rate 103 H 112 H 100 Respiratory 20 22 18 Rate Blood Pressure 166/128 181/123 183/105 O2 Sat by Pulse 96 97 99 Oximetry 09/29/23 07:35 Temperature Pulse Rate 88 Respiratory 18 Rate Blood Pressure 161/92 O2 Sat by Pulse 99 Oximetry Medical Decision Making - Lab Data Result diagrams: 09/29/23 06:51 - EKG Data -: EKG Interpreted by Me <Micky Law - Last Filed: 09/29/23 07:12> - Lab Data Result diagrams: 09/29/23 06:51 09/29/23 06:51 <Jonathon Denise - Last Filed: 09/29/23 08:34> - Medical Decision Making Was pt. sent in by a medical professional or institution (, PA, [employer], urgent care, hospital, or alf...) When possible be specific @ -No Did you speak to anyone other than the patient for history (EMS, parent, family, police, friend...)? What history was obtained from this source @ -No Did you review nursing and triage notes (agree or disagree)? Why? @ -I reviewed and agree with nursing and triage notes Were old charts reviewed (outside hosp., previous admission, EMS record, old EKG, old radiological studies, urgent care reports/EKG's, alf records)? Report findings @ -No old charts were reviewed Differential Diagnosis (chest pain, altered mental status, abdominal pain women, abdominal pain men, vaginal bleeding, weakness, fever, dyspnea, syncope, headache, dizziness, GI bleed, back pain, seizure, CVA, palpatations, mental health, musculoskeletal)? @ -Differential CVA Ischemic stroke, hemorrhagic stroke, brain tumor, atypical migraine, Wernicke's encephalopathy, seizure, multiple sclerosis, meningitis, encephalitis, hypoglycemia, Guillain-Foss, electrolytes disturbance, myasthenia gravis.... This is not meant to be an all-inclusive list EKG interpreted by me (3pts min.). @ -As above X-rays interpreted by me (1pt min.). @ -Pending CT interpreted by me (1pt min.). @ -Pending U/S interpreted by me (1pt. min.). @ -None done What testing was considered but not performed or refused? (CT, X-rays, U/S, labs)? Why? @ -None What meds were considered but not given or refused? Why? @ -None Did you discuss the management of the patient with other professionals (p rofessionals i.e. , PA, [employer], lab, RT, psych nurse, social work professor, manager of broadcast content, teacher, financial aids officer, rn field case manager)? Give summary @ -Spoke with neuro crit director of critical care Dr. Schneider who is in agreement with plan for workup with CT brain and CT angiogram of the head and neck. Was in agreement patient is not a candidate for tenecteplase as risks far outweigh the benefits due to symptoms being wake-up in nature and last known well 11:30 PM last night. Was smoking cessation discussed for >3mins.? @ -No Was critical care preformed (if so, how long)? @ -Yes, 30 minutes Were there social determinants of health that impacted care today? How? (Homelessness, low income, unemployed, alcoholism, drug addiction, transportation, low edu. Level, literacy, decrease access to med. care, longterm, rehab)? @ -No Was there de-escalation of care discussed even if they declined (Discuss DNR or withdrawal of care, Hospice)? DNR status @ -No What co-morbidities impacted this encounter? (DM, HTN, Smoking, COPD, CAD, Cancer, CVA, ARF, Chemo, Hep., AIDS, mental health diagnosis, sleep apnea, morbid obesity)? @ -Hypertension, CAD Was patient admitted / discharged? Hospital course, mention meds given and route, prescriptions, significant lab abnormalities, going to OR and other pertinent info. @ -Patient presents emergency department for strokelike symptoms. Last known well was last night at 11:30 PM. Woke with symptoms this morning. Patient will be made a code stroke activation. He is not a candidate for thrombolytic therapy due to risks for outweigh the benefits as the patient is outside of the window and patient woke up with symptoms. Vital signs remarkable for slightly elevated diastolic blood pressure. Will obtain stroke workup. Vital signs within acceptable limits otherwise. Patient in agreement this plan. I spoke with on-call Dr. Schneider [facility] who was in agreement with plan for workup. EKG shows no signs of acute ischemia. Remainder the workup is still pending. Signed out to Dr. Denise pending results of workup. Undiagnosed new problem with uncertain prognosis? @ -No Drug Therapy requiring intensive monitoring for toxicity (Heparin, Nitro, Insulin, Cardizem)? @ -No Were any procedures done? @ -No (Micky Law) CT scan of the brain interpreted by myself shows some chronic changes without acute abnormality. Interpreted by myself 1 view chest x-ray does not reveal acute abnormality. Patient reevaluated and appears similar to presentation. Patient has significant dysarthria. Patient has significant right upper extremity weakness, mild right lower extremity weakness. Patient appears to have a little bit of right-sided neglect. Case was discussed with Dr. Diaz who will admit covering hospital call. Patient is not a candidate for tPA secondary to risks outweighing the benefit. Last known well is greater than 4.5 hours. (Jonathon Denise) - Lab Data Lab Results 09/29/23 09/29/23 09/29/23 Range/Units 06:48 06:51 06:51 WBC 10.5 (3.8-10.6) k/uL RBC 4.93 (3.80-5.40) m/uL Hgb 15.9 (11.4-16.0) gm/dL Hct 48.2 H (34.0-46.0) % MCV 97.8 (80.0-100.0) fL MCH 32.3 (25.0-35.0) pg MCHC 33.0 (31.0-37.0) g/dL RDW 12.5 (11.5-15.5) % Plt Count 374 (150-450) k/uL MPV 7.5 Neutrophils % 69 % Lymphocytes % 20 % Monocytes % 6 % Eosinophils % 2 % Basophils % 1 % Neutrophils # 7.3 (1.3-7.7) k/uL Lymphocytes # 2.1 (1.0-4.8) k/uL Monocytes # 0.7 (0-1.0) k/uL Eosinophils # 0.2 (0-0.7) k/uL Basophils # 0.1 (0-0.2) k/uL PT 10.1 (10.0-12.5) sec INR 0.9 (<1.2) APTT 25.0 (22.0-30.0) sec Sodium (137-145) mmol/L Potassium (3.5-5.1) mmol/L Chloride (98-107) mmol/L Carbon Dioxide (22-30) mmol/L Anion Gap mmol/L BUN (7-17) mg/dL Creatinine (0.52-1.04) mg/dL Est GFR (CKD-EPI)AfAm (>60 ml/min/1.73 sqM) Est GFR (CKD-EPI)NonAf (>60 ml/min/1.73 sqM) Glucose (74-99) mg/dL POC Glucose (mg/dL) 120 H (70-110) mg/dL POC Glu [place] Chief ID Viola Rashid Calcium (8.4-10.2) mg/dL Total Bilirubin (0.2-1.3) mg/dL AST (14-36) U/L ALT (4-34) U/L Alkaline Phosphatase (38-126) U/L Creatine Kinase (30-135) U/L Total Protein (6.3-8.2) g/dL Albumin (3.5-5.0) g/dL 09/29/23 Range/Units 06:51 WBC (3.8-10.6) k/uL RBC (3.80-5.40) m/uL Hgb (11.4-16.0) gm/dL Hct (34.0-46.0) % MCV (80.0-100.0) fL MCH (25.0-35.0) pg MCHC (31.0-37.0) g/dL RDW (11.5-15.5) % Plt Count (150-450) k/uL MPV Neutrophils % % Lymphocytes % % Monocytes % % Eosinophils % % Basophils % % Neutrophils # (1.3-7.7) k/uL Lymphocytes # (1.0-4.8) k/uL Monocytes # (0-1.0) k/uL Eosinophils # (0-0.7) k/uL Basophils # (0-0.2) k/uL PT (10.0-12.5) sec INR (<1.2) APTT (22.0-30.0) sec Sodium 131 L (137-145) mmol/L Potassium 4.2 (3.5-5.1) mmol/L Chloride 103 (98-107) mmol/L Carbon Dioxide 20 L (22-30) mmol/L Anion Gap 8 mmol/L BUN 6 L (7-17) mg/dL Creatinine 0.41 L (0.52-1.04) mg/dL Est GFR (CKD-EPI)AfAm >90 (>60 ml/min/1.73 sqM) Est GFR (CKD-EPI)NonAf >90 (>60 ml/min/1.73 sqM) Glucose 104 H (74-99) mg/dL POC Glucose (mg/dL) (70-110) mg/dL POC Glu [place] Chief ID Calcium 9.4 (8.4-10.2) mg/dL Total Bilirubin 0.9 (0.2-1.3) mg/dL AST 28 (14-36) U/L ALT 18 (4-34) U/L Alkaline Phosphatase 99 (38-126) U/L Creatine Kinase 103 (30-135) U/L Total Protein 7.3 (6.3-8.2) g/dL Albumin 4.3 (3.5-5.0) g/dL - EKG Data EKG Comments: 12-lead Electrocardiogram Interpretation Note EKG was reviewed and interpreted by myself. 12-lead ECG performed at 0706 is interpreted by me as revealing normal sinus rhythm at a rate of 98 beats per minute. [place] is normal. NV interval is 160 ms, QRS duration is 89 ms, QTc is 429 ms.. There were no ST or T wave abnormalities to suggest myocardial ischemia or injury. R wave progression across the precordium was satisfactory. By my interpretation this EKG is non-diagnostic for acute ischemia. (Micky Law) Critical Care Time Critical Care Time: Yes Total Critical Care Time: 30 <Micky Law - Last Filed: 09/29/23 07:12> Disposition <Micky Law - Last Filed: 09/29/23 07:12> Is patient prescribed a controlled substance at d/c from ED?: No Time of Disposition: 08:34 <Jonathon Denise - Last Filed: 09/29/23 08:34> Clinical Impression: Cerebrovascular accident (CVA) Disposition: ADMITTED IP TO THIS HOSP Referrals: Scott Jesus MD [REFERRING] - 1-2 days
[2023-09-29 07:20] LABS: ALT 18 U/L (4-34); AST 28 U/L (14-36); African American GFR (CKD) >90 (>60 ml/min/1.73 sqM); Albumin 4.3 g/dL (3.5-5.0); Alkaline Phosphatase 99 U/L (38-126); Anion Gap 8 mmol/L; Blood Urea Nitrogen 6 mg/dL (7-17); Calcium 9.4 mg/dL (8.4-10.2); Carbon Dioxide 20 mmol/L (22-30); Chloride 103 mmol/L (98-107); Creatine Kinase 103 U/L (30-135); Glucose 104 mg/dL (74-99); Non-African American GFR(CKD) >90 (>60 ml/min/1.73 sqM); Potassium 4.2 mmol/L (3.5-5.1); Sodium 131 mmol/L (137-145); Total Bilirubin 0.9 mg/dL (0.2-1.3); Total Protein 7.3 g/dL (6.3-8.2)
--- NOTE | 2023-09-29 07:20 | CT ---
EXAMINATION TYPE: CODE STROKE: CT brain wo contr DATE OF EXAM: 09/29/2023 COMPARISON: INDICATION: CODE STROKE DLP: 1453.8 mGycm, Automated exposure control for dose reduction was used. CONTRAST: None CT of the brain is performed utilizing 3 mm thick sections through the posterior fossa and 3 mm thick sections through the remaining calvarium. Study is performed within 24 hours of arrival to the hosp ital. No abnormal hyperdensity is present to suggest an acute intracranial hemorrhage. No mass lesion is evident. No acute infarcts are evident. There is some hypodensity within the brainstem which appears to be art ifact. Correlate with symptoms. There is an old lacunar infarct in the right basal ganglion periventr icular white matter hypodensity is present in the left base and chronic white matter. Ventricles and sulci are appropriate for the patient age. Paranasal sinuses and mastoid air cells within the [id number] are clear. IMPRESSION: 1. Chronic appearing periventricular white matter ischemic-type changes. 2. No acute intracranial process. Follow-up MRI can be performed as clinically indicated.
--- NOTE | 2023-09-29 08:06 | CT ---
EXAMINATION TYPE: CT angio head neck DATE OF EXAM: 09/29/2023 HISTORY: CODE STROKE COMPARISON: None CT DLP: 1453.8 mGycm. Automated Exposure Control for Dose Reduction was Utilized. TECHNIQUE: CTA scan of the neck is performed without and with IV Contrast, patient injected with 65 ml mL of Isovue 370, axial images are obtained, coronal and sagittal reformatted images are reviewed. Three-D reconstructed images are created on an independent workstation and reviewed. Source images are reviewed. FINDINGS: Carotid/Vascular Structures: There is common origin of the innominate and left common carotid artery. Common carotid arteries bifurcate into internal and external carotid arteries without significant claudio w limiting stenosis. Vertebral arteries are codominant. Internal carotid arteries and vertebral arteries are patent to the skull base. Cervical of [place]: Vertebral basilar system appears normal. Posterior cerebral vasculature is unrema rkable. Internal carotid arteries bifurcate normally into A1 and M1 segments. A2 segments are normal. The anterior communicating artery is patent. The right posterior communicating artery is patent. The left posterior communicating artery is patent. IMPRESSION: 1. No flow-limiting stenosis bilateral carotid bifurcations. 2. Normal [place] of [place] NASCET criteria was used in interpretation of this exam?
--- NOTE | 2023-09-29 08:07 | XR ---
EXAMINATION TYPE: XR chest 1V portable DATE OF EXAM: 09/29/2023 COMPARISON: 10/06/2019 INDICATION: Acute mental status changes TECHNIQUE: Single frontal view of the chest is obtained. FINDINGS: The heart size is normal. The pulmonary vasculature is normal. The lungs are clear. IMPRESSION: 1. No acute pulmonary process.
[2023-09-29] MEDS: CLOPIDOGREL 75 MG TAB PO STA (09:02)
[2023-09-29] MEDS: SODIUM CHLORIDE 0.9% 1,000 ML IV SCH (09:05)
[2023-09-29] MEDS: MIDAZOLAM 2 MG/2 ML VIAL IV STA (10:22)
[2023-09-29] MEDS ORDERED: LORazepam 2 MG/ML INJ IV PRN ×2 (11:15)
--- NOTE | 2023-09-29 11:17 | P.HPIM ---
History of Present Illness H&P Date: 09/29/23 Patient is a 68-year-old female with history of nicotine dependence and daily alcohol use presenting with new stroke. Patient has significant dysarthria and difficult to understand. No family around. She claims that she woke up this morning with right-sided weakness. She denies any chest pain, palpitations, shortness of breath, abdominal pain, nausea, vomiting, urinary or bowel compl aints. She claims that she has spasms in her lower extremities. Smokes 5 cigarettes a day, daily alcohol use, denies any illicit drug use. She denies any prior stroke. In the ED, temperature was 98, pulse 103, blood pressure 166/128, respiratory rate 20, saturating at 96% on room air. Laboratory workup showed hemoglobin 15.9, platelet 374, WBC 10.5, sodium 131, bicarb 20, anion gap 8, creatinine 0.41, glucose 104. EKG independently interpreted, shows normal sinus rhythm with Q waves in septal leads. Chest x-ray independently interpreted, shows no acute opacities. Head CT does not show any acute process, chronic appearing periventricular white matter ischemic type changes. CTA head and neck shows no flow-limiting stenosis bilateral carotid bifurcations. Thrombolytic not given as patient is out of window. Patient admitted for further stroke workup. Neurology consulted. Pertinent positives and negatives as discussed in HPI, a complete review of systems was performed and all other systems are negative. Patient seen and examined at bedside. Vital signs reviewed General: nontoxic, no distress, appears at stated age Derm: warm, dry Head: atraumatic, normocephalic, symmetric Eyes: EOMI, no lid lag, anicteric sclera, pupils equal round reactive to light ENT: Nose and ears atraumatic Neck: No thyromegaly, supple Mouth: no lip lesion, mucus membranes moist Cardiovascular: S1S2 reg, no murmur, no edema Lungs: clear to auscultation bilateral, no rhonchi, no rales, no wheeze, no accessory muscle use Abdominal: soft, nontender to palpation, no guarding, no appreciable or ganomegaly Ext: Unable to move right upper extremity Neuro: Right facial droop, dysarthria Psych: Alert, oriented, appropriate affect Assessment/Plan: Acute CVA with right-sided deficits Nicotine dependence -Neurochecks, telemetry -Echocardiogram, MRI brain pending -Continue normal saline at 100 cc an hour, continue permissive hypertension for the next 24 to 48 hours -A1c, lipid panel, TSH pending -Counseled regarding smoking cessation -Neurology consulted, pending recommendations -PT/OT/speech therapy consulted -Has been started on Plavix 75 mg daily, will start patient on atorvastatin 40 -Patient is having difficulty swallowing, speech therapy is following Daily alcohol use -Monitor for alcohol withdrawal -On Ativan IV as needed for high CIWA scores, also started on thiamine 100 mg The patient is admitted with an anticipated greater than 2 midnight stay as inpatient status for evaluation of stroke. Surrogate decision-maker: Son CODE STATUS: Full code DVT prophylaxis: Lovenox Anticipated discharge date: Pending clinical course Anticipated discharge place: Pending clinical course A total of 55 minutes was spent on the care of this complex patient more than 50% of the time was spent in counseling and care coordination. Past Medical History Past Medical History: Asthma, Coronary Artery Disease (CAD), COPD, Hypertension, Myocardial Infarction ([place]), Musculoskeletal Disorder Additional Past Medical History / Comment(s): supposed to take BP meds, hasn't been able to get rx. Last Myocardial Infarction Date:: 2013? History of Any Multi-Drug Resistant Organisms: None Reported Past Surgical History: Section, Orthopedic Surgery Additional Past Surgical History / Comment(s): ORIF left ankle Past Anesthesia/Blood Transfusion Reactions: No Reported Reaction Past Psychological History: Depression Smoking Status: Current every day smoker Past Alcohol Use History: Daily, Heavy Past Drug Use History: Marijuana - Past Family History Brother(s) Additional Family Medical History / Comment(s): pts. brother recently from [place]helia Gehrigs disease Medications and Allergies Home Medications Medication Instructions Recorded Confirmed Type Multivitamins, Thera [Multivitamin 1 tab PO DAILY 09/29/23 09/29/23 History (formulary)] Allergies Allergy/AdvReac Type Severity Reaction Status Date / Time aspirin Allergy Swelling Verified 01/10/23 15:29 venom-honey bee Allergy Swelling Verified 01/10/23 15:29 [bee venom (honey bee)] Physical Exam Vitals: Vital Signs Temp Pulse Resp BP Pulse Ox 09/29/23 07:35 88 18 161/92 99 09/29/23 07:03 100 18 183/105 99 09/29/23 06:50 112 H 22 181/123 97 05/22/24 06:44 98 F 103 H 20 166/128 96 Intake and Output 09/28/23 09/29/23 09/29/23 22:59 06:59 14:59 Other: Weight 58.967 kg Results CBC & Chem 7: 09/29/23 06:51 09/29/23 06:51 Labs: Abnormal Lab Results - Last 24 Hours (Table) 09/29/23 09/29/23 09/29/23 Range/Units 06:48 06:51 06:51 Hct 48.2 H (34.0-46.0) % Sodium 131 L (137-145) mmol/L Carbon Dioxide 20 L (22-30) mmol/L BUN 6 L (7-17) mg/dL Creatinine 0.41 L (0.52-1.04) mg/dL Glucose 104 H (74-99) mg/dL POC Glucose (mg/dL) 120 H (70-110) mg/dL
[2023-09-29 12:02] LABS: Appearance,Urine Clear (Clear); Bilirubin,Urine Negative (Negative); Blood,Urine Small (Negative); Color,Urine Colorless; Glucose,Urine (UA) Negative (Negative); Ketones,Urine Negative (Negative); Leukocyte Esterase,Urine Negative (Negative); Nitrite,Urine Negative (Negative); PH, Urine 5.5 (5.0-8.0); Protein,Urine Negative (Negative); RBC,Urine 3 /hpf (0-5); Squamous Epithelial Cell,Urine 1 /hpf (0-4); Urobilinogen,Urine <2.0 mg/dL (<2.0); WBC,Urine <1 /hpf (0-5)
[2023-09-29] MEDS: THIAMINE 100 MG/ML 2 ML VIAL IM STA (13:21)
[2023-09-29] MEDS: MORPHINE SULFATE 2 MG/ML SYRINGE IVP PRN (13:22)
--- NOTE | 2023-09-29 15:03 | P.CNNES ---
History of Present Illness Consult date: 09/29/23 Requesting physician: Jonathon Denise Reason for Consult: cva History of Present Illness: This is a 68-year-old woman in the emergency department on 09/29/2023 for right- sided weakness facial droop and dysarthria. Some of the history is obtained from medical record. Patient has severe dysarthria but she is having difficulty providing the history but she stated the last normal state was at 10 PM yesterday and she woke up today around 6 AM and she had right-sided weakness when she woke up with facial droop and her speech is very slurred. She denies any history of stroke. Denies any A-fib. She is not on any antiplatelet. The ED her last normal was at 1130 last night but for me she told me at 10 PM. She arrived to the ED via EMS. Patient has underlying history of hypertension, coronary artery disease, asthma. Some of the workup during this hospital visit consisted of: Serum glucose on presentation is 104. I reviewed the rest of the lab workup. CT of the head is reported as chronic appearing periventricular white matter ischemic type changes. No acute intracranial process. I personally reviewed the CT the patient has old lacunar stroke over the right basal ganglia, bilateral thalamus and chronic white matter changes. CT angiography of the head and neck is reported as no flow-limiting stenosis bilateral carotid bifurcation. Normal [place]. EKG is reported as sinus rhythm. Septal myocardial infarction of indeterminate age. The ED NIH stroke scale was a 13. Stroke was activated. ED team No IV thrombolytics since outside the window and the risk with the benefit. ED team spoke with Dr. Schneider (stroke attending). Review of Systems Review of system is limited but the pertinent positive and negative as per HPI. Past Medical History Past Medical History: Asthma, Coronary Artery Disease (CAD), COPD, Hypertension, Myocardial Infarction ([place]), Musculoskeletal Disorder Additional Past Medical History / Comment(s): supposed to take BP meds, hasn't been able to get rx. Last Myocardial Infarction Date:: 2013? History of Any Multi-Drug Resistant Organisms: None Reported Past Surgical History: Section, Orthopedic Surgery Additional Past Surgical History / Comment(s): ORIF left ankle Past Anesthesia/Blood Transfusion Reactions: No Reported Reaction Past Psychological History: Depression Smoking Status: Current every day smoker Past Alcohol Use History: Daily, Heavy Past Drug Use History: Marijuana - Past Family History Brother(s) Additional Family Medical History / Comment(s): pts. brother recently from [place] Gehrigs disease Medications and Allergies Home Medications Medication Instructions Recorded Confirmed Type Multivitamins, Thera [Multivitamin 1 tab PO DAILY 09/29/23 09/29/23 History (formulary)] Allergies Allergy/AdvReac Type Severity Reaction Status Date / Time aspirin Allergy Swelling Verified 01/10/23 15:29 venom-honey bee Allergy Swelling Verified 01/10/23 15:29 [bee venom (honey bee)] Physical Examination - Vital Signs Vital Signs: Vital Signs Temp Pulse Resp BP Pulse Ox 09/29/23 13:55 94 33 H 179/115 09/29/23 07:35 88 18 161/92 99 09/29/23 07:03 100 18 183/105 99 09/29/23 06:50 112 H 22 181/123 97 09/29/23 06:44 98 F 103 H 20 166/128 96 Intake and Output 09/28/23 09/29/23 09/29/23 22:59 06:59 14:59 Other: Weight 58.967 kg General: Lying in bed and is not in acute distress. Neuro: The patient is awake alert oriented to self with stated she is in the hospital. Language is very limited because of her severe dysarthria but I do not feel that she has aphasia but more severe dysarthria. Pupils are round equal reactive to light. Pupils are round 3 mm bilaterally. Visual quintero are full to competition. Extraocular movements intact. Facial sensation is normal to touch patient has moderate lower facial weakness. Motor is the strength is a right upper extremity 0 out of 5. Right lower extremity proximally is 3 out of 5 but distally is 0 out of 5. Left side is 5 out of 5. Sensation is normal to touch. Results - Laboratory Findings CBC and BMP: 09/29/23 06:51 09/29/23 06:51 Abnormal Lab Findings: Abnormal Labs 09/29/23 09/29/23 09/29/23 06:48 06:51 06:51 Hct 48.2 H Sodium 131 L Carbon Dioxide 20 L BUN 6 L Creatinine 0.41 L Glucose 104 H POC Glucose (mg/dL) 120 H Ur Specific [place] Urine Blood 05/22/24 11:30 Hct Sodium Carbon Dioxide BUN Creatinine Glucose POC Glucose (mg/dL) Ur Specific [place] 1.040 H Urine Blood Small H Assessment and Plan Assessment: This is a 68-year-old woman who presents with a wake-up stroke of right sided weakness including the face, severe dysarthria and facial droop. Last normal state she notified me was 10 PM but per the ED was 1130. NIH stroke scale was a 13 per the ED team. No IV thrombolytics since outside the window Acute CVA and presented with right sided weakness (is plegic over the right upper, and significant weakness distal right lower), right facial droop, severe dysarthria. On CT there is no acute process but upon review note she has old lacunar stroke over the right basal ganglia and bilateral thalamus Hypertension Alcohol use Nicotine use Plan: Seems the patient has allergy to aspirin so we will do Plavix 300 mg once as a loading dose then after that 75 mg daily. Start the patient on Lipitor 80 mg nightly for secondary stroke prophylaxis I ordered MRI of the brain. 2D echo, lipid panel, TSH, hemoglobin A1c is ordered and pending Continue neurochecks Cardiac monitoring PT OT and PATHOLOGY SPECIALIST are consulted Recommend the blood pressure to be permissive for the next 24 to 48 hours. Treat blood blood sugar systolic if it is more than 220 or diastolic more than 110. Will defer the rest of the medical management to primary team. For DVT prophylaxis the patient is on Lovenox Plan discussed with the patient, primary team and ED attending Thank you for the consultation. Time with Patient: Greater than 30
[2023-09-29] MEDS: LORazepam 2 MG/ML INJ IV PRN (15:05)
--- NOTE | 2023-09-29 16:20 | MR ---
EXAMINATION TYPE: MR brain wo con DATE OF EXAM: 09/29/2023 COMPARISON: CT brain 09/29/2023 HISTORY: Stroke, Right sided weakness CONTRAST: None TECHNIQUE: Multiplanar, multiecho imaging on a 3.0 Lorna magnet is performed through the brain. Stud y is performed within 24 hours of arrival to the hospital. The craniovertebral junction is normal. The pituitary is normal. Diffusion-weighted imaging is performed. There is a linear area within the posterior left basal gang anabella on diffusion-weighted imaging along the inner capsule posterior limb compatible with small acute ischemic area. Chronic appearing patchy to confluent periventricular white matter ischemic type changes are present bilaterally on T2 and inversion recovery weighted sequences. Chronic appearing white matter changes a re also present within the brainstem. There is an old lacunar infarct right basal ganglion Ventricles and sulci are prominent for the patient age. IMPRESSION: 1. Acute posterior limb internal capsule left basal ganglion ischemic change. 2. Chronic appearing white matter changes in the periventricular white matter and within the brainste m. 3. Old lacunar infarct right basal ganglia
[2023-09-29] MEDS ORDERED: ATORVASTATIN 40 MG TAB PO SCH (21:00)
[2023-09-30] MEDS: ATORVASTATIN 80 MG TAB PO SCH (00:29)
[2023-09-30] MEDS ORDERED: THIAMINE 100 MG TAB PO SCH (09:00)
[2023-09-30] MEDS: CLOPIDOGREL 75 MG TAB PO SCH (09:24)
[2023-09-30] MEDS: ENOXAPARIN 40 MG/0.4 ML SYRINGE SQ SCH (09:31)
[2023-09-30] MEDS: THIAMINE 100 MG in SODIUM CHLORIDE 0.9% 50 ML IVPB SCH (09:31)
--- NOTE | 2023-09-30 13:37 | CA ---
Transthoracic Echo Report Name: Savi Garcia Age: 68 Gender: F : 1955 Exam Date: 09/30/2023 10:11 Exam Location: [facility] Ht (in): 64 Wt (lb): 130 Ordering Physician: Jonathon Denise DO Attending/Referring Phys: Furnace Helper Randi Herrera RDCS Procedure CPT: Indications: Thrombus Cardiac Hx: Technical Quality: Poor Contrast 1: Total Dose (mL): Contrast 2: Total Dose (mL): MEASUREMENTS (Male / Female) Normal Values 2D ECHO LV Diastolic Diameter PLAX 4.2 cm 4.2 - 5.9 / 3.9 - 5.3 cm LV Systolic Diameter PLAX 2.8 cm IVS Diastolic Thickness 0.6 cm 0.6 - 1.0 / 0.6 - 0.9 cm LVPW Diastolic Thickness 0.9 cm 0.6 - 1.0 / 0.6 - 0.9 cm LV Relative Wall Thickness 0.4 LVOT Diameter 2.1 cm LV Diastolic Volume MOD BP 50.8 cm??? 67 - 155 / 56 - 104 cm??? LV Systolic Volume MOD BP 17.7 cm??? 22 - 58 / 19 - 49 cm??? LV Ejection Fraction MOD BP 65.2 % >= 55 % LV Cardiac Index MOD BP 1416.9 cm???/min???m??? LV Diastolic Volume MOD 4C 57.0 cm??? LV Systolic Volume MOD 4C 19.7 cm??? LV Ejection Fraction MOD 4C 65.3 % LV Cardiac Index MOD 4C 1593.8 cm???/min???m??? LV Diastolic Length 4C 6.7 cm LV Systolic Length 4C 5.7 cm LV Diastolic Volume MOD 2C 45.3 cm??? LV Systolic Volume MOD 2C 15.5 cm??? LV Ejection Fraction MOD 2C 65.8 % LV Cardiac Index MOD 2C 1274.8 cm???/min???m??? LV Diastolic Length 2C 6.7 cm LV Systolic Length 2C 5.5 cm LA Volume 29.4 cm??? 18 - 58 / 22 - 52 cm??? LA Volume Index 18.0 cm???/m??? 16 - 28 cm???/m??? DOPPLER AV Peak Velocity 113.1 cm/s AV Peak Gradient 5.1 mmHg AV Mean Velocity 77.9 cm/s AV Mean Gradient 2.7 mmHg AV Velocity Time Integral 21.7 cm LVOT Peak Velocity 86.3 cm/s LVOT Peak Gradient 3.0 mmHg LVOT Velocity Time Integral 16.5 cm LVOT Stroke Volume 57.6 cm??? LVOT Stroke Volume Index 35.4 ml/m??? LVOT Cardiac Index 2464.7 cm???/min???m??? AV Area Cont Eq vti 2.6 cm??? AV Area Cont Eq pk 2.7 cm??? MV Area PHT 2.6 cm??? Mitral E Point Velocity 42.7 cm/s Mitral A Point Velocity 74.1 cm/s Mitral E to A Ratio 0.6 MV Deceleration Time 291.4 ms PV Peak Velocity 63.3 cm/s PV Peak Gradient 1.6 mmHg FINDINGS Left Ventricle Left ventricular ejection fraction is estimated at 60-65 %. Left ventricular cavity size normal. Left ventricular wall thickness normal. No obvious regional wall motion abnormalities. Negative bubble study. Right Ventricle Normal right ventricular size and function. Unable to estimate the right ventricular systolic pressure. Right Atrium Normal right atrial size. Left Atrium Normal left atrial size. Mitral Valve Structurally normal mitral valve. No mitral stenosis, regurgitation or prolapse. Aortic Valve Aortic valve not well visualized. No aortic valve stenosis or regurgitation. Tricuspid Valve Structurally normal tricuspid valve. No tricuspid stenosis. No tricuspid regurgitation. Pulmonic Valve Pulmonic valve not well visualized. No pulmonic stenosis. No pulmonic regurgitation. Pericardium No pericardial effusion. Aorta Aortic annulus normal. Ascending aorta not well visualized. CONCLUSIONS Left ventricular ejection fraction 60-65% Negative bubble study No mitral regurgitation No tricuspid regurgitation No pericardial effusion Previewed by: Dr. Carlos Alberto Santana DO (Electronically Signed) Final Date: 30 Sep 2023 13:36
--- NOTE | 2023-09-30 14:26 | P.PN ---
Subjective Progress Note Date: 09/30/23 I am following-up with patient and continues to have significant weakness over the right side with right facial droop and dysarthria. The son is at bedside and states she is a smoker, did not follow-up with PCP. Objective - Vital Signs Vital signs: Vital Signs Temp 97.9 F 09/30/23 07:44 Pulse 73 09/30/23 12:26 Resp 18 09/30/23 12:26 BP 193/109 09/30/23 12:26 Pulse Ox 96 09/30/23 12:26 FiO2 - Exam General: Lying in bed and is not in acute distress. Neuro: The patient is awake alert oriented to self, time and stated she is in the hospital. Language is very limited because of her severe dysarthria but I do not feel that she has aphasia but more severe dysarthria. Pupils are round equal reactive to light. Pupils are round 3 mm bilaterally. Visual quintero are full to competition. Extraocular movements intact. Facial sensation is normal to touch patient has moderate lower facial weakness. Motor is the strength is a right upper extremity 0 out of 5. Right lower e xtremity proximally is 1 out of 5 but distally is 0 out of 5. Left side is 5 out of 5. Sensation is normal to touch. Some of the workup during this hospital visit consisted of: Serum glucose on presentation is 104. I reviewed the rest of the lab workup. CT of the head is reported as chronic appearing periventricular white matter ischemic type changes. No acute intracranial process. I personally reviewed the CT the patient has old lacunar stroke over the right basal ganglia, bilateral thalamus and chronic white matter changes. CT angiography of the head and neck is reported as no flow-limiting stenosis bilateral carotid bifurcation. Normal [place]. EKG is reported as sinus rhythm. Septal myocardial infarction of indeterminate age. MRI Brain is reported as acute posterior limb internal capsule left basal ganglia ischemic change. Chronic appearing white matter changes in the periventricular white matter and within the brainstem. Old lacunar right basal ganglia. I personally reviewed MRI and agree there is acute left internal capsule stroke. 2D echo: EF 60-65%. Negative bubble study. - Labs CBC & Chem 7: 09/29/23 06:51 09/29/23 06:51 Assessment and Plan Assessment: This is a 68-year-old woman who presents with a wake-up stroke of right sided weakness including the face, severe dysarthria and facial droop. Last normal state she notified me was 10 PM but per the ED was 1130. NIH stroke scale was a 13 per the ED team. No IV thrombolytics since outside the window. Per son does not follow-up with PCP. Acute CVA over the posterior limb internal capsule. Presented with right sided weakness (is plegic over the right upper and significant weakness distal right lower), right facial droop, severe dysarthria. Etiology of stroke is chronic small vessel disease due to her risk factors (HTN, nicotine use, Alcohol use) On CT there is no acute process but upon review note she has old lacunar stroke over the right basal ganglia and bilateral thalamus Hypertension Alcohol use Nicotine use Plan: Seems the patient has allergy to aspirin so we will do Plavix 300 mg once as a loading dose then after that 75 mg daily. Start the patient on Lipitor 80 mg nightly for secondary stroke prophylaxis Pending lipid panel, TSH, hemoglobin A1c Continue neurochecks Cardiac monitoring PT OT and PRODUCTION CONTROL PEGBOARD CLERK are consulted. She is having barium swallow today. I feel patient will benefit from inpatient therapy. Recommend the blood pressure to be permissive for the next 24. Treat if systolic blood pressure if it is more than 220 or diastolic more than 110. Patient was counseled on tobacco cessation but she refused to stop or cut down on tobacco use. Will defer the rest of the medical management to primary team. For DVT prophylaxis the patient is on Lovenox Plan discussed with the patient, son (who is at bedside) and primary team. Time with Patient: Less than 30
--- NOTE | 2023-09-30 14:48 | FL ---
EXAMINATION TYPE: FL barium swallow w video DATE OF EXAM: 09/30/2023 COMPARISON: NONE HISTORY: Aspiration difficulty swallowing bedside TECHNIQUE: Fluoroscopy. FINDINGS: Fluoroscopic guidance was provided for the procedure performed in conjunction with the [facility] pathology department. Please see complete report forthcoming from the Speech Pathology departmen t. Various consistencies from thin liquid to solids were administered. Fluoroscopy time 2 minutes 0 seconds. Number of images: 0. DAP: 164.54 No aspiration or penetration was evident. There is some pooling within the vallecula There is delayed transit of the barium bolus. IMPRESSION: 1. No aspiration or penetration with multiple consistencies. 2. Slow transit. 3. Some free spill to the vallecula during swallowing
--- NOTE | 2023-09-30 15:00 | P.PN ---
Subjective Progress Note Date: 09/30/23 Hospital Course: 68-year-old female with history of nicotine dependence and daily alcohol use p resenting with stroke. In the ED, temperature was 98, pulse 103, blood pressure 166/128, respiratory rate 20, saturating at 96% on room air. Laboratory workup showed hemoglobin 15.9, platelet 374, WBC 10.5, sodium 131, bicarb 20, anion gap 8, creatinine 0.41, glucose 104. EKG independently interpreted, shows normal sinus rhythm with Q waves in septal leads. Chest x-ray independently interpreted, shows no acute opacities. Head CT does not show any acute process, chronic appearing periventricular white matter ischemic type changes. CTA head and neck shows no flow-limiting stenosis bilateral carotid bifurcations. Thrombolytic not given as patient is out of window. Patient admitted for fu rther stroke workup. Neurology consulted. Brain MRI shows acute posterior limb internal capsule left basal ganglion ischemic change, old lacunar infarct on the right basal ganglia. Echocardiogram shows LVEF 60 to 65%. Negative bubble study. Subjective: Patient seen and examined at bedside. No acute events overnight. Pertinent positives and negatives as discussed above, a complete review of systems was performed and all other systems are negative. Vitals Signs Reviewed. General: Nontoxic, no distress, appears at stated age Derm: Warm, dry Head: Atraumatic, normocephalic, symmetric Eyes: EOMI, no lid lag, anicteric sclera Mouth: No lip lesion, mucus membranes moist Cardiovascular: S1S2 reg, no murmur Lungs: CTA bilateral, no rhonchi, no rales, no accessory muscle use Abdominal: Soft, nontender to palpation, no guarding, no appreciable organomegaly Ext: No gross muscle atrophy, no edema, no contractures Neuro: Right-sided facial droop, right upper extremity and lower extremity unable to move, dysarthria Psych: Alert, oriented, appropriate affect Data Reviewed Today: Pertinent Labs: No new labs, A1c, TSH, B12, CBC and BMP pending, will be reviewed when available Imaging: Brain MRI shows acute posterior limb internal capsule left basal ganglion ischemic change, old lacunar infarct on the right basal ganglia. Echocardiogram shows LVEF 60 to 65%. Negative bubble study. Assessment and Plan: Acute left basal ganglia stroke Dysarthria Hypertension Nicotine dependence -Neurochecks, telemetry -Continue normal saline at 100 cc an hour, continue permissive hypertension for the next 24 hours -A1c, lipid panel, TSH pending -Counseled regarding smoking cessation during this admission -Discussed management with neurology, continue Plavix 75, atorvastatin 80, has an allergy to aspirin -Modified barium swallow negative for aspiration Mild hyponatremia -Possibly in the setting of reduced oral intake -On normal saline 100 cc an hour -Repeat BMP pending from today Daily alcohol use -Monitor for alcohol withdrawal -On Ativan IV as needed for high CIWA scores, also started on thiamine 100 mg twice daily IV DVT ppx: Lovenox Code status: Full code Anticipated discharge place: Pending clinical course Anticipated discharge time: Pending clinical course Objective - Vital Signs Vital signs: Vital Signs Temp 97.9 F 09/30/23 07:44 Pulse 73 09/30/23 12:26 Resp 18 09/30/23 12:26 BP 193/109 09/30/23 12:26 Pulse Ox 96 09/30/23 12:26 FiO2 - Labs CBC & Chem 7: 09/29/23 06:51 09/29/23 06:51
[2023-09-30 15:21] LABS: Basophils # (A) 0.1 k/uL (0-0.2); Basophils % (A) 1 %; Eosinophils # (A) 0.3 k/uL (0-0.7); Eosinophils % (A) 3 %; HGB 14.8 gm/dL (11.4-16.0); Lymphocytes # (A) 1.8 k/uL (1.0-4.8); Lymphocytes % (A) 18 %; MCH 31.8 pg (25.0-35.0); MCHC 32.1 g/dL (31.0-37.0); Mean Platelet Volume 7.1; Monocytes # (A) 0.6 k/uL (0-1.0); Monocytes % (A) 7 %; Neutrophils # (A) 6.8 k/uL (1.3-7.7); Neutrophils % (A) 70 %; Platelet Count 290 k/uL (150-450); RBC 4.65 m/uL (3.80-5.40); RDW 12.7 % (11.5-15.5); WBC 9.7 k/uL (3.8-10.6)
[2023-09-30 15:31] LABS: African American GFR (CKD) >90 (>60 ml/min/1.73 sqM); Anion Gap 12 mmol/L; Blood Urea Nitrogen 6 mg/dL (7-17); Carbon Dioxide 14 mmol/L (22-30); Chloride 107 mmol/L (98-107); Glucose 83 mg/dL (74-99); Non-African American GFR(CKD) >90 (>60 ml/min/1.73 sqM); Sodium 133 mmol/L (137-145)
[2023-09-30 15:32] LABS: Magnesium 1.7 mg/dL (1.6-2.3); Potassium 3.9 mmol/L (3.5-5.1)
[2023-09-30] MEDS: CLOPIDOGREL 75 MG TAB PO STA (16:13)
[2023-09-30 22:17] LABS: Chol/HDL Ratio 2.71 Ratio; LDL Cholesterol,Calculated 126.6 mg/dL (0.0-131.0); VLDL Calculation 19.28 mg/dL (5.00-40.00)
[2023-10-01] MEDS: LISINOPRIL-HCTZ 10-12.5 MG 1 EACH TAB PO SCH (10:26)
[2023-10-01 11:45] LABS: African American GFR (CKD) >90 (>60 ml/min/1.73 sqM); Anion Gap 10 mmol/L; Blood Urea Nitrogen 8 mg/dL (7-17); Calcium 9.3 mg/dL (8.4-10.2); Carbon Dioxide 22 mmol/L (22-30); Chloride 104 mmol/L (98-107); Glucose 131 mg/dL (74-99); Non-African American GFR(CKD) >90 (>60 ml/min/1.73 sqM); Potassium 3.5 mmol/L (3.5-5.1); Sodium 136 mmol/L (137-145)
--- NOTE | 2023-10-01 13:57 | P.PN ---
Subjective Progress Note Date: 10/01/23 Hospital Course: 68-year-old female with history of nicotine dependence and daily alcohol use p resenting with stroke. In the ED, temperature was 98, pulse 103, blood pressure 166/128, respiratory rate 20, saturating at 96% on room air. Laboratory workup showed hemoglobin 15.9, platelet 374, WBC 10.5, sodium 131, bicarb 20, anion gap 8, creatinine 0.41, glucose 104. EKG independently interpreted, shows normal sinus rhythm with Q waves in septal leads. Chest x-ray independently interpreted, shows no acute opacities. Head CT does not show any acute process, chronic appearing periventricular white matter ischemic type changes. CTA head and neck shows no flow-limiting stenosis bilateral carotid bifurcations. Thrombolytic not given as patient is out of window. Patient admitted for fu rther stroke workup. Neurology consulted. Brain MRI shows acute posterior limb internal capsule left basal ganglion ischemic change, old lacunar infarct on the right basal ganglia. Echocardiogram shows LVEF 60 to 65%. Negative bubble study. IPR consulted. Subjective: Patient seen and examined at bedside. No acute events overnight. Pertinent positives and negatives as discussed above, a complete review of systems was performed and all other systems are negative. Vitals Signs Reviewed. General: Nontoxic, no distress, appears at stated age Derm: Warm, dry Head: Atraumatic, normocephalic, symmetric Eyes: EOMI, no lid lag, anicteric sclera Mouth: No lip lesion, mucus membranes moist Cardiovascular: S1S2 reg, no murmur Lungs: CTA bilateral, no rhonchi, no rales, no accessory muscle use Abdominal: Soft, nontender to palpation, no guarding, no appreciable organomegaly Ext: No gross muscle atrophy, no edema, no contractures Neuro: Right-sided facial droop, right upper extremity and lower extremity unable to move, dysarthria Psych: Alert, oriented, appropriate affect Data Reviewed Today: Pertinent Labs: Sodium 136, creatinine 0.47, total cholesterol 231, LDL 126, TSH 1.7, A1c 5.1 Imaging: No new imaging Assessment and Plan: Acute left basal ganglia stroke Dysarthria Hypertension Nicotine dependence -Neurochecks, telemetry -IV fluids discontinued -Counseled regarding smoking cessation during this admission -Discussed management with neurology, continue Plavix 75, atorvastatin 80, has an allergy to aspirin -Started on amlodipine 5 mg, lisinopril 10 mg, was given 1 dose of lisinopril and hydrochlorothiazide 10-12.5 -PT/OT/speech therapy -IPR has been consulted Mild hyponatremia, improving -IV fluids now discontinued, encourage oral intake -Repeat BMP tomorrow Daily alcohol use -Monitor for alcohol withdrawal -On Ativan IV as needed for high CIWA scores, also started on thiamine 100 mg twice daily IV DVT ppx: Lovenox Code status: Full code Anticipated discharge place: Pending clinical course Anticipated discharge time: Pending clinical course Objective - Vital Signs Vital signs: Vital Signs Temp 97.9 F 09/30/23 07:44 Pulse 102 H 10/01/23 12:35 Resp 20 10/01/23 12:35 BP 196/102 10/01/23 12:35 Pulse Ox 98 10/01/23 12:35 FiO2 Intake & Output 09/30/23 10/01/23 10/01/23 18:59 06:59 18:59 Intake Total 396 Balance 396 Weight 58.967 kg Intake: IV 10 Invasive Line 1 10 Oral 386 Other: Voiding Method Diaper - Labs CBC & Chem 7: 09/30/23 14:55 10/01/23 10:31 Labs: Abnormal Lab Results - Last 24 Hours (Table) 09/30/23 10/01/23 Range/Units 14:55 10:31 Sodium 133 L 136 L (137-145) mmol/L Carbon Dioxide 14 L (22-30) mmol/L BUN 6 L (7-17) mg/dL Creatinine 0.44 L 0.47 L (0.52-1.04) mg/dL Glucose 131 H (74-99) mg/dL Cholesterol 231.00 H (0.00-200.00) mg/dL HDL Cholesterol 85.10 H (40.00-60.00) mg/dL
--- NOTE | 2023-10-01 15:18 | P.PN ---
Subjective Progress Note Date: 10/01/23 I am following-up with patient and she continues to be the same. She has right hempiplegic over the right side. Objective - Vital Signs Vital signs: Vital Signs Temp 97.9 F 09/30/23 07:44 Pulse 102 H 10/01/23 12:35 Resp 20 10/01/23 12:35 BP 196/102 10/01/23 12:35 Pulse Ox 98 10/01/23 12:35 FiO2 Intake & Output 09/30/23 10/01/23 10/01/23 18:59 06:59 18:59 Intake Total 396 Balance 396 Weight 58.967 kg Intake: IV 10 Invasive Line 1 10 Oral 386 Other: Voiding Method Bedpan Diaper - Exam General: Lying in bed and is not in acute distress. Neuro: The patient is awake alert oriented to self, time and stated she is in the hospital. Language is very limited because of her severe dysarthria but I do not feel that she has aphasia but more severe dysarthria. Pupils are round equal reactive to light. Pupils are round 3 mm bilaterally. Visual quintero are full to competition. Extraocular movements intact. Facial sensation is normal to touch patient has moderate lower facial weakness. Motor is the strength is a right side is 0/5. Left side is 5 out of 5. Sensation is normal to touch. Some of the workup during this hospital visit consisted of: Lipid panel: TG 96, Cholestrol 231, LDL 126 and HDL 85 TSH: 1.710 HbA1c: 5.1 CT of the head is reported as chronic appearing periventricular white matter ischemic type changes. No acute intracranial process. I personally reviewed the CT the patient has old lacunar stroke over the right basal ganglia, bilateral thalamus and chronic white matter changes. CT angiography of the head and neck is reported as no flow-limiting stenosis bilateral carotid bifurcation. Normal [place]. EKG is reported as sinus rhythm. Septal myocardial infarction of indeterminate age. MRI Brain is reported as acute posterior limb internal capsule left basal ganglia ischemic change. Chronic appearing white matter changes in the periventricular white matter and within the brainstem. Old lacunar right basal ganglia. I personally reviewed MRI and agree there is acute left internal capsule stroke. 2D echo: EF 60-65%. Negative bubble study. - Labs CBC & Chem 7: 09/30/23 14:55 10/01/23 10:31 Labs: Abnormal Lab Results - Last 24 Hours (Table) 09/30/23 10/01/23 Range/Units 14:55 10:31 Sodium 133 L 136 L (137-145) mmol/L Carbon Dioxide 14 L (22-30) mmol/L BUN 6 L (7-17) mg/dL Creatinine 0.44 L 0.47 L (0.52-1.04) mg/dL Glucose 131 H (74-99) mg/dL Cholesterol 231.00 H (0.00-200.00) mg/dL HDL Cholesterol 85.10 H (40.00-60.00) mg/dL Assessment and Plan Assessment: This is a 68-year-old woman who presents with a wake-up stroke of right sided weakness including the face, severe dysarthria and facial droop. Last normal state she notified me was 10 PM but per the ED was 1130. NIH stroke scale was a 13 per the ED team. No IV thrombolytics since outside the window. Per son does not follow-up with PCP. Acute CVA over the posterior limb internal capsule. Presented with right sided weakness (is plegic over the right upper and significant weakness distal right lower), right facial droop, severe dysarthria. Etiology of stroke is chronic small vessel disease due to her risk factors (HTN, nicotine use, Alcohol use, age, sex) On CT there is no acute process but upon review note she has old lacunar stroke over the right basal ganglia and bilateral thalamus Hypertension Alcohol use Nicotine use Plan: Seems the patient has allergy to aspirin so we will do Plavix 75 mg daily. Start the patient on Lipitor 80 mg nightly for secondary stroke prophylaxis Continue neurochecks Cardiac monitoring PT OT and [employer]ER are consulted. She is having barium swallow today. I feel patient will benefit from inpatient therapy. Recommend Normotensive. Patient was counseled on tobacco cessation but she refused to stop or cut down on tobacco use. Will defer the rest of the medical management to primary team. She was counseled alcohol cessation. For DVT prophylaxis the patient is on Lovenox Upon discharge, recommend the patient to follow-up with neurologist as outpatient within 2 weeks. Plan discussed with the patient and primary team. Otherwise patient is clear for discharge from neurological perspective. Will sign off. Please reconsult if needed. Time with Patient: Less than 30
[2023-10-02 06:31] LABS: Glucose,Whole Blood 92 mg/dL (70-110)
[2023-10-02 08:05] LABS: African American GFR (CKD) >90 (>60 ml/min/1.73 sqM); Anion Gap 8 mmol/L; Blood Urea Nitrogen 6 mg/dL (7-17); Calcium 9.1 mg/dL (8.4-10.2); Carbon Dioxide 21 mmol/L (22-30); Chloride 105 mmol/L (98-107); Glucose 80 mg/dL (74-99); Non-African American GFR(CKD) >90 (>60 ml/min/1.73 sqM); Potassium 3.4 mmol/L (3.5-5.1); Sodium 134 mmol/L (137-145)
[2023-10-02] MEDS: LORazepam 1 MG/0.5 ML VIAL IV PRN ×2 (08:25→10:11)
[2023-10-02] MEDS: lisinopriL 10 MG TAB PO SCH (08:26)
[2023-10-02] MEDS: amLODIPine 5 MG TAB PO SCH (08:26)
[2023-10-02 11:40] LABS: Glucose,Whole Blood 73 mg/dL (70-110)
--- NOTE | 2023-10-02 12:19 | P.PN ---
Subjective Progress Note Date: 10/02/23 Hospital Course: 68-year-old female with history of nicotine dependence and daily alcohol use p resenting with stroke. In the ED, temperature was 98, pulse 103, blood pressure 166/128, respiratory rate 20, saturating at 96% on room air. Laboratory workup showed hemoglobin 15.9, platelet 374, WBC 10.5, sodium 131, bicarb 20, anion gap 8, creatinine 0.41, glucose 104. EKG independently interpreted, shows normal sinus rhythm with Q waves in septal leads. Chest x-ray independently interpreted, shows no acute opacities. Head CT does not show any acute process, chronic appearing periventricular white matter ischemic type changes. CTA head and neck shows no flow-limiting stenosis bilateral carotid bifurcations. Thrombolytic not given as patient is out of window. Patient admitted for fu rther stroke workup. Neurology consulted. Brain MRI shows acute posterior limb internal capsule left basal ganglion ischemic change, old lacunar infarct on the right basal ganglia. Echocardiogram shows LVEF 60 to 65%. Negative bubble study. IPR consulted. Subjective: Patient seen and examined at bedside. No acute events overnight. Complaining of right lower extremity pain Pertinent positives and negatives as discussed above, a complete review of systems was performed and all other systems are negative. Vitals Signs Reviewed. General: Nontoxic, no distress, appears at stated age Derm: Warm, dry Head: Atraumatic, normocephalic, symmetric Eyes: EOMI, no lid lag, anicteric sclera Mouth: No lip lesion, mucus membranes moist Cardiovascular: S1S2 reg, no murmur Lungs: CTA bilateral, no rhonchi, no rales, no accessory muscle use Abdominal: Soft, nontender to palpation, no guarding, no appreciable organomegaly Ext: No gross muscle atrophy, no edema, no contractures Neuro: Right-sided facial droop, right upper extremity and lower extremity deficit, dysarthria Psych: Alert, oriented, appropriate affect Data Reviewed Today: Pertinent Labs: Sodium 134, potassium 3.4, creatinine 0.39, blood sugars range between 73-92 Imaging: No new imaging Assessment and Plan: Acute left basal ganglia stroke Right lower extremity neuropathic pain Dysarthria Hypertension Nicotine dependence -Continue on telemetry monitoring -Counseled regarding smoking cessation during this admission -Discussed management with neurology, continue Plavix 75, atorvastatin 80, has an allergy to aspirin, signed off -Continue amlodipine 5 mg, lisinopril 10 mg daily -PT/OT/speech therapy -IPR has been consulted -Also started on Neurontin 300 mg 3 times daily Mild hyponatremia, improving -IV fluids now discontinued, encourage oral intake -Repeat BMP tomorrow Hypokalemia -40 cynthia equivalent potassium given today Daily alcohol use -Monitor for alcohol withdrawal -On Ativan IV as needed for high CIWA scores, continue on thiamine 100 mg twice daily IV DVT ppx: Lovenox Code status: Full code Anticipated discharge place: Pending clinical course Anticipated discharge time: Pending clinical course Objective - Vital Signs Vital signs: Vital Signs Temp 98.2 F 10/02/23 10:10 Pulse 76 10/02/23 11:51 Resp 18 10/02/23 10:10 BP 176/92 10/02/23 11:51 Pulse Ox 97 10/02/23 11:51 FiO2 Intake & Output 10/01/23 10/02/23 10/02/23 18:59 06:59 18:59 Intake Total 896 240 Output Total 200 Balance 896 -200 240 Weight 58.967 kg Intake: IV 10 Invasive Line 1 10 Intake, IV Titration 400 Amount Sodium Chloride 0.9% 1, 400 000 ml @ 100 mls/hr IV . Q10H JASON Rx#:[id number] Oral 486 240 Output: Urine 200 Other: Voiding Method Bedpan External Catheter Diaper Diaper # Voids 3 1 # Bowel Movements 1 - Labs CBC & Chem 7: 09/30/23 14:55 10/02/23 06:39 Labs: Abnormal Lab Results - Last 24 Hours (Table) 10/02/23 Range/Units 06:39 Sodium 134 L (137-145) mmol/L Potassium 3.4 L (3.5-5.1) mmol/L Carbon Dioxide 21 L (22-30) mmol/L BUN 6 L (7-17) mg/dL Creatinine 0.39 L (0.52-1.04) mg/dL
[2023-10-02] MEDS: GABAPENTIN 300 MG CAP PO SCH (13:04)
[2023-10-02] MEDS: POTASSIUM BICARBONATE/CIT AC 20 MEQ TABLET.EFF PO ONE (13:05)
[2023-10-02 16:22] LABS: Glucose,Whole Blood 85 mg/dL (70-110)
[2023-10-03 12:24] LABS: African American GFR (CKD) >90 (>60 ml/min/1.73 sqM); Anion Gap 8 mmol/L; Blood Urea Nitrogen 9 mg/dL (7-17); Calcium 9.1 mg/dL (8.4-10.2); Carbon Dioxide 27 mmol/L (22-30); Chloride 97 mmol/L (98-107); Glucose 115 mg/dL (74-99); Magnesium 1.5 mg/dL (1.6-2.3); Non-African American GFR(CKD) >90 (>60 ml/min/1.73 sqM); Sodium 132 mmol/L (137-145)
--- NOTE | 2023-10-03 13:16 | P.PN ---
Subjective Progress Note Date: 10/03/23 Hospital Course: 68-year-old female with history of nicotine dependence and daily alcohol use pr esenting with stroke. In the ED, temperature was 98, pulse 103, blood pressure 166/128, respiratory rate 20, saturating at 96% on room air. Laboratory workup showed hemoglobin 15.9, platelet 374, WBC 10.5, sodium 131, bicarb 20, anion gap 8, creatinine 0.41, glucose 104. EKG independently interpreted, shows normal sinus rhythm with Q waves in septal leads. Chest x-ray independently interpreted, shows no acute opacities. Head CT does not show any acute process, chronic appearing periventricular white matter ischemic type changes. CTA head and neck shows no flow-limiting stenosis bilateral carotid bifurcations. Thrombolytic not given as patient is out of window. Patient admitted for fur ther stroke workup. Neurology consulted. Brain MRI shows acute posterior limb internal capsule left basal ganglion ischemic change, old lacunar infarct on the right basal ganglia. Echocardiogram shows LVEF 60 to 65%. Negative bubble study. IPR consulted. Subjective: Patient seen and examined at bedside. No acute events overnight. Pertinent positives and negatives as discussed above, a complete review of systems was performed and all other systems are negative. Vitals Signs Reviewed. General: Nontoxic, no distress, appears at stated age Derm: Warm, dry Head: Atraumatic, normocephalic, symmetric Eyes: EOMI, no lid lag, anicteric sclera Mouth: No lip lesion, mucus membranes moist Cardiovascular: S1S2 reg, no murmur Lungs: CTA bilateral, no rhonchi, no rales, no accessory muscle use Abdominal: Soft, nontender to palpation, no guarding, no appreciable organomegaly Ext: No gross muscle atrophy, no edema, no contractures Neuro: Right-sided facial droop, right upper extremity and lower extremity deficit, dysarthria Psych: Alert, oriented, appropriate affect Data Reviewed Today: Pertinent Labs: Sodium 132, potassium 3, magnesium 1.5, creatinine 0.38, glucose range between 73-1 15 Imaging: No new imaging Assessment and Plan: Acute left basal ganglia stroke Right lower extremity neuropathic pain Dysarthria Hypertension Nicotine dependence -Continue on telemetry monitoring -Counseled regarding smoking cessation during this admission -Discussed management with neurology, continue Plavix 75, atorvastatin 80, has an allergy to aspirin, signed off -Continue amlodipine 5 mg, lisinopril 10 mg daily -PT/OT/speech therapy -IPR has been consulted -Continue on Neurontin 300 mg 3 times daily Mild hyponatremia, stable -Encourage oral intake -Repeat BMP tomorrow Hypokalemia Hypomagnesemia -40 cynthia equivalent potassium given today, magnesium 2 g IV given today Daily alcohol use -Monitor for alcohol withdrawal -On Ativan IV as needed for high CIWA scores, continue on thiamine 100 mg twice daily IV DVT ppx: Lovenox Code status: Full code Anticipated discharge place: Pending clinical course Anticipated discharge time: Pending clinical course Objective - Vital Signs Vital signs: Vital Signs Temp 97.6 F 10/03/23 06:40 Pulse 91 10/03/23 06:40 Resp 18 10/03/23 06:40 BP 170/94 10/03/23 06:40 Pulse Ox 98 10/03/23 06:40 FiO2 Intake & Output 10/02/23 10/03/23 10/03/23 18:59 06:59 18:59 Intake Total 240 Balance 240 Weight 44 kg Intake: Oral 240 Other: Voiding Method Diaper Diaper Incontinent External Catheter # Voids 3 1 - Labs CBC & Chem 7: 09/30/23 14:55 10/03/23 11:45 Labs: Abnormal Lab Results - Last 24 Hours (Table) 10/03/23 Range/Units 11:45 Sodium 132 L (137-145) mmol/L Potassium 3.0 L (3.5-5.1) mmol/L Chloride 97 L (98-107) mmol/L Creatinine 0.38 L (0.52-1.04) mg/dL Glucose 115 H (74-99) mg/dL Magnesium 1.5 L (1.6-2.3) mg/dL
[2023-10-03] MEDS: POTASSIUM BICARBONATE/CIT AC 20 MEQ TABLET.EFF PO ONE (13:51)
[2023-10-03] MEDS: MAGNESIUM SULFATE-D5W PMX 1 GM in DEXTROSE/WATER 1 100ML.BAG IVPB SCH (13:51)
[2023-10-03] MEDS: lisinopriL 10 MG TAB PO STA (20:03)
[2023-10-03] MEDS: amLODIPine 5 MG TAB PO STA (20:03)
[2023-10-04 05:19] LABS: African American GFR (CKD) >90 (>60 ml/min/1.73 sqM); Anion Gap 6 mmol/L; Blood Urea Nitrogen 8 mg/dL (7-17); Calcium 8.9 mg/dL (8.4-10.2); Carbon Dioxide 23 mmol/L (22-30); Chloride 103 mmol/L (98-107); Glucose 90 mg/dL (74-99); Magnesium 1.8 mg/dL (1.6-2.3); Non-African American GFR(CKD) >90 (>60 ml/min/1.73 sqM); Potassium 3.8 mmol/L (3.5-5.1); Sodium 132 mmol/L (137-145)
[2023-10-04] MEDS: amLODIPine 10 MG TAB PO SCH (08:36)
[2023-10-04] MEDS: lisinopriL 20 MG TAB PO SCH (08:36)
--- NOTE | 2023-10-04 12:29 | P.PN ---
Subjective Progress Note Date: 10/04/23 Hospital Course: 68-year-old female with history of nicotine dependence and daily alcohol use p resenting with stroke. In the ED, temperature was 98, pulse 103, blood pressure 166/128, respiratory rate 20, saturating at 96% on room air. Laboratory workup showed hemoglobin 15.9, platelet 374, WBC 10.5, sodium 131, bicarb 20, anion gap 8, creatinine 0.41, glucose 104. EKG independently interpreted, shows normal sinus rhythm with Q waves in septal leads. Chest x-ray independently interpreted, shows no acute opacities. Head CT does not show any acute process, chronic appearing periventricular white matter ischemic type changes. CTA head and neck shows no flow-limiting stenosis bilateral carotid bifurcations. Thrombolytic not given as patient is out of window. Patient admitted for fu rther stroke workup. Neurology consulted. Brain MRI shows acute posterior limb internal capsule left basal ganglion ischemic change, old lacunar infarct on the right basal ganglia. Echocardiogram shows LVEF 60 to 65%. Negative bubble study. IPR consulted. Subjective: Patient seen and examined at bedside. No acute events overnight. Pertinent positives and negatives as discussed above, a complete review of systems was performed and all other systems are negative. Vitals Signs Reviewed. General: Nontoxic, no distress, appears at stated age Derm: Warm, dry Head: Atraumatic, normocephalic, symmetric Eyes: EOMI, no lid lag, anicteric sclera Mouth: No lip lesion, mucus membranes moist Cardiovascular: S1S2 reg, no murmur Lungs: CTA bilateral, no rhonchi, no rales, no accessory muscle use Abdominal: Soft, nontender to palpation, no guarding, no appreciable organomegaly Ext: No gross muscle atrophy, no edema, no contractures Neuro: Right-sided facial droop, right upper extremity and lower extremity deficit, dysarthria Psych: Alert, oriented, appropriate affect Data Reviewed Today: Pertinent Labs: Sodium 132, potassium 3.8, creatinine 0.44, magnesium 1.8 Imaging: No new imaging Assessment and Plan: Acute left basal ganglia stroke Right lower extremity neuropathic pain Dysarthria Hypertension Nicotine dependence -Continue on telemetry monitoring -Counseled regarding smoking cessation during this admission -Discussed management with neurology, continue Plavix 75, atorvastatin 80, has an allergy to aspirin, signed off -Repeat increase to 10 mg daily, lisinopril increased to 20 mg daily -PT/OT/speech therapy -IPR has been consulted -Continue on Neurontin 300 mg 3 times daily Mild hyponatremia, stable -Encourage oral intake -Repeat BMP tomorrow Hypokalemia, resolved Hypomagnesemia, resolved Daily alcohol use -Monitor for alcohol withdrawal -On Ativan IV as needed for high CIWA scores, continue on thiamine 100 mg twice daily IV DVT ppx: Lovenox Code status: Full code Anticipated discharge place: Pending clinical course Anticipated discharge time: Pending clinical course Objective - Vital Signs Vital signs: Vital Signs Temp 98.4 F 10/04/23 08:00 Pulse 79 10/04/23 08:00 Resp 16 10/04/23 08:00 BP 138/84 10/04/23 08:00 Pulse Ox 94 L 10/04/23 08:00 FiO2 Intake & Output 10/03/23 10/04/23 10/04/23 18:59 06:59 18:59 Weight 44 kg 43 kg Other: Voiding Method Incontinent Incontinent Diaper Incontinent # Voids 3 2 - Labs CBC & Chem 7: 09/30/23 14:55 10/04/23 04:11 Labs: Abnormal Lab Results - Last 24 Hours (Table) 10/04/23 Range/Units 04:11 Sodium 132 L (137-145) mmol/L Creatinine 0.44 L (0.52-1.04) mg/dL
--- NOTE | 2023-10-05 13:48 | P.PN ---
Subjective Progress Note Date: 10/05/23 Hospital Course: 68-year-old female with history of nicotine dependence and daily alcohol use p resenting with stroke. In the ED, temperature was 98, pulse 103, blood pressure 166/128, respiratory rate 20, saturating at 96% on room air. Laboratory workup showed hemoglobin 15.9, platelet 374, WBC 10.5, sodium 131, bicarb 20, anion gap 8, creatinine 0.41, glucose 104. EKG independently interpreted, shows normal sinus rhythm with Q waves in septal leads. Chest x-ray independently interpreted, shows no acute opacities. Head CT does not show any acute process, chronic appearing periventricular white matter ischemic type changes. CTA head and neck shows no flow-limiting stenosis bilateral carotid bifurcations. Thrombolytic not given as patient is out of window. Patient admitted for fu rther stroke workup. Neurology consulted. Brain MRI shows acute posterior limb internal capsule left basal ganglion ischemic change, old lacunar infarct on the right basal ganglia. Echocardiogram shows LVEF 60 to 65%. Negative bubble study. IPR consulted, pending recommendations. Subjective: Patient seen and examined at bedside. No acute events overnight. Pertinent positives and negatives as discussed above, a complete review of systems was performed and all other systems are negative. Vitals Signs Reviewed. General: Nontoxic, no distress, appears at stated age Derm: Warm, dry Head: Atraumatic, normocephalic, symmetric Eyes: EOMI, no lid lag, anicteric sclera Mouth: No lip lesion, mucus membranes moist Cardiovascular: S1S2 reg, no murmur Lungs: CTA bilateral, no rhonchi, no rales, no accessory muscle use Abdominal: Soft, nontender to palpation, no guarding, no appreciable o rganomegaly Ext: No gross muscle atrophy, no edema, no contractures Neuro: Right-sided facial droop, right upper extremity and lower extremity deficit, dysarthria Psych: Alert, oriented, appropriate affect Data Reviewed Today: Pertinent Labs: No new labs Imaging: No new imaging Assessment and Plan: Acute left basal ganglia stroke Right lower extremity neuropathic pain Dysarthria Hypertension Nicotine dependence -Counseled regarding smoking cessation during this admission -Neurology recommendations: Continue Plavix 75, atorvastatin 80, has an allergy to aspirin, signed off -Continue amlodipine 10 mg, lisinopril 20 mg daily -PT/OT/speech therapy -IPR has been consulted -Continue on Neurontin 300 mg 3 times daily Mild hyponatremia, stable -Encourage oral intake Hypokalemia, resolved Hypomagnesemia, resolved Alcohol dependence -IV Ativan as needed discontinued, on oral thiamine 100 mg daily DVT ppx: Lovenox Code status: Full code Anticipated discharge place: Pending clinical course Anticipated discharge time: Pending clinical course Objective - Vital Signs Vital signs: Vital Signs Temp 98.3 F 10/05/23 07:29 Pulse 68 10/05/23 07:29 Resp 16 10/05/23 07:29 BP 145/79 10/05/23 07:29 Pulse Ox 95 10/05/23 07:29 FiO2 Intake & Output 10/04/23 10/05/23 10/05/23 18:59 06:59 18:59 Weight 43.5 kg Other: Voiding Method Diaper Bedside Commode Incontinent # Voids 3 4 - Labs CBC & Chem 7: 09/30/23 14:55 10/04/23 04:11
[2023-10-05] MEDS: HYDROcodone/APAP 5-325MG 1 EACH TAB PO PRN (14:54)
[2023-10-05] MEDS: THIAMINE 100 MG TAB PO SCH (14:55)
--- NOTE | 2023-10-05 16:56 | P.CONS ---
History of Present Illness - Reason for Consult Consult date: 10/05/23 Rehab Needs - History of Present Illness PMR Consult Ms. Garcia is 68 yo , right handed, lives with her roommate in an apartment with no SULAIMAN. 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 She states her roommate can help her. She has 6 children, but not able to help much. She has a history of nicotine dependence and daily alcohol use presenting with new stroke. Patient has significant dysarthria and difficult to understand. No family around. She claims that she woke up with right-sided weakness. Smokes 5 cigarettes a day, daily alcohol use, denies any illicit drug use. She denies any prior stroke. In the ED, temperature was 98, pulse 103, blood pressure 166/128, respiratory rate 20, saturating at 96% on room air. Laboratory workup showed hemoglobin 15.9, platelet 374, WBC 10.5, sodium 131, bicarb 20, anion gap 8, creatinine 0.41, glucose 104. EKG independently interpreted, shows normal sinus rhythm with Q waves in septal leads. EKG shows normal sinus rhythm with Q waves in septal leads. Chest x-ray independently interpreted, shows no acute opacities. Head CT does not show any acute process, chronic appearing periventricular white matter ischemic type changes. CTA head and neck shows no flow-limiting stenosis bilateral carotid bifurcations. Thrombolytic not given as patient is out of window. Patient admitted for further stroke workup. Brain MRI shows acute posterior limb internal capsule left basal ganglion ischemic change, old lacunar infarct on the right basal ganglia. Echocardiogram shows LVEF 60 to 65%. Negative bubble study. 10/05/23 PMR consulted for rehab needs. With therapy, is Min A transfers, Max A bathing, Mod A UE ADL, Dep LE ADL. She is tired, has odd feeling in right leg, weakness on right side, has been constipated. In talking about rehab, she states would like a beer and to see her dog before she went there. Denies ALFARO, dizziness or other pain complaints. Review of Systems + per above, o/w all systems reviewed negative. Past Medical History Past Medical History: Asthma, Coronary Artery Disease (CAD), COPD, CVA/TIA, Hypertension, Myocardial Infarction ([place]), Musculoskeletal Disorder Additional Past Medical History / Comment(s): supposed to take BP meds, hasn't been able to get rx. Last Myocardial Infarction Date:: 2013? History of Any Multi-Drug Resistant Organisms: None Reported Past Surgical History: Section, Orthopedic Surgery Additional Past Surgical History / Comment(s): ORIF left ankle NOSE SURGERY Past Anesthesia/Blood Transfusion Reactions: No Reported Reaction Smoking Status: Current every day smoker - Past Family History Brother(s) Additional Family Medical History / Comment(s): pts. brother recently from [place] Gehrigs disease Medications and Allergies Home Medications Medication Instructions Recorded Confirmed Type Multivitamins, Thera [Multivitamin 1 tab PO DAILY 09/29/23 09/29/23 History (formulary)] Allergies Allergy/AdvReac Type Severity Reaction Status Date / Time aspirin Allergy Swelling Verified 01/10/23 15:29 venom-honey bee Allergy Swelling Verified 01/10/23 15:29 [bee venom (honey bee)] Physical Exam Vitals: Vital Signs Temp Pulse Resp BP Pulse Ox 10/05/23 13:18 97.9 F 82 17 127/71 99 10/05/23 07:29 98.3 F 68 16 145/79 95 10/05/23 01:56 98.2 F 68 15 121/77 95 10/04/23 18:59 98.2 F 79 17 146/82 96 Intake and Output 10/05/23 10/05/23 10/05/23 06:59 14:59 22:59 Other: Voiding Method Bedside Commode # Voids 4 Weight 43.5 kg Gen: NAD, alert HEENT: [place], EOMI, neck supple Lungs: Non-labored respirations Heart: regular rate Abd: Soft NT/ND Neuro: A&Ox4. CN 2-12 with right facial weakness, tongue deviation, decreased shrug Speech dysarthric but repeats no ifs ands or buts Follows 3 step commands MMT 5/5 left UE/LE; 0/5 right UE, ~2/5 right HF/KE. Increased tone right UE/LE SILT bilateral UE/LE DTR 3+ UE/LE Ext: No significant LE edema, no calf TTP, negative Homans Results CBC & Chem 7: 09/30/23 14:55 10/04/23 04:11 Assessment and Plan Assessment: # Acute left basal ganglia stroke # Right hemiparesis with increased tone # Dysarthria -continue therapies. -Neurology recommendations: Continue Plavix 75, atorvastatin 80, has an allergy to aspirin, signed off #Right lower extremity neuropathic pain - on Gabapentin 300mg TID # Hypertension -amlodipine 10 mg, lisinopril 20 mg daily # Nicotine dependence -Counseled regarding smoking cessation during this admission # Mild hyponatremia, stable -Encourage oral intake #Hypokalemia, resolved # Hypomagnesemia, resolved #Alcohol dependence -IV Ativan as needed discontinued, on oral thiamine 100 mg daily # DVT ppx: Lovenox Recommendations: - Continue PT/OT/SL Appears appropriate for IPR when medically stable.
[2023-10-06] MEDS: polyethylene glycoL 3350 17 GM POWD.PACK PO SCH (11:41)
--- NOTE | 2023-10-06 12:58 | P.PN ---
Subjective Progress Note Date: 10/06/23 Hospital Course: 68-year-old female with history of nicotine dependence and daily alcohol use p resenting with stroke. In the ED, temperature was 98, pulse 103, blood pressure 166/128, respiratory rate 20, saturating at 96% on room air. Laboratory workup showed hemoglobin 15.9, platelet 374, WBC 10.5, sodium 131, bicarb 20, anion gap 8, creatinine 0.41, glucose 104. EKG independently interpreted, shows normal sinus rhythm with Q waves in septal leads. Chest x-ray independently interpreted, shows no acute opacities. Head CT does not show any acute process, chronic appearing periventricular white matter ischemic type changes. CTA head and neck shows no flow-limiting stenosis bilateral carotid bifurcations. Thrombolytic not given as patient is out of window. Patient admitted for fu rther stroke workup. Neurology consulted. Brain MRI shows acute posterior limb internal capsule left basal ganglion ischemic change, old lacunar infarct on the right basal ganglia. Echocardiogram shows LVEF 60 to 65%. Negative bubble study. IPR consulted, accepted for IPR. Insurance authorization pending. Subjective: Patient seen and examined at bedside. No acute events overnight. Having constipation. Pertinent positives and negatives as discussed above, a complete review of systems was performed and all other systems are negative. Vitals Signs Reviewed. General: Nontoxic, no distress, appears at stated age Derm: Warm, dry Head: Atraumatic, normocephalic, symmetric Eyes: EOMI, no lid lag, anicteric sclera Mouth: No lip lesion, mucus membranes moist Cardiovascular: S1S2 reg, no murmur Lungs: CTA bilateral, no rhonchi, no rales, no accessory muscle use Abdominal: Soft, nontender to palpation, no guarding, no appreciable organomegaly Ext: No gross muscle atrophy, no edema, no contractures Neuro: Right-sided facial droop, right upper extremity and lower extremity deficit, dysarthria Psych: Alert, oriented, appropriate affect Data Reviewed Today: Pertinent Labs: No new labs Imaging: No new imaging Assessment and Plan: Acute left basal ganglia stroke Right lower extremity neuropathic pain Dysarthria Hypertension Nicotine dependence -Counseled regarding smoking cessation during this admission -Neurology recommendations: Continue Plavix 75, atorvastatin 80, has an allergy to aspirin, signed off -Continue amlodipine 10 mg, lisinopril 20 mg daily -PT/OT/speech therapy -Pending discharge to [facility] -Continue on Neurontin 300 mg 3 times daily, [place] 5 every 6 hours as needed, monitor for sedation Constipation -MiraLAX 17 g daily Mild hyponatremia, stable -Encourage oral intake Hypokalemia, resolved Hypomagnesemia, resolved Alcohol dependence -Continue oral thiamine 100 mg daily DVT ppx: Lovenox Code status: Full code Anticipated discharge place: Inpatient rehab Anticipated discharge time: Pending Auth Objective - Vital Signs Vital signs: Vital Signs Temp 97.9 F 10/06/23 06:55 Pulse 74 10/06/23 06:55 Resp 17 10/06/23 06:55 BP 150/88 10/06/23 06:55 Pulse Ox 94 L 10/06/23 06:55 FiO2 Intake & Output 10/05/23 10/06/23 10/06/23 18:59 06:59 18:59 Weight 42.5 kg Other: Voiding Method Bedside Commode Incontinent # Voids 2 5 - Labs CBC & Chem 7: 09/30/23 14:55 10/04/23 04:11
[2023-10-06 14:28] VITALS: BMI 16.0
[2023-10-06] MEDS: bisacodyL 10 MG SUPP RECTAL PRN (18:20)
[2023-10-06] MEDS ORDERED: bisacodyL 10 MG SUPP RECTAL SCH (21:00)
[2023-10-07 08:07] VITALS: BP 108/53; PULSE 72; RESP 17; TEMP 97.9
--- NOTE | 2023-10-07 11:07 | P.DS ---
Providers Date of admission: 09/29/23 08:37 Expected date of discharge: 10/07/23 Attending physician: Rc Bourgeois MD Consults: 09/29/23 08:36 Consult Physician Urgent Consulting Provider: Alo Loza Consult Reason/Comments: cva Do you want consulting provider notified?: Yes 10/01/23 12:15 Consult Physician Routine Consulting Provider: Anand Stark Consult Reason/Comments: stroke, IPR? Do you want consulting provider notified?: Yes Primary care physician: Stated None Hospital Course: Acute left basal ganglia stroke Right lower extremity neuropathic pain Dysarthria Hypertension Nicotine dependence Constipation Mild hyponatremia, stable Hypokalemia, resolved Hypomagnesemia, resolved Alcohol dependence Hospital Course: 68-year-old female with history of nicotine dependence and daily alcohol use presenting with stroke. In the ED, temperature was 98, pulse 103, blood pressure 166/128, respiratory rate 20, saturating at 96% on room air. Laboratory workup showed hemoglobin 15.9, platelet 374, WBC 10.5, sodium 131, bicarb 20, anion gap 8, creatinine 0.41, glucose 104. EKG independently interpreted, shows normal sinus rhythm with Q waves in septal leads. Chest x-ray independently interpreted, shows no acute opacities. Head CT does not show any acute process, chronic appearing periventricular white matter ischemic type changes. CTA head and neck shows no flow-limiting stenosis bilateral carotid bifurcations. Thrombolytic not given as patient is out of window. Patient admitted for further stroke workup. Neurology consulted. Brain MRI shows acute posterior limb internal capsule left basal ganglion ischemic change, old lacunar infarct on the right basal ganglia. Echocardiogram shows LVEF 60 to 65%. Negative bubble study. IPR consulted, accepted for IPR. Pt discharged to [facility] on 10/06. I spent 40 min coordinating this discharge Gen: In NAD, non-toxic HEENT: normocephalic, atraumatic, hearing acuity is intant, mucous membranes moist CVS: perfusing all extremities well, no pitting edema, Respiratory: symmetric chest expansion, no accessory muscle use, GI: soft, NTTP, ND, : no suprapubic tenderness, no CVA tenderness MSK/Derm: no rashes, cyanosis Neuro: CN II-XII intact, no motor weakness, Psych: cooperative, euthymic mood, judgment and insight is intact Data Reviewed Today: Pertinent Labs: No new labs Imaging: No new imaging Patient Condition at Discharge: Good Plan - Discharge Summary Discharge Rx Participant: No New Discharge Prescriptions: New bisacodyL [Dulcolax] 10 mg RECTAL HS PRN suppositor PRN Reason: Constipation Atorvastatin [Lipitor] 80 mg PO HS #30 tab amLODIPine [Norvasc] 10 mg PO DAILY #30 tab Thiamine [Vitamin B-1] 100 mg PO DAILY #14 tab lisinopriL [Zestril] 20 mg PO DAILY #30 tab polyethylene glycoL 3350 [Miralax] 17 gm PO DAILY packet Gabapentin [Neurontin] 300 mg PO TID #9 cap HYDROcodone/APAP 5-325MG [Bock 5-325] 1 each PO Q6HR PRN #12 tab PRN Reason: Pain Clopidogrel [Plavix] 75 mg PO DAILY #30 tab Continue Multivitamins, Thera [Multivitamin (formulary)] 1 tab PO DAILY Discharge Medication List Multivitamins, Thera [Multivitamin (formulary)] 1 tab PO DAILY 09/29/23 [History] Atorvastatin [Lipitor] 80 mg PO HS #30 tab 10/07/23 [Rx] Clopidogrel [Plavix] 75 mg PO DAILY #30 tab 10/07/23 [Rx] Gabapentin [Neurontin] 300 mg PO TID #9 cap 10/07/23 [Rx] HYDROcodone/APAP 5-325MG [Bock 5-325] 1 each PO Q6HR PRN #12 tab 10/07/23 [Rx] Thiamine [Vitamin B-1] 100 mg PO DAILY #14 tab 10/07/23 [Rx] amLODIPine [Norvasc] 10 mg PO DAILY #30 tab 10/07/23 [Rx] bisacodyL [Dulcolax] 10 mg RECTAL HS PRN suppositor 10/07/23 [Rx] lisinopriL [Zestril] 20 mg PO DAILY #30 tab 10/07/23 [Rx] polyethylene glycoL 3350 [Miralax] 17 gm PO DAILY packet 10/07/23 [Rx] Follow up Appointment(s)/Referral(s): Scott Jesus MD [REFERRING] - 1-2 days
== END 2023-10-07 13:24 | DRG 65 ==
LOC: EC 06:43 → 3SCARD 08:37 → 4SSUR 09-30 09:17 → 3SCARD 10-01 06:36 → 4SSUR 10-02 09:46
PROVIDERS: ADMIT Student in an Organized Health Care Education/Training Program; ATTEND Student in an Organized Health Care Education/Training Program
PROC: HZ2ZZZZ Detoxification Services for Substance Abuse Treatment (ICD-10-PCS; principal; 2023-09-29)
PROC: F00ZHZZ Bedside Swallowing and Oral Function Assessment (ICD-10-PCS; 2023-09-30)
DX: I63.81 Other cerebral infarction due to occlusion or stenosis of small artery (principal); E87.1 Hypo-osmolality and hyponatremia; G81.91 Hemiplegia, unspecified affecting right dominant side; R41.4 Neurologic neglect syndrome; I10 Essential (primary) hypertension; R29.810 Facial weakness; G35 Multiple sclerosis; R47.1 Dysarthria and anarthria; K59.00 Constipation, unspecified; E83.42 Hypomagnesemia; E87.6 Hypokalemia; F10.20 Alcohol dependence, uncomplicated; F17.210 Nicotine dependence, cigarettes, uncomplicated; F32.A Depression, unspecified; G25.81 Restless legs syndrome; I25.10 Atherosclerotic heart disease of native coronary artery without angina pectoris; I25.2 Old myocardial infarction; G62.9 Polyneuropathy, unspecified; J44.9 Chronic obstructive pulmonary disease, unspecified; R13.10 Dysphagia, unspecified; R29.713 NIHSS score 13; Z79.02 Long term (current) use of antithrombotics/antiplatelets; Z79.899 Other long term (current) drug therapy; Z86.73 Personal history of transient ischemic attack (TIA), and cerebral infarction without residual deficits; Z88.6 Allergy status to analgesic agent; Z71.6 Tobacco abuse counseling; Z79.82 Long term (current) use of aspirin; Z91.030 Bee allergy status
CPT/HCPCS: 36415; 70450; 70496; 70498; 70551; 71045; 74230; 80048; 80053; 80061; 81001; 82550; 83036; 83735; 84443; 85025; 85610; 85730; 93005; 93306; 96361; 96365; 96366; 96372; 96375; 96376; 99291

== ENCOUNTER 2023-11-03 13:47 | Observation (INO) | payer MEDICARE ==
--- NOTE | 2023-11-03 14:08 | ED ---
General Adult HPI - General Chief complaint: Fall Stated complaint: Fall, on thinners Time Seen by Provider: 11/03/23 13:49 Source: patient, EMS, RN notes reviewed, old records reviewed Mode of arrival: EMS Limitations: physical limitation - History of Present Illness Initial comments: 68-year-old female presenting status post fall. Paramedics had been contacted for a fall in the bathroom. Patient is hemiplegic from CVA approximately 1 month ago. Patient had apparently gone to rehab and then was discharged home. She did drink at least 1 large alcoholic beverage today. She denies head or neck trauma. Paramedics did not note any external signs of trauma with the exception of the right forearm. Patient had initially complained of pain in the forearm but is currently not complaining of any pain. There is some concern about the current living situation. - Related Data Home Medications Medication Instructions Recorded Confirmed Multivitamins, Thera [Multivitamin 1 tab PO DAILY 09/29/23 09/29/23 (formulary)] Previous Rx's Medication Instructions Recorded Atorvastatin [Lipitor] 80 mg PO HS #30 tab 10/07/23 Clopidogrel [Plavix] 75 mg PO DAILY #30 tab 10/07/23 Gabapentin [Neurontin] 300 mg PO TID #9 cap 10/07/23 HYDROcodone/APAP 5-325MG [Climax 1 each PO Q6HR PRN #12 tab 10/07/23 5-325] Thiamine [Vitamin B-1] 100 mg PO DAILY #14 tab 10/07/23 amLODIPine [Norvasc] 10 mg PO DAILY #30 tab 10/07/23 bisacodyL [Dulcolax] 10 mg RECTAL HS PRN suppositor 10/07/23 lisinopriL [Zestril] 20 mg PO DAILY #30 tab 10/07/23 polyethylene glycoL 3350 [Miralax] 17 gm PO DAILY packet 10/07/23 Allergies Allergy/AdvReac Type Severity Reaction Status Date / Time aspirin Allergy Swelling Verified 01/10/23 15:29 venom-honey bee Allergy Swelling Verified 01/10/23 15:29 [bee venom (honey bee)] Review of Systems ROS Statement: Those systems with pertinent positive or pertinent negative responses have been documented in the HPI. ROS Other: All systems not noted in ROS Statement are negative. Past Medical History Past Medical History: Asthma, Coronary Artery Disease (CAD), COPD, CVA/TIA, Hypertension, Myocardial Infarction (OK), Musculoskeletal Disorder Additional Past Medical History / Comment(s): supposed to take BP meds, hasn't been able to get rx. Last Myocardial Infarction Date:: 2013? History of Any Multi-Drug Resistant Organisms: None Reported Past Surgical History: Section, Orthopedic Surgery Additional Past Surgical History / Comment(s): ORIF left ankle NOSE SURGERY Past Anesthesia/Blood Transfusion Reactions: No Reported Reaction Past Psychological History: Depression Smoking Status: Current every day smoker Past Alcohol Use History: Occasional Past Drug Use History: None Reported - Past Family History Brother(s) Additional Family Medical History / Comment(s): pts. brother recently from [place] Gehrigs disease General Exam Limitations: physical limitation General appearance: appears intoxicated Head exam: Present: atraumatic, normocephalic Eye exam: Present: normal appearance, PERRL Neck exam: Present: normal inspection. Absent: tenderness, meningismus Respiratory exam: Present: normal lung sounds bilaterally. Absent: respiratory distress, wheezes Cardiovascular Exam: Present: regular rate, normal rhythm GI/Abdominal exam: Present: soft. Absent: distended, tenderness, guarding Extremities exam: Present: other (skin tear to the right forearm) Neurological exam: Present: alert, motor sensory deficit ( Facial droop, right hemiplegia) Course Vital Signs 11/03/23 13:52 Temperature 97.9 F Pulse Rate 68 Respiratory 18 Rate Blood Pressure 128/79 O2 Sat by Pulse 696 H Oximetry Medical Decision Making - Medical Decision Making Was pt. sent in by a medical professional or institution (, PA, VISUAL MERCHANDISING SPECIALIST, urgent care, hospital, or long term...) When possible be specific @ -No Did you speak to anyone other than the patient for history (EMS, parent, family, police, friend...)? What history was obtained from this source @ -No Did you review nursing and triage notes (agree or disagree)? Why? @ -I reviewed and agree with nursing and triage notes Were old charts reviewed (outside hosp., previous admission, EMS record, old EKG, old radiological studies, urgent care reports/EKG's, long term records)? Report findings @ -No old charts were reviewed Differential Diagnosis traumatic injury from fall, possible syncope, recent CVA EKG interpreted by me (3pts min.). @EKG: Sinus rhythm rate of 66 MI interval 183, QRS duration 100, QTc [address] segment elevation. X-rays interpreted by me (1pt min.). @X-ray of the right wrist, right forearm negative for displaced fracture CT interpreted by me (1pt min.). @ -[CT brain, cervical spine negative for intracranial hemorrhage or mass effect, no displaced fracture. U/S interpreted by me (1pt. min.). @ -None done What testing was considered but not performed or refused? (CT, X-rays, U/S, labs)? Why? @ -None What meds were considered but not given or refused? Why? @ -None Did you discuss the management of the patient with other professionals (professionals i.e. , PA, VISUAL MERCHANDISING SPECIALIST, lab, RT, psych nurse, rn social services, alodize machine helper, teacher, chief scientific officer, case liner)? Give summary @Dr. Ayers Was smoking cessation discussed for >3mins.? @ -No Was critical care preformed (if so, how long)? @ -No Were there social determinants of health that impacted care today? How? (Homelessness, low income, unemployed, alcoholism, drug addiction, transportation, low edu. Level, literacy, decrease access to med. care, usp, rehab)? @ -No Was there de-escalation of care discussed even if they declined (Discuss DNR or withdrawal of care, Hospice)? DNR status @ -No What co-morbidities impacted this encounter? (DM, HTN, Smoking, COPD, CAD, Cancer, CVA, ARF, Chemo, Hep., AIDS, mental health diagnosis, sleep apnea, morbid obesity)? @ -Recent CVA with right-sided hemiplegia Was patient admitted / discharged? Hospital course, mention meds given and route, prescriptions, significant lab abnormalities, going to OR and other pertinent info. @ 68-year-old female with fall at home, alcohol intoxication, alcohol is 174. Apparently the patient has only been home for 1 day from rehab. Patient is agreeable to long term placement for additional rehab. She is unable to ambulate secondary to hemiplegia from recent CVA. Discussed with Dr. Ayers who will admit. Undiagnosed new problem with uncertain prognosis? @ -No Drug Therapy requiring intensive monitoring for toxicity (Heparin, Nitro, Insulin, Cardizem)? @ -No Were any procedures done? @ -No Diagnosis/symptom? @ -[Frequent falls, recent CVA with hemiplegia, alcohol intoxication Acute, or Chronic, or Acute on Chronic? @ -acute Uncomplicated (without systemic symptoms) or Complicated (systemic symptoms)? @ -Default Side effects of treatment? @ -No Exacerbation, Progression, or Severe Exacerbation? @ -No Poses a threat to life or bodily function? How? (Chest pain, [place], [place], pneumonia, PE, COPD, DKA, ARF, appy, cholecystitis, CVA, Diverticulitis, Homicidal, Suicidal, threat to staff... and all critical care pts) @ -[yes, CVA - Lab Data Result diagrams: 11/03/23 14:05 11/03/23 14:05 Lab Results 11/03/23 11/03/23 Range/Units 14:05 14:05 WBC 9.6 (3.8-10.6) k/uL RBC 4.67 (3.80-5.40) m/uL Hgb 14.3 (11.4-16.0) gm/dL Hct 44.1 (34.0-46.0) % MCV 94.4 (80.0-100.0) fL MCH 30.6 (25.0-35.0) pg MCHC 32.4 (31.0-37.0) g/dL RDW 12.4 (11.5-15.5) % Plt Count 332 (150-450) k/uL MPV 7.5 Neutrophils % 61 % Lymphocytes % 25 % Monocytes % 7 % Eosinophils % 4 % Basophils % 1 % Neutrophils # 5.9 (1.3-7.7) k/uL Lymphocytes # 2.4 (1.0-4.8) k/uL Monocytes # 0.7 (0-1.0) k/uL Eosinophils # 0.3 (0-0.7) k/uL Basophils # 0.1 (0-0.2) k/uL Sodium 131 L (137-145) mmol/L Potassium 4.8 (3.5-5.1) mmol/L Chloride 102 (98-107) mmol/L Carbon Dioxide 17 L (22-30) mmol/L Anion Gap 12 mmol/L BUN 13 (7-17) mg/dL Creatinine 0.46 L (0.52-1.04) mg/dL Est GFR (CKD-EPI)AfAm >90 (>60 ml/min/1.73 sqM) Est GFR (CKD-EPI)NonAf >90 (>60 ml/min/1.73 sqM) Glucose 88 (74-99) mg/dL Calcium 9.1 (8.4-10.2) mg/dL Total Bilirubin 0.7 (0.2-1.3) mg/dL AST 29 (14-36) U/L ALT 22 (4-34) U/L Alkaline Phosphatase 90 (38-126) U/L Total Protein 7.1 (6.3-8.2) g/dL Albumin 4.4 (3.5-5.0) g/dL Serum Alcohol 174 mg/dL Disposition Clinical Impression: Cerebrovascular accident (CVA), Weakness, Fall, Alcohol intoxication Disposition: ADMITTED IP TO THIS [facility] Condition: Stable Is patient prescribed a controlled substance at d/c from ED?: No Referrals: None,Stated [Primary Care Provider] - 1-2 days Time of Disposition: 15:30
[2023-11-03 14:11] LABS: Basophils # (A) 0.1 k/uL (0-0.2); Basophils % (A) 1 %; Eosinophils # (A) 0.3 k/uL (0-0.7); Eosinophils % (A) 4 %; HCT 44.1 % (34.0-46.0); HGB 14.3 gm/dL (11.4-16.0); Lymphocytes # (A) 2.4 k/uL (1.0-4.8); Lymphocytes % (A) 25 %; MCH 30.6 pg (25.0-35.0); MCHC 32.4 g/dL (31.0-37.0); MCV 94.4 fL (80.0-100.0); Mean Platelet Volume 7.5; Monocytes # (A) 0.7 k/uL (0-1.0); Monocytes % (A) 7 %; Neutrophils # (A) 5.9 k/uL (1.3-7.7); Neutrophils % (A) 61 %; Platelet Count 332 k/uL (150-450); RBC 4.67 m/uL (3.80-5.40); RDW 12.4 % (11.5-15.5); WBC 9.6 k/uL (3.8-10.6)
[2023-11-03 14:22] LABS: ALT 22 U/L (4-34); AST 29 U/L (14-36); African American GFR (CKD) >90 (>60 ml/min/1.73 sqM); Albumin 4.4 g/dL (3.5-5.0); Alkaline Phosphatase 90 U/L (38-126); Anion Gap 12 mmol/L; Blood Urea Nitrogen 13 mg/dL (7-17); Calcium 9.1 mg/dL (8.4-10.2); Carbon Dioxide 17 mmol/L (22-30); Chloride 102 mmol/L (98-107); Glucose 88 mg/dL (74-99); Non-African American GFR(CKD) >90 (>60 ml/min/1.73 sqM); Potassium 4.8 mmol/L (3.5-5.1); Sodium 131 mmol/L (137-145); Total Bilirubin 0.7 mg/dL (0.2-1.3); Total Protein 7.1 g/dL (6.3-8.2)
[2023-11-03 14:34] LABS: Alcohol 174 mg/dL
--- NOTE | 2023-11-03 14:58 | XR ---
EXAMINATION TYPE: XR wrist complete RT, XR forearm RT DATE OF EXAM: 11/03/2023 CLINICAL HISTORY: pain TECHNIQUE: Frontal, lateral and oblique images of the right wrist are obtained. 2 views right forear m are also submitted. COMPARISON: None. FINDINGS: There is no acute fracture/dislocation evident. The joint spaces appear within mildly narrowed. The overlying soft tissue appears unremarkable. IMPRESSION: There is no acute fracture or dislocation seen. ICD 10 NO FRACTURE, INITIAL EVALUATION
--- NOTE | 2023-11-03 15:02 | CT ---
EXAMINATION TYPE: CT brain arti kelly con DATE OF EXAM: 11/03/2023 COMPARISON: 04/06/2016 HISTORY: 68-year-old female with pain after Fall CT DLP: 1248.9 mGycm Automated exposure control for dose reduction was used. Technique: Examination of the head was done in axial plane without intravenous contrast. Coronal and sagittal reconstructions performed. CT of the cervical spine was obtained in axial plane without intravenous injection of contrast mater ial. Coronal and sagittal reformatted images were obtained from the axial views for evaluation of f ractures, spinal alignment and canal. FINDINGS: Head: There is no evidence of acute intracranial hemorrhage, acute ischemic changes, mass, mass-effect, or extra-axial fluid collection. There is no effacement of cerebral sulci or basal subarachnoid cister ns. There is no hydrocephalus. There is no midline shift. Nicole-white matter distinction is preserv ed. Confluent white matter hypodensities in both cerebral hemispheres, significantly progressed compared to 04/06/2016 Mild mucosal thickening scattered throughout the ethmoid air cells and maxillary sinuses. Cerumen wit hin the bilateral external auditory canals. Mastoid air cells well pneumatized. Leftward nasal septal deviation. Orbits and globes are intact. Cervical spine: No clear cervical junction apparently, predental space widening, or prevertebral soft tissue swelling . Degenerative change of the C1 dens articulation. Moderate spondylotic change mid to lower cervical spine particularly at C5-C6 with degenerative grade 1 retrolisthesis here. Reversal of the normal cervical lordosis. Otherwise, alignment is maintained. Disc osteophyte complex contribute to moderate focal spinal canal stenosis at C5-C6. No acute fracture seen of the cervical spine. Moderate bilateral neural foraminal stenoses at C5-C6 and on the right at C6-C7 also mild to moderate on both sides at C3-C4. Biapical pleural-parenchymal scarring. Sagittal and coronal reformatted images confirm above findings. COMBINED IMPRESSION: 1. No acute intracranial abnormality seen. Progression to now moderate to severe confluent burden of chronic small vessel ischemic disease compared to 2015. 2. No acute fracture of the cervical spine. Degenerative grade 1 retrolisthesis C5-C6. Spondylitic ch santa contributing to a moderate spinal canal stenosis and moderate bilateral neuroforaminal stenosis here at C5-C6. 3. Mild chronic ethmoid and maxillary sinus disease.
[2023-11-03] MEDS ORDERED: NALOXONE 0.4 MG/ML 1 ML VIAL IV PRN (15:27)
[2023-11-03] MEDS ORDERED: LORazepam 0.5 MG TAB PO PRN (16:30)
[2023-11-03] MEDS ORDERED: LORazepam 1 MG TAB PO PRN ×3 (16:30)
--- NOTE | 2023-11-03 16:58 | XR ---
EXAMINATION TYPE: XR chest 1V portable DATE OF EXAM: 11/03/2023 Comparison: 09/29/2023 Clinical History: 68-year-old female shortness of breath, CHF Findings: Heart upper limits of normal in size. Patient rotated towards the right altering the normal cardiac a nd mediastinal contours. Mild interstitial prominence may be slightly increased. Hyperinflation. No f rank consolidation or pleural effusion. Apical scarring calcifications throughout the thoracic aorta. Impression: Borderline heart size and COPD. Interstitial density may be slightly increased. Correlate to exclude mild pulmonary vascular congestion. No matt pulmonary edema.
[2023-11-03] MEDS: GABAPENTIN 400 MG CAP PO SCH (20:49)
[2023-11-03] MEDS: SERTRALINE 25 MG TAB PO SCH (20:49)
[2023-11-03] MEDS: THIAMINE 100 MG TAB PO SCH (20:49)
[2023-11-03] MEDS: ATORVASTATIN 80 MG TAB PO SCH (20:49)
[2023-11-03] MEDS: HEPARIN SODIUM,PORCINE 5,000 UNIT/ML 1 ML VIAL SQ SCH (20:49)
--- NOTE | 2023-11-03 22:55 | HP ---
HISTORY AND PHYSICAL CHIEF COMPLAINT: Fall and EtOH. HISTORY OF PRESENT ILLNESS: This is a 68-year-old woman with a past medical history of multiple medical problems, recently admitted with right hemiplegia. The patient is subsequently sent to [facility] and once gotten better, the patient went home and apparently the patient drinking and the patient actually fell and came to [facility] and admitted for further evaluation and treatment. The evaluation including CT scan of the brain showed no acute abnormality or any acute fracture. Small vessel ischemia is noted. There is no history of any fever, rigors, or chills at this time. PAST MEDICAL HISTORY: History of recent CVA, asthma, CAD, COPD. Rest of the history and rest of the chart is also reviewed. HOME MEDICATIONS: Reviewed include MiraLAX. Dose and rest of medications noted. ALLERGIES: Aspirin. FAMILY HISTORY: History of ALS in brother. SOCIAL HISTORY: Smoking, alcohol. REVIEW OF SYSTEMS: A 14-point review is negative except as mentioned earlier. PHYSICAL EXAMINATION: VITAL SIGNS: Pulse is 68, blood pressure 120/87, respirations 18. HEENT: Conjunctivae normal. CARDIOVASCULAR: S1, S2. RESPIRATIONS: Clear to auscultation. ABDOMEN: Soft, nontender. LEGS: No edema. NERVOUS SYSTEM: Significant weakness of the right side present, hemiplegia. The patient is dysarthric. Gait dysfunction present. LABORATORY DATA: Reviewed. ASSESSMENT: 1. Fall and gait dysfunction. 2. History of recent cerebrovascular accident with severe acute right-sided paralysis. 3. History of asthma. 4. History of coronary artery disease. 5. Chronic obstructive pulmonary disease. 6. Hypertension. 7. Multiple complex medical issues. RECOMMENDATIONS AND DISCUSSION: This is a 68-year-old woman, who presented with multiple complex medical issues. At this time, I recommend to continue symptomatic treatment. Continue the home medications, PT, OT evaluation at this time. I discussed with [id number] who is at the bedside and at this time we will recommend possible ECF rehab and [facility] Service Worker and Case Management Team to evaluate the home situation to ensure safety and continued rehab. Guarded prognosis. Further recommendations to follow. See orders for further details. MMODL / IJN: [id number] /
[2023-11-04] MEDS: PANTOPRAZOLE 40 MG TABLET PO SCH (06:51)
[2023-11-04] MEDS ORDERED: PANTOPRAZOLE 40 MG TABLET PO SCH (07:30)
[2023-11-04 08:46] LABS: Basophils # (A) 0.07 X 10*3/uL (0.00-0.10); Basophils % (A) 0.8 %; Eosinophils # (A) 0.59 X 10*3/uL (0.04-0.35); HCT 42.9 % (37.2-46.3); HGB 14.6 g/dL (12.0-15.0); Lymphocytes # (A) 2.31 X 10*3/uL (0.90-5.00); Lymphocytes % (A) 27.3 %; MCH 31.5 pg (27.0-32.0); MCV 92.5 FL (80.0-97.0); Mean Platelet Volume 10.1 FL (9.5-12.2); Monocytes # (A) 0.85 X 10*3/uL (0.20-1.00); Monocytes % (A) 10.1 %; NRBC Per 100 WBC 0 X 10*3/uL (0.00-0.01); Neutrophils % (A) 54.4 %; Platelet Count 329 X 10*3/uL (140-440); RBC 4.64 X 10*6/uL (4.10-5.20); RDW 12.3 % (11.5-14.5); WBC 8.45 X 10*3/uL (4.50-10.00)
[2023-11-04 09:12] LABS: Blood Urea Nitrogen 13.9 mg/dL (9.0-27.0); Calcium 9.6 mg/dL (8.7-10.3); Carbon Dioxide 21.1 mmol/L (21.6-31.8); Chloride 103 mmol/L (96-109); Glucose 81 mg/dL (70-110); Potassium 4.2 mmol/L (3.5-5.5); Sodium 138 mmol/L (135-145)
[2023-11-04] MEDS: lisinopriL 20 MG TAB PO SCH (09:16)
[2023-11-04] MEDS: CLOPIDOGREL 75 MG TAB PO SCH (09:16)
[2023-11-04] MEDS: amLODIPine 10 MG TAB PO SCH (09:16)
[2023-11-04] MEDS ORDERED: THIAMINE 100 MG TAB PO SCH (12:00)
[2023-11-04] MEDS: FOLIC ACID 1 MG TAB PO SCH (12:55)
[2023-11-04] MEDS: MULTIVITAMINS, THERA 1 EACH TAB PO SCH (12:55)
[2023-11-04] MEDS: ACETAMINOPHEN TAB 325 MG TAB PO PRN (19:07)
--- NOTE | 2023-11-04 23:22 | PN ---
PROGRESS NOTE DATE OF SERVICE: 11/04/2023 SUBJECTIVE: This is a 68-year-old woman, who recently had a right-sided stroke, had treatment at [facility], but subsequently the patient went home, admitted with fall and as well as high alcohol at 170. No chest pain. No palpitation. The patient is mildly confused, dysarthric. OBJECTIVE: VITAL SIGNS: Pulse 76, blood pressure 111/74, respirations 16. CHEST: Clear to auscultation. CARDIOVASCULAR: S1, S2. ABDOMEN: Soft. NERVOUS SYSTEM: Right hemiplegia. LABORATORY DATA: Reviewed. ASSESSMENT: 1. Fall and gait dysfunction. 2. History of recent cerebrovascular accident with severe acute right-sided paralysis. 3. ETOH. 4. History of asthma. 5. Coronary artery disease. 6. Chronic obstructive pulmonary disease. 7. Hypertension. 8. Multiple medical issues. RECOMMENDATIONS: Recommend to continue current medications. Continue symptomatic treatment. Otherwise, at this time, supplement vitamins. PT, OT evaluation. DVT prophylaxis. Possible ECF rehab. I would also repeat labs. Prognosis guarded. Further recommendations to follow. MMODL / IJN: [id number] /
[2023-11-05 10:29] LABS: HCT 40.3 % (37.2-46.3); HGB 13.8 g/dL (12.0-15.0); Lymphocytes % (A) 26.2 %; MCH 31.9 pg (27.0-32.0); MCHC 34.2 g/dL (32.0-37.0); MCV 93.1 FL (80.0-97.0); Mean Platelet Volume 10.2 FL (9.5-12.2); NRBC Per 100 WBC 0 X 10*3/uL (0.00-0.01); Platelet Count 302 X 10*3/uL (140-440); RBC 4.33 X 10*6/uL (4.10-5.20); RDW 11.9 % (11.5-14.5); WBC 6.99 X 10*3/uL (4.50-10.00)
[2023-11-05 10:30] LABS: Basophils # (A) 0.05 X 10*3/uL (0.00-0.10); Basophils % (A) 0.7 %; Eosinophils # (A) 0.45 X 10*3/uL (0.04-0.35); Eosinophils % (A) 6.4 %; Lymphocytes # (A) 1.83 X 10*3/uL (0.90-5.00); Monocytes # (A) 0.59 X 10*3/uL (0.20-1.00); Monocytes % (A) 8.4 %; Neutrophils # (A) 4.05 X 10*3/uL (1.80-7.70)
[2023-11-05 10:38] VITALS: BP 116/73; PULSE 85; RESP 17; TEMP 98.5
[2023-11-05 10:41] LABS: Blood Urea Nitrogen 13.5 mg/dL (9.0-27.0); Calcium 9.1 mg/dL (8.7-10.3); Carbon Dioxide 23.3 mmol/L (21.6-31.8); Chloride 98 mmol/L (96-109); Glucose 114 mg/dL (70-110); Potassium 4.1 mmol/L (3.5-5.5); Sodium 133 mmol/L (135-145)
--- NOTE | 2023-11-05 15:43 | P.DS ---
Providers Date of admission: 11/03/23 15:28 Expected date of discharge: 11/05/23 Attending physician: Makeda Ayers Primary care physician: Stated None Hospital Course: Final diagnosis Fall with gait dysfunction and generalized weakness History of recent CVA with severe acute right-sided paralysis EtOH with concerns of acute early withdrawals History of asthma, not in exacerbation Coronary artery disease history Chronic obstructive pulmonary disease history, not in exacerbation Hypertension Continued ongoing nicotine dependence History of depression Noncompliance with medications and follow-up GI prophylaxis DVT prophylaxis No code Discharge disposition Patient is being discharged in a stable condition with guarded prognosis to [facility]. Patient will follow-up with Dr. Tam in the outpatient setting upon discharge. Patient is to establish in the outpatient setting with primary care provider.. Total time taken is greater than 35 minutes. Hospital course This is a 68-year-old female who was recently admitted with fall with generalized weakness and gait dysfunction being closely monitored. Patient evaluated by physical therapy recommending rehab and patient is agreeable. Patient does have significant history of EtOH use and was intoxicated prior to admission with concerns of EtOH withdrawal. Patient was not withdrawing and evaluated by physical therapy continues to be significantly weak and is high risk for falls. Patient has been accepted at [facility] and insurance authorization was obtained and patient will be going to today. Labs within normal limits. Encouraged complete alcohol cessation along with tobacco cessation. Patient is noncompliant in the outpatient setting as she was seeing Dr. Jesus although is not practicing currently and has been unable to receive her medications or compliance with appointments due to transportation issues. Currently no reports of chest pain, shortness of breath, or palpitations. Patient is afebrile. No reports of nausea or vomiting and patient is tolerating diet. Patient will be going to [facility]. Guarded prognosis and high risk for readmissions given patient's significant comorbidities and noncompliance. Physical exam: Gen: This is a 68-year-old female who is awake, alert and oriented x 3, well- developed, elderly appearing, thin built, cachectic HEENT: Head is atraumatic, normocephalic. Pupils equal, round. Sclerae is anicteric. NECK: Supple. No JVD. No lymphadenopathy. No thyromegaly. LUNGS: Diminished breath sounds bilaterally with coarse rhonchi noted. no intercostal retractions. HEART: Regular rate and rhythm. No murmur. ABDOMEN: Soft. Bowel sounds are present. No masses. No tenderness. EXTREMITIES: No pedal edema. No calf tenderness. NEUROLOGICAL: Patient is awake, alert and oriented x3. Cranial nerves 2 through 12 are grossly intact. Diffusely weak Please refer to medication reconciliation sheet for a list of medications. The impression and plan of care has been dictated by Viola Lima, Nurse Practitioner as directed. Dr. Armen MD I have performed a history and examination and MDM of this patient, discussed the same with the dictator, and agree with the dictator's assessment and plan as written ,documented as a scribe. Based on total visit time, I have performed more than 50% of the visit. Patient Condition at Discharge: Stable Plan - Discharge Summary New Discharge Prescriptions: New Heparin Sodium,Porcine (1 ml) [Heparin Sodium] 5,000 unit SQ Q12HR each Multivitamins, Thera [Multivitamin (formulary)] 1 each PO DAILY@1200 tab Folic Acid 1 mg PO DAILY@1200 tab Acetaminophen Tab [Tylenol] 650 mg PO Q6HR PRN tab PRN Reason: Fever And/ Or Pain Continue Atorvastatin [Lipitor] 80 mg PO HS #30 tab amLODIPine [Norvasc] 10 mg PO DAILY #30 tab lisinopriL [Zestril] 20 mg PO DAILY #30 tab Thiamine [Vitamin B-1] 100 mg PO DIRECTED Pantoprazole [Protonix] 40 mg PO DAILY Sertraline [Zoloft] 25 mg PO DAILY Gabapentin [Neurontin] 400 mg PO TID #6 cap Clopidogrel [Plavix] 75 mg PO DAILY #30 tab Discharge Medication List Atorvastatin [Lipitor] 80 mg PO HS #30 tab 10/07/23 [Rx] Clopidogrel [Plavix] 75 mg PO DAILY #30 tab 10/07/23 [Rx] amLODIPine [Norvasc] 10 mg PO DAILY #30 tab 10/07/23 [Rx] lisinopriL [Zestril] 20 mg PO DAILY #30 tab 10/07/23 [Rx] Pantoprazole [Protonix] 40 mg PO DAILY 11/03/23 [History] Sertraline [Zoloft] 25 mg PO DAILY 11/03/23 [History] Thiamine [Vitamin B-1] 100 mg PO DIRECTED 11/03/23 [History] Acetaminophen Tab [Tylenol] 650 mg PO Q6HR PRN tab 11/05/23 [Rx] Folic Acid 1 mg PO DAILY@1200 tab 11/05/23 [Rx] Gabapentin [Neurontin] 400 mg PO TID #6 cap 11/05/23 [Rx] Heparin Sodium,Porcine (1 ml) [Heparin Sodium] 5,000 unit SQ Q12HR each 11/05/23 [Rx] Multivitamins, Thera [Multivitamin (formulary)] 1 each PO DAILY@1200 tab 11/05/23 [Rx] Follow up Appointment(s)/Referral(s): [facility], [NON-STAFF] - As Needed Ankit Tam MD [STAFF PHYSICIAN] - 1 Week Activity/Diet/Wound Care/Special Instructions: Patient is going to [facility] Activity as tolerated Avoid all alcohol intake Follow-up with primary care provider on discharge Discharge Disposition: TRANSFER TO SNF/ECF
== END 2023-11-05 15:54 ==
LOC: EC 13:47 → 4SSUR 15:28
PROVIDERS: ADMIT Hospitalist; ATTEND Hospitalist
DX: R29.818 Other symptoms and signs involving the nervous system (principal); J44.9 Chronic obstructive pulmonary disease, unspecified; Z91.148 Patient's other noncompliance with medication regimen for other reason; Z79.02 Long term (current) use of antithrombotics/antiplatelets; I25.10 Atherosclerotic heart disease of native coronary artery without angina pectoris; I10 Essential (primary) hypertension; F10.229 Alcohol dependence with intoxication, unspecified; F17.200 Nicotine dependence, unspecified, uncomplicated
CPT/HCPCS: 96372 ×4; 99285; 36415; 97162; 97166; 80053; 80048 ×2; 85025 ×3; 73090; 73110; 71045; 72125; 70450; G0378 ×3; G0480; J1644 ×3; 80320

== ENCOUNTER 2023-11-21 11:47 | Inpatient (IN) | payer MEDICARE ==
--- NOTE | 2023-11-21 12:45 | ED ---
Weakness HPI - General Chief complaint: Weakness Stated complaint: Weakness Time Seen by Provider: 11/21/23 12:07 Source: EMS, RN notes reviewed Mode of arrival: EMS Limitations: no limitations - History of Present Illness Initial comments: 68-year-old female presents to the ER via EMS with chief complaint of generalized weakness. Her roommate called EMS due to patient could not get up from the couch this morning. She is constantly needing help from roommate and becoming unable to take care of herself. EMS arrived to her home to find her covered in diarrhea started by empty beer bottles. Patient states she was drinking beer last night. Denies chest pain, shortness of breath, abdominal pain, fevers. Patient reports she has just been "weak all over". - Related Data Home Medications Medication Instructions Recorded Confirmed Pantoprazole [Protonix] 40 mg PO DAILY 11/03/23 11/03/23 Sertraline [Zoloft] 25 mg PO DAILY 11/03/23 11/03/23 Thiamine [Vitamin B-1] 100 mg PO DIRECTED 11/03/23 11/03/23 Previous Rx's Medication Instructions Recorded Atorvastatin [Lipitor] 80 mg PO HS #30 tab 10/07/23 Clopidogrel [Plavix] 75 mg PO DAILY #30 tab 10/07/23 amLODIPine [Norvasc] 10 mg PO DAILY #30 tab 10/07/23 lisinopriL [Zestril] 20 mg PO DAILY #30 tab 10/07/23 Acetaminophen Tab [Tylenol] 650 mg PO Q6HR PRN tab 11/05/23 Folic Acid 1 mg PO DAILY@1200 tab 11/05/23 Gabapentin [Neurontin] 400 mg PO TID #6 cap 11/05/23 Heparin Sodium,Porcine (1 ml) 5,000 unit SQ Q12HR each 11/05/23 [Heparin Sodium] Multivitamins, Thera [Multivitamin 1 each PO DAILY@1200 tab 11/05/23 (formulary)] Allergies Allergy/AdvReac Type Severity Reaction Status Date / Time aspirin Allergy Swelling Verified 11/21/23 12:05 venom-honey bee Allergy Swelling Verified 11/21/23 12:05 [bee venom (honey bee)] Review of Systems ROS Statement: Those systems with pertinent positive or pertinent negative responses have been documented in the HPI. ROS Other: All systems not noted in ROS Statement are negative. Past Medical History Past Medical History: Asthma, Coronary Artery Disease (CAD), COPD, CVA/TIA, Hypertension, Myocardial Infarction (MS), Musculoskeletal Disorder Additional Past Medical History / Comment(s): supposed to take BP meds, hasn't been able to get rx. Last Myocardial Infarction Date:: 2013? History of Any Multi-Drug Resistant Organisms: None Reported Past Surgical History: Section, Orthopedic Surgery Additional Past Surgical History / Comment(s): ORIF left ankle NOSE SURGERY Past Anesthesia/Blood Transfusion Reactions: No Reported Reaction Past Psychological History: Depression Smoking Status: Current every day smoker Past Alcohol Use History: Occasional Past Drug Use History: None Reported - Past Family History Brother(s) Additional Family Medical History / Comment(s): pts. brother recently from [place] Gehrigs disease General Exam Limitations: no limitations General appearance: in no apparent distress, appears intoxicated, other (Right- sided residual changes from old stroke) Head exam: Present: atraumatic, normocephalic, normal inspection ENT exam: Present: normal exam, mucous membranes moist Neck exam: Present: normal inspection. Absent: tenderness, meningismus, lymphadenopathy Respiratory exam: Present: normal lung sounds bilaterally. Absent: respiratory distress, wheezes, rales, rhonchi, stridor Cardiovascular Exam: Present: regular rate, normal rhythm, normal heart sounds. Absent: systolic murmur, diastolic murmur, rubs, gallop, clicks GI/Abdominal exam: Present: soft, normal bowel sounds. Absent: distended, tenderness, guarding, rebound, rigid Extremities exam: Present: normal inspection, full ROM, normal capillary refill. Absent: tenderness, pedal edema, joint swelling, calf tenderness Neurological exam: Present: alert, oriented X3 Psychiatric exam: Present: normal affect, normal mood Skin exam: Present: warm, dry, intact, normal color. Absent: rash Course Vital Signs 11/21/23 11/21/23 11/21/23 11:49 13:44 15:46 Temperature 97.7 F Pulse Rate 74 74 Respiratory 16 16 16 Rate Blood Pressure 117/75 118/81 118/81 O2 Sat by Pulse 96 98 98 Oximetry EKG Findings - EKG Results: EKG: interpreted by ERMD (EKG reveals normal sinus rhythm with no ST changes. Ventricular rate 72 bpm, MD interval 177, QRS duration 93, QT/QTc 432/455) Medical Decision Making - Medical Decision Making Was pt. sent in by a medical professional or institution (NEY Krishnan, RIB TRIM SEPARATOR, urgent care, hospital, or assisted...) When possible be specific @ -No Did you speak to anyone other than the patient for history (EMS, parent, family, police, friend...)? What history was obtained from this source @ -No Did you review nursing and triage notes (agree or disagree)? Why? @ -I reviewed and agree with nursing and triage notes Were old charts reviewed (outside hosp., previous admission, EMS record, old EKG, old radiological studies, urgent care reports/EKG's, assisted records)? Report findings @ -No old charts were reviewed Differential Diagnosis (chest pain, altered mental status, abdominal pain women, abdominal pain men, vaginal bleeding, weakness, fever, dyspnea, syncope, headache, dizziness, GI bleed, back pain, seizure, CVA, palpatations, mental health, musculoskeletal)? @ -Differential Weakness: Hypoglycemia, shock, sepsis, hyponatremia, anemia, infection, MS, ETOH, adverse medicine reaction, overdose, stroke, this is not meant to be an all-inclusive list. EKG interpreted by me (3pts min.). @ -As above X-rays interpreted by me (1pt min.). @ -Chest x-ray reveals no acute process CT interpreted by me (1pt min.). @ -None done U/S interpreted by me (1pt. min.). @ -None done What testing was considered but not performed or refused? (CT, X-rays, U/S, labs)? Why? @ -None What meds were considered but not given or refused? Why? @ -None Did you discuss the management of the patient with other professionals (professionals i.e. NEY Krishnan, RIB TRIM SEPARATOR, lab, RT, psych nurse, social media specialist, hematology specialist, teacher, chief financial officer, leather case finisher)? Give summary @ -I spoke with [facility] who accepts admission at this time for generalized weakness and failure to thrive Was smoking cessation discussed for >3mins.? @ -No Was critical care preformed (if so, how long)? @ -No Were there social determinants of health that impacted care today? How? (Homelessness, low income, unemployed, alcoholism, drug addiction, transportation, low edu. Level, literacy, decrease access to med. care, nursing home, rehab)? @ -No Was there de-escalation of care discussed even if they declined (Discuss DNR or withdrawal of care, Hospice)? DNR status @ -No What co-morbidities impacted this encounter? (DM, HTN, Smoking, COPD, CAD, Cancer, CVA, ARF, Chemo, Hep., AIDS, mental health diagnosis, sleep apnea, morbid obesity)? @ -None Was patient admitted / discharged? Hospital course, mention meds given and route, prescriptions, significant lab abnormalities, going to OR and other pertinent info. @ -Patient was admitted. Patient was seen and evaluated for generalized weakness. She has been unable to take care of herself at home and was found by EMS covered in stool. Lab work including CBC, CMP, troponin is unremarkable. Serum alcohol 210. Magnesium is pending. Urinalysis pending. EKG reveals normal sinus rhythm with no ST changes. Chest x-ray reveals no acute process. I spoke with [facility] who accepts admission at this time for generalized weakness and failure to thrive. CIWA scale was ordered to assess for withdrawal. Undiagnosed new problem with uncertain prognosis? @ -No Drug Therapy requiring intensive monitoring for toxicity (Heparin, Nitro, Insulin, Cardizem)? @ -No Were any procedures done? @ -No Diagnosis/symptom? @ -Generalized weakness, failure to thrive, alcohol intoxication Acute, or Chronic, or Acute on Chronic? @ -Acute Uncomplicated (without systemic symptoms) or Complicated (systemic symptoms)? @ -Uncomplicated Side effects of treatment? @ -No Exacerbation, Progression, or Severe Exacerbation? @ -No Poses a threat to life or bodily function? How? (Chest pain, USA, MS, pneumonia, PE, COPD, DKA, ARF, appy, cholecystitis, CVA, Diverticulitis, Homicidal, Suicidal, threat to staff... and all critical care pts) @ -possibly - Lab Data Result diagrams: 11/21/23 12:58 11/21/23 12:58 Lab Results 11/21/23 11/21/23 11/21/23 Range/Units 12:58 12:58 12:58 WBC 7.6 (3.8-10.6) k/uL RBC 5.04 (3.80-5.40) m/uL Hgb 15.8 (11.4-16.0) gm/dL Hct 47.3 H (34.0-46.0) % MCV 93.8 (80.0-100.0) fL MCH 31.3 (25.0-35.0) pg MCHC 33.4 (31.0-37.0) g/dL RDW 12.5 (11.5-15.5) % Plt Count 325 (150-450) k/uL MPV 7.0 Neutrophils % 53 % Lymphocytes % 34 % Monocytes % 6 % Eosinophils % 4 % Basophils % 1 % Neutrophils # 4.0 (1.3-7.7) k/uL Lymphocytes # 2.6 (1.0-4.8) k/uL Monocytes # 0.4 (0-1.0) k/uL Eosinophils # 0.3 (0-0.7) k/uL Basophils # 0.0 (0-0.2) k/uL Sodium 132 L (137-145) mmol/L Potassium 4.8 (3.5-5.1) mmol/L Chloride 100 (98-107) mmol/L Carbon Dioxide 20 L (22-30) mmol/L Anion Gap 12 mmol/L BUN 12 (7-17) mg/dL Creatinine 0.47 L (0.52-1.04) mg/dL Est GFR (CKD-EPI)AfAm >90 (>60 ml/min/1.73 sqM) Est GFR (CKD-EPI)NonAf >90 (>60 ml/min/1.73 sqM) Glucose 83 (74-99) mg/dL Calcium 9.1 (8.4-10.2) mg/dL Total Bilirubin 0.8 (0.2-1.3) mg/dL AST 38 H (14-36) U/L ALT 33 (4-34) U/L Alkaline Phosphatase 105 (38-126) U/L Troponin I <0.012 (0.000-0.034) ng/mL Total Protein 7.2 (6.3-8.2) g/dL Albumin 4.6 (3.5-5.0) g/dL Serum Alcohol 210 H* mg/dL Disposition Clinical Impression: Generalized weakness, Failure to thrive, Alcohol intoxication Disposition: ADMITTED IP TO THIS [facility] Condition: Stable Referrals: None,Stated [Primary Care Provider] - 1-2 days Time of Disposition: 16:13
[2023-11-21 13:03] LABS: Basophils % (A) 1 %; Eosinophils # (A) 0.3 k/uL (0-0.7); Eosinophils % (A) 4 %; HCT 47.3 % (34.0-46.0); HGB 15.8 gm/dL (11.4-16.0); Lymphocytes # (A) 2.6 k/uL (1.0-4.8); Lymphocytes % (A) 34 %; MCH 31.3 pg (25.0-35.0); MCHC 33.4 g/dL (31.0-37.0); MCV 93.8 fL (80.0-100.0); Monocytes # (A) 0.4 k/uL (0-1.0); Monocytes % (A) 6 %; Neutrophils % (A) 53 %; Platelet Count 325 k/uL (150-450); RBC 5.04 m/uL (3.80-5.40); RDW 12.5 % (11.5-15.5); WBC 7.6 k/uL (3.8-10.6)
[2023-11-21 13:18] LABS: ALT 33 U/L (4-34); AST 38 U/L (14-36); African American GFR (CKD) >90 (>60 ml/min/1.73 sqM); Albumin 4.6 g/dL (3.5-5.0); Alkaline Phosphatase 105 U/L (38-126); Anion Gap 12 mmol/L; Blood Urea Nitrogen 12 mg/dL (7-17); Calcium 9.1 mg/dL (8.4-10.2); Carbon Dioxide 20 mmol/L (22-30); Chloride 100 mmol/L (98-107); Glucose 83 mg/dL (74-99); Non-African American GFR(CKD) >90 (>60 ml/min/1.73 sqM); Potassium 4.8 mmol/L (3.5-5.1); Sodium 132 mmol/L (137-145); Total Bilirubin 0.8 mg/dL (0.2-1.3); Total Protein 7.2 g/dL (6.3-8.2)
--- NOTE | 2023-11-21 13:25 | XR ---
EXAMINATION TYPE: XR chest 2V DATE OF EXAM: 11/21/2023 COMPARISON: 11/03/2023 HISTORY: Shortness of breath TECHNIQUE: Frontal and lateral views of the chest are obtained. FINDINGS: Scattered senescent parenchymal changes noted. Hyperinflation compatible with COPD. No evidence for infiltrate. No evidence for atelectasis. Heart size is stable. Mediastinal structures are stable and grossly unremarkable. No evidence for hilar prominence. Degenerative changes dorsal spine. IMPRESSION: 1. No evidence for acute pulmonary disease.
[2023-11-21 13:45] LABS: Alcohol 210 mg/dL
[2023-11-21] MEDS ORDERED: NALOXONE 0.4 MG/ML 1 ML VIAL IV PRN (16:10)
[2023-11-21 22:36] LABS: Appearance,Urine Cloudy (Clear); Bacteria,Urine Rare /hpf; Bilirubin,Urine Negative (Negative); Blood,Urine Small (Negative); Budding Yeast,Urine Rare /hpf; Color,Urine Colorless; Glucose,Urine (UA) Negative (Negative); Hyphae Yeast, Urine Rare /hpf; Ketones,Urine Negative (Negative); Leukocyte Esterase,Urine Negative (Negative); Mucus,Urine Rare /hpf; Nitrite,Urine Negative (Negative); PH, Urine 5.5 (5.0-8.0); Protein,Urine Negative (Negative); RBC,Urine 12 /hpf (0-5); Squamous Epithelial Cell,Urine <1 /hpf (0-4); Urobilinogen,Urine <2.0 mg/dL (<2.0); WBC,Urine 8 /hpf (0-5)
[2023-11-21] MEDS ORDERED: LORazepam 2 MG/ML INJ IV PRN ×2 (23:04)
[2023-11-21] MEDS: ACETAMINOPHEN TAB 325 MG TAB PO PRN (23:32)
[2023-11-21] MEDS: HEPARIN SODIUM,PORCINE 5,000 UNIT/ML 1 ML VIAL SQ SCH (23:33)
[2023-11-21] MEDS: THIAMINE 100 MG/ML 2 ML VIAL IM STA (23:35)
[2023-11-21] MEDS: PANTOPRAZOLE 40 MG/10 ML VIAL IVP SCH (23:37)
--- NOTE | 2023-11-22 07:23 | XR ---
EXAMINATION TYPE: XR knee complete RT DATE OF EXAM: 11/21/2023 COMPARISON: 10/06/2019 HISTORY: Weakness TECHNIQUE: 3 view right knee FINDINGS: Joint spaces appear preserved. No acute fracture or dislocation evident. Joint effusion is evident. I appear stable in comparison. Follow up exams can be performed 7-10 days from acute trauma for continued pain. IMPRESSION: 1. No acute osseous abnormality right knee.
[2023-11-22] MEDS: THIAMINE 100 MG TAB PO SCH (08:41)
[2023-11-22] MEDS: FOLIC ACID 1 MG TAB PO SCH (08:41)
[2023-11-22] MEDS: MULTIVITAMINS, THERA 1 EACH TAB PO SCH (08:41)
[2023-11-22 09:30] LABS: Blood Urea Nitrogen 14.9 mg/dL (9.0-27.0); Calcium 9.4 mg/dL (8.7-10.3); Carbon Dioxide 22.5 mmol/L (21.6-31.8); Chloride 100 mmol/L (96-109); Glucose 83 mg/dL (70-110); Potassium 4.3 mmol/L (3.5-5.5); Sodium 136 mmol/L (135-145)
[2023-11-22] MEDS: SODIUM CHLORIDE 0.9% 1,000 ML IV SCH (12:28)
[2023-11-22] MEDS: LORazepam 2 MG/ML INJ IV PRN (12:29)
[2023-11-22] MEDS: ATORVASTATIN 80 MG TAB PO SCH (23:00)
[2023-11-22] MEDS: GABAPENTIN 400 MG CAP PO SCH (23:00)
--- NOTE | 2023-11-22 23:05 | P.HPIM ---
History of Present Illness H&P Date: 11/22/23 Chief Complaint: Generalized weakness Patient is a 68-year-old female with a past medical history of recent CVA with right-sided weakness, MRI showed no acute posterior limb internal capsule left basal ganglia ischemic change on 09/29/2023, coronary artery disease with no his tory of PCI, COPD, hypertension, history of [place], asthma, depression and currently everyday smoker presents to ER with complaints of generalized weakness. Patient is currently staying with her roommate. Her roommate called EMS due to patient could not get up from the couch and has been very weak. She is requiring constant help from roommate and becoming unable to take care of herself. EMS found her covered in feces and empty beer bottles. Patient admits that she did drinks 2 beers. Patient was discharged home since patient did not have any rehab days left as per health insurance. Patient denies any complaints of chest pain or shortness of breath. No fever no chills. No nausea vomiting or diarrhea. No fever no chills. Chest x-ray showed no acute cardiopulmonary process. EKG showed sinus rhythm. X-ray of the knee showed no acute osseous abnormality of the right knee. Laboratory test showed WBC 7.6 hemoglobin 15.8 and platelets 325 sodium 132 potassium 4.8 chloride 100 bicarb is 30 BUN 12 and creatinine 0.47 liver enzymes showed AST 38 ALT 33 and alk phos 105 and troponin x 1 negative albumin 4.6 Urinalysis showed cloudy with small blood and negative leukocyte esterase RBCs: WBCs 8. Serum alcohol is 210 Review of Systems Constitutional: Patient denies any fever or chills . Generalized weakness and fatigue.. Abdomen: Patient denied nausea vomiting and diarrhea and abdominal pain. Cardiovascular: Patient denies any chest pain or short of breath no palpitations. Respiratory: patient denied any cough or sputum production. No shortness of b reath Neurologic: Patient denied any numbness or tingling. no headache. Musculoskeletal: Patient denies any complaints of joint swelling or deformity. Skin: Negative Psychiatric: Negative Endocrine: No heat or cold intolerance. No recent weight gain. Genitourinary: No dysuria or hematuria. All other 14 point ROS negative except the above Past Medical History Past Medical History: Asthma, Coronary Artery Disease (CAD), COPD, CVA/TIA, Hypertension, Myocardial Infarction ([place]), Musculoskeletal Disorder Additional Past Medical History / Comment(s): supposed to take BP meds, hasn't been able to get rx. Last Myocardial Infarction Date:: 2013? History of Any Multi-Drug Resistant Organisms: None Reported Past Surgical History: Section, Orthopedic Surgery Additional Past Surgical History / Comment(s): ORIF left ankle NOSE SURGERY Past Anesthesia/Blood Transfusion Reactions: No Reported Reaction Past Psychological History: Depression Smoking Status: Current every day smoker Past Alcohol Use History: Occasional Past Drug Use History: None Reported - Past Family History Brother(s) Additional Family Medical History / Comment(s): pts. brother recently from [place] Gehrigs disease Medications and Allergies Home Medications Medication Instructions Recorded Confirmed Type Atorvastatin [Lipitor] 80 mg PO HS #30 tab 10/07/23 11/21/23 Rx Clopidogrel [Plavix] 75 mg PO DAILY #30 tab 10/07/23 11/21/23 Rx amLODIPine [Norvasc] 10 mg PO DAILY #30 tab 10/07/23 11/21/23 Rx lisinopriL [Zestril] 20 mg PO DAILY #30 tab 10/07/23 11/21/23 Rx Pantoprazole [Protonix] 40 mg PO DAILY 11/03/23 11/21/23 History Sertraline [Zoloft] 25 mg PO DAILY 11/03/23 11/21/23 History Acetaminophen Tab [Tylenol] 650 mg PO Q6HR PRN tab 11/05/23 11/21/23 Rx Folic Acid 1 mg PO DAILY@1200 tab 11/05/23 11/21/23 Rx Gabapentin [Neurontin] 400 mg PO TID #6 cap 11/05/23 11/21/23 Rx Multivitamins, Thera [Multivitamin 1 each PO DAILY@1200 tab 11/05/23 11/21/23 Rx (formulary)] Allergies Allergy/AdvReac Type Severity Reaction Status Date / Time aspirin Allergy Swelling Verified 11/21/23 12:05 venom-honey bee Allergy Swelling Verified 11/21/23 12:05 [bee venom (honey bee)] Physical Exam Vitals: Vital Signs Temp Pulse Resp BP Pulse Ox 11/22/23 08:38 98.1 F 98 20 130/73 95 11/22/23 06:47 97.9 F 86 20 130/81 94 L 11/22/23 05:38 87 16 130/81 95 11/22/23 00:04 97.6 F 104 H 16 126/71 98 11/21/23 21:57 108 H 16 125/75 100 11/21/23 19:45 90 16 118/80 98 11/21/23 16:55 75 16 122/84 98 11/21/23 13:44 74 16 118/81 98 11/21/23 11:49 97.7 F 16 117/75 96 PHYSICAL EXAMINATION: Patient is lying in the bed comfortably, no acute distress, awake alert and oriented. Patient is lethargic and weak.. HEENT: Normocephalic. Neck is supple. Pupils reactive. Nostrils clear. Oral cavity is moist. Neck reveals no JVD, carotid bruits, or thyromegaly. CHEST EXAMINATION: Trachea is central. Symmetrical expansion. Lung quintero clear to auscultation and percussion. CARDIAC: Normal S1, S2 with no gallops. No murmurs ABDOMEN: Soft. Bowel sounds normal. No organomegaly. No abdominal bruits. Extremities: reveal no edema. No clubbing or cyanosis Neurologically awake, alert, oriented x3 patient does have right-sided weakness.. Skin: No rash or skin lesions. Psychiatric: Coperative. Nonsuicidal Musculoskeletal: No joint swelling or deformity. Results CBC & Chem 7: 11/21/23 12:58 11/22/23 05:49 Labs: Abnormal Lab Results - Last 24 Hours (Table) 11/21/23 11/21/23 11/21/23 Range/Units 12:58 12:58 22:05 Hct 47.3 H (34.0-46.0) % Sodium 132 L (137-145) mmol/L Carbon Dioxide 20 L (22-30) mmol/L Anion Gap (4.00-12.00) mmol/L Creatinine 0.47 L (0.52-1.04) mg/dL BUN/Creatinine Ratio (12.00-20.00) Ratio AST 38 H (14-36) U/L Urine Appearance Cloudy H (Clear) Urine Blood Small H (Negative) Urine RBC 12 H (0-5) /hpf Urine WBC 8 H (0-5) /hpf Urine Bacteria Rare H (None) /hpf Urine Mucus Rare H (None) /hpf Urine Yeast (Budding) Rare H (None) /hpf Serum Alcohol 210 H* mg/dL 11/22/23 Range/Units 05:49 Hct (34.0-46.0) % Sodium (137-145) mmol/L Carbon Dioxide (22-30) mmol/L Anion Gap 13.50 H (4.00-12.00) mmol/L Creatinine 0.5 L (0.52-1.04) mg/dL BUN/Creatinine Ratio 29.80 H (12.00-20.00) Ratio AST (14-36) U/L Urine Appearance (Clear) Urine Blood (Negative) Urine RBC (0-5) /hpf Urine WBC (0-5) /hpf Urine Bacteria (None) /hpf Urine Mucus (None) /hpf Urine Yeast (Budding) (None) /hpf Serum Alcohol mg/dL Thrombosis Risk Factor Assmnt - DVT/VTE Prophylaxis DVT/VTE Prophylaxis: Pharmacologic Prophylaxis ordered Assessment and Plan Assessment: Acute alcohol intoxication on admission. Generalized weakness and medical debility History of CVA with right-sided weakness diagnosed in September 2023 Hypovolemic hyponatremia History of [place] Coronary artery disease with no prior history of PCI Hypertension patient is currently not hypertensive COPD/asthma Depression Currently everyday smoker DVT prophylaxis with heparin subcu Plan: Patient will be continued on IV hydration with normal saline. Continue with thiamine and multivitamins and monitor for alcohol withdrawal symptoms. Patient will be started back on Plavix and statins. Patient will be continued o n Zoloft. Blood pressure medications on hold due to marginal blood pressure. Continue to follow closely. PT OT consulted. Patient may need rehab transfer. Time with Patient: Greater than 30
[2023-11-23] MEDS: SERTRALINE 25 MG TAB PO SCH (09:10)
[2023-11-23] MEDS: CLOPIDOGREL 75 MG TAB PO SCH (09:10)
[2023-11-23] MEDS: ONDANSETRON 4 MG/2 ML VIAL IVP PRN (09:16)
[2023-11-23 11:00] LABS: Blood Urea Nitrogen 10.1 mg/dL (9.0-27.0); Carbon Dioxide 22.6 mmol/L (21.6-31.8); Chloride 103 mmol/L (96-109); Glucose 99 mg/dL (70-110); Potassium 4.1 mmol/L (3.5-5.5); Sodium 137 mmol/L (135-145)
[2023-11-23 11:15] LABS: Basophils # (A) 0.05 X 10*3/uL (0.00-0.10); Basophils % (A) 0.7 %; Eosinophils # (A) 0.56 X 10*3/uL (0.04-0.35); Eosinophils % (A) 8.2 %; HCT 39.8 % (37.2-46.3); HGB 13.7 g/dL (12.0-15.0); Lymphocytes # (A) 2.36 X 10*3/uL (0.90-5.00); Lymphocytes % (A) 34.5 %; MCH 32.3 pg (27.0-32.0); MCHC 34.4 g/dL (32.0-37.0); MCV 93.9 FL (80.0-97.0); Mean Platelet Volume 9.6 FL (9.5-12.2); Monocytes # (A) 0.78 X 10*3/uL (0.20-1.00); Monocytes % (A) 11.4 %; NRBC Per 100 WBC 0 X 10*3/uL (0.00-0.01); Neutrophils # (A) 3.08 X 10*3/uL (1.80-7.70); Neutrophils % (A) 44.9 %; Platelet Count 346 X 10*3/uL (140-440); RBC 4.24 X 10*6/uL (4.10-5.20); RDW 12.5 % (11.5-14.5); WBC 6.85 X 10*3/uL (4.50-10.00)
--- NOTE | 2023-11-24 23:41 | P.PN ---
Subjective Patient is a 68-year-old female with a past medical history of recent CVA with right-sided weakness, MRI showed no acute posterior limb internal capsule left basal ganglia ischemic change on 09/29/2023, coronary artery disease with no history of PCI, COPD, hypertension, history of [place], asthma, depression and currently everyday smoker presents to ER with complaints of generalized weakness. Patient is currently staying with her roommate. Her roommate called EMS due to patient could not get up from the couch and has been very weak. She is requiring constant help from roommate and becoming unable to take care of herself. EMS found her covered in feces and empty beer bottles. Patient admits that she did drinks 2 beers. Patient was discharged home since patient did not have any rehab days left as per health insurance. Patient denies any complaints of chest pain or shortness of breath. No fever no chills. No nausea vomiting or diarrhea. No fever no chills. Chest x-ray showed no acute cardiopulmonary process. EKG showed sinus rhythm. X-ray of the knee showed no acute osseous abnormality of the right knee. Laboratory test showed WBC 7.6 hemoglobin 15.8 and platelets 325 sodium 132 potassium 4.8 chloride 100 bicarb is 30 BUN 12 and creatinine 0.47 liver enzymes showed AST 38 ALT 33 and alk phos 105 and troponin x 1 negative albumin 4.6 Urinalysis showed cloudy with small blood and negative leukocyte esterase RBCs: WBCs 8. Serum alcohol is 210 11/24/2023 This is a pleasant 68 years old female with recent history of stroke with right upper extremity weakness and to less extent the right lower extremity Presents because of alcohol intoxication and found generally weak he did help to get up related to her general medical condition, history of stroke, alcohol use disorder as well as some diarrhea Patient condition improved with hydration and currently back to baseline fully awake and oriented, feels generally weak, she feels the hemiaplasia of her right upper extremity in which she had difficulty to move with and sometimes using the left hand to move the right hand. She can bend both knees but the right side is slightly weak. Denies any other new complaints No chest pain no dyspnea no headache or dizziness or diplopia or weakness Patient is medically stable pending placement C. difficile was negative Objective - Vital Signs Vital signs: Vital Signs Temp 97.8 F 11/24/23 07:00 Pulse 77 11/24/23 07:00 Resp 15 11/24/23 09:20 BP 150/89 11/24/23 07:00 Pulse Ox 98 11/24/23 07:00 FiO2 Intake & Output 11/23/23 11/24/23 11/24/23 18:59 06:59 18:59 Intake Total 340 355 180 Output Total 700 2200 Balance -360 -1845 180 Intake: Oral 340 355 180 Output: Urine 700 2200 Other: Voiding Method External Catheter External Catheter External Catheter # Voids 2 # Bowel Movements 3 - Exam -GENERAL: The patient is alert and oriented x3, not in any acute distress. Well developed, well nourished. Generally weak HEENT: Pupils are round and equally reacting to light. EOMI. No scleral icterus. No conjunctival pallor. Normocephalic, atraumatic. No pharyngeal erythema. No thyromegaly. CARDIOVASCULAR: S1 and S2 present. No murmurs, rubs, or gallops. PULMONARY: Chest is clear to auscultation, no wheezing , no crackles. ABDOMEN: Soft, nontender, nondistended, normoactive bowel sounds. No palpable organomegaly. MUSCULOSKELETAL: No joint swelling or deformity. EXTREMITIES: No cyanosis, clubbing, or pedal edema. -NEUROLOGICAL: Gross neurological examination did not reveal any focal deficits. Right upper extremity weakness more than right lower extremity SKIN: No rashes. no petechiae. - Labs CBC & Chem 7: 11/23/23 07:13 11/23/23 07:13 Assessment and Plan Assessment: Acute alcohol intoxication on admission. Generalized weakness and medical debility History of CVA with right-sided weakness diagnosed in September 2023 Hypovolemic hyponatremia History of [place] Coronary artery disease with no prior history of PCI Hypertension patient is currently not hypertensive COPD/asthma Depression Currently everyday smoker Plan: Patient kept well-hydrated so discontinue IV fluids Continue with home medication Patient denies depression or suicidal ideation, she states she does not drink every day Patient looks medically stable Continue with home medication Patient required ECF upon discharge for possible rehab
[2023-11-25 09:16] VITALS: BMI 22.1
--- NOTE | 2023-11-25 22:17 | P.PN ---
Subjective Patient is a 68-year-old female with a past medical history of recent CVA with right-sided weakness, MRI showed no acute posterior limb internal capsule left basal ganglia ischemic change on 09/29/2023, coronary artery disease with no history of PCI, COPD, hypertension, history of [place], asthma, depression and currently everyday smoker presents to ER with complaints of generalized weakness. Patient is currently staying with her roommate. Her roommate called EMS due to patient could not get up from the couch and has been very weak. She is requiring constant help from roommate and becoming unable to take care of herself. EMS found her covered in feces and empty beer bottles. Patient admits that she did drinks 2 beers. Patient was discharged home since patient did not have any rehab days left as per health insurance. Patient denies any complaints of chest pain or shortness of breath. No fever no chills. No nausea vomiting or diarrhea. No fever no chills. Chest x-ray showed no acute cardiopulmonary process. EKG showed sinus rhythm. X-ray of the knee showed no acute osseous abnormality of the right knee. Laboratory test showed WBC 7.6 hemoglobin 15.8 and platelets 325 sodium 132 potassium 4.8 chloride 100 bicarb is 30 BUN 12 and creatinine 0.47 liver enzymes showed AST 38 ALT 33 and alk phos 105 and troponin x 1 negative albumin 4.6 Urinalysis showed cloudy with small blood and negative leukocyte esterase RBCs: WBCs 8. Serum alcohol is 210 11/24/2023 This is a pleasant 68 years old female with recent history of stroke with right upper extremity weakness and to less extent the right lower extremity Presents because of alcohol intoxication and found generally weak he did help to get up related to her general medical condition, history of stroke, alcohol use disorder as well as some diarrhea Patient condition improved with hydration and currently back to baseline fully awake and oriented, feels generally weak, she feels the hemiaplasia of her right upper extremity in which she had difficulty to move with and sometimes using the left hand to move the right hand. She can bend both knees but the right side is slightly weak. Denies any other new complaints No chest pain no dyspnea no headache or dizziness or diplopia or weakness Patient is medically stable pending placement C. difficile was negative 11/24 Patient medically stable pending placement She has severe right hemiparesis from recent stroke Mentation at baseline She wants to go home and she was thinking of leaving AMA, risk and benefit explained and she agrees to stay now Pending rehab placement Objective - Vital Signs Vital signs: Vital Signs Temp 98.4 F 11/25/23 07:00 Pulse 78 11/25/23 07:00 Resp 16 11/25/23 08:47 BP 134/76 11/25/23 07:00 Pulse Ox 97 11/25/23 07:00 FiO2 Intake & Output 11/24/23 11/25/23 11/25/23 18:59 06:59 18:59 Intake Total 418 236 180 Output Total 400 800 Balance 18 -564 180 Weight 53.07 kg Intake: Oral 418 236 180 Output: Urine 400 800 Other: Voiding Method External Catheter External Catheter External Catheter # Voids 1 1 # Bowel Movements 1 - Exam -GENERAL: The patient is alert and oriented x3, not in any acute distress. Well developed, well nourished. Generally weak HEENT: Pupils are round and equally reacting to light. EOMI. No scleral icterus. No conjunctival pallor. Normocephalic, atraumatic. No pharyngeal erythema. No thyromegaly. CARDIOVASCULAR: S1 and S2 present. No murmurs, rubs, or gallops. PULMONARY: Chest is clear to auscultation, no wheezing , no crackles. ABDOMEN: Soft, nontender, nondistended, normoactive bowel sounds. No palpable organomegaly. MUSCULOSKELETAL: No joint swelling or deformity. EXTREMITIES: No cyanosis, clubbing, or pedal edema. -NEUROLOGICAL: Gross neurological examination did not reveal any focal deficits. Right upper extremity weakness more than right lower extremity SKIN: No rashes. no petechiae. - Labs CBC & Chem 7: 11/23/23 07:13 11/23/23 07:13 Assessment and Plan Assessment: Acute alcohol intoxication on admission. Generalized weakness and medical debility History of CVA with right-sided weakness diagnosed in September 2023 Hypovolemic hyponatremia History of [place] Coronary artery disease with no prior history of PCI Hypertension patient is currently not hypertensive COPD/asthma Depression Currently everyday smoker Plan: Patient kept well-hydrated so discontinue IV fluids Continue with home medication Patient denies depression or suicidal ideation, she states she does not drink every day Patient looks medically stable Continue with home medication Patient required ECF upon discharge for possible rehab
[2023-11-26 08:07] VITALS: RESP 18
--- NOTE | 2023-11-26 14:10 | CDI ---
Documentation Clarification Form Date: 11/26/2023 01:43:27 PM From: Brianna Foss RN CCDS Phone: [phone] Admit Date: 11/21/2023 06:51:00 PM Patient Name: Savi Garcia Visit Number: [id number] Discharge Date: ATTENTION: The Clinical Documentation Specialists (CDI) and [facility] Coding Staff appreciate your assistance in clarifying documentation. Please respond to the clarification below the line at the bottom and electronically sign. The CDI & [facility] Coding staff will review the response and follow-up if needed. Please note: Queries are made part of the Legal Health Record. If you have any questions, please contact the author of this message via ITS. Doctor Rony E Sheet Your patient has the documented symptom of weakness 11/22/2023, . Additional clarification regarding the etiology/cause of this symptom is requested. History/Risk Factors: 67-year old female presents to the ED via EMS with generalized weakness. Patient was brought to ED via EMS after being found covered in diarrhea and empty beer bottles. Patient states she was drinking beer the night before. Medical history: Recent CVA with right sided weakness. Medical history: Asthma, CAD, COPD, CVA, HTN. 11/20, ED note Clinical Indicators HP, 71/5: MRI showed no acute posterior limb internal capsule left basal ganglia ischemic change on 09/29/2023. Her roommate called EMS due to patient could not get up from the couch and has been very weak. She is requiring constant help from roommate and becoming unable to take care of herself. Progress note 11/24: Patient required ECF upon discharge for possible rehab. Occupational Therapy note11/25: ADL Assessment: Bathing moderate assist; Lower body dressing maximum assist; Grooming Ability Eating Minimum Assist; Toliting Ability Total Assist; Toilet Transfer Moderate Assist; Bed Mobility Ability Minimum assist. No change in right side function since last session. Right UE has partial ROM in shoulder as neurogical return appears to be proximal to distal. No functional use of right hand and right LE has 3/5 strength and very limited endurance. Continues to have elevated risk for falls. Anticipate need for subacute rehabilitation upon DC. Treatment: Occupational Therapy evaluation and treatment. Physical Therapy Evaluation and Treatment. Counseling Center Director for placement Is there a corresponding diagnosis/etiology for this symptom of weakness? [ x ] Severe Right Hemiparesis, from recent stroke [ ] Unable to determine [ ] Other, please specify (Template Last Reviewed: June 2020) PERRYD
[2023-11-26 14:44] VITALS: BP 115/82; PULSE 51; TEMP 98.1
--- NOTE | 2023-12-01 19:50 | P.DS ---
Providers Date of admission: 11/21/23 18:51 Expected date of discharge: 11/26/23 Attending physician: Julius Shell Primary care physician: Stated None Hospital Course: 68-year-old female with a past medical history of recent CVA with right-sided weakness, MRI showed no acute posterior limb internal capsule left basal ganglia ischemic change on 09/29/2023, coronary artery disease with no history of PCI, COPD, hypertension, history of [place], asthma, depression and currently everyday smoker presents to ER with complaints of generalized weakness. Patient is currently staying with her roommate. Her roommate called EMS due to patient tim ould not get up from the couch and has been very weak. She is requiring constant help from roommate and becoming unable to take care of herself. EMS found her covered in feces and empty beer bottles. Patient admits that she did drinks 2 beers. Patient was discharged home since patient did not have any rehab days left as per health insurance. Patient denies any complaints of chest pain or shortness of breath. No fever no chills. No nausea vomiting or diarrhea. No fever no chills. Chest x-ray showed no acute cardiopulmonary process. EKG showed sinus rhythm. X-ray of the knee showed no acute osseous abnormality of the right knee. Laboratory test showed WBC 7.6 hemoglobin 15.8 and platelets 325 sodium 132 potassium 4.8 chloride 100 bicarb is 30 BUN 12 and creatinine 0.47 liver enzymes showed AST 38 ALT 33 and alk phos 105 and troponin x 1 negative albumin 4.6 Urinalysis showed cloudy with small blood and negative leukocyte esterase RBCs: WBCs 8. Serum alcohol is 210 11/24/2023 This is a pleasant 68 years old female with recent history of stroke with right upper extremity weakness and to less extent the right lower extremity Presents because of alcohol intoxication and found generally weak he did help to get up related to her general medical condition, history of stroke, alcohol use disorder as well as some diarrhea Patient condition improved with hydration and currently back to baseline fully awake and oriented, feels generally weak, she feels the hemiaplasia of her right upper extremity in which she had difficulty to move with and sometimes using the left hand to move the right hand. She can bend both knees but the right side is slightly weak. Denies any other new complaints No chest pain no dyspnea no headache or dizziness or diplopia or weakness Patient is medically stable pending placement C. difficile was negative 11/24 Patient medically stable pending placement She has severe right hemiparesis from recent stroke Mentation at baseline She wants to go home and she was thinking of leaving AMA, risk and benefit explained and she agrees to stay now Pending rehab placement Patient decided to go home and was dc'ed in a stable condition Patient Condition at Discharge: Stable Plan - Discharge Summary New Discharge Prescriptions: New Thiamine [Vitamin B-1] 100 mg PO DAILY tab Continue Atorvastatin [Lipitor] 80 mg PO HS #30 tab amLODIPine [Norvasc] 10 mg PO DAILY #30 tab lisinopriL [Zestril] 20 mg PO DAILY #30 tab Pantoprazole [Protonix] 40 mg PO DAILY Sertraline [Zoloft] 25 mg PO DAILY Multivitamins, Thera [Multivitamin (formulary)] 1 each PO DAILY@1200 tab Gabapentin [Neurontin] 400 mg PO TID #6 cap Clopidogrel [Plavix] 75 mg PO DAILY #30 tab Folic Acid 1 mg PO DAILY@1200 tab Acetaminophen Tab [Tylenol] 650 mg PO Q6HR PRN tab PRN Reason: Fever And/ Or Pain Discharge Medication List Atorvastatin [Lipitor] 80 mg PO HS #30 tab 10/07/23 [Rx] Clopidogrel [Plavix] 75 mg PO DAILY #30 tab 10/07/23 [Rx] amLODIPine [Norvasc] 10 mg PO DAILY #30 tab 10/07/23 [Rx] lisinopriL [Zestril] 20 mg PO DAILY #30 tab 10/07/23 [Rx] Pantoprazole [Protonix] 40 mg PO DAILY 11/03/23 [History] Sertraline [Zoloft] 25 mg PO DAILY 11/03/23 [History] Acetaminophen Tab [Tylenol] 650 mg PO Q6HR PRN tab 11/05/23 [Rx] Folic Acid 1 mg PO DAILY@1200 tab 11/05/23 [Rx] Gabapentin [Neurontin] 400 mg PO TID #6 cap 11/05/23 [Rx] Multivitamins, Thera [Multivitamin (formulary)] 1 each PO DAILY@1200 tab 11/05/23 [Rx] Thiamine [Vitamin B-1] 100 mg PO DAILY tab 11/26/23 [Rx] Follow up Appointment(s)/Referral(s): Nursing,[facility] [NON-STAFF] - As Needed None,Stated [Primary Care Provider] - 1-2 days Patient Instructions/Handouts: Alcohol Intoxication (DC), Weakness (DC) Discharge/Stand Alone Forms: AA Meetings [facility] - [facility], AA Meetings [place], Who Do I Call?, Community Resources, Outpatient Counseling, Inp Substance Abuse Facilities, Area PCPs Discharge Disposition: HOME WITH HOME HEALTH SERVICES
== END 2023-11-26 16:40 | disposition home health service (06) | DRG 897 ==
LOC: EC 11:47 → 6NMEDSUR 18:50 → OBSVTOIN 18:51 → 6NMEDSUR 21:16
PROVIDERS: ADMIT Internal Medicine; ATTEND Internal Medicine
DX: F10.129 Alcohol abuse with intoxication, unspecified (principal); I69.351 Hemiplegia and hemiparesis following cerebral infarction affecting right dominant side; E87.1 Hypo-osmolality and hyponatremia; R62.7 Adult failure to thrive; I10 Essential (primary) hypertension; J44.89 Other specified chronic obstructive pulmonary disease; F32.A Depression, unspecified; E86.1 Hypovolemia; R53.81 Other malaise; I25.10 Atherosclerotic heart disease of native coronary artery without angina pectoris; F17.210 Nicotine dependence, cigarettes, uncomplicated; T46.5X6A Underdosing of other antihypertensive drugs, initial encounter; R19.7 Diarrhea, unspecified; Z68.22 Body mass index [BMI] 22.0-22.9, adult; Y90.7 Blood alcohol level of 200-239 mg/100 ml; Z75.1 Person awaiting admission to adequate facility elsewhere; I25.2 Old myocardial infarction; Z79.891 Long term (current) use of opiate analgesic; Z79.02 Long term (current) use of antithrombotics/antiplatelets; Z79.899 Other long term (current) drug therapy; Z88.6 Allergy status to analgesic agent; Z91.138 Patient's unintentional underdosing of medication regimen for other reason
CPT/HCPCS: 36415; 71046; 80048; 80053; 80320; 81001; 83735; 84484; 85025; 93005; 96361; 96372; 96374; 96375; 96376; 99285

== ENCOUNTER 2024-07-18 17:43 | Inpatient (IN) | payer MEDICARE ==
--- NOTE | 2024-07-18 18:52 | ED ---
General Adult HPI - General Chief complaint: Weakness Stated complaint: headache back pain Time Seen by Provider: 07/18/24 18:29 Source: patient Mode of arrival: ambulatory Limitations: no limitations - History of Present Illness Initial comments: Dictation was produced using [employer] dictation software. please excuse any grammatical, word or spelling errors. Chief Complaint: 69-year-old female presents to the emergency department for headache and abdominal pain History of Present Illness: 69-year-old female she has past medical history of stroke. States that she has a headache. States that her headache is throbbing in nature. Denies any history of headache does not states that this the worst headache of her life. Denies thunderclap nature. Patient had a stroke 3 months ago and is debilitated. States that she is unable to use her right side. Patient states she is homeless and was just evicted yesterday. She arrived to the emergency department on the bus. The ROS documented in this emergency department record has been reviewed and confirmed by me. Those systems with pertinent positive or negative responses have been documented in the HPI. All other systems are other negative and/or noncontributory. - Related Data Home Medications Medication Instructions Recorded Confirmed No Known Home Medications 07/18/24 07/18/24 Allergies Allergy/AdvReac Type Severity Reaction Status Date / Time aspirin Allergy Swelling Verified 07/18/24 19:09 venom-honey bee Allergy Swelling Verified 07/18/24 19:09 [bee venom (honey bee)] Review of Systems ROS Statement: Those systems with pertinent positive or pertinent negative responses have been documented in the HPI. ROS Other: All systems not noted in ROS Statement are negative. Past Medical History Past Medical History: Asthma, Coronary Artery Disease (CAD), COPD, CVA/TIA, Hype rtension, Myocardial Infarction ([place]), Musculoskeletal Disorder Additional Past Medical History / Comment(s): supposed to take BP meds, hasn't been able to get rx. Last Myocardial Infarction Date:: 2013? History of Any Multi-Drug Resistant Organisms: None Reported Past Surgical History: Section, Orthopedic Surgery Additional Past Surgical History / Comment(s): ORIF left ankle NOSE SURGERY Past Anesthesia/Blood Transfusion Reactions: No Reported Reaction Past Psychological History: Depression Smoking Status: Current every day smoker Past Alcohol Use History: Occasional Past Drug Use History: None Reported - Past Family History Brother(s) Additional Family Medical History / Comment(s): pts. brother recently from [place] General Exam - General Exam Comments Initial Comments: PHYSICAL EXAM: General Impression: Alert and oriented x3, not in acute distress loss of urine HEENT: Normocephalic atraumatic, extra-ocular movements intact, pupils equal and reactive to light bilaterally, mucous membranes moist. Cardiovascular: Heart regular rate and rhythm Chest: Able to complete full sentences, no retractions, no tachypnea Abdomen: abdomen soft, non-tender, non-distended, no organomegaly Musculoskeletal: Pulses present and equal in all extremities, no peripheral edema Motor: no focal deficits noted Neurological: CN II-XII grossly intact, contracted right upper extremity Skin: Intact with no visualized rashes Psych: Normal affect and mood Limitations: no limitations Course Vital Signs 07/18/24 18:11 Temperature 97.7 F Pulse Rate 86 Respiratory 18 Rate Blood Pressure 150/99 O2 Sat by Pulse 98 Oximetry EKG Findings - EKG Comments: EKG Findings:: My EKG interpretation: Ventricular rate 70, sinus rhythm, MS 152, QRS 83, QTc 433. No MS prolongation, no QTC prolongation, no ST or T-wave changes noted. Overall, this EKG is unremarkable Medical Decision Making - Medical Decision Making Was pt. sent in by a medical professional or institution ([facility], [employer], urgent care, hospital, or shelter...) When possible be specific @ -No Did you speak to anyone other than the patient for history (EMS, parent, family, police, friend...)? What history was obtained from this source @ -No Did you review nursing and triage notes (agree or disagree)? Why? @ -I reviewed and agree with nursing and triage notes Were old charts reviewed (outside hosp., previous admission, EMS record, old EKG, old radiological studies, urgent care reports/EKG's, shelter records)? Report findings @ -No old charts were reviewed Differential Diagnosis (chest pain, altered mental status, abdominal pain women, abdominal pain men, vaginal bleeding, musculoskeletal, weakness, fever, dyspnea, syncope, headache, dizziness, GI bleed, back pain, seizure, CVA, palpatations, mental health)? @ -Differential Headache: Migraine, tension, cluster, carbon monoxide, central venous thrombosis, pension karma temporal arteritis, acute closure glaucoma, intercranial hemorrhage, mastoiditis, sinusitis, head injury, this is not meant to be an all-inclusive list. EKG interpreted by me (3pts min.). @ -None done X-rays interpreted by me (1pt min.). @ -None done CT interpreted by me (1pt min.). @ -CT brain shows no acute processes U/S interpreted by me (1pt. min.). @ -None done What testing was considered but not performed or refused? (CT, X-rays, U/S, labs)? Why? @ -None What meds were considered but not given or refused? Why? @ -None Was smoking cessation discussed for >3mins.? @ -No Were there social determinants of health that impacted care today? How? (Homelessness, low income, unemployed, alcoholism, drug addiction, transportation, low edu. Level, literacy, decrease access to med. care, [facility], rehab)? @ -Homelessness Was there de-escalation of care discussed even if they declined (Discuss DNR or withdrawal of care, Hospice)? DNR status @ -No What co-morbidities impacted this encounter? (DM, HTN, Smoking, COPD, CAD, Cancer, CVA, ARF, Chemo, Hep., AIDS, mental health diagnosis, sleep apnea, morbid obesity)? @ -None Was patient admitted / discharged? Hospital course, mention meds given and route, prescriptions, significant lab abnormalities, going to OR and other pert inent info. @ -69-year-old female past medical history of CVA with residual deficits presents to the ER for headache. Patient is well-appearing at the bedside. States that she just got evicted from her house yesterday. Currently homeless. Complains of a mild headache. No concern for ruptured subarachnoid hemorrhage at this time. Evaluation obtained. Hyponatremic 126. Imaging studies are n egative. Patient given IV fluids will be admitted for hyponatremia. Case discussed with hospitalist for admission. Nephrology on consult for metabolic derangement. Did you discuss the management of the patient with other professionals (professionals i.e. , PA, [employer] S[employer] PR[employer]ACHINE, lab, RT, psych nurse, social security specialist, estate planning attorney, teacher, air antisubmarine officer, showcase trimmer)? Give summary @ -No Was critical care preformed (if so, how long)? @ -No Undiagnosed new problem with uncertain prognosis? @ -No Drug Therapy requiring intensive monitoring for toxicity (Heparin, Nitro, Insulin, Cardizem)? @ -No Were any procedures done? @ -No Diagnosis/symptom? Acute, or Chronic, or Acute on Chronic? Uncomplicated (wit hout systemic symptoms) or Complicated (systemic symptoms)? @ -Hyponatremia Side effects of treatment? @ -No Exacerbation, Progression, or Severe Exacerbation? @ -No Poses a threat to life or bodily function? How? (Chest pain, [place], [place], pneumonia, PE, COPD, DKA, ARF, appy, cholecystitis, CVA, Diverticulitis, Homicidal, Suicidal, threat to staff... and all critical care pts) @ -yes - Lab Data Result diagrams: 07/18/24 19:10 07/18/24 19:10 Lab Results 07/18/24 07/18/24 07/18/24 Range/Units 19:10 19:10 19:10 WBC 8.3 (3.8-10.6) k/uL RBC 4.79 (3.80-5.40) m/uL Hgb 15.3 (11.4-16.0) gm/dL Hct 46.8 H (34.0-46.0) % MCV 97.5 (80.0-100.0) fL MCH 32.0 (25.0-35.0) pg MCHC 32.8 (31.0-37.0) g/dL RDW 12.5 (11.5-15.5) % Plt Count 263 (150-450) k/uL MPV 7.1 Neutrophils % 64 % Lymphocytes % 22 % Monocytes % 9 % Eosinophils % 3 % Basophils % 1 % Neutrophils # 5.4 (1.3-7.7) k/uL Lymphocytes # 1.8 (1.0-4.8) k/uL Monocytes # 0.8 (0-1.0) k/uL Eosinophils # 0.2 (0-0.7) k/uL Basophils # 0.0 (0-0.2) k/uL PT 10.3 (10.0-12.5) sec INR 0.9 (<1.2) APTT 24.7 (22.0-30.0) sec Sodium 126 L (137-145) mmol/L Potassium 4.0 (3.5-5.1) mmol/L Chloride 91 L (98-107) mmol/L Carbon Dioxide 24 (22-30) mmol/L Anion Gap 11 mmol/L BUN 10 (7-17) mg/dL Creatinine 0.50 L (0.52-1.04) mg/dL Est GFR (CKD-EPI)AfAm >90 (>60 ml/min/1.73 sqM) Est GFR (CKD-EPI)NonAf >90 (>60 ml/min/1.73 sqM) Glucose 82 (74-99) mg/dL Plasma Lactic Acid Nader (0.7-2.0) mmol/L Calcium 9.7 (8.4-10.2) mg/dL Magnesium 1.8 (1.6-2.3) mg/dL Total Bilirubin 1.1 (0.2-1.3) mg/dL AST 32 (14-36) U/L ALT 26 (4-34) U/L Alkaline Phosphatase 94 (38-126) U/L Troponin I (0.000-0.034) ng/mL Total Protein 7.5 (6.3-8.2) g/dL Albumin 4.5 (3.5-5.0) g/dL 07/18/24 07/18/24 Range/Units 19:10 19:10 WBC (3.8-10.6) k/uL RBC (3.80-5.40) m/uL Hgb (11.4-16.0) gm/dL Hct (34.0-46.0) % MCV (80.0-100.0) fL MCH (25.0-35.0) pg MCHC (31.0-37.0) g/dL RDW (11.5-15.5) % Plt Count (150-450) k/uL MPV Neutrophils % % Lymphocytes % % Monocytes % % Eosinophils % % Basophils % % Neutrophils # (1.3-7.7) k/uL Lymphocytes # (1.0-4.8) k/uL Monocytes # (0-1.0) k/uL Eosinophils # (0-0.7) k/uL Basophils # (0-0.2) k/uL PT (10.0-12.5) sec INR (<1.2) APTT (22.0-30.0) sec Sodium (137-145) mmol/L Potassium (3.5-5.1) mmol/L Chloride (98-107) mmol/L Carbon Dioxide (22-30) mmol/L Anion Gap mmol/L BUN (7-17) mg/dL Creatinine (0.52-1.04) mg/dL Est GFR (CKD-EPI)AfAm (>60 ml/min/1.73 sqM) Est GFR (CKD-EPI)NonAf (>60 ml/min/1.73 sqM) Glucose (74-99) mg/dL Plasma Lactic Acid Nader 1.0 (0.7-2.0) mmol/L Calcium (8.4-10.2) mg/dL Magnesium (1.6-2.3) mg/dL Total Bilirubin (0.2-1.3) mg/dL AST (14-36) U/L ALT (4-34) U/L Alkaline Phosphatase (38-126) U/L Troponin I <0.012 (0.000-0.034) ng/mL Total Protein (6.3-8.2) g/dL Albumin (3.5-5.0) g/dL Disposition Clinical Impression: Hyponatremia Disposition: ADMITTED IP TO THIS HOSP Condition: Fair Referrals: None,Stated [Primary Care Provider] - 1-2 days Decision Time: 20:12
[2024-07-18 19:26] LABS: Basophils % (A) 1 %; Eosinophils # (A) 0.2 k/uL (0-0.7); Eosinophils % (A) 3 %; HCT 46.8 % (34.0-46.0); HGB 15.3 gm/dL (11.4-16.0); Lymphocytes # (A) 1.8 k/uL (1.0-4.8); Lymphocytes % (A) 22 %; MCHC 32.8 g/dL (31.0-37.0); MCV 97.5 fL (80.0-100.0); Mean Platelet Volume 7.1; Monocytes # (A) 0.8 k/uL (0-1.0); Monocytes % (A) 9 %; Neutrophils # (A) 5.4 k/uL (1.3-7.7); Neutrophils % (A) 64 %; Platelet Count 263 k/uL (150-450); RBC 4.79 m/uL (3.80-5.40); RDW 12.5 % (11.5-15.5); WBC 8.3 k/uL (3.8-10.6)
--- NOTE | 2024-07-18 19:40 | CT ---
EXAMINATION TYPE: CT brain wo con DATE OF EXAM: 07/18/2024 7:32 PM COMPARISON: 11/03/2023. CLINICAL INDICATION: Female, 69 years old with history of headache, ams TECHNIQUE: Brain: Axial CT images of the brain were obtained with coronal and sagittal reformats created and rev iewed. Contrast used: None. Oral contrast used: None. CT DLP: 1280.7 mGycm, Automated exposure control for dose reduction was used. FINDINGS: Brain: Extra-axial spaces: No abnormal extra-axial fluid collections. Ventricular system: Dilatation in proportion to cerebral atrophy. Cerebral parenchyma: Remote injury to the right caudate nucleus/basal ganglia and left posterior limb of the internal capsule. Cerebral atrophy. No acute intraparenchymal hemorrhage or mass effect. The perry-white junction is well differentiated. Scattered hypoattenuating areas are seen within the whit e matter. Cerebellum: Unremarkable. Mass effect: No evidence of midline shift. Intracranial vasculature: unremarkable Soft tissues: Normal. Calvarium/osseous structures: No depressed skull fracture. Paranasal sinuses and mastoid air cells: Mild scattered paranasal sinus disease. Visualized orbits: Orbital contents are intact. IMPRESSION: 1. No acute intracranial process. 2. Remote lacunar injuries along with nonspecific white matter changes likely secondary to chronic mi croangiopathy. [facility], , 07/18/2024 7:37 PM
[2024-07-18 19:42] LABS: ALT 26 U/L (4-34); AST 32 U/L (14-36); African American GFR (CKD) >90 (>60 ml/min/1.73 sqM); Albumin 4.5 g/dL (3.5-5.0); Alkaline Phosphatase 94 U/L (38-126); Anion Gap 11 mmol/L; Blood Urea Nitrogen 10 mg/dL (7-17); Calcium 9.7 mg/dL (8.4-10.2); Carbon Dioxide 24 mmol/L (22-30); Chloride 91 mmol/L (98-107); Glucose 82 mg/dL (74-99); Magnesium 1.8 mg/dL (1.6-2.3); Non-African American GFR(CKD) >90 (>60 ml/min/1.73 sqM); Sodium 126 mmol/L (137-145); Total Bilirubin 1.1 mg/dL (0.2-1.3); Total Protein 7.5 g/dL (6.3-8.2)
[2024-07-18 20:02] LABS: INR 0.9 (<1.2); Partial Thromboplastin Time 24.7 sec (22.0-30.0); Prothrombin Time 10.3 sec (10.0-12.5)
[2024-07-18] MEDS ORDERED: NALOXONE 0.4 MG/ML 1 ML VIAL IV PRN (20:09)
[2024-07-18] MEDS: SODIUM CHLORIDE 0.9% 1,000 ML IV STA ×2 (20:27→21:00)
[2024-07-18 23:18] LABS: Appearance,Urine Clear (Clear); Bilirubin,Urine Negative (Negative); Blood,Urine Small (Negative); Color,Urine Colorless; Glucose,Urine (UA) Negative (Negative); Ketones,Urine Negative (Negative); Leukocyte Esterase,Urine Negative (Negative); Nitrite,Urine Negative (Negative); Protein,Urine Negative (Negative); RBC,Urine 3 /hpf (0-5); Specific Gravity,Urine 1.006 (1.001-1.035); Urobilinogen,Urine <2.0 mg/dL (<2.0); WBC,Urine <1 /hpf (0-5)
[2024-07-19] MEDS ORDERED: ZINC OXIDE PASTE (Z-GUARD) 1 APPLIC TOPICAL PRN (05:01)
[2024-07-19 09:16] LABS: Basophils % (A) 0 %; Eosinophils # (A) 0.2 k/uL (0-0.7); Eosinophils % (A) 2 %; HCT 47.2 % (34.0-46.0); HGB 15.3 gm/dL (11.4-16.0); Lymphocytes # (A) 1.4 k/uL (1.0-4.8); Lymphocytes % (A) 19 %; MCH 31.6 pg (25.0-35.0); MCHC 32.4 g/dL (31.0-37.0); MCV 97.5 fL (80.0-100.0); Mean Platelet Volume 7.1; Monocytes # (A) 0.5 k/uL (0-1.0); Monocytes % (A) 6 %; Neutrophils # (A) 5.3 k/uL (1.3-7.7); Neutrophils % (A) 71 %; Platelet Count 221 k/uL (150-450); RBC 4.84 m/uL (3.80-5.40); RDW 12.8 % (11.5-15.5); WBC 7.4 k/uL (3.8-10.6)
[2024-07-19 09:31] LABS: African American GFR (CKD) >90 (>60 ml/min/1.73 sqM); Anion Gap 9 mmol/L; Blood Urea Nitrogen 8 mg/dL (7-17); Calcium 8.7 mg/dL (8.4-10.2); Carbon Dioxide 23 mmol/L (22-30); Chloride 95 mmol/L (98-107); Glucose 109 mg/dL (74-99); Magnesium 1.5 mg/dL (1.6-2.3); Non-African American GFR(CKD) >90 (>60 ml/min/1.73 sqM); Potassium 3.5 mmol/L (3.5-5.1); Sodium 127 mmol/L (137-145)
[2024-07-19] MEDS ORDERED: Magnesium Replacement Protocol 1 EACH MISC MISCELLANE PRN (10:08)
[2024-07-19] MEDS: MAGNESIUM SULFATE-D5W PMX 1 GM in DEXTROSE/WATER 1 100ML.BAG IVPB SCH (10:42)
[2024-07-19] MEDS: SERTRALINE 25 MG TAB PO SCH (10:43)
[2024-07-19] MEDS: lisinopriL 20 MG TAB PO SCH (10:43)
[2024-07-19] MEDS: amLODIPine 10 MG TAB PO SCH (10:43)
[2024-07-19] MEDS: CLOPIDOGREL 75 MG TAB PO SCH (10:43)
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
[2024-07-19] MEDS: POTASSIUM CHLORIDE ER 20 MEQ TAB.ER PO STA (11:59)
--- NOTE | 2024-07-19 14:58 | P.HPIM ---
History of Present Illness H&P Date: 07/19/24 This is a pleasant 69-year-old female with medical history significant for stroke back in September 2023 with residual right sided deficits, hypertension, asthma, coronary artery disease, chronic alcoholism and nicotine use. Patient comes to the hospital after facing an eviction on Wednesday she states that she has been sleeping in the [facility]. She has had poor oral intake over the last few days secondary to her homelessness. She has not been drinking or smoking. There is also reports of diarrhea although patient denies this at the bedside. She is having difficulty with ambulating and activities secondary to this right sided weakness from a prior stroke. She was admitted to the hospital in november of 2023 for the same weakness and had not been taking her recommended home medications including statin and plavix. Her initial blood work reveals a sodium level of 126 BUN of 10 creatinine 0.50 negative troponin level her LFTs are within normal limits. Her urinalysis is negative for infection C. difficile was negative. EKG reveals normal sinus rhythm heart rate of [address] or T wave changes. Brain CT reveals no acute intracranial process, remote lacunar injuries along with nonspecific white matter changes likely secondary to chronic microangiography. Patient denies any chest pain or shortness of breath. She is awake alert and oriented x 3. She does state that she has not been taking any of her prescribed medications as she has been unable to get these filled and this includes her statin therapy her blood pressure med ends and also her Plavix for primary stroke prevention. These resumed for her based on her most recent recommendations from her last hospital stay and patient is agreeable with this. Her blood pressure was elevated on admission at 152/68. She has been afebrile heart rate of 86 and she is 97% on room air. Nephrology was consulted for the hyponatremia. REVIEW OF SYSTEMS: CONSTITUTIONAL: No fever, no malaise, no fatigue. HEENT: No recent visual problems or hearing problems. Denied any sore throat. CARDIOVASCULAR: No chest pain, orthopnea, PND, no palpitations, no syncope. PULMONARY: No shortness of breath, no cough, no hemoptysis. GASTROINTESTINAL: No diarrhea, no nausea, no vomiting, no abdominal pain. NEUROLOGICAL: No headaches, no weakness, no numbness. HEMATOLOGICAL: Denies any bleeding or petechiae. GENITOURINARY: Denies any burning micturition, frequency, or urgency. MUSCULOSKELETAL/RHEUMATOLOGICAL: Denies any joint pain, swelling, or any muscle pain. Reports old right sided weakness ENDOCRINE: Denies any polyuria or polydipsia. The rest of the 14-point review of systems is negative. PHYSICAL EXAMINATION: GENERAL: The patient is alert and oriented x3, not in any acute distress. Well developed, well nourished. HEENT: Pupils are round and equally reacting to light. EOMI. No scleral icterus. No conjunctival pallor. Normocephalic, atraumatic. No pharyngeal erythema. No thyromegaly. CARDIOVASCULAR: S1 and S2 present. No murmurs, rubs, or gallops. PULMONARY: Chest is clear to auscultation, no wheezing or crackles. ABDOMEN: Soft, nontender, nondistended, normoactive bowel sounds. No palpable organomegaly. MUSCULOSKELETAL: No joint swelling or deformity. EXTREMITIES: No cyanosis, clubbing, or pedal edema. NEUROLOGICAL: Gross neurological examination did not reveal any focal deficits. Patient has some mild contracture to her right hand with weakness SKIN: No rashes. Assessment and Plan Headache acute onset which is have been resolved at this time Hyponatremia, from poor oral intake secondary to her homelessness she has not been eating or drinking well for the last 3 to 4 days History of asthma/COPD with no acute exacerbation History of coronary artery disease History of left basal ganglia stroke in September 2023 with residual right sided weakness Chronic and ongoing nicotine use, Chronic alcoholism Depression Homelessness GI prophylaxis DVT prophylaxis Full code Plan Continue normal saline at 50 mL/h and monitor sodium level Nephrology following Patient has been resumed on her blood pressure medications including Norvasc and lisinopril Patient was resumed back on her high-dose statin therapy Patient has also been resumed on her antidepressant sertraline PT/OT consultation Social work for community resources and discharge planning The impression and plan of care has been dictated by Naz Lara, Nurse Practitioner as directed. Dr. Jerica MD I have performed a history and physical examination and medical decision making of this patient, discussed the same with the dictator, and agree with the dictators assessment and plan as written, documented as a scribe. Based on total visit time, I have performed more than 50% of this visit. Past Medical History Past Medical History: Asthma, Coronary Artery Disease (CAD), COPD, CVA/TIA, Hypertension, Myocardial Infarction ([place]), Musculoskeletal Disorder Additional Past Medical History / Comment(s): supposed to take BP meds, hasn't been able to get rx. Last Myocardial Infarction Date:: 2013? History of Any Multi-Drug Resistant Organisms: None Reported Past Surgical History: Section, Orthopedic Surgery Additional Past Surgical History / Comment(s): ORIF left ankle NOSE SURGERY Past Anesthesia/Blood Transfusion Reactions: No Reported Reaction Past Psychological History: Depression Smoking Status: Current every day smoker Past Alcohol Use History: Occasional Additional Past Alcohol Use History / Comment(s): pt. states she has been smoking since age 27, 1/4ppd, drinks 1-2 daily beers when she has the money Past Drug Use History: None Reported Additional Drug Use History / Comment(s): occasional use - Past Family History Brother(s) Additional Family Medical History / Comment(s): pts[place] [facility] [place] Medications and Allergies Home Medications Medication Instructions Recorded Confirmed Type No Known Home Medications 07/18/24 07/18/24 History Allergies Allergy/AdvReac Type Severity Reaction Status Date / Time aspirin Allergy Swelling Verified 07/18/24 19:09 venom-honey bee Allergy Swelling Verified 07/18/24 19:09 [bee venom (honey bee)] Physical Exam Vitals: Vital Signs Temp Pulse Pulse Resp BP BP Pulse Ox 07/19/24 11:48 98.3 F 85 16 148/92 98 07/19/24 07:30 98.5 F 84 16 150/92 97 07/19/24 01:56 98.6 F 86 16 152/68 95 07/18/24 21:30 98.5 F 86 16 149/91 98 07/18/24 21:01 90 18 150/84 98 07/18/24 18:11 97.7 F 86 18 150/99 98 Intake and Output 07/18/24 07/19/24 07/19/24 22:59 06:59 14:59 Intake Total 1800 Output Total 200 1900 Balance -200 -100 Intake: Oral 1800 Output: Urine 200 1900 Other: # Bowel Movements 1 3 Weight 70.307 kg Results CBC & Chem 7: 07/19/24 09:04 07/19/24 12:35 Labs: Abnormal Lab Results - Last 24 Hours (Table) 07/18/24 07/18/24 07/18/24 Range/Units 19:10 19:10 22:50 Hct 46.8 H (34.0-46.0) % Sodium 126 L (137-145) mmol/L Chloride 91 L (98-107) mmol/L Creatinine 0.50 L (0.52-1.04) mg/dL Glucose (74-99) mg/dL Magnesium (1.6-2.3) mg/dL Urine Blood Small H (Negative) 07/19/24 07/19/24 Range/Units 09:04 09:04 Hct 47.2 H (34.0-46.0) % Sodium 127 L (137-145) mmol/L Chloride 95 L (98-107) mmol/L Creatinine 0.41 L (0.52-1.04) mg/dL Glucose 109 H (74-99) mg/dL Magnesium 1.5 L (1.6-2.3) mg/dL Urine Blood (Negative) Thrombosis Risk Factor Assmnt - Choose All That Apply Any of the Below Risk Factors Present?: No Each Risk Factor Represents 2 Points: Age 61-74 years Other congenital or acquired thrombophilia - If yes, enter type in comment: No Thrombosis Risk Factor Assessment Total Risk Factor Score: 2 Thrombosis Risk Factor Assessment Level: Low Risk Assessment and Plan Time with Patient: Greater than 30
[2024-07-19] MEDS: ACETAMINOPHEN TAB 325 MG TAB PO PRN (18:07)
[2024-07-19] MEDS: ATORVASTATIN 80 MG TAB PO SCH (20:51)
[2024-07-19] MEDS: NYSTATIN 100,000 UNIT/GM POWD 15 GM TOPICAL SCH (20:51)
[2024-07-20 08:55] LABS: Blood Urea Nitrogen 6.5 mg/dL (9.0-27.0); Calcium 8.5 mg/dL (8.7-10.3); Carbon Dioxide 19.7 mmol/L (21.6-31.8); Chloride 97 mmol/L (96-109); Glucose 92 mg/dL (70-110); Magnesium 1.8 mg/dL (1.5-2.4); Potassium 4.1 mmol/L (3.5-5.5); Sodium 128 mmol/L (135-145)
[2024-07-20] MEDS: PANTOPRAZOLE 40 MG TABLET PO SCH (09:03)
[2024-07-20] MEDS: MAGNESIUM SULFATE-D5W PMX 1 GM in DEXTROSE/WATER 1 100ML.BAG IVPB ONE (09:06)
--- NOTE | 2024-07-20 12:03 | P.PN ---
Subjective Patient is seen in follow-up for hyponatremia. Sodium level 128 today. Oral intake gradually improving. Denies excessive fluid intake. On room air. Vital signs are stable. General: No acute distress. HEENT: Head exam is unremarkable. LUNGS: No audible rhonchi or wheezes. HEART: Rate and Rhythm are regular. ABDOMEN: Nontender. EXTREMITITES: No edema. Objective - Vital Signs Vital signs: Vital Signs Temp 98.3 F 07/20/24 06:55 Pulse 72 07/20/24 06:55 Resp 16 07/20/24 06:55 BP 124/70 07/20/24 06:55 Pulse Ox 97 07/20/24 06:55 FiO2 Intake & Output 07/19/24 07/20/24 07/20/24 18:59 06:59 18:59 Intake Total 2040 540 480 Output Total 1900 Balance 140 540 480 Intake: Oral 2040 540 480 Output: Urine 1900 Other: Voiding Method External Catheter Diaper # Voids 2 # Bowel Movements 3 - Labs CBC & Chem 7: 07/19/24 09:04 07/20/24 03:51 Labs: Abnormal Lab Results - Last 24 Hours (Table) 07/19/24 07/19/24 07/20/24 Range/Units 09:04 12:07 03:51 Sodium 128 L (135-145) mmol/L Carbon Dioxide 19.7 L (21.6-31.8) mmol/L BUN 6.5 L (9.0-27.0) mg/dL Creatinine 0.5 L (0.6-1.5) mg/dL Osmolality 270 L (275-295) mOsm/kg Calcium 8.5 L (8.7-10.3) mg/dL Urine Osmolality 299 L (400-1100) mOsm/kg Assessment and Plan Plan: Assessment: 1. Hypovolemic hyponatremia with component of poor solute intake. Sodium level 128 today. Urine sodium 85 and urine osmolality 299. TSH normal. 2. Hypomagnesemia from poor intake. Replaced. Better. 3. Hypokalemia from poor intake. Replaced. Better. 4. Benign hypertension. Controlled. Plan: Hep-Lock IV fluids. Maintain 1500 cc fluid restriction. Encouraged oral intake. Repeat labs in the morning.
--- NOTE | 2024-07-20 15:28 | P.PN ---
Subjective Progress Note Date: 07/20/24 This is a pleasant 69-year-old female with medical history significant for stroke back in September 2023 with residual right sided deficits, hypertension, asthma, coronary artery disease, chronic alcoholism and nicotine use. Patient comes to the hospital after facing an eviction on Wednesday she states that she has been sleeping in the [facility]. She has had poor oral intake over the last few days secondary to her homelessness. She has not been drinking or smoking. There is also reports of diarrhea although patient denies this at the bedside. She is having difficulty with ambulating and activities secondary to this right sided weakness from a prior stroke. She was admitted to the hospital in november of 2023 for the same weakness and had not been taking her recommended home medications including statin and plavix. Her initial blood work reveals a sodium level of 126 BUN of 10 creatinine 0.50 negative troponin level her LFTs are within normal limits. Her urinalysis is negative for infection C. difficile was negative. EKG reveals normal sinus rhythm heart rate of [address] or T wave changes. Brain CT reveals no acute intracranial process, remote lacunar injuries along with nonspecific white matter changes likely secondary to chronic microangiography. Patient denies any chest pain or shortness of breath. She is awake alert and oriented x 3. She does state that she has not been taking any of her prescribed medications as she has been unable to get these filled and this includes her statin therapy her blood pressure med ends and also her Plavix for primary stroke prevention. These resumed for her based on her most recent recommendations from her last hospital stay and patient is agreeable with this. Her blood pressure was elevated on admission at 152/68. She has been afebrile heart rate of 86 and she is 97% on room air. Nephrology was consulted for the hyponatremia. 07/20/2024 Patient is agitated follow-up in the medical floor. She is not having any con fused complaints at this time. Her sodium level is slightly improved up to 128 renal function remained stable. TSH is normal. Fluids were discontinued. Patient is on a 1500 cc fluid restriction. Social work on board and pending Medicaid application and accepting facility for discharge. REVIEW OF SYSTEMS: CONSTITUTIONAL: No fever, no malaise, no fatigue. HEENT: No recent visual problems or hearing problems. Denied any sore throat. CARDIOVASCULAR: No chest pain, orthopnea, PND, no palpitations, no syncope. PULMONARY: No shortness of breath, no cough, no hemoptysis. GASTROINTESTINAL: No diarrhea, no nausea, no vomiting, no abdominal pain. NEUROLOGICAL: No headaches, no weakness, no numbness. PHYSICAL EXAMINATION: GENERAL: The patient is alert and oriented x3, not in any acute distress. Well developed, well nourished. HEENT: Pupils are round and equally reacting to light. EOMI. No scleral icterus. No conjunctival pallor. Normocephalic, atraumatic. No pharyngeal erythema. No thyromegaly. CARDIOVASCULAR: S1 and S2 present. No murmurs, rubs, or gallops. PULMONARY: Chest is clear to auscultation, no wheezing or crackles. ABDOMEN: Soft, nontender, nondistended, normoactive bowel sounds. No palpable organomegaly. MUSCULOSKELETAL: No joint swelling or deformity. EXTREMITIES: No cyanosis, clubbing, or pedal edema. NEUROLOGICAL: Gross neurological examination did not reveal any focal deficits. Patient has some mild contracture to her right hand with weakness SKIN: No rashes. 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 Patient was resumed back on her high-dose statin therapy Patient has also been resumed on her antidepressant sertraline PT/OT consultation Social work for community resources and discharge planning The impression and plan of care has been dictated by Naz Lara Nurse Practitioner as directed. Dr. Jerica MD I have performed a history and physical examination and medical decision making of this patient, discussed the same with the dictator, and agree with the dictators assessment and plan as written, documented as a scribe. Based on total visit time, I have performed more than 50% of this visit. Objective - Vital Signs Vital signs: Vital Signs Temp 97.7 F 07/20/24 12:09 Pulse 71 07/20/24 12:09 Resp 16 07/20/24 12:09 BP 93/62 07/20/24 12:09 Pulse Ox 92 L 07/20/24 12:09 FiO2 Intake & Output 07/19/24 07/20/24 07/20/24 18:59 06:59 18:59 Intake Total 2039 540 1969 Output Total 1900 Balance 135 838 0297 Intake: Oral 2039 540 1969 Output: Urine 1900 Other: Voiding Method External Catheter Diaper # Voids 2 4 # Bowel Movements 3 2 - Labs CBC & Chem 7: 07/19/24 09:04 07/20/24 03:51 Labs: Abnormal Lab Results - Last 24 Hours (Table) 07/19/24 07/19/24 07/20/24 Range/Units 09:04 12:07 03:51 Sodium 128 L (135-145) mmol/L Carbon Dioxide 19.7 L (21.6-31.8) mmol/L BUN 6.5 L (9.0-27.0) mg/dL Creatinine 0.5 L (0.6-1.5) mg/dL Osmolality 270 L (275-295) mOsm/kg Calcium 8.5 L (8.7-10.3) mg/dL Urine Osmolality 299 L (400-1100) mOsm/kg Assessment and Plan Time with Patient: Less than 30
[2024-07-21 08:14] LABS: Blood Urea Nitrogen 5.5 mg/dL (9.0-27.0); Calcium 8.7 mg/dL (8.7-10.3); Carbon Dioxide 21.2 mmol/L (21.6-31.8); Chloride 95 mmol/L (96-109); Glucose 101 mg/dL (70-110); Magnesium 1.8 mg/dL (1.5-2.4); Potassium 3.9 mmol/L (3.5-5.5); Sodium 127 mmol/L (135-145)
[2024-07-21] MEDS: MAGNESIUM SULFATE-D5W PMX 1 GM in DEXTROSE/WATER 1 100ML.BAG IVPB ONE (08:58)
[2024-07-21] MEDS: amLODIPine 5 MG TAB PO SCH (08:58)
--- NOTE | 2024-07-21 11:19 | P.PN ---
Subjective Patient is seen in follow-up for hyponatremia. Sodium level 127 today. Oral intake gradually improving. Denies excessive fluid intake. On room air. Vital signs are stable. General: No acute distress. HEENT: Head exam is unremarkable. LUNGS: No audible rhonchi or wheezes. HEART: Rate and Rhythm are regular. ABDOMEN: Nontender. EXTREMITITES: No edema. Objective - Vital Signs Vital signs: Vital Signs Temp 97.4 F L 07/21/24 07:31 Pulse 72 07/21/24 07:31 Resp 17 07/21/24 07:31 BP 150/80 07/21/24 07:31 Pulse Ox 99 07/21/24 07:31 FiO2 Intake & Output 07/20/24 07/21/24 07/21/24 18:59 06:59 18:59 Intake Total 2210 240 Balance 2210 240 Intake: Oral 2210 240 Other: Voiding Method Diaper # Voids 4 1 # Bowel Movements 2 - Labs CBC & Chem 7: 07/19/24 09:04 07/21/24 04:22 Labs: Abnormal Lab Results - Last 24 Hours (Table) 07/21/24 Range/Units 04:22 Sodium 127 L (135-145) mmol/L Chloride 95 L (96-109) mmol/L Carbon Dioxide 21.2 L (21.6-31.8) mmol/L BUN 5.5 L (9.0-27.0) mg/dL Creatinine 0.5 L (0.6-1.5) mg/dL BUN/Creatinine Ratio 11.00 L (12.00-20.00) Ratio Assessment and Plan Plan: Assessment: 1. Hypovolemic hyponatremia with component of poor solute intake. Sodium level 127 today. Urine sodium 85 and urine osmolality 299. TSH normal. 2. Hypomagnesemia from poor intake. Replaced. Better. 3. Hypokalemia from poor intake. Replaced. Better. 4. Benign hypertension. Controlled. Plan: Remains off IV fluids. Maintain 1500 cc fluid restriction. Encouraged oral intake. Add urea. Repeat labs in the morning.
[2024-07-21] MEDS: UREA 15 GM POWD.PACK PO SCH (12:27)
--- NOTE | 2024-07-21 14:23 | P.PN ---
Subjective Progress Note Date: 07/21/24 This is a pleasant 69-year-old female with medical history significant for stroke back in September 2023 with residual right sided deficits, hypertension, asthma, coronary artery disease, chronic alcoholism and nicotine use. Patient comes to the hospital after facing an eviction on Wednesday she states that she has been sleeping in the [facility]. She has had poor oral intake over the last few days secondary to her homelessness. She has not been drinking or smoking. There is also reports of diarrhea although patient denies this at the bedside. She is having difficulty with ambulating and activities secondary to this right sided weakness from a prior stroke. She was admitted to the hospital in november of 2023 for the same weakness and had not been taking her recommended home medications including statin and plavix. Her initial blood work reveals a sodium level of 126 BUN of 10 creatinine 0.50 negative troponin level her LFTs are within normal limits. Her urinalysis is negative for infection C. difficile was negative. EKG reveals normal sinus rhythm heart rate of [address] or T wave changes. Brain CT reveals no acute intracranial process, remote lacunar injuries along with nonspecific white matter changes likely secondary to chronic microangiography. Patient denies any chest pain or shortness of breath. She is awake alert and oriented x 3. She does state that she has not been taking any of her prescribed medications as she has been unable to get these filled and this includes her statin therapy her blood pressure med ends and also her Plavix for primary stroke prevention. These resumed for her based on her most recent recommendations from her last hospital stay and patient is agreeable with this. Her blood pressure was elevated on admission at 152/68. She has been afebrile heart rate of 86 and she is 97% on room air. Nephrology was consulted for the hyponatremia. 07/20/2024 Patient is agitated follow-up in the medical floor. She is not having any con fused complaints at this time. Her sodium level is slightly improved up to 128 renal function remained stable. TSH is normal. Fluids were discontinued. Patient is on a 1500 cc fluid restriction. Social work on board and pending Medicaid application and accepting facility for discharge. 07/21/2024 Patient is eval before. She has no acute complaints besides having the right sided weakness which is chronic for her. She continues with a 1500 cc fluid restriction. Sodium level today is 127 potassium is 3.9, BUN of 5.5 creatinine 0.5. Magnesium 1.8. Patient has been started on oral urea twice daily. REVIEW OF SYSTEMS: CONSTITUTIONAL: No fever, no malaise, no fatigue. HEENT: No recent visual problems or hearing problems. Denied any sore throat. CARDIOVASCULAR: No chest pain, orthopnea, PND, no palpitations, no syncope. PULMONARY: No shortness of breath, no cough, no hemoptysis. GASTROINTESTINAL: No diarrhea, no nausea, no vomiting, no abdominal pain. NEUROLOGICAL: No headaches, no weakness, no numbness. PHYSICAL EXAMINATION: GENERAL: The patient is alert and oriented x3, not in any acute distress. Well developed, well nourished. HEENT: Pupils are round and equally reacting to light. EOMI. No scleral icterus. No conjunctival pallor. Normocephalic, atraumatic. No pharyngeal erythema. No thyromegaly. CARDIOVASCULAR: S1 and S2 present. No murmurs, rubs, or gallops. PULMONARY: Chest is clear to auscultation, no wheezing or crackles. ABDOMEN: Soft, nontender, nondistended, normoactive bowel sounds. No palpable organomegaly. MUSCULOSKELETAL: No joint swelling or deformity. EXTREMITIES: No cyanosis, clubbing, or pedal edema. NEUROLOGICAL: Gross neurological examination did not reveal any focal deficits. Patient has some mild contracture to her right hand with weakness SKIN: No rashes. 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 Patient was resumed back on her high-dose statin therapy Patient has also been resumed on her antidepressant sertraline PT/OT consultation Social work for community resources and discharge planning The impression and plan of care has been dictated by Naz Lara, Nurse Practitioner as directed. Dr. Jerica MD I have performed a history and physical examination and medical decision making of this patient, discussed the same with the dictator, and agree with the dictators assessment and plan as written, documented as a scribe. Based on total visit time, I have performed more than 50% of this visit. Objective - Vital Signs Vital signs: Vital Signs Temp 98.1 F 07/21/24 12:09 Pulse 73 07/21/24 12:09 Resp 17 07/21/24 12:09 BP 115/73 07/21/24 12:09 Pulse Ox 96 07/21/24 12:09 FiO2 Intake & Output 07/20/24 07/21/24 07/21/24 18:59 06:59 18:59 Intake Total 2210 240 Balance 2210 240 Intake: Oral 2210 240 Other: Voiding Method Diaper # Voids 4 1 # Bowel Movements 2 - Labs CBC & Chem 7: 07/19/24 09:04 07/21/24 04:22 Labs: Abnormal Lab Results - Last 24 Hours (Table) 07/21/24 Range/Units 04:22 Sodium 127 L (135-145) mmol/L Chloride 95 L (96-109) mmol/L Carbon Dioxide 21.2 L (21.6-31.8) mmol/L BUN 5.5 L (9.0-27.0) mg/dL Creatinine 0.5 L (0.6-1.5) mg/dL BUN/Creatinine Ratio 11.00 L (12.00-20.00) Ratio Assessment and Plan Time with Patient: Less than 30
[2024-07-22 09:32] LABS: Magnesium 1.8 mg/dL (1.5-2.4)
[2024-07-22 09:47] LABS: Blood Urea Nitrogen 14.3 mg/dL (9.0-27.0); Calcium 8.7 mg/dL (8.7-10.3); Carbon Dioxide 19.9 mmol/L (21.6-31.8); Chloride 96 mmol/L (96-109); Glucose 98 mg/dL (70-110); Potassium 3.8 mmol/L (3.5-5.5); Sodium 127 mmol/L (135-145)
--- NOTE | 2024-07-22 10:50 | P.PN ---
Subjective Patient is seen in follow-up for hyponatremia. Sodium level stable at is good. 127 today. Oral intake is good. Denies excessive fluid intake. On room air. Vital signs are stable. General: No acute distress. HEENT: Head exam is unremarkable. LUNGS: No audible rhonchi or wheezes. HEART: Rate and Rhythm are regular. ABDOMEN: Nontender. EXTREMITITES: No edema. Objective - Vital Signs Vital signs: Vital Signs Temp 98.6 F 07/22/24 08:00 Pulse 73 07/22/24 08:00 Resp 16 07/22/24 08:00 BP 104/62 07/22/24 08:00 Pulse Ox 95 07/22/24 08:00 FiO2 Intake & Output 07/21/24 07/22/24 07/22/24 18:59 06:59 18:59 Intake Total 1282 240 240 Balance 1282 240 240 Intake: Intake, IV Titration 100 Amount Magnesium Sulfate-D5w Pmx 100 1 gm In Dextrose/Water 1 100ml.bag @ 100 mls/hr IVPB ONCE ONE Rx#: [id number] Oral 1182 240 240 Other: Voiding Method Toilet Toilet Diaper Diaper # Voids 3 3 # Bowel Movements 0 1 - Labs CBC & Chem 7: 07/19/24 09:04 07/22/24 05:14 Labs: Abnormal Lab Results - Last 24 Hours (Table) 07/22/24 Range/Units 05:14 Sodium 127 L (135-145) mmol/L Carbon Dioxide 19.9 L (21.6-31.8) mmol/L Creatinine 0.5 L (0.6-1.5) mg/dL BUN/Creatinine Ratio 28.60 H (12.00-20.00) Ratio Assessment and Plan Plan: Assessment: 1. Hypovolemic hyponatremia with component of poor solute intake. Sodium level stable at 127 today. Urine sodium 85 and urine osmolality 299. TSH normal. 2. Hypomagnesemia from poor intake. Replaced. Stable. 3. Hypokalemia from poor intake. Replaced. Stable. 4. Benign hypertension. Controlled. Plan: Remains off IV fluids. Maintain 1500 cc fluid restriction. Encouraged oral intake. Maintain urea. Samsca 7.5 mg once daily. Check PTH related peptide. Repeat labs in the morning.
[2024-07-22] MEDS: TOLVAPTAN 15 MG TABLET PO ONE (11:30)
--- NOTE | 2024-07-22 15:39 | P.PN ---
Subjective Progress Note Date: 07/22/24 This is a pleasant 69-year-old female with medical history significant for stroke back in September 2023 with residual right sided deficits, hypertension, asthma, coronary artery disease, chronic alcoholism and nicotine use. Patient comes to the hospital after facing an eviction on Wednesday she states that she has been sleeping in the [facility]. She has had poor oral intake over the last few days secondary to her homelessness. She has not been drinking or smoking. There is also reports of diarrhea although patient denies this at the bedside. She is having difficulty with ambulating and activities secondary to this right sided weakness from a prior stroke. She was admitted to the hospital in november of 2023 for the same weakness and had not been taking her recommended home medications including statin and plavix. Her initial blood work reveals a sodium level of 126 BUN of 10 creatinine 0.50 negative troponin level her LFTs are within normal limits. Her urinalysis is negative for infection C. difficile was negative. EKG reveals normal sinus rhythm heart rate of [address] or T wave changes. Brain CT reveals no acute intracranial process, remote lacunar injuries along with nonspecific white matter changes likely secondary to chronic microangiography. Patient denies any chest pain or shortness of breath. She is awake alert and oriented x 3. She does state that she has not been taking any of her prescribed medications as she has been unable to get these filled and this includes her statin therapy her blood pressure med ends and also her Plavix for primary stroke prevention. These resumed for her based on her most recent recommendations from her last hospital stay and patient is agreeable with this. Her blood pressure was elevated on admission at 152/68. She has been afebrile heart rate of 86 and she is 97% on room air. Nephrology was consulted for the hyponatremia. 07/20/2024 Patient is agitated follow-up in the medical floor. She is not having any con fused complaints at this time. Her sodium level is slightly improved up to 128 renal function remained stable. TSH is normal. Fluids were discontinued. Patient is on a 1500 cc fluid restriction. Social work on board and pending Medicaid application and accepting facility for discharge. 07/21/2024 Patient is eval before. She has no acute complaints besides having the right sided weakness which is chronic for her. She continues with a 1500 cc fluid restriction. Sodium level today is 127 potassium is 3.9, BUN of 5.5 creatinine 0.5. Magnesium 1.8. Patient has been started on oral urea twice daily. 07/22/2024 Patient evaluated in follow-up. Patient reports nasal congestion. Continues on a 1500 cc fluid restriction continues on oral urea 15 g twice daily. REVIEW OF SYSTEMS: CONSTITUTIONAL: No fever, no malaise, no fatigue. HEENT: No recent visual problems or hearing problems. Denied any sore throat. CARDIOVASCULAR: No chest pain, orthopnea, PND, no palpitations, no syncope. PULMONARY: No shortness of breath, no cough, no hemoptysis. GASTROINTESTINAL: No diarrhea, no nausea, no vomiting, no abdominal pain. NEUROLOGICAL: No headaches, no weakness, no numbness. PHYSICAL EXAMINATION: GENERAL: The patient is alert and oriented x3, not in any acute distress. Well developed, well nourished. HEENT: Pupils are round and equally reacting to light. EOMI. No scleral icterus. No conjunctival pallor. Normocephalic, atraumatic. No pharyngeal erythema. No thyromegaly. CARDIOVASCULAR: S1 and S2 present. No murmurs, rubs, or gallops. PULMONARY: Chest is clear to auscultation, no wheezing or crackles. ABDOMEN: Soft, nontender, nondistended, normoactive bowel sounds. No palpable organomegaly. MUSCULOSKELETAL: No joint swelling or deformity. EXTREMITIES: No cyanosis, clubbing, or pedal edema. NEUROLOGICAL: Gross neurological examination did not reveal any focal deficits. Patient has some mild contracture to her right hand with weakness SKIN: No rashes. 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 Amlodipine discontinued and lisinopril decreased. Patient was resumed back on her high-dose statin therapy Patient has also been resumed on her antidepressant sertraline PT/OT consultation Social work for community resources and discharge planning. Patient pending medicaid application and accepting facility. The impression and plan of care has been dictated by Naz Lara, Nurse Practitioner as directed. Dr. Jerica MD I have performed a history and physical examination and medical decision making of this patient, discussed the same with the dictator, and agree with the dictators assessment and plan as written, documented as a scribe. Based on total visit time, I have performed more than 50% of this visit. Objective - Vital Signs Vital signs: Vital Signs Temp 97.7 F 07/22/24 12:17 Pulse 71 07/22/24 12:17 Resp 16 07/22/24 12:17 BP 96/65 07/22/24 12:17 Pulse Ox 97 07/22/24 12:17 FiO2 Intake & Output 07/21/24 07/22/24 07/22/24 18:59 06:59 18:59 Intake Total 0004 714 6897 Balance 3848 469 0582 Intake: Intake, IV Titration 100 Amount Magnesium Sulfate-D5w Pmx 100 1 gm In Dextrose/Water 1 100ml.bag @ 100 mls/hr IVPB ONCE ONE Rx#: [id number] Oral 0210 927 2235 Other: Voiding Method Toilet Toilet Diaper Diaper # Voids 3 3 5 # Bowel Movements 0 1 1 - Labs CBC & Chem 7: 07/19/24 09:04 07/22/24 05:14 Labs: Abnormal Lab Results - Last 24 Hours (Table) 07/22/24 Range/Units 05:14 Sodium 127 L (135-145) mmol/L Carbon Dioxide 19.9 L (21.6-31.8) mmol/L Creatinine 0.5 L (0.6-1.5) mg/dL BUN/Creatinine Ratio 28.60 H (12.00-20.00) Ratio Assessment and Plan Time with Patient: Less than 30
[2024-07-22] MEDS: LORATADINE 10 MG TAB PO SCH (16:47)
[2024-07-22] MEDS: FLUTICASONE NASAL 50MCG/SPRAY 16GM BTL EA NOSTRIL SCH (16:47)
[2024-07-23] MEDS: lisinopriL 10 MG TAB PO SCH (08:56)
--- NOTE | 2024-07-23 10:35 | P.PN ---
Subjective Patient is seen in follow-up for hyponatremia. Sodium level stable as of yesterday. Received Samsca yesterday. Oral intake is good. Denies excessive fluid intake. On room air. Vital signs are stable. General: No acute distress. HEENT: Head exam is unremarkable. LUNGS: No audible rhonchi or wheezes. HEART: Rate and Rhythm are regular. ABDOMEN: Nontender. EXTREMITITES: No edema. Objective - Vital Signs Vital signs: Vital Signs Temp 97.7 F 07/23/24 07:31 Pulse 70 07/23/24 07:31 Resp 16 07/23/24 07:31 BP 122/66 07/23/24 07:31 Pulse Ox 97 07/23/24 07:31 FiO2 Intake & Output 07/22/24 07/23/24 07/23/24 18:59 06:59 18:59 Intake Total 1740 480 240 Balance 1740 480 240 Intake: Oral 1740 480 240 Other: Voiding Method Toilet Toilet Diaper Diaper # Voids 5 1 # Bowel Movements 1 - Labs CBC & Chem 7: 07/19/24 09:04 07/22/24 05:14 Assessment and Plan Plan: Assessment: 1. Hypovolemic hyponatremia with component of poor solute intake. Sodium level stable at 127 yesterday. Urine sodium 85 and urine osmolality 299. TSH normal. 2. Hypomagnesemia from poor intake. Replaced. Stable. 3. Hypokalemia from poor intake. Replaced. Stable. 4. Benign hypertension. Controlled. Plan: Remains off IV fluids. Maintain 1500 cc fluid restriction. Encouraged oral intake. Maintain urea. Status post Samsca given yesterday. Follow-up PTH related peptide. Morning labs pending.
--- NOTE | 2024-07-23 13:02 | P.PN ---
Subjective Progress Note Date: 07/23/24 This is a pleasant 69-year-old female with medical history significant for stroke back in September 2023 with residual right sided deficits, hypertension, asthma, coronary artery disease, chronic alcoholism and nicotine use. Patient comes to the hospital after facing an eviction on Wednesday she states that she has been sleeping in the [facility]. She has had poor oral intake over the last few days secondary to her homelessness. She has not been drinking or smoking. There is also reports of diarrhea although patient denies this at the bedside. She is having difficulty with ambulating and activities secondary to this right sided weakness from a prior stroke. She was admitted to the hospital in november of 2023 for the same weakness and had not been taking her recommended home medications including statin and plavix. Her initial blood work reveals a sodium level of 126 BUN of 10 creatinine 0.50 negative troponin level her LFTs are within normal limits. Her urinalysis is negative for infection C. difficile was negative. EKG reveals normal sinus rhythm heart rate of [address] or T wave changes. Brain CT reveals no acute intracranial process, remote lacunar injuries along with nonspecific white matter changes likely secondary to chronic microangiography. Patient denies any chest pain or shortness of breath. She is awake alert and oriented x 3. She does state that she has not been taking any of her prescribed medications as she has been unable to get these filled and this includes her statin therapy her blood pressure med ends and also her Plavix for primary stroke prevention. These resumed for her based on her most recent recommendations from her last hospital stay and patient is agreeable with this. Her blood pressure was elevated on admission at 152/68. She has been afebrile heart rate of 86 and she is 97% on room air. Nephrology was consulted for the hyponatremia. 07/20/2024 Patient is agitated follow-up in the medical floor. She is not having any con fused complaints at this time. Her sodium level is slightly improved up to 128 renal function remained stable. TSH is normal. Fluids were discontinued. Patient is on a 1500 cc fluid restriction. Social work on board and pending Medicaid application and accepting facility for discharge. 07/21/2024 Patient is eval before. She has no acute complaints besides having the right sided weakness which is chronic for her. She continues with a 1500 cc fluid restriction. Sodium level today is 127 potassium is 3.9, BUN of 5.5 creatinine 0.5. Magnesium 1.8. Patient has been started on oral urea twice daily. 07/22/2024 Patient evaluated in follow-up. Patient reports nasal congestion. Continues on a 1500 cc fluid restriction continues on oral urea 15 g twice daily. 07/23/2024 Patient is eval seen in follow-up on the medical floor. She has no acute complaints at this time. She continues with right sided hemiparesis from an old stroke. She uses a wheelchair to get around the room. PT was recommending rehabilitation for her and social work is following this patient closely. She is working on a Medicaid application. She continues on oral urea 50 mg twice daily. Sodium level today is unavailable yet. REVIEW OF SYSTEMS: CONSTITUTIONAL: No fever, no malaise, no fatigue. HEENT: No recent visual problems or hearing problems. Denied any sore throat. CARDIOVASCULAR: No chest pain, orthopnea, PND, no palpitations, no syncope. PULMONARY: No shortness of breath, no cough, no hemoptysis. GASTROINTESTINAL: No diarrhea, no nausea, no vomiting, no abdominal pain. NEUROLOGICAL: No headaches, no weakness, no numbness. PHYSICAL EXAMINATION: GENERAL: The patient is alert and oriented x3, not in any acute distress. Well developed, well nourished. HEENT: Pupils are round and equally reacting to light. EOMI. No scleral icterus. No conjunctival pallor. Normocephalic, atraumatic. No pharyngeal erythema. No thyromegaly. CARDIOVASCULAR: S1 and S2 present. No murmurs, rubs, or gallops. PULMONARY: Chest is clear to auscultation, no wheezing or crackles. ABDOMEN: Soft, nontender, nondistended, normoactive bowel sounds. No palpable organomegaly. MUSCULOSKELETAL: No joint swelling or deformity. EXTREMITIES: No cyanosis, clubbing, or pedal edema. NEUROLOGICAL: Gross neurological examination did not reveal any focal deficits. Patient has some mild contracture to her right hand with weakness SKIN: No rashes. Assessment and Plan Headache acute onset which is have been resolved at this time Hyponatremia, from poor oral intake secondary to her homelessness she has not been eating or drinking well for the last 3 to 4 days History of asthma/COPD with no acute exacerbation History of coronary artery disease History of left basal ganglia stroke in September 2023 with residual right sided weakness Chronic and ongoing nicotine use, Chronic alcoholism Depression Homelessness GI prophylaxis DVT prophylaxis Full code Plan 1500 cc fluid restriction and IV fluids have been discontinued Samsca x1 given; patient continues on oral urea 15 gm twice daily Nephrology following Patient has been resumed on her blood pressure medications; BP significantly improved. Amlodipine discontinued and lisinopril decreased. Patient was resumed back on her high-dose statin therapy Patient has also been resumed on her antidepressant sertraline PT/OT consultation Social work for community resources and discharge planning. Patient pending medicaid application and accepting facility. The impression and plan of care has been dictated by Naz Lara Nurse Practitioner as directed. Dr. Jerica MD I have performed a history and physical examination and medical decision making of this patient, discussed the same with the dictator, and agree with the dictators assessment and plan as written, documented as a scribe. Based on total visit time, I have performed more than 50% of this visit. Objective - Vital Signs Vital signs: Vital Signs Temp 98.1 F 07/23/24 11:47 Pulse 65 07/23/24 11:47 Resp 16 07/23/24 11:47 BP 99/63 07/23/24 11:47 Pulse Ox 96 07/23/24 11:47 FiO2 Intake & Output 07/22/24 07/23/24 07/23/24 18:59 06:59 18:59 Intake Total 1740 480 240 Balance 1740 480 240 Intake: Oral 1740 480 240 Other: Voiding Method Toilet Toilet Toilet Diaper Diaper Diaper # Voids 5 1 # Bowel Movements 1 - Labs CBC & Chem 7: 07/19/24 09:04 07/22/24 05:14 Assessment and Plan Time with Patient: Less than 30
[2024-07-23 22:37] LABS: Magnesium 1.8 mg/dL (1.5-2.4)
[2024-07-23 22:39] LABS: BUN/Creat Ratio 55.83 Ratio (12.00-20.00); Blood Urea Nitrogen 33.5 mg/dL (9.0-27.0); Carbon Dioxide 23.5 mmol/L (21.6-31.8); Chloride 100 mmol/L (96-109); Glucose 95 mg/dL (70-110); Potassium 3.9 mmol/L (3.5-5.5); Sodium 134 mmol/L (135-145)
[2024-07-24 08:08] VITALS: BP 129/78; PULSE 78; RESP 18; TEMP 98.2
[2024-07-24 09:30] LABS: Blood Urea Nitrogen 27.3 mg/dL (9.0-27.0); Calcium 9.2 mg/dL (8.7-10.3); Carbon Dioxide 20.7 mmol/L (21.6-31.8); Chloride 104 mmol/L (96-109); Glucose 98 mg/dL (70-110); Magnesium 1.8 mg/dL (1.5-2.4); Sodium 136 mmol/L (135-145)
--- NOTE | 2024-07-24 15:52 | P.PN ---
Subjective Patient is seen for follow-up for hyponatremia. Sodium is 136 today. Status post IV fluids No significant complaints today. Objective - Vital Signs Vital signs: Vital Signs Temp 98.2 F 07/24/24 07:19 Pulse 78 07/24/24 07:19 Resp 18 07/24/24 07:19 BP 129/78 07/24/24 07:19 Pulse Ox 96 07/24/24 07:19 FiO2 Intake & Output 07/23/24 07/24/24 07/24/24 18:59 06:59 18:59 Intake Total 1730 962 Balance 1730 962 Intake: Oral 1730 962 Other: Voiding Method Toilet Toilet Toilet Diaper Diaper Diaper # Voids 5 1 # Bowel Movements 1 1 - Exam Patient is awake, comfortable, no acute distress. Examination of the heart S1 and S2 Examination of the lungs bilateral breath sounds are heard Abdomen is soft nontender Examination of lower extremities shows no evidence of edema - Labs CBC & Chem 7: 07/19/24 09:04 07/24/24 06:00 Labs: Abnormal Lab Results - Last 24 Hours (Table) 07/23/24 07/24/24 Range/Units : 06:00 Sodium 134 L (135-145) mmol/L Carbon Dioxide 20.7 L (21.6-31.8) mmol/L BUN 33.5 H 27.3 H (9.0-27.0) mg/dL Creatinine 0.5 L (0.6-1.5) mg/dL BUN/Creatinine Ratio 55.83 H 54.60 H (12.00-20.00) Ratio Assessment and Plan Assessment: 1. Hypovolemic hyponatremia with component of poor solute intake. Sodium level stable at 136. Urine sodium 85 and urine osmolality 299. TSH normal. 2. Hypomagnesemia from poor intake. Replaced. Stable. 3. Hypokalemia from poor intake. Replaced. Stable. 4. Benign hypertension. Controlled. Plan: Okay for discharge from nephrology standpoint Encourage increased oral intake particularly protein Continue with urea Follow-up as outpatient in about 1 week with repeat labs to be done in about 4 to 5 days post to discharge.
--- NOTE | 2024-07-25 18:23 | P.DS ---
Providers Date of admission: 07/18/24 20:09 Expected date of discharge: 07/24/24 Attending physician: Makeda Ayers Consults: 07/18/24 20:09 Consult Physician Routine Consulting Provider: Rohan Koch Consult Reason/Comments: hyponatremia Do you want consulting provider notified?: Yes Primary care physician: Stated None Hospital Course: Final diagnosis Headache acute onset which is have been resolved at this time Hyponatremia, from poor oral intake secondary to her homelessness she has not been eating or drinking well for the last 3 to 4 days History of asthma/COPD with no acute exacerbation History of coronary artery disease History of left basal ganglia stroke in September 2023 with residual right sided weakness Chronic and ongoing nicotine use, Chronic alcoholism Depression Homelessness GI prophylaxis DVT prophylaxis Full code Discharge disposition Patient is being discharged in a stable condition with guarded prognosis to home. Patient will follow-up with Dr. Cy Ayers to establish in the outpatient setting upon discharge. Patient is to continue with current medications and outpatient follow-up with nephrology as scheduled. Total time taken is greater than 35 minutes. Hospital course This is a pleasant 69-year-old female with medical history significant for stroke back in September 2023 with residual right sided deficits, hypertension, asthma, coronary artery disease, chronic alcoholism and nicotine use. Patient comes to the hospital after facing an eviction on Wednesday she states that she has been sleeping in the [facility]. She has had poor oral intake over the last few days secondary to her homelessness. She has not been drinking or smoking. There is also reports of diarrhea although patient denies this at the bedside. She is having difficulty with ambulating and activities secondary to this right sided weakness from a prior stroke. She was admitted to the hospital in november of 2023 for the same weakness and had not been taking her recommended home medications including statin and plavix. Her initial blood work reveals a sodium level of 126 BUN of 10 creatinine 0.50 negative troponin level her LFTs are within normal limits. Her urinalysis is negative for infection C. difficile was negative. EKG reveals normal sinus rhythm heart rate of [address] or T wave changes. Brain CT reveals no acute intracranial process, remote lacunar injuries along with nonspecific white matter changes likely secondary to chronic microangiography. Patient denies any chest pain or shortness of breath. She is awake alert and oriented x 3. She does state that she has not been taking any of her prescribed medications as she has been unable to get these filled and this includes her statin therapy her blood pressure med ends and also her Plavix for primary stroke prevention. These resumed for her based on her most recent recommendations from her last hospital stay and patient is agreeable with this. Her blood pressure was elevated on admission at 152/68. She has been afebrile heart rate of 86 and she is 97% on room air. Nephrology was consulted for the hyponatremia. 07/20/2024 Patient is agitated follow-up in the medical floor. She is not having any confused complaints at this time. Her sodium level is slightly improved up to 128 renal function remained stable. TSH is normal. Fluids were discontinued. Patient is on a 1500 cc fluid restriction. Social work on board and pending Medicaid application and accepting facility for discharge. 07/21/2024 Patient is eval before. She has no acute complaints besides having the right sided weakness which is chronic for her. She continues with a 1500 cc fluid restriction. Sodium level today is 127 potassium is 3.9, BUN of 5.5 creatinine 0.5. Magnesium 1.8. Patient has been started on oral urea twice daily. 07/22/2024 Patient evaluated in follow-up. Patient reports nasal congestion. Continues on a 1500 cc fluid restriction continues on oral urea 15 g twice daily. 07/23/2024 Patient is eval seen in follow-up on the medical floor. She has no acute complaints at this time. She continues with right sided hemiparesis from an old stroke. She uses a wheelchair to get around the room. PT was recommending rehabilitation for her and social work is following this patient closely. She is working on a Medicaid application. She continues on oral urea 50 mg twice daily. Sodium level today is unavailable yet. 07/24/2024 Patient seen in follow-up was evaluated by physical therapy doing well and will not meet criteria for correction. Patient was provided resources for outpatient follow-up to establish with a primary care provider as well as shelters within the area. Patient will be discharged today. Patient has been cleared by nephrology recommending up. Currently no reports of chest pain, shortness of breath, or palpitations. Patient is afebrile. No reports of nausea or vomiting and patient is tolerating diet. Patient will be discharged today. Guarded prognosis and high risk for readmissions as patient is reporting she is homeless and was recently evicted. PHYSICAL EXAMINATION: GENERAL: The patient is alert and oriented x3, not in any acute distress. Well developed, well nourished. HEENT: Pupils are round and equally reacting to light. EOMI. No scleral icterus. No conjunctival pallor. Normocephalic, atraumatic. No pharyngeal erythema. No thyromegaly. CARDIOVASCULAR: S1 and S2 present. No murmurs, rubs, or gallops. PULMONARY: Chest is clear to auscultation, no wheezing or crackles. ABDOMEN: Soft, nontender, nondistended, normoactive bowel sounds. No palpable organomegaly. MUSCULOSKELETAL: No joint swelling or deformity. EXTREMITIES: No cyanosis, clubbing, or pedal edema. NEUROLOGICAL: Gross neurological examination did not reveal any focal deficits. Patient has some mild contracture to her right hand with weakness SKIN: No rashes. Please refer to medication reconciliation sheet for a list of medications. The impression and plan of care has been dictated by Viola Lima, Nurse Practitioner as directed. Dr. Armen MD I have performed a history and examination and MDM of this patient, discussed the same with the dictator, and agree with the dictator's assessment and plan as written ,documented as a scribe. Based on total visit time, I have performed more than 50% of the visit. Patient Condition at Discharge: Fair Plan - Discharge Summary Discharge Rx Participant: Yes New Discharge Prescriptions: New Loratadine [Claritin] 5 mg PO DAILY #30 tab Fluticasone Nasal [place] [Flonase Nasal [place]] 2 spray EA NOSTRIL DAILY #7 ml Atorvastatin [Lipitor] 80 mg PO HS #30 tab Nystatin 100,000 Unit/gm Powd [Mycostatin Powder] 1 applic TOPICAL BID each Clopidogrel [Plavix] 75 mg PO DAILY #30 tab Sertraline [Zoloft] 25 mg PO DAILY #30 tab Pantoprazole [Protonix] 40 mg PO AC-BRKFST #30 tab Acetaminophen Tab [Tylenol] 650 mg PO Q6HR PRN tab PRN Reason: Fever And/ Or Pain lisinopriL [Zestril] 10 mg PO DAILY #30 tab Discharge Medication List Acetaminophen Tab [Tylenol] 650 mg PO Q6HR PRN tab 07/24/24 [Rx] Atorvastatin [Lipitor] 80 mg PO HS #30 tab 07/24/24 [Rx] Clopidogrel [Plavix] 75 mg PO DAILY #30 tab 07/24/24 [Rx] Fluticasone Nasal [place] [Flonase Nasal [place]] 2 spray EA NOSTRIL DAILY #7 ml 07/24/24 [Rx] Loratadine [Claritin] 5 mg PO DAILY #30 tab 07/24/24 [Rx] Nystatin 100,000 Unit/gm Powd [Mycostatin Powder] 1 applic TOPICAL BID each 07/24/24 [Rx] Pantoprazole [Protonix] 40 mg PO AC-BRKFST #30 tab 07/24/24 [Rx] Sertraline [Zoloft] 25 mg PO DAILY #30 tab 07/24/24 [Rx] lisinopriL [Zestril] 10 mg PO DAILY #30 tab 07/24/24 [Rx] Follow up Appointment(s)/Referral(s): Zonia Buenrostro MD [STAFF PHYSICIAN] - 1 Week (Patient instructed to make follow-up appointment) Patient Instructions/Handouts: Lisinopril (By mouth), Loratadine (By mouth), Sertraline (By mouth), Atorvastatin (By mouth), Clopidogrel (By mouth), Pantoprazole (By mouth), Fluticasone (Into the nose), Hyponatremia (DC) Activity/Diet/Wound Care/Special Instructions: Activity limited until follow-up Follow-up and establish with primary care provider Follow-up with nephrology outpatient Continue taking medications as prescribed Avoid alcohol use and intake Discharge Disposition: HOME SELF-CARE
== END 2024-07-24 14:47 | disposition home or self-care (01) | DRG 641 ==
LOC: EC 17:43 → 5NMEDONC 20:09
PROVIDERS: ADMIT Hospitalist; ATTEND Hospitalist
DX: E87.1 Hypo-osmolality and hyponatremia (principal); I69.351 Hemiplegia and hemiparesis following cerebral infarction affecting right dominant side; F10.20 Alcohol dependence, uncomplicated; I10 Essential (primary) hypertension; F32.A Depression, unspecified; Z59.00 Homelessness unspecified; E86.1 Hypovolemia; F17.200 Nicotine dependence, unspecified, uncomplicated; E83.42 Hypomagnesemia; E87.6 Hypokalemia; I25.2 Old myocardial infarction; Z88.6 Allergy status to analgesic agent; Z88.8 Allergy status to other drugs, medicaments and biological substances; Z91.030 Bee allergy status
CPT/HCPCS: 36415; 70450; 80048; 80053; 81001; 83605; 83735; 83930; 83935; 84132; 84300; 84443; 84484; 85025; 85610; 85730; 87324; 93005; 96360; 99285

== ENCOUNTER 2024-07-25 21:49 | Emergency (ER) | payer MEDICARE ==
[2024-07-25 21:54] VITALS: TEMP 97.4
--- NOTE | 2024-07-25 22:41 | ED ---
Chest Pain HPI - General Chief Complaint: Chest Pain Stated Complaint: OSITO Time Seen by Provider: 07/25/24 21:56 Source: patient Mode of arrival: ambulatory Limitations: no limitations - History of Present Illness Initial Comments: This patient is a 69-year-old woman with history of COPD presenting with complaint that she is having worsening shortness of breath and some chest tightness. She states that she feels like her COPD is flaring up. She states she also had a previous pneumonia 1 time so she presents to have evaluation. No fever or chills. No change in her cough or sputum production. MD Complaint: chest pain, other -: hour(s) Onset: during rest Pain Location: left chest, right chest Pain Radiation: none Severity: mild Quality: tightness Consistency: constant Improves With: nothing Worsens With: nothing Other Symptoms: cough Treatments Prior to Arrival: none - Related Data Previous Rx's Medication Instructions Recorded Acetaminophen Tab [Tylenol] 650 mg PO Q6HR PRN tab 07/24/24 Atorvastatin [Lipitor] 80 mg PO HS #30 tab 07/24/24 Clopidogrel [Plavix] 75 mg PO DAILY #30 tab 07/24/24 Fluticasone Nasal [place] [Flonase 2 spray EA NOSTRIL DAILY #7 ml 07/24/24 Nasal [place]] Loratadine [Claritin] 5 mg PO DAILY #30 tab 07/24/24 Nystatin 100,000 Unit/gm Powd 1 applic TOPICAL BID each 07/24/24 [Mycostatin Powder] Pantoprazole [Protonix] 40 mg PO AC-BRKFST #30 tab 07/24/24 Sertraline [Zoloft] 25 mg PO DAILY #30 tab 07/24/24 lisinopriL [Zestril] 10 mg PO DAILY #30 tab 07/24/24 predniSONE [Deltasone] 20 mg PO BID #8 tab 07/26/24 Allergies Allergy/AdvReac Type Severity Reaction Status Date / Time aspirin Allergy Swelling Verified 07/29/24 08:15 venom-honey bee Allergy Swelling Verified 07/29/24 08:15 [bee venom (honey bee)] Review of Systems ROS Statement: Those systems with pertinent positive or pertinent negative responses have been documented in the HPI. ROS Other: All systems not noted in ROS Statement are negative. Constitutional: Denies: fever, chills Respiratory: Reports: as per HPI, cough, dyspnea, wheezes. Denies: hemoptysis Cardiovascular: Reports: as per HPI, chest pain. Denies: palpitations, orthopnea, edema, syncope Gastrointestinal: Denies: abdominal pain, nausea, vomiting, melena, hematochezia Genitourinary: Denies: dysuria, frequency Musculoskeletal: Denies: back pain Skin: Denies: rash Neurological: Denies: headache, weakness, numbness EKG Findings - EKG Results: EKG: interpreted by MARY FELIX, sinus rhythm (76 bpm), normal axis, normal QRS, normal ST/T, no acute changes Past Medical History Past Medical History: Asthma, Coronary Artery Disease (CAD), COPD, CVA/TIA, Hypertension, Myocardial Infarction ([place]), Musculoskeletal Disorder Additional Past Medical History / Comment(s): supposed to take BP meds, hasn't been able to get rx. Last Myocardial Infarction Date:: 2013? History of Any Multi-Drug Resistant Organisms: None Reported Past Surgical History: Section, Orthopedic Surgery Additional Past Surgical History / Comment(s): ORIF left ankle NOSE SURGERY Past Anesthesia/Blood Transfusion Reactions: No Reported Reaction Past Psychological History: Depression Smoking Status: Current every day smoker Past Alcohol Use History: Occasional Past Drug Use History: None Reported - Past Family History Brother(s) Additional Family Medical History / Comment(s): pts. brother recently from [place] disease General Exam Limitations: no limitations General appearance: alert, in no apparent distress Head exam: Present: atraumatic, normocephalic Eye exam: Present: normal appearance. Absent: scleral icterus, conjunctival injection ENT exam: Present: normal oropharynx Neck exam: Present: normal inspection Respiratory exam: Present: wheezes. Absent: respiratory distress, rales, rhonchi, stridor, chest wall tenderness, accessory muscle use Cardiovascular Exam: Present: regular rate, normal rhythm, normal heart sounds. Absent: systolic murmur, diastolic murmur, rubs, gallop GI/Abdominal exam: Present: soft. Absent: distended, tenderness, guarding, rebound, rigid, mass Extremities exam: Present: normal inspection, normal capillary refill. Absent: pedal edema, calf tenderness Back exam: Present: normal inspection. Absent: CVA tenderness (R), CVA tenderness (L) Neurological exam: Present: alert Skin exam: Present: warm, dry, intact, normal color. Absent: rash Course Vital Signs 07/25/24 07/25/24 07/25/24 21:50 23:41 23:50 Temperature 97.4 F L Pulse Rate 91 73 66 Respiratory 18 Rate Blood Pressure 126/72 O2 Sat by Pulse 99 Oximetry 07/26/24 07/26/24 07/26/24 00:16 00:45 03:17 Temperature Pulse Rate 71 69 66 Respiratory 18 16 Rate Blood Pressure 130/65 108/66 O2 Sat by Pulse 95 98 Oximetry 07/26/24 05:39 Temperature Pulse Rate 70 Respiratory 18 Rate Blood Pressure 92/55 O2 Sat by Pulse 98 Oximetry Chest Pain MDM - MDM The patient had chest x-ray that I interpreted as negative for acute infiltrate, pneumothorax, congestive heart failure Was pt. sent in by a medical professional or institution (NEY Krishnan, INFORMATION SCIENTIST, urgent care, hospital, or fci...) When possible be specific @ -[No] Did you speak to anyone other than the patient for history (EMS, parent, family, police, friend...)? What history was obtained from this source @ -[No] Did you review nursing and triage notes (agree or disagree)? Why? @ -[I reviewed and agree with nursing and triage notes] Were old charts reviewed (outside hosp., previous admission, EMS record, old EKG, old radiological studies, urgent care reports/EKG's, fci records)? Report findings @ -[No old charts were reviewed] Differential Diagnosis (chest pain, altered mental status, abdominal pain women, abdominal pain men, vaginal bleeding, weakness, fever, dyspnea, syncope, headache, dizziness, GI bleed, back pain, seizure, CVA, palpatations, mental health, musculoskeletal)? @ -[Differential Dyspnea: Coronary syndrome, arrhythmia, tamponade, asthma, COPD, pulmonary embolism, pneumonia, pneumothorax, pulmonary effusion, anaphylaxis, diabetic ketoacidosis, flailed chest, pulmonary contusion, diaphragmatic rupture, anemia, neuromuscular, this is not meant to be an all-inclusive list. EKG interpreted by me (3pts min.). @ -[I interpreted as above] X-rays interpreted by me (1pt min.). @ -[I interpreted as above CT interpreted by me (1pt min.). @ -[None done] U/S interpreted by me (1pt. min.). @ -[None done] What testing was considered but not performed or refused? (CT, X-rays, U/S, labs)? Why? @ -[None] What meds were considered but not given or refused? Why? @ -[None] Did you discuss the management of the patient with other professionals (professionals i.e. , PA, INFORMATION SCIENTIST, lab, RT, psych nurse, social service director, production support manager, teacher, quarantine officer, hospice case manager)? Give summary @ -[No] Was smoking cessation discussed for >3mins.? @ -[No] Was critical care preformed (if so, how long)? @ -[No] Were there social determinants of health that impacted care today? How? (Homelessness, low income, unemployed, alcoholism, drug addiction, transportation, low edu. Level, literacy, decrease access to med. care, snf, rehab)? @ -[No] Was there de-escalation of care discussed even if they declined (Discuss DNR or withdrawal of care, Hospice)? DNR status @ -[No] What co-morbidities impacted this encounter? (DM, HTN, Smoking, COPD, CAD, Cancer, CVA, ARF, Chemo, Hep., AIDS, mental health diagnosis, sleep apnea, morbid obesity)? @ -[History of COPD Was patient admitted / discharged? Hospital course, mention meds given and route, prescriptions, significant lab abnormalities, going to OR and other pertinent info. @ -[This patient is a 69-year-old woman with history of COPD presenting with history and physical consistent with an exacerbation of COPD. She is feeling better with treatment here and would like to go home. Discussed appropriate further care and follow-up as well as return parameters Undiagnosed new problem with uncertain prognosis? @ -[No] Drug Therapy requiring intensive monitoring for toxicity (Heparin, Nitro, Insulin, Cardizem)? @ -[No] Were any procedures done? @ -[No] Diagnosis/symptom? @ -[Acute exacerbation of COPD Acute, or Chronic, or Acute on Chronic? @ -[Acute Uncomplicated (without systemic symptoms) or Complicated (systemic symptoms)? @ -[Uncomplicated Side effects of treatment? @ -[No] Exacerbation, Progression, or Severe Exacerbation? @ -[Exacerbation of COPD Poses a threat to life or bodily function? How? (Chest pain, [place], [place], pneumonia, PE, COPD, DKA, ARF, appy, cholecystitis, CVA, Diverticulitis, Homicidal, Suicidal, threat to staff... and all critical care pts) @ -[No] All treatments are based on ideal body weight as in ED triage Disposition Clinical Impression: COPD exacerbation Disposition: HOME SELF-CARE Condition: Good Instructions (If sedation given, give patient instructions): COPD (Chronic Obstructive Pulmonary Disease) (ED) Prescriptions: predniSONE [Deltasone] 20 mg PO BID #8 tab Is patient prescribed a controlled substance at d/c from ED?: No Referrals: None,Stated [Primary Care Provider] - 1-2 days
[2024-07-25 22:47] LABS: Basophils % (A) 0 %; Eosinophils # (A) 0.1 k/uL (0-0.7); Eosinophils % (A) 1 %; HCT 45.1 % (34.0-46.0); HGB 15.2 gm/dL (11.4-16.0); Lymphocytes # (A) 1.9 k/uL (1.0-4.8); Lymphocytes % (A) 19 %; MCHC 33.7 g/dL (31.0-37.0); MCV 94.8 fL (80.0-100.0); Monocytes % (A) 10 %; Neutrophils # (A) 6.8 k/uL (1.3-7.7); Neutrophils % (A) 67 %; Platelet Count 361 k/uL (150-450); RBC 4.76 m/uL (3.80-5.40); RDW 12.4 % (11.5-15.5); WBC 10.1 k/uL (3.8-10.6)
[2024-07-25 22:56] LABS: ALT 22 U/L (4-34); AST 23 U/L (14-36); African American GFR (CKD) >90 (>60 ml/min/1.73 sqM); Albumin 4.5 g/dL (3.5-5.0); Alkaline Phosphatase 69 U/L (38-126); Anion Gap 11 mmol/L; Blood Urea Nitrogen 14 mg/dL (7-17); Calcium 9.8 mg/dL (8.4-10.2); Carbon Dioxide 24 mmol/L (22-30); Chloride 99 mmol/L (98-107); Glucose 99 mg/dL (74-99); Non-African American GFR(CKD) >90 (>60 ml/min/1.73 sqM); Potassium 3.5 mmol/L (3.5-5.1); Sodium 134 mmol/L (137-145); Total Bilirubin 0.4 mg/dL (0.2-1.3); Total Protein 7.5 g/dL (6.3-8.2)
[2024-07-25 23:04] LABS: NT-Pro-B-Type Natriuretic Pept 336 pg/mL
[2024-07-25 23:05] LABS: INR 0.9 (<1.2); Partial Thromboplastin Time 22.6 sec (22.0-30.0); Prothrombin Time 9.9 sec (10.0-12.5)
[2024-07-25] MEDS: ALBUTEROL NEBULIZED 2.5 MG/3 ML INHALATION STA (23:39)
[2024-07-25] MEDS: IPRATROPIUM-ALBUTEROL 3 ML NEB INHALATION STA (23:39)
[2024-07-26] MEDS: predniSONE 20 MG TAB PO STA (00:35)
[2024-07-26] MEDS: ALBUTEROL NEBULIZED 2.5 MG/3 ML INHALATION STA (00:44)
--- NOTE | 2024-07-26 01:28 | XR ---
EXAM: XR Chest, 1 View CLINICAL HISTORY: ITS.REASON XR Reason: dyspnea TECHNIQUE: Frontal view of the chest. COMPARISON: No relevant prior studies available. FINDINGS: Lungs: Unremarkable. No consolidation. Pleural space: Unremarkable. No pneumothorax. Heart: Unremarkable. No cardiomegaly. Mediastinum: Unremarkable. Bones/joints: Unremarkable. IMPRESSION: No consolidation.
[2024-07-26 05:40] VITALS: BP 92/55; PULSE 70; RESP 18
== END 2024-07-26 06:00 | disposition home or self-care (01) ==
LOC: EC 21:49
DX: J44.1 Chronic obstructive pulmonary disease with (acute) exacerbation (principal); Z87.01 Personal history of pneumonia (recurrent); F17.200 Nicotine dependence, unspecified, uncomplicated; Z88.6 Allergy status to analgesic agent; Z91.030 Bee allergy status
CPT/HCPCS: 36415 ×2; 94640 ×2; 93005; 85379; 83880; 80053; 83605 ×2; 84484; 85025; 85610; 85730; 71045; 99285; J7512

== ENCOUNTER 2024-07-28 05:49 | Emergency (ER) | payer MEDICARE ==
[2024-07-28 06:01] VITALS: RESP 18
--- NOTE | 2024-07-28 06:29 | ED ---
Fall HPI - General Chief Complaint: Fall Stated Complaint: Fall Time Seen by Provider: 07/28/24 06:19 Source: patient, RN notes reviewed Mode of arrival: ambulatory - History of Present Illness Initial Comments: 69-year-old female presenting to the emergency department after mechanical fall. Patient states that she was walking outside when she tripped on pavement causing her to fall onto her bottom. Patient states that she did hit her head however there is no loss of consciousness currently is feeling well with no headache, dizziness, neck pain, blurry double vision. She is complaining of lumbar back pain in addition to right hip and pelvic pain after the fall. Patient is able to ambulate. Denies loss of bladder bowel continence or saddle anesthesias. No other acute complaints at this time. - Related Data Previous Rx's Medication Instructions Recorded Acetaminophen Tab [Tylenol] 650 mg PO Q6HR PRN tab 07/24/24 Atorvastatin [Lipitor] 80 mg PO HS #30 tab 07/24/24 Clopidogrel [Plavix] 75 mg PO DAILY #30 tab 07/24/24 Fluticasone Nasal [place] [Flonase 2 spray EA NOSTRIL DAILY #7 ml 07/24/24 Nasal [place]] Loratadine [Claritin] 5 mg PO DAILY #30 tab 07/24/24 Nystatin 100,000 Unit/gm Powd 1 applic TOPICAL BID each 07/24/24 [Mycostatin Powder] Pantoprazole [Protonix] 40 mg PO AC-BRKFST #30 tab 07/24/24 Sertraline [Zoloft] 25 mg PO DAILY #30 tab 07/24/24 lisinopriL [Zestril] 10 mg PO DAILY #30 tab 07/24/24 predniSONE [Deltasone] 20 mg PO BID #8 tab 07/26/24 Allergies Allergy/AdvReac Type Severity Reaction Status Date / Time aspirin Allergy Swelling Verified 07/28/24 06:01 venom-honey bee Allergy Swelling Verified 07/28/24 06:01 [bee venom (honey bee)] Review of Systems ROS Statement: Those systems with pertinent positive or pertinent negative responses have been documented in the HPI. ROS Other: All systems not noted in ROS Statement are negative. Past Medical History Past Medical History: Asthma, Coronary Artery Disease (CAD), COPD, CVA/TIA, Hypertension, Myocardial Infarction ([place]), Musculoskeletal Disorder Additional Past Medical History / Comment(s): supposed to take BP meds, hasn't been able to get rx. Last Myocardial Infarction Date:: 2013? History of Any Multi-Drug Resistant Organisms: None Reported Past Surgical History: Section, Orthopedic Surgery Additional Past Surgical History / Comment(s): ORIF left ankle NOSE SURGERY Past Anesthesia/Blood Transfusion Reactions: No Reported Reaction Past Psychological History: Depression Smoking Status: Current every day smoker Past Alcohol Use History: Occasional Past Drug Use History: None Reported - Past Family History Brother(s) Additional Family Medical History / Comment(s): pts. brother recently from [place] General Exam Limitations: no limitations General appearance: alert, in no apparent distress, appears intoxicated Neck exam: Present: normal inspection. Absent: tenderness, meningismus, lymphadenopathy Respiratory exam: Present: normal lung sounds bilaterally. Absent: respiratory distress, wheezes, rales, rhonchi, stridor Cardiovascular Exam: Present: regular rate, normal rhythm, normal heart sounds. Absent: systolic murmur, diastolic murmur, rubs, gallop, clicks GI/Abdominal exam: Present: soft, normal bowel sounds. Absent: distended, tenderness, guarding, rebound, rigid Right Hip exam: Present: normal inspection, full ROM, tenderness. Absent: abrasion, ecchymosis, deformity Back exam: Present: tenderness. Absent: CVA tenderness (R), CVA tenderness (L) Neurological exam: Present: alert, oriented X3, CN II-XII intact Course Vital Signs 07/28/24 07/28/24 05:58 08:45 Temperature 97.9 F 98.2 F Pulse Rate 76 99 Respiratory 18 18 Rate Blood Pressure 159/96 155/89 O2 Sat by Pulse 98 97 Oximetry Medical Decision Making - Medical Decision Making Was pt. sent in by a medical professional or institution (, PA, NEW CAR MAKE READY WORKER, urgent care, hospital, or assisted...) When possible be specific @ -No Did you speak to anyone other than the patient for history (EMS, parent, family, police, friend...)? What history was obtained from this source @ -No Did you review nursing and triage notes (agree or disagree)? Why? @ -I reviewed and agree with nursing and triage notes Were old charts reviewed (outside hosp., previous admission, EMS record, old EKG, old radiological studies, urgent care reports/EKG's, assisted records)? Report findings @ -No old charts were reviewed Differential Diagnosis (chest pain, altered mental status, abdominal pain women, abdominal pain men, vaginal bleeding, weakness, fever, dyspnea, syncope, headache, dizziness, GI bleed, back pain, seizure, CVA, palpatations, mental health, musculoskeletal)? @ -Differential Musculoskeletal Muscular strain, contusion, ligament sprain, fracture, arthritis, septic arthritis, bursitis, cellulitis, muscle spasm, nerve compression, DVT, arterial occlusion, herpes zoster, electrolyte abnormality, tumor.... This is not meant to be in all inclusive list EKG interpreted by me (3pts min.). @ -none X-rays interpreted by me (1pt min.). @ -X-ray right hip and AP pelvis no acute findings of the right hip or pelvis X-ray of the lumbar spine completed with no evidence of acute displaced fracture or dislocation, degeneration changes CT interpreted by me (1pt min.). @ -None done U/S interpreted by me (1pt. min.). @ -None done What testing was considered but not performed or refused? (CT, X-rays, U/S, labs)? Why? @ -None What meds were considered but not given or refused? Why? @ -None Did you discuss the management of the patient with other professionals (professionals i.e. , PA, NEW CAR MAKE READY WORKER, lab, RT, psych nurse, social professionals, avionics engineer, teacher, hospital security officer, case aide)? Give summary @ -No Was smoking cessation discussed for >3mins.? @ -No Was critical care preformed (if so, how long)? @ -No Were there social determinants of health that impacted care today? How? (Homelessness, low income, unemployed, alcoholism, drug addiction, transportation, low edu. Level, literacy, decrease access to med. care, nursing home, rehab)? @ -No Was there de-escalation of care discussed even if they declined (Discuss DNR or withdrawal of care, Hospice)? DNR status @ -No What co-morbidities impacted this encounter? (DM, HTN, Smoking, COPD, CAD, Cancer, CVA, ARF, Chemo, Hep., AIDS, mental health diagnosis, sleep apnea, morbid obesity)? @ -None Was patient admitted / discharged? Hospital course, mention meds given and route, prescriptions, significant lab abnormalities, going to OR and other pertinent info. @ -Discharge. 69-year-old female presenting after mechanical fall. Patient is noted to be intoxicated on questioning. She is complaining of pain to the lumbar spine addition to right hip. There is no overlying skin changes or obvious deformities. Provided with dose of pain medication. X-ray is unremarkable. Recommend supportive treatment at home. Case discussed with Dr. Denise Undiagnosed new problem with uncertain prognosis? @ -No Drug Therapy requiring intensive monitoring for toxicity (Heparin, Nitro, Insulin, Cardizem)? @ -No Were any procedures done? @ -No Diagnosis/symptom? @ -Hip pain after fall Acute, or Chronic, or Acute on Chronic? @ -Acute Uncomplicated (without systemic symptoms) or Complicated (systemic symptoms)? @ -Uncomplicated Side effects of treatment? @ -No Exacerbation, Progression, or Severe Exacerbation? @ -No Poses a threat to life or bodily function? How? (Chest pain, [place], [place], pneumonia, PE, COPD, DKA, ARF, appy, cholecystitis, CVA, Diverticulitis, Homicidal, Suicidal, threat to staff... and all critical care pts) @ -No Disposition Clinical Impression: Fall, Back pain Disposition: HOME SELF-CARE Condition: Good Instructions (If sedation given, give patient instructions): Fall Prevention (ED) Additional Instructions: Please return to the Emergency Department if symptoms worsen or any other concerns. Is patient prescribed a controlled substance at d/c from ED?: No Referrals: None,Stated [Primary Care Provider] - 1-2 days Time of Disposition: 08:22
[2024-07-28] MEDS: ACETAMINOPHEN TAB 325 MG TAB PO STA (07:14)
--- NOTE | 2024-07-28 08:20 | XR ---
EXAM: XR Lumbosacral Spine, 2 or 3 Views CLINICAL HISTORY: ITS.REASON XR Reason: fall, pain TECHNIQUE: Frontal and lateral views of the lumbar spine and sacrum. COMPARISON: No relevant prior studies available. IMPRESSION: 1. No evidence of acutely displaced fracture or dislocation within the lumbar spine. 2. Degenerative changes. 3. Consider MRI if there is further concern given bone demineralization.
[2024-07-28 08:46] VITALS: BP 155/89; PULSE 99; TEMP 98.2
--- NOTE | 2024-07-28 14:19 | XR ---
EXAM: XR Right Hip With Pelvis When Performed, 2 or 3 Views CLINICAL HISTORY: PAIN TECHNIQUE: Two or three views of the right hip with pelvis when performed. COMPARISON: No relevant prior studies available. FINDINGS: Bones/joints: Mild degenerative changes are seen at the spine and hips. Calcifications likely representing fibroid overlies the pelvis. No acute fracture. No dislocation. Soft tissues: Unremarkable. IMPRESSION: No acute findings in the right hip.
== END 2024-07-28 08:47 | disposition home or self-care (01) ==
LOC: EC 05:49
DX: M54.9 Dorsalgia, unspecified (principal); Z86.73 Personal history of transient ischemic attack (TIA), and cerebral infarction without residual deficits; F17.200 Nicotine dependence, unspecified, uncomplicated; Z91.030 Bee allergy status; Z88.6 Allergy status to analgesic agent; W01.0XXA Fall on same level from slipping, tripping and stumbling without subsequent striking against object, initial encounter; Y93.01 Activity, walking, marching and hiking
CPT/HCPCS: 72100; 73502

== ENCOUNTER 2024-07-29 08:10 | Emergency (ER) | payer MEDICARE ==
[2024-07-29 08:15] VITALS: TEMP 98.3
--- NOTE | 2024-07-29 08:28 | ED ---
Back Pain HPI - General Chief Complaint: Back Pain/Injury Stated Complaint: Back pain Time Seen by Provider: 07/29/24 08:27 Source: patient, RN notes reviewed, old records reviewed Limitations: no limitations - History of Present Illness Initial Comments: 69-year-old female presented the ER for reevaluation of back pain s/p fall. Patient states yesterday she slipped out of her wheelchair landing on her bottom. Patient was seen here and had x-rays completed. There were no acute findings. Symptomatic control with Tylenol. Patient was discharged in stable condition. Patient reports increased pain since incident. Denies any new injuries or traumas. Patient does report mild radiation of discomfort to right leg. Patient has not taken anything for pain at this time. Patient is homeless. She denies any bowel or bladder incontinence/retention, fevers, saddle paresthesias or history of IV drug abuse. No other complaints - Related Data Previous Rx's Medication Instructions Recorded Acetaminophen Tab [Tylenol] 650 mg PO Q6HR PRN tab 07/24/24 Atorvastatin [Lipitor] 80 mg PO HS #30 tab 07/24/24 Clopidogrel [Plavix] 75 mg PO DAILY #30 tab 07/24/24 Fluticasone Nasal [place] [Flonase 2 spray EA NOSTRIL DAILY #7 ml 07/24/24 Nasal [place]] Loratadine [Claritin] 5 mg PO DAILY #30 tab 07/24/24 Nystatin 100,000 Unit/gm Powd 1 applic TOPICAL BID each 07/24/24 [Mycostatin Powder] Pantoprazole [Protonix] 40 mg PO AC-BRKFST #30 tab 07/24/24 Sertraline [Zoloft] 25 mg PO DAILY #30 tab 07/24/24 lisinopriL [Zestril] 10 mg PO DAILY #30 tab 07/24/24 predniSONE [Deltasone] 20 mg PO BID #8 tab 07/26/24 Allergies Allergy/AdvReac Type Severity Reaction Status Date / Time aspirin Allergy Swelling Verified 07/29/24 08:15 venom-honey bee Allergy Swelling Verified 07/29/24 08:15 [bee venom (honey bee)] Review of Systems ROS Statement: Those systems with pertinent positive or pertinent negative responses have been documented in the HPI. ROS Other: All systems not noted in ROS Statement are negative. Past Medical History Past Medical History: Asthma, Coronary Artery Disease (CAD), COPD, CVA/TIA, Hypertension, Myocardial Infarction ([place]), Musculoskeletal Disorder Additional Past Medical History / Comment(s): supposed to take BP meds, hasn't been able to get rx. Last Myocardial Infarction Date:: 2013? History of Any Multi-Drug Resistant Organisms: None Reported Past Surgical History: Section, Orthopedic Surgery Additional Past Surgical History / Comment(s): ORIF left ankle NOSE SURGERY Past Anesthesia/Blood Transfusion Reactions: No Reported Reaction Past Psychological History: Depression Smoking Status: Current every day smoker Past Alcohol Use History: Occasional Past Drug Use History: None Reported - Past Family History Brother(s) Additional Family Medical History / Comment(s): pts. brother recently from [place]igs disease General Exam Limitations: no limitations General appearance: alert, in no apparent distress Respiratory exam: Present: normal lung sounds bilaterally. Absent: respiratory distress, wheezes, rales, rhonchi, stridor Cardiovascular Exam: Present: regular rate, normal rhythm, normal heart sounds. Absent: systolic murmur, diastolic murmur, rubs, gallop, clicks Extremities exam: Present: normal inspection, full ROM, normal capillary refill (2+ bilateral DP pulses), other (Tenderness noted to right groin. No lymphadenopathy No overlying skin changes.). Absent: tenderness, pedal edema, joint swelling, calf tenderness Back exam: Present: normal inspection Neurological exam: Present: alert, oriented X3, CN II-XII intact Skin exam: Present: warm, dry, intact, normal color. Absent: rash Course Vital Signs 07/29/24 07/29/24 07/29/24 08:11 10:47 11:30 Temperature 98.3 F Pulse Rate 104 H 74 85 Respiratory 20 18 18 Rate Blood Pressure 137/107 150/80 152/74 O2 Sat by Pulse 95 97 97 Oximetry Medical Decision Making - Medical Decision Making Was pt. sent in by a medical professional or institution (, PA, GAME ARTIST, urgent care, hospital, or assisted...) When possible be specific @ -No Did you speak to anyone other than the patient for history (EMS, parent, family, police, friend...)? What history was obtained from this source @ -No Did you review nursing and triage notes (agree or disagree)? Why? @ -I reviewed and agree with nursing and triage notes Were old charts reviewed (outside hosp., previous admission, EMS record, old EKG, old radiological studies, urgent care reports/EKG's, assisted records)? Report findings @ -Yes, I reviewed ER visit from 07-28-2024. Patient seen here after a fall. Images completed at the time negative for acute process. Differential Diagnosis (chest pain, altered mental status, abdominal pain women, abdominal pain men, vaginal bleeding, weakness, fever, dyspnea, syncope, headache, dizziness, GI bleed, back pain, seizure, CVA, palpatations, mental health, musculoskeletal)? @ -Differential Back Pain: Strain, zoster, cauda equina syndrome, epidural abscess, vertebral osteomyelitis, discitis, fracture, subluxation, disc herniation, DJD, spinal stenosis, dissection, AAA, pancreatitis, peptic ulcer disease, pyelonephritis, kidney stone, this is not meant to be an all-inclusive list. EKG interpreted by me (3pts min.). @ -None done X-rays interpreted by me (1pt min.). @ -None done CT interpreted by me (1pt min.). @ -CT right hip showing no acute displaced fracture of the right hip or other abnormality of the hip joint or region. There is a redemonstrated calcified 2.2 cm lesion of the right pelvis possibly ovarian in nature. Etiology favored benign. CT lumbar spine negative negative for acute findings. U/S interpreted by me (1pt. min.). @ -None done What testing was considered but not performed or refused? (CT, X-rays, U/S, labs)? Why? @ -None What meds were considered but not given or refused? Why? @ -None Did you discuss the management of the patient with other professionals (professionals i.e. , PA, GAME ARTIST, lab, RT, psych nurse, social contact worker, chemistry faculty member, teacher, booking police officer, casework supervisor)? Give summary @ -No Was smoking cessation discussed for >3mins.? @ -No Was critical care preformed (if so, how long)? @ -No Were there social determinants of health that impacted care today? How? (Homelessness, low income, unemployed, alcoholism, drug addiction, transpor tation, low edu. Level, literacy, decrease access to med. care, correction, rehab)? @ -Patient is homeless Was there de-escalation of care discussed even if they declined (Discuss DNR or withdrawal of care, Hospice)? DNR status @ -No What co-morbidities impacted this encounter? (DM, HTN, Smoking, COPD, CAD, Cancer, CVA, ARF, Chemo, Hep., AIDS, mental health diagnosis, sleep apnea, morbid obesity)? @ -None Was patient admitted / discharged? Hospital course, mention meds given and route, prescriptions, significant lab abnormalities, going to OR and other pertinent info. @ -Discharge. 69-year-old female presented the ER for evaluation of back pain. Patient is neurovascularly intact. No red flag symptoms indicative cauda equina syndrome. There is focal tenderness to the right groin. Imaging completed in the ER negative for acute process. CT right hip showing a calcified 2.2 cm calcified lesion of the right pelvis possibly eitology ovarian this is stable from 2021. Patient given Tylenol for pain control. Upon reevaluation, patient resting comfortably on stretcher no signs of acute distress. Imaging results discussed with patient. I instructed her to follow- up closely with PCP and gynecology for further evaluation of back pain and calcified lesion. Strict return parameters discussed. Patient discharged in stable condition. Patient verbally expressed understanding agree with care plan. Case discussed with ED attending, . Undiagnosed new problem with uncertain prognosis? @ -No Drug Therapy requiring intensive monitoring for toxicity (Heparin, Nitro, Insulin, Cardizem)? @ -No Were any procedures done? @ -No Diagnosis/symptom? @ -Back pain/ calcified lesion of right pelvis Acute, or Chronic, or Acute on Chronic? @ -Acute Uncomplicated (without systemic symptoms) or Complicated (systemic symptoms)? @ -Uncomplicated Side effects of treatment? @ -No Exacerbation, Progression, or Severe Exacerbation? @ -No Poses a threat to life or bodily function? How? (Chest pain, [place], [place], pneumonia, PE, COPD, DKA, ARF, appy, cholecystitis, CVA, Diverticulitis, Homicidal, Suicidal, threat to staff... and all critical care pts) @ -No - Radiology Data Radiology results: report reviewed, image reviewed Disposition Clinical Impression: Back pain Disposition: HOME SELF-CARE Condition: Stable Instructions (If sedation given, give patient instructions): Acute Low Back Pain (ED) Additional Instructions: Follow-up with PCP. Return to the ER for any new or worsening concerns. Is patient prescribed a controlled substance at d/c from ED?: No Referrals: None,Stated [Primary Care Provider] - 1-2 days Forms: Area PCPs Time of Disposition: 10:53
[2024-07-29] MEDS: ACETAMINOPHEN TAB 500 MG TAB PO STA (08:57)
--- NOTE | 2024-07-29 10:01 | CT ---
EXAMINATION TYPE: CT hip RT wo con DATE OF EXAM: 07/29/2024 COMPARISON: CT abdomen and pelvis November 20, 2021 CLINICAL INDICATION: Female, 69 years old with history of pain s/p fall; PHH, RIGHT HIP PAIN CT DLP: 1003.3 mGycm Automated exposure control for dose reduction was used. FINDINGS: No acute displaced fracture in the right hip. Mild axial joint space loss is redemonstrated. No suspi cious focal osseous lesion. No significant joint effusion. Muscle bulk is maintained. No groin hernia or adenopathy is seen. There is redemonstration of a calcified 2.2 cm lesion in the right pelvis axial image 28 of uncertain etiology favored benign given stability in size from 2021 CT. Right ovarian etiology is suspected. A dvise gynecology follow-up. IMPRESSION: No acute findings are seen in the right hip. [facility], , 07/29/2024 9:58 AM
--- NOTE | 2024-07-29 10:03 | CT ---
EXAMINATION TYPE: CT lumbar spine wo con DATE OF EXAM: 07/29/2024 9:42 AM COMPARISON: Lumbar spine x-ray one day earlier CLINICAL INDICATION: Female, 69 years old with history of pain s/p fall; PHH, FALL, BACK PAIN TECHNIQUE: Unenhanced CT of the lumbar spine was performed. Bone and soft tissue window settings are submitted as well as coronal and sagittal reconstructions. CT DLP: 644.1 mGycm Automated exposure control for dose reduction was used. FINDINGS: There are 5 lumbar-type vertebra. There is dextroconvex scoliosis centered at L1-L2 level. No acute d isplaced fracture is seen. Vertebral body heights and disc space heights are fairly well-preserved. S shanelle canal is fairly well maintained. Posterior disc herniations at L3-L4 and L4-L5 levels efface th e thecal sac on sagittal image 36. There is mild to moderate multilevel facet arthropathy in the mid to lower lumbar spine and axial kyle ges. Moderate calcified plaque of the overlying abdominal aorta is noted. IMPRESSION: No acute findings are seen. [facility], , 07/29/2024 10:01 AM
[2024-07-29 10:49] VITALS: RESP 18
[2024-07-29 11:31] VITALS: BP 152/74; PULSE 85
== END 2024-07-29 11:50 | disposition home or self-care (01) ==
LOC: EC 08:10
DX: M61.451 Other calcification of muscle, right thigh (principal); M54.9 Dorsalgia, unspecified; R10.31 Right lower quadrant pain; F17.200 Nicotine dependence, unspecified, uncomplicated; Z91.030 Bee allergy status; Z88.6 Allergy status to analgesic agent; Z59.00 Homelessness unspecified; Z86.73 Personal history of transient ischemic attack (TIA), and cerebral infarction without residual deficits; W05.0XXA Fall from non-moving wheelchair, initial encounter
CPT/HCPCS: 72131; 99284

== ENCOUNTER 2024-09-06 10:56 | Emergency (ER) | payer MEDICARE ==
[2024-09-06 11:02] VITALS: RESP 18; TEMP 98
--- NOTE | 2024-09-06 12:12 | ED ---
General Adult HPI - General Chief complaint: Fall Stated complaint: Fall Time Seen by Provider: 09/06/24 10:59 Source: patient, EMS, RN notes reviewed Mode of arrival: EMS Limitations: physical limitation - History of Present Illness Initial comments: 69-year-old female presents to the emergency department for evaluation of fall. Patient states that she was attempting to move from a stationary chair to put her wheelchair. She states that she fell onto her right side while attempting to move. She does report right-sided paralysis from a prior CVA. She endorses pain in her right elbow and in her right knee. She does report hitting her head. Denies loss of consciousness. Denies blood thinners. She is noncompliant with her medications that she is unable to get them due to money. - Related Data Home Medications Medication Instructions Recorded Confirmed No Known Home Medications 09/06/24 09/06/24 Allergies Allergy/AdvReac Type Severity Reaction Status Date / Time aspirin Allergy Swelling/Na Verified 09/06/24 12:14 usea/Vomiti ng Penicillins Allergy Rash/Hives Verified 09/06/24 12:14 venom-honey bee Allergy Swelling Verified 09/06/24 12:14 [bee venom (honey bee)] Review of Systems ROS Statement: Those systems with pertinent positive or pertinent negative responses have been documented in the HPI. ROS Other: All systems not noted in ROS Statement are negative. Past Medical History Past Medical History: Asthma, Coronary Artery Disease (CAD), COPD, CVA/TIA, Hypertension, Myocardial Infarction ([place]), Musculoskeletal Disorder Additional Past Medical History / Comment(s): supposed to take BP meds, hasn't been able to get rx. Last Myocardial Infarction Date:: 2013? History of Any Multi-Drug Resistant Organisms: None Reported Past Surgical History: Section, Orthopedic Surgery Additional Past Surgical History / Comment(s): ORIF left ankle NOSE SURGERY Past Anesthesia/Blood Transfusion Reactions: No Reported Reaction Past Psychological History: Depression Smoking Status: Current every day smoker Past Alcohol Use History: Occasional Past Drug Use History: None Reported - Past Family History Brother(s) Additional Family Medical History / Comment(s): pts. brother recently from [place] disease General Exam Limitations: physical limitation General appearance: alert, in no apparent distress Head exam: Present: atraumatic, normocephalic, normal inspection Eye exam: Present: normal appearance, PERRL, EOMI. Absent: scleral icterus, conjunctival injection, periorbital swelling ENT exam: Present: normal exam, mucous membranes moist Neck exam: Present: normal inspection. Absent: tenderness, meningismus, lymphadenopathy Respiratory exam: Present: normal lung sounds bilaterally. Absent: respiratory distress, wheezes, rales, rhonchi, stridor Cardiovascular Exam: Present: regular rate, normal rhythm, normal heart sounds. Absent: systolic murmur, diastolic murmur, rubs, gallop, clicks GI/Abdominal exam: Present: soft. Absent: distended, tenderness, guarding, rebound, rigid Extremities exam: Present: full ROM, tenderness (Right medial elbow), normal capillary refill. Absent: pedal edema, joint swelling, calf tenderness Neurological exam: Present: alert, oriented X3 Psychiatric exam: Present: normal affect, normal mood Skin exam: Present: warm, dry, intact, normal color. Absent: rash Course Vital Signs 09/06/24 09/06/24 10:57 15:03 Temperature 98.0 F Pulse Rate 84 80 Respiratory 18 18 Rate Blood Pressure 130/72 136/78 O2 Sat by Pulse 97 98 Oximetry Medical Decision Making - Medical Decision Making Was pt. sent in by a medical professional or institution (, PA, BURIAL VAULT SETTER, urgent care, hospital, or long term...) When possible be specific @ -No Did you speak to anyone other than the patient for history (EMS, parent, family, police, friend...)? What history was obtained from this source @ -No Did you review nursing and triage notes (agree or disagree)? Why? @ -I reviewed and agree with nursing and triage notes Were old charts reviewed (outside hosp., previous admission, EMS record, old EKG, old radiological studies, urgent care reports/EKG's, long term records)? Report findings @ -No old charts were reviewed Differential Diagnosis (chest pain, altered mental status, abdominal pain women, abdominal pain men, vaginal bleeding, weakness, fever, dyspnea, syncope, headache, dizziness, GI bleed, back pain, seizure, CVA, palpatations, mental health, musculoskeletal)? @ -Fall, fracture, head injury, laceration, this list is not all inclusive EKG interpreted by me (3pts min.). @ -None X-rays interpreted by me (1pt min.). @ -X-ray no evidence of fracture of the right knee X-ray of the elbow shows chronic changes without evidence for acute fracture CT interpreted by me (1pt min.). @ -CT brain and C-spine no evidence of acute process U/S interpreted by me (1pt. min.). @ -None done What testing was considered but not performed or refused? (CT, X-rays, U/S, labs)? Why? @ -None What meds were considered but not given or refused? Why? @ -None Did you discuss the management of the patient with other professionals (professionals i.e. DrJonn, PA, BURIAL VAULT SETTER, lab, RT, psych nurse, social insurance adviser, junior qa analyst, teacher, information security officer, housing case manager)? Give summary @ -No Was smoking cessation discussed for >3mins.? @ -No Was critical care preformed (if so, how long)? @ -No Were there social determinants of health that impacted care today? How? (Homelessness, low income, unemployed, alcoholism, drug addiction, transportation, low edu. Level, literacy, decrease access to med. care, [facility], rehab)? @ -No Was there de-escalation of care discussed even if they declined (Discuss DNR or withdrawal of care, Hospice)? DNR status @ -No What co-morbidities impacted this encounter? (DM, HTN, Smoking, COPD, CAD, Cancer, CVA, ARF, Chemo, Hep., AIDS, mental health diagnosis, sleep apnea, morbid obesity)? @ -None Was patient admitted / discharged? Hospital course, mention meds given and route, prescriptions, significant lab abnormalities, going to OR and other pertinent info. @ -Discharge. Patient presented the emergency department for evaluation of right knee and elbow pain following a fall. She also endorses striking her head. She is not on blood thinners. Denies loss of consciousness. CT of the brain and C-spine revealed no evidence of acute process. X-rays obtained of the right elbow and right knee revealing no evidence of acute fracture. Patient was provided resources for obtaining her medications. She will be discharged home. She is understanding agreeable discharge plan. Patient stable at time of discharge. Case discussed with Dr. Law Undiagnosed new problem with uncertain prognosis? @ -No Drug Therapy requiring intensive monitoring for toxicity (Heparin, Nitro, Insu vincenzo, Cardizem)? @ -No Were any procedures done? @ -No Diagnosis/symptom? @ -Fall, head injury Acute, or Chronic, or Acute on Chronic? @ -Acute Uncomplicated (without systemic symptoms) or Complicated (systemic symptoms)? @ -Uncomplicated Side effects of treatment? @ -No Exacerbation, Progression, or Severe Exacerbation? @ -No Poses a threat to life or bodily function? How? (Chest pain, [place], [place], pneumonia, PE, COPD, DKA, ARF, appy, cholecystitis, CVA, Diverticulitis, Homicidal, Suicidal, threat to staff... and all critical care pts) @ -No Disposition Clinical Impression: Fall Disposition: HOME SELF-CARE Condition: Stable Instructions (If sedation given, give patient instructions): Fall Prevention for Older Adults (ED) Additional Instructions: Please follow up with your primary care provider. Return to the emergency department for new or worsening symptoms. Is patient prescribed a controlled substance at d/c from ED?: No Referrals: [facility] [NON-STAFF] - 1-2 days (Contact office to become established with a primary care provider and for more information.) None,Stated [Primary Care Provider] - 1-2 days Forms: [place] [facility] Pamphlet, [facility]
--- NOTE | 2024-09-06 13:19 | CT ---
EXAMINATION TYPE: CT brain arti kelly con DATE OF EXAM: 09/06/2024 COMPARISON: 11/03/2023 CLINICAL INDICATION: Female, 69 years old with history of fall; PHH, pain after fall TECHNIQUE: CT scan of the head and cervical spine are performed without contrast. CT DLP: 1264.[address] CTDI: mGy Automated exposure control for dose reduction was used. Findings: Head CT: The ventricles, basal cisterns and sulci over convexities are mildly enlarged consistent with mild at rophy. There is marked diffuse decreased density in the periventricular white matter consistent with marked chronic ischemic white matter demyelination. There is a stable large remote lacunar infarct in the right basal ganglia possibly affecting the repo rt anterior limb of the internal capsule. There is a small remote lacunar infarct in the region of th e posterior limb of the left internal capsule. There is no mass effect or shift of midline structures. There is no acute intra or extra-axial hemorrhage. Posterior fossa including the brainstem, fourth ventricle and cerebellar pontine angles are grossly n ormal. Intraorbital contents appear normal. There is interval development of marked inflammatory change in the left maxillary sinus which is near ly completely opacified. There is [id number] mucosal thickening in the right maxillary sinus. T he left mastoid air cells are not pneumatized. CT cervical spine: Craniovertebral junction relationships and prevertebral soft tissues are normal. The cervical vertebral segments are normal in height and alignment and there is no fracture subluxati on. There is mild disc space narrowing and spondylosis at the C3-4, C4-5, C5-6 and C6-7 levels indicating mild degenerative disc disease. The facet joints are intact. There is mild osteoarthritis of the unc overtebral joints in the mid lower cervical spine. The bony cervical canal is widely patent. There is mild bony neural foraminal encroachment at C3-4 bi laterally, at C5-6 on the left and at C6-7 on the right. The paraspinal soft tissues unremarkable. IMPRESSION: 1. Head CT: No acute bleed or mass effect. Mild atrophy, marked ischemic white matter demyelination a nd bilateral remote lacunar infarcts as described 2. CT cervical spine: No acute trauma. Mild multilevel degenerative disc disease and osteoarthritis o f the uncovertebral joints as described above. [facility], , 09/06/2024 1:17 PM
--- NOTE | 2024-09-06 13:30 | XR ---
EXAMINATION TYPE: XR humerus 2 views RT, XR knee complete 3 views RT DATE OF EXAM: 09/06/2024 1:12 PM COMPARISON: None CLINICAL INDICATION: Female, 69 years old with history of fall; PHH, pain FINDINGS: Right humerus: Mild degenerative spurring at the AC joint. Subacromial space is preserved. There is osteopenia. The glenohumeral joint. No humeral shaft fracture seen. Possible bony irregularity at the olecranon. There is an additional 4.5 mm bone density adjacent to t he olecranon. Suboptimal assessment of the elbow. Right knee: No acute fracture, subluxation, dislocation. No knee joint effusion. Extensor mechanism appears intac t. IMPRESSION: 1. Right humerus: Limited by osteopenia and bony overlap at the elbow. There may be some abnormal irr egularity at the olecranon. There is also a tiny 4.5 mm ossific density adjacent to the olecranon. Co rrelate for any localizing symptoms at the elbow. Dedicated radiographs if concern for acute injury h ere. 2. Right knee: No acute osseous abnormality seen. [facility], Workstation: [id number], 09/06/2024 1:28 PM
--- NOTE | 2024-09-06 14:30 | XR ---
EXAMINATION TYPE: XR elbow complete RT DATE OF EXAM: 09/06/2024 2:09 PM COMPARISON: Humerus radiograph earlier today CLINICAL INDICATION: Female, 69 years old with history of fall; PHH, pain TECHNIQUE: 3 views FINDINGS: Generalized muscle atrophy. Osteopenia. No matt elevation of the fat pads of the elbow. Small cystic densities at the tip of the olecranon measuring up to 3 mm at the appearance of chronic loose bodies . No acute fracture, subluxation, dislocation is seen. IMPRESSION: Limited by diffuse osteopenia. A couple densities measuring up to 3 mm at the tip of the olecranon crowder ve the appearance of chronic loose bodies. No evident joint effusion or acute osseous abnormality see n. Generalized muscle atrophy. [facility], , 09/06/2024 2:28 PM
[2024-09-06 15:05] VITALS: BP 136/78; PULSE 80
== END 2024-09-06 15:05 | disposition home or self-care (01) ==
LOC: EC 10:56
DX: M25.521 Pain in right elbow (principal); M25.561 Pain in right knee; F17.200 Nicotine dependence, unspecified, uncomplicated; Z88.6 Allergy status to analgesic agent; Z88.0 Allergy status to penicillin; Z91.030 Bee allergy status; W07.XXXA Fall from chair, initial encounter
CPT/HCPCS: 70450; 72125; 99284